=== PATIENT | male | born 1960 | race Hispanic/Latino ===

== ENCOUNTER 2016-12-20 17:06 | Emergency (ER) | payer OTHER ==
[2016-12-20 17:06] VITALS: BMI 22.6
[2016-12-20 17:22] VITALS: BP 134/74; PULSE 92; RESP 16; TEMP 98; O2SAT 94
--- NOTE | 2016-12-20 17:36 | ED PDOC ---
HPI: CCC, URI, Sore Throat Time Seen by Provider: 12/20/16 17:26 Chief Complaint (Nursing): Cough, Cold, Congestion Chief Complaint (Provider): Cough History Per: Patient History/Exam Limitations: no limitations Onset/Duration Of Symptoms: Hrs Current Symptoms Are (Timing): Still Present Location Of Pain: None Associated Symptoms: Cough. denies: Fever Severity: Mild Additional Complaint(s): Patient is a 56 year old male, well known to the ED, presents to the ED complaining of cough since earlier today. Patient requesting nebulizer treatment because of his cough. PMD: none Past Medical History Reviewed: Historical Data, Nursing Documentation, Vital Signs Vital Signs: Last Vital Signs Temp 98.0 F 12/20/16 17:20 Pulse 92 H 12/20/16 17:20 Resp 16 12/20/16 17:20 BP 134/74 12/20/16 17:20 Pulse Ox 94 L 12/20/16 18:09 - Medical History PMH: Asthma, Atrial Fibrillation, COPD, Hepatitis (C), Seizures - Surgical History Surgical History: Appendectomy, Tonsillectomy - Family History Family History: States: Unknown Family Hx - Home Medications Home Medications: Ambulatory Orders Medication Instructions Recorded Albuterol HFA [Ventolin HFA 90 2 puff IH [id number] PRN #60 puff 12/01/16 mcg/actuation (8 g)] - Allergies Allergies/Adverse Reactions: Allergies Allergy/AdvReac Type Severity Reaction Status Date / Time No Known Allergies Allergy Verified 12/20/16 17:20 Review of Systems ROS Statement: Except As Marked, All Systems Reviewed And Found Negative Cardiovascular: Negative for: Chest Pain Respiratory: Positive for: Cough Physical Exam - Reviewed Nursing Documentation Reviewed: Yes Vital Signs Reviewed: Yes - Physical Exam Appears: Positive for: Well, Non-toxic, No Acute Distress Head Exam: Positive for: ATRAUMATIC, NORMAL INSPECTION, NORMOCEPHALIC Skin: Positive for: Normal Color, Warm, DRY Eye Exam: Positive for: Normal appearance, EOMI Neck: Positive for: Normal, Painless ROM Cardiovascular/Chest: Positive for: Regular Rate, Rhythm. Negative for: Gallop , Murmur Respiratory: Positive for: Normal Breath Sounds. Negative for: Accessory Muscle Use, Rhonchi, Respiratory Distress Extremity: Positive for: Normal ROM Neurologic/Psych: Positive for: Alert, Oriented - ECG O2 Sat by Pulse Oximetry: 94 (RA) Pulse Ox Interpretation: Normal Medical Decision Making Medical Decision Making: Time: 17:30 Impression: 56 y/o male with cough Plan: Scribe Attestation: Documented by Ruth Chamberlain acting as a scribe for ANAY Sanchez. Provider Attestation: All medical record entries made by the Scribe were at my direction and personally dictated by me. I have reviewed the chart and agree that the record accurately reflects my personal performance of the history, physical exam, medical decision making, and the department course for this patient. I have also personally directed, reviewed, and agree with the discharge instructions and disposition.
== END 2016-12-20 20:22 | disposition home or self-care (01) ==
LOC: H.ER 17:06
DX: J44.9 Chronic obstructive pulmonary disease, unspecified (principal)

== ENCOUNTER 2016-12-27 22:02 | Observation (INO) | payer OTHER ==
[2016-12-27 22:02] VITALS: BMI 22.6
--- NOTE | 2016-12-27 22:51 | ED PDOC ---
HPI: Psych/Substance Abuse Time Seen by Provider: 12/27/16 22:23 Chief Complaint (Nursing): Alcohol Ingestion Chief Complaint (Provider): alcohol ED Caveat: Intoxicated History Per: Patient History/Exam Limitations: no limitations Additional Complaint(s): 56yo M in ED for eval of intoxication. seen routinely in ED for similar complaints denies any other medical complaints at this time. Past Medical History Reviewed: Historical Data, Nursing Documentation, Vital Signs - Medical History PMH: Asthma, Atrial Fibrillation, COPD, Hepatitis (C), Seizures - Surgical History Surgical History: Appendectomy, Tonsillectomy - Family History Family History: States: No Known Family Hx - Home Medications Home Medications: Ambulatory Orders Medication Instructions Recorded No Known Home Med 12/25/16 - Allergies Allergies/Adverse Reactions: Allergies Allergy/AdvReac Type Severity Reaction Status Date / Time No Known Allergies Allergy Verified 12/26/16 22:21 Review of Systems ROS Statement: Except As Marked, All Systems Reviewed And Found Negative Respiratory: Negative for: Cough Physical Exam - Reviewed Nursing Documentation Reviewed: Yes Vital Signs Reviewed: Yes - Physical Exam Appears: Positive for: Non-toxic Head Exam: Positive for: ATRAUMATIC, NORMAL INSPECTION, NORMOCEPHALIC Skin: Positive for: Normal Color, Warm, DRY Cardiovascular/Chest: Positive for: Regular Rate, Rhythm Respiratory: Positive for: CNT, Normal Breath Sounds Neurologic/Psych: Positive for: Alert, Oriented Medical Decision Making Medical Decision Making: pt with BS <100. given food. pt asleep in ED will be placed in observation. pt is intoxicated-slurred speech and gait. ED OBSERVATION Date of observation admission: 12/27/16 Time of observation admission: 22:55 - Observation admission statement Patient is being placed in observation because:: intoxication - Goals of Observation Goals of observation are:: sobriety clinical Disposition - Clinical Impression Clinical Impression: Alcohol abuse - Patient ED Disposition Is Patient to be Admitted: Transfer of Care - Disposition Disposition Time: 00:00 Condition: STABLE Patient Signed Over To: Jorgito Cheema
--- NOTE | 2016-12-28 05:17 | ED PDOC ---
Medical Decision Making Medical Decision Making: pt ambulatory steady gait. no signs of withdrawl. Disposition - Clinical Impression Clinical Impression: Alcohol abuse - POA Present On Arrival: None - Disposition Disposition: Routine/Home Disposition Time: 05:17 Condition: STABLE
== END 2016-12-28 06:01 | disposition home or self-care (01) ==
LOC: H.ER 22:02 → H.EROBSV 22:56
PROVIDERS: ADMIT Emergency Medicine; ATTEND Emergency Medicine
DX: F10.10 Alcohol abuse, uncomplicated (principal); J45.909 Unspecified asthma, uncomplicated

== ENCOUNTER 2016-12-31 02:46 | Emergency (ER) | payer OTHER ==
[2016-12-31 02:48] VITALS: BMI 22.6
[2016-12-31 02:58] VITALS: RESP 16
--- NOTE | 2016-12-31 03:33 | ED PDOC ---
HPI: Psych/Substance Abuse Time Seen by Provider: 12/31/16 03:04 Chief Complaint (Nursing): Alcohol Ingestion Chief Complaint (Provider): ETOH History Per: Patient, EMS Additional History Per: Patient Additional Complaint(s): 56 y/o male brought in by EMS for alcohol intoxication. Patient discharged a few hours ago after signing up for medication refill. Patient states he needs a place to sleep. Denies acute medical or psychiatric complaints. Past Medical History Reviewed: Historical Data, Nursing Documentation, Vital Signs Vital Signs: Last Vital Signs Temp 97.5 F L 12/31/16 02:56 Pulse 82 12/31/16 02:56 Resp 16 12/31/16 02:56 BP Pulse Ox 100 12/31/16 02:56 - Medical History PMH: Asthma, Atrial Fibrillation, COPD, Hepatitis (C), Seizures - Surgical History Surgical History: Appendectomy, Tonsillectomy - Family History Family History: States: Unknown Family Hx - Home Medications Home Medications: Ambulatory Orders Medication Instructions Recorded Albuterol HFA [Ventolin HFA 90 1 puff IH Q4 PRN #1 inh 12/31/16 mcg/actuation (8 g)] - Allergies Allergies/Adverse Reactions: Allergies Allergy/AdvReac Type Severity Reaction Status Date / Time No Known Allergies Allergy Verified 12/31/16 00:07 Review of Systems ROS Statement: Except As Marked, All Systems Reviewed And Found Negative Physical Exam - Reviewed Nursing Documentation Reviewed: Yes Vital Signs Reviewed: Yes - Physical Exam Appears: Positive for: Well, Non-toxic, No Acute Distress Head Exam: Positive for: ATRAUMATIC, NORMAL INSPECTION, NORMOCEPHALIC Skin: Positive for: Normal Color Eye Exam: Positive for: Normal appearance Cardiovascular/Chest: Positive for: Regular Rate, Rhythm Respiratory: Positive for: Normal Breath Sounds Extremity: Positive for: Normal ROM Neurologic/Psych: Positive for: Alert, Oriented - ECG O2 Sat by Pulse Oximetry: 100 Disposition - Clinical Impression Clinical Impression: Alcohol abuse - Patient ED Disposition Is Patient to be Admitted: No Counseled Patient/Family Regarding: Diagnosis, Need For Followup - Disposition Disposition: Routine/Home Disposition Time: 05:25 Condition: STABLE Instructions: Abuse of Alcohol (ED)
[2016-12-31 05:28] VITALS: BP 142/85; PULSE 88; TEMP 98.6; O2SAT 99
== END 2016-12-31 05:30 | disposition home or self-care (01) ==
LOC: H.ER 02:46
DX: F10.10 Alcohol abuse, uncomplicated (principal); J44.9 Chronic obstructive pulmonary disease, unspecified

== ENCOUNTER 2017-01-24 18:09 | Observation (INO) | payer OTHER ==
[2017-01-24 18:09] VITALS: BMI 22.6
[2017-01-24] MEDS ORDERED: Albuterol-Ipratrop 3 mg / 0.5 (3 ml) UD INH STA (18:22)
[2017-01-24] MEDS ORDERED: Albuterol-Ipratrop 3 mg / 0.5 (3 ml) UD ONE (18:32)
--- NOTE | 2017-01-24 18:53 | ED PDOC ---
HPI: SOB/CHF/COPD Time Seen by Provider: 01/24/17 18:18 Chief Complaint (Nursing): Shortness Of Breath Chief Complaint (Provider): Asthma, cough History Per: Patient History/Exam Limitations: no limitations Onset/Duration Of Symptoms: Days Current Symptoms Are (Timing): Still Present Initiating Event: Out Of Medications Context: Pt states he does not fill his Rx for albuterol Current Respiratory Medications: Albuterol Associated Symptoms: denies: Fever, Chills, Sweating, Chest Pain, Bloody Cough, Productive Cough, Heart Racing, Dizziness, Anxiety, Tingling In Hands Or Face, Musle Spasms In Hands Or Feet Past Medical History Reviewed: Historical Data, Nursing Documentation, Vital Signs Vital Signs: Last Vital Signs Temp 98.1 F 01/24/17 18:29 Pulse 72 01/24/17 18:29 Resp 18 01/24/17 18:30 BP 118/85 01/24/17 18:29 Pulse Ox 96 01/24/17 19:21 - Medical History PMH: Asthma, Atrial Fibrillation, COPD, Hepatitis (C), Seizures - Surgical History Surgical History: Appendectomy, Tonsillectomy - Family History Family History: States: Unknown Family Hx - Social History Current smoker - smoking cessation education provided: No Alcohol: None Drugs: Denies - Home Medications Home Medications: Ambulatory Orders Medication Instructions Recorded Albuterol HFA [Ventolin HFA 90 1 puff IH Q4 PRN #1 inh 12/31/16 mcg/actuation (8 g)] - Allergies Allergies/Adverse Reactions: Allergies Allergy/AdvReac Type Severity Reaction Status Date / Time No Known Allergies Allergy Verified 01/24/17 18:14 Review of Systems ROS Statement: Except As Marked, All Systems Reviewed And Found Negative Respiratory: Positive for: Cough, Wheezing Physical Exam - Reviewed Nursing Documentation Reviewed: Yes Vital Signs Reviewed: Yes - Physical Exam Appears: Positive for: Well, Non-toxic, No Acute Distress Head Exam: Positive for: ATRAUMATIC, NORMAL INSPECTION, NORMOCEPHALIC Skin: Positive for: Normal Color, Warm, DRY Eye Exam: Positive for: Normal appearance ENT: Positive for: Normal ENT Inspection Neck: Positive for: Normal, Painless ROM Cardiovascular/Chest: Positive for: Regular Rate, Rhythm Respiratory: Positive for: Normal Breath Sounds. Negative for: Accessory Muscle Use Gastrointestinal/Abdominal: Positive for: Normal Exam, Bowel Sounds, Soft Back: Positive for: Normal Inspection Extremity: Positive for: Normal ROM Neurologic/Psych: Positive for: Alert, Oriented - ECG O2 Sat by Pulse Oximetry: 96 Pulse Ox Interpretation: Normal Medical Decision Making Medical Decision Makin - Pt requesting food. Abnormal CXR - CT chest ordered. Endorsed at [address] chest. Disposition - Clinical Impression Clinical Impression: Cough - Patient ED Disposition Is Patient to be Admitted: Transfer of Care - Disposition Disposition: Transfer of Care Disposition Time: 19:25 Condition: GOOD
--- NOTE | 2017-01-24 20:53 | CT ---
EXAM: CT Chest Without Intravenous Contrast CLINICAL HISTORY: 57 years old, male; Signs and symptoms; Cough and other: Abnormal cxr; Symptoms not specified; Additional info: Cough, abnormal cxr TECHNIQUE: Axial computed tomography images of the chest without intravenous contrast. This CT exam was performed using one or more of the following dose reduction techniques: automated exposure control, adjustment of the mA and/or kV according to patient size, and/or use of iterative reconstruction technique. Coronal and sagittal reformatted images were created and reviewed. EXAM DATE/TIME: 01/24/2017 7:24 PM COMPARISON: CR - CHEST PORTABLE 01/13/2017 1:22:51 AM FINDINGS: Artifacts: Motion artifact degrades image quality. Lungs and pleural spaces: Trachea and main bronchi are patent. There is minimal scarring at the lung apices. There are blebs at the lung apices. There is airspace disease greatest in right lower lobe. There is minimal airspace disease at the left base. There is a small right effusion. There is no left effusion. Heart and vasculature: Heart size is at the upper limits of normal. There are coronary artery calcifications. Ascending aorta is mildly dilated, 4.3 cm in diameter. The diameter tapers at the arch.There are vascular calcifications. Mediastinum: There is a hiatal hernia. Esophagus is not optimally evaluated. There are shotty precarinal nodes.Maru are not optimally evaluated without contrast material. Thyroid: Thyroid is not optimally demonstrated. Bones/joints: Bony structures are osteopenic. There are degenerative changes. There is mild compression deformity T4. There multiple healed right rib fractures. Soft tissues: unremarkable Upper abdomen: There is trace ascites in the upper abdomen. Hepatic contours are mildly nodular. Multiple serpiginous structures in the left upper quadrant suggest varices. Other findings: There are no prior studies for comparison. IMPRESSION: Top normal heart size with atherosclerotic disease, ascending aortic aneurysm 4.3 cm in maximal diameter; right lower lobe airspace disease with small right effusion; minimal heterogeneous density left base; possible cirrhosis and varices Additional findings as described above.
--- NOTE | 2017-01-24 23:41 | ED PDOC ---
- Laboratory Results Result Diagrams: 01/25/17 04:52 01/25/17 04:52 - ECG O2 Sat by Pulse Oximetry: 96 - Progress ED Course And Treament: pt signed out to account underwriter pending CT scan of chest. suspected abnormality on xray pt with difficultly breathing given breathing treatments in ED 4:28 PT began vomiting in ED states he has abd pain due to vomiting. will get labs- cbc/cmp/UA and given zofran and librium. Re-evaluation Time: 23:41 Condition: Re-examined (well appearing, sleeping. ) Medical Decision Making Medical Decision Making: abnormal labs: WBC low-however pt with hx of low WBC lowest 2.7- pt denies IV drug use and states he hasn't had sexual relations in "years"-pt offered rapid HIV, but declined. lipase-elevated, however with standing hx of elevated lipase and liver enzymes due to alcohol abuse. pt offered librium-but declined. pt at this time no longer with vomiting or nausea VS stable.Pt improved and advised to f.u outpt. Pt is clincally sober. Ct scan shows: Ascending aorta is mildly dilated, 4.3 cm in diameter pt made aware. Disposition - Clinical Impression Clinical Impression: Cough - POA Present On Arrival: None - Disposition Disposition: Routine/Home Disposition Time: 05:34 Condition: GOOD Progress Note - Review of Symptoms General: No: Chills, Night Sweats, Fatigue, Malaise, Appetite, Other HEENT: No: Head Aches, Visual Changes, Eye Pain, Ear Pain, Dysphasia, Sinus Congestion, Post Nasal Drip, Sore Throat, Other Pulmonary: No: Dyspnea, Cough, Pleuritic Chest Pain, Other Cardiovascular: No: Chest Pain, Palpitations, Orthopnea, Paroxysmal Noc. Dyspnea , Edema, Light Headedness, Other Gastrointestinal: No: Nausea, Vomiting, Abdominal Pain, Diarrhea, Constipation, Melena, Hematochezia, Other Genitourinary: No: Dysuria, Frequency, Incontinence, Hematuria, Retention, Other Musculoskeletal: No: Muscle Pain, Joint Pain, Other ED OBSERVATION Date of observation admission: 01/24/17 Time of observation admission: 23:41 - Observation admission statement Patient is being placed in observation because:: intoxication - Goals of Observation Goals of observation are:: clinical sobriety
[2017-01-25 04:48] VITALS: PULSE 89; RESP 16
[2017-01-25 05:06] LABS: BASO # 0.1 K/uL (0.0-0.2); BASO % 2.1 % (0.0-2.0); EOS # 0.1 K/uL (0.0-0.7); EOS % 1.9 % (0.0-4.0); HEMATOCRIT 37.6 % (35.0-51.0); LYMPH # 0.8 K/uL (1.0-4.3); LYMPH % 25.4 % (20.0-40.0); MEAN CELL VOLUME 104.2 fl (80.0-94.0); MEAN CORPUSCULAR HEMOGLOBIN 35.9 pg (27.0-31.0); MEAN CORPUSCULAR HGB CONC 34.4 g/dL (33.0-37.0); MEAN PLATELET VOLUME 9.4 fl (7.2-11.7); MONO # 0.4 K/uL (0.0-0.8); MONO % 13.3 % (0.0-10.0); NEUT # 1.7 K/uL (1.8-7.0); NEUT % 57.3 % (50.0-75.0); NRBC % 0.3 % (0.0-0.0); RED CELL DISTRIBUTION WIDTH 13.3 % (11.5-14.5)
[2017-01-25 05:11] LABS: ALB/GLOB RATIO 0.8 (1.0-2.1); ALCOHOL SERUM 62 mg/dl (0-10); ALKALINE PHOSPHATASE 147 U/L (38-126); ALT/SGPT 62 U/L (21-72); AST/SGOT 105 U/L (17-59); BILIRUBIN,TOTAL 0.8 mg/dl (0.2-1.3); BLOOD UREA NITROGEN 14 mg/dl (9-20); CALCIUM 8.2 mg/dL (8.4-10.2); CARBON DIOXIDE 25 mmol/L (22-30); CHLORIDE 105 mmol/L (98-107); GFR AFRICAN-AMERICAN > 60; GLUCOSE,RANDOM 107 mg/dL (75-110); LIPASE 301 U/L (23-300); POTASSIUM 3.7 MMOL/L (3.6-5.0); SODIUM 141 mmol/l (132-148); TOTAL PROTEIN 7.7 G/DL (6.3-8.2)
[2017-01-25 06:55] VITALS: BP 132/82; TEMP 98; O2SAT 95
--- NOTE | 2017-01-25 10:44 | RAD ---
HISTORY: cough COMPARISON: Chest x-ray performed 01/13/17, CT chest without contrast performed 01/24/17 TECHNIQUE: Chest PA and lateral FINDINGS: LUNGS: Right basilar atelectasis or infiltrate. Mild left basilar atelectasis. Tiny right pleural effusion. No definite pneumothorax. Please note that chest x-ray has limited sensitivity for the detection of pulmonary masses. CARDIOVASCULAR: Prominent mediastinum compatible with aneurysmal dilatation described on CT of the chest performed the same day. OSSEOUS STRUCTURES: Chronic appearing right rib fracture deformities. VISUALIZED UPPER ABDOMEN: Unremarkable. OTHER FINDINGS: None. IMPRESSION: Right basilar atelectasis or infiltrate. Mild left basilar atelectasis. Tiny right pleural effusion. Prominent mediastinum compatible with aneurysmal dilatation described on CT of the chest performed the same day.
== END 2017-01-25 06:20 | disposition home or self-care (01) ==
LOC: H.ER 18:09 → H.EROBSV 23:42
PROVIDERS: ADMIT Emergency Medicine; ATTEND Emergency Medicine
DX: R05 Cough (principal); J44.9 Chronic obstructive pulmonary disease, unspecified; J45.909 Unspecified asthma, uncomplicated; D72.819 Decreased white blood cell count, unspecified; I48.91 Unspecified atrial fibrillation; Z86.19 Personal history of other infectious and parasitic diseases

== ENCOUNTER 2017-01-27 01:22 | Emergency (ER) | payer OTHER ==
[2017-01-27 01:23] VITALS: BMI 22.6
[2017-01-27 01:40] VITALS: BP 114/65; PULSE 78; RESP 16; TEMP 98.1
--- NOTE | 2017-01-27 01:57 | ED PDOC ---
HPI: General Adult Time Seen by Provider: 01/27/17 01:26 Chief Complaint (Nursing): Shortness Of Breath Chief Complaint (Provider): alcohol intoxication History Per: Patient History/Exam Limitations: no limitations Onset/Duration Of Symptoms: Mins Have you had recent travel within the past 21 days to any of the following countries: [place], [place], [place] or [place]?: No Current Symptoms Are (Timing): Still Present Additional Complaint(s): 57yo male well known to ED and provider for multiple previous visits presents to the ED for evaluation of alcohol intoxication. Patient denies any medical complaints. Past Medical History Reviewed: Historical Data, Nursing Documentation, Vital Signs Vital Signs: Last Vital Signs Temp 98.1 F 01/27/17 01:39 Pulse 78 01/27/17 01:39 Resp 16 01/27/17 02:06 BP 114/65 01/27/17 01:39 Pulse Ox 96 01/27/17 05:26 - Medical History PMH: Asthma, Atrial Fibrillation, COPD, Hepatitis (C), Seizures - Surgical History Surgical History: Appendectomy, Tonsillectomy - Family History Family History: States: Unknown Family Hx - Social History Current smoker - smoking cessation education provided: No Alcohol: > 2 Drinks/Day Drugs: Denies - Home Medications Home Medications: Ambulatory Orders Medication Instructions Recorded Albuterol HFA [Ventolin HFA 90 1 puff IH Q4 PRN #1 inh 12/31/16 mcg/actuation (8 g)] - Allergies Allergies/Adverse Reactions: Allergies Allergy/AdvReac Type Severity Reaction Status Date / Time No Known Allergies Allergy Verified 01/24/17 18:14 Review of Systems ROS Statement: Except As Marked, All Systems Reviewed And Found Negative Physical Exam - Reviewed Nursing Documentation Reviewed: Yes Vital Signs Reviewed: Yes - Physical Exam Appears: Positive for: Well, No Acute Distress Head Exam: Positive for: ATRAUMATIC, NORMAL INSPECTION, NORMOCEPHALIC Skin: Positive for: Normal Color, Warm, Dry Eye Exam: Positive for: Normal appearance ENT: Positive for: Normal ENT Inspection Neck: Positive for: Normal, Painless ROM, Supple Cardiovascular/Chest: Positive for: Regular Rate, Rhythm. Negative for: Tachycardia Respiratory: Positive for: Normal Breath Sounds. Negative for: Respiratory Distress Gastrointestinal/Abdominal: Positive for: Normal Exam, Soft. Negative for: Tenderness Back: Positive for: Normal Inspection Extremity: Positive for: Normal ROM. Negative for: Deformity, Swelling Neurologic/Psych: Positive for: Alert, Oriented - ECG O2 Sat by Pulse Oximetry: 96 Pulse Ox Interpretation: Normal (RA) Medical Decision Making Medical Decision Makin: Impression: 57yo male brought for evaluation of alcohol intoxication Plan: Observe pending clinical sobriety. 0530: Patient clinically sober and stable for d/c. Scribe Attestation: Documented by Jaycee Michael acting as a scribe for Renaldo Gates MD. Provider Scribe Attestation: All medical record entries made by the Scribe were at my direction and personally dictated by me. I have reviewed the chart and agree that the record accurately reflects my personal performance of the history, physical exam, medical decision making, and the department course for this patient. I have also personally directed, reviewed, and agree with the discharge instructions and disposition. Disposition - Clinical Impression Clinical Impression: Alcoholism /alcohol abuse - Patient ED Disposition Is Patient to be Admitted: No - Disposition Disposition: Routine/Home Disposition Time: 05:30 Condition: STABLE
[2017-01-27 05:06] VITALS: O2SAT 96
== END 2017-01-27 07:01 | disposition home or self-care (01) ==
LOC: H.ER 01:22
DX: F10.20 Alcohol dependence, uncomplicated (principal); B19.20 Unspecified viral hepatitis C without hepatic coma; I48.91 Unspecified atrial fibrillation; J44.9 Chronic obstructive pulmonary disease, unspecified; J45.909 Unspecified asthma, uncomplicated

== ENCOUNTER 2017-01-27 23:10 | Observation (INO) | payer OTHER ==
[2017-01-27 23:10] VITALS: BMI 22.6
[2017-01-27 23:14] VITALS: O2SAT 96
--- NOTE | 2017-01-28 00:10 | ED PDOC ---
HPI: Psych/Substance Abuse Time Seen by Provider: 01/27/17 23:34 Chief Complaint (Nursing): Alcohol Ingestion History Per: EMS Additional Complaint(s): Pt. brought in by EMS for apparent ETOH intoxication. Pt. admits to drinking "3 pints of vodka" today. Offers no complaints at this time. Past Medical History Reviewed: Historical Data, Nursing Documentation, Vital Signs Vital Signs: Last Vital Signs Temp 97 F L 01/27/17 23:11 Pulse 105 H 01/27/17 23:11 Resp 18 01/27/17 23:11 BP 123/76 01/27/17 23:11 Pulse Ox 96 01/27/17 23:11 - Medical History PMH: Asthma, Atrial Fibrillation, COPD, Hepatitis (C), Seizures - Surgical History Surgical History: Appendectomy, Tonsillectomy - Family History Family History: States: No Known Family Hx - Home Medications Home Medications: Ambulatory Orders Medication Instructions Recorded Albuterol HFA [Ventolin HFA 90 1 puff IH Q4 PRN #1 inh 12/31/16 mcg/actuation (8 g)] - Allergies Allergies/Adverse Reactions: Allergies Allergy/AdvReac Type Severity Reaction Status Date / Time No Known Allergies Allergy Verified 01/24/17 18:14 Review of Systems Review Of Systems: ROS cannot be obtained secondary to pt's inabilty to answer questions. Physical Exam - Reviewed Nursing Documentation Reviewed: Yes Vital Signs Reviewed: Yes - Physical Exam Appears: Positive for: Well, Non-toxic, No Acute Distress Head Exam: Positive for: ATRAUMATIC, NORMAL INSPECTION, NORMOCEPHALIC Skin: Positive for: Normal Color, Warm. Negative for: Rash Eye Exam: Positive for: EOMI, Normal appearance, PERRL ENT: Positive for: Normal ENT Inspection Neck: Positive for: Normal, Painless ROM Cardiovascular/Chest: Positive for: Regular Rate, Rhythm. Negative for: Tachycardia Respiratory: Positive for: CNT, Normal Breath Sounds Gastrointestinal/Abdominal: Positive for: Normal Exam, Soft. Negative for: Tenderness Back: Positive for: Normal Inspection Extremity: Positive for: Normal ROM Neurologic/Psych: Positive for: Alert, Oriented - ECG O2 Sat by Pulse Oximetry: 96 ED OBSERVATION Date of observation admission: 01/28/17 Time of observation admission: 00:09 - Observation admission statement Patient is being placed in observation because:: ETOH - Progress Note Progress Note: 01/28/17 00:10 Repeat HR: 82 Disposition - Clinical Impression Clinical Impression: Alcohol abuse - Patient ED Disposition Is Patient to be Admitted: Transfer of Care (Signed out to Juan Carlos SALDANA pending sobriety) - Disposition Disposition Time: 00:10 Condition: STABLE
--- NOTE | 2017-01-28 06:15 | ED PDOC ---
- ECG O2 Sat by Pulse Oximetry: 96 - Progress ED Course And Treament: Case endorsed to feature writer from Ector SALDANA pending clinical sobriety 2:00 Patient sleeping; no distress 4:00 Patient awake, alert, oriented x 3; ambulating stead gait. Stable for discharge Disposition - Clinical Impression Clinical Impression: Alcohol abuse - POA Present On Arrival: None - Disposition Disposition: Routine/Home Disposition Time: 04:00 Condition: STABLE
[2017-01-28 06:57] VITALS: BP 121/74; PULSE 78; RESP 17; TEMP 97.9
== END 2017-01-28 04:00 | disposition home or self-care (01) ==
LOC: H.ER 23:10 → H.EROBSV 01-28
PROVIDERS: ADMIT Emergency Medicine; ATTEND Emergency Medicine
DX: F10.10 Alcohol abuse, uncomplicated (principal); J45.909 Unspecified asthma, uncomplicated; J44.9 Chronic obstructive pulmonary disease, unspecified; G40.909 Epilepsy, unspecified, not intractable, without status epilepticus; I48.2 Chronic atrial fibrillation; K75.9 Inflammatory liver disease, unspecified

== ENCOUNTER 2017-01-29 22:03 | Emergency (ER) | payer OTHER ==
[2017-01-29 22:03] VITALS: BMI 22.6
[2017-01-29 22:13] VITALS: RESP 16; TEMP 97.7
[2017-01-29] MEDS ORDERED: Albuterol-Ipratrop 3 mg / 0.5 (3 ml) UD INH STA (22:18)
--- NOTE | 2017-01-30 03:36 | ED PDOC ---
HPI: General Adult Time Seen by Provider: 01/29/17 22:17 Chief Complaint (Nursing): Respiratory Distress Chief Complaint (Provider): ETOH - Asthma History Per: Patient History/Exam Limitations: no limitations Onset/Duration Of Symptoms: Days Have you had recent travel within the past 21 days to any of the following countries: [place], [place], [place] or [place]?: No Additional Complaint(s): Pt states he needs a treatment and to sleep. Denies chest pain or SOB. Past Medical History Reviewed: Historical Data, Nursing Documentation, Vital Signs Vital Signs: Last Vital Signs Temp 97.7 F 01/29/17 22:09 Pulse 91 H 01/29/17 22:09 Resp 16 01/29/17 22:19 BP 127/70 01/29/17 22:09 Pulse Ox 98 01/29/17 22:09 - Medical History PMH: Asthma, Atrial Fibrillation, COPD, Hepatitis (C), Seizures - Surgical History Surgical History: Appendectomy, Tonsillectomy - Family History Family History: States: No Known Family Hx - Living Arrangements Living Arrangements: With Family - Social History Current smoker - smoking cessation education provided: No - Home Medications Home Medications: Ambulatory Orders Medication Instructions Recorded Albuterol HFA [Ventolin HFA 90 1 puff IH Q4 PRN #1 inh 12/31/16 mcg/actuation (8 g)] - Allergies Allergies/Adverse Reactions: Allergies Allergy/AdvReac Type Severity Reaction Status Date / Time No Known Allergies Allergy Verified 01/24/17 18:14 Review of Systems ROS Statement: Except As Marked, All Systems Reviewed And Found Negative Respiratory: Positive for: Wheezing Physical Exam - Reviewed Nursing Documentation Reviewed: Yes Vital Signs Reviewed: Yes - Physical Exam Appears: Positive for: Well, Non-toxic, No Acute Distress Head Exam: Positive for: ATRAUMATIC, NORMAL INSPECTION, NORMOCEPHALIC Skin: Positive for: Normal Color, Warm, DRY Eye Exam: Positive for: Normal appearance ENT: Positive for: Normal ENT Inspection Neck: Positive for: Normal, Painless ROM Cardiovascular/Chest: Positive for: Regular Rate, Rhythm Respiratory: Positive for: Normal Breath Sounds. Negative for: Accessory Muscle Use Back: Positive for: Normal Inspection Extremity: Positive for: Normal ROM Neurologic/Psych: Positive for: Alert, Oriented - ECG O2 Sat by Pulse Oximetry: 98 Pulse Ox Interpretation: Normal Medical Decision Making Medical Decision Making: Lanceb given - No wheezing on re-evaluation. Pt reports feeling better. Disposition - Clinical Impression Clinical Impression: Asthma, Homeless single person - Patient ED Disposition Is Patient to be Admitted: No Counseled Patient/Family Regarding: Diagnosis, Need For Followup - Disposition Referrals: [facility] [Outside] Disposition: Routine/Home Disposition Time: 03:36 Condition: STABLE Instructions: Asthma (ED)
[2017-01-30 05:29] VITALS: BP 125/80; PULSE 75; O2SAT 95
== END 2017-01-30 05:47 | disposition home or self-care (01) ==
LOC: H.ER 22:03
DX: J44.9 Chronic obstructive pulmonary disease, unspecified (principal); J45.909 Unspecified asthma, uncomplicated; Z59.0 Homelessness

== ENCOUNTER 2017-01-30 21:56 | Emergency (ER) | payer OTHER ==
[2017-01-30 21:56] VITALS: BMI 22.6
[2017-01-30 22:02] VITALS: BP 114/76; PULSE 78; RESP 18; TEMP 97.1; O2SAT 99
--- NOTE | 2017-01-30 22:08 | ED PDOC ---
HPI: Psych/Substance Abuse Time Seen by Provider: 01/30/17 22:03 Chief Complaint (Nursing): Alcohol Ingestion Chief Complaint (Provider): Alcohol intoxication History Per: Patient Additional Complaint(s): Patient [place] the park. No distress or complaints. Pt asking for bowl of ceral upon arrival. Well known to ED staff and procedure writer. Presents daily for the same Past Medical History Reviewed: Nursing Documentation, Vital Signs Vital Signs: Last Vital Signs Temp 97.1 F L 01/30/17 21:59 Pulse 78 01/30/17 21:59 Resp 18 01/30/17 21:59 BP 114/76 01/30/17 21:59 Pulse Ox 99 01/30/17 21:59 - Medical History PMH: Asthma, Atrial Fibrillation, COPD, Hepatitis (C), Seizures - Surgical History Surgical History: Appendectomy, Tonsillectomy - Family History Family History: States: No Known Family Hx - Living Arrangements Living Arrangements: Other - Social History Alcohol: > 2 Drinks/Day - Home Medications Home Medications: Ambulatory Orders Medication Instructions Recorded Albuterol HFA [Ventolin HFA 90 1 puff IH Q4 PRN #1 inh 12/31/16 mcg/actuation (8 g)] - Allergies Allergies/Adverse Reactions: Allergies Allergy/AdvReac Type Severity Reaction Status Date / Time No Known Allergies Allergy Verified 01/24/17 18:14 Review of Systems ROS Statement: Except As Marked, All Systems Reviewed And Found Negative Physical Exam - Reviewed Nursing Documentation Reviewed: Yes Vital Signs Reviewed: Yes - Physical Exam Appears: Positive for: Well, Non-toxic, No Acute Distress Head Exam: Positive for: ATRAUMATIC, NORMAL INSPECTION, NORMOCEPHALIC Skin: Positive for: Normal Color, Warm, DRY Eye Exam: Positive for: EOMI, Normal appearance, PERRL ENT: Positive for: Normal ENT Inspection Neck: Positive for: Normal, Painless ROM Cardiovascular/Chest: Positive for: Regular Rate, Rhythm Respiratory: Positive for: CNT, Normal Breath Sounds Gastrointestinal/Abdominal: Positive for: Normal Exam, Bowel Sounds, Soft Back: Positive for: Normal Inspection Extremity: Positive for: Normal ROM Neurologic/Psych: Positive for: Alert, Oriented - ECG O2 Sat by Pulse Oximetry: 99 Medical Decision Making Medical Decision Making: No medical intervention needed at this time Disposition - Clinical Impression Clinical Impression: Alcohol dependence - Patient ED Disposition Is Patient to be Admitted: No - Disposition Disposition: Routine/Home Disposition Time: 22:08 Condition: STABLE - POA Present On Arrival: None
== END 2017-01-30 23:57 | disposition home or self-care (01) ==
LOC: H.ER 21:56
DX: F10.20 Alcohol dependence, uncomplicated (principal); I48.91 Unspecified atrial fibrillation; J44.9 Chronic obstructive pulmonary disease, unspecified; J45.909 Unspecified asthma, uncomplicated

== ENCOUNTER 2017-02-05 03:24 | Emergency (ER) | payer OTHER ==
[2017-02-05 03:24] VITALS: BMI 21.2
[2017-02-05 05:11] VITALS: PULSE 81
[2017-02-05 05:16] VITALS: BP 131/85; RESP 17; TEMP 98.2; O2SAT 97
--- NOTE | 2017-02-05 06:42 | ED PDOC ---
HPI: Psych/Substance Abuse Time Seen by Provider: 02/05/17 03:33 Chief Complaint (Nursing): Chest Pain Chief Complaint (Provider): Chest Pain History Per: Patient History/Exam Limitations: no limitations Onset/Duration Of Symptoms: Days (x4days) Current Symptoms Are (Timing): Still Present Additional History Per: Patient Additional Complaint(s): Jorge L Huitron is a 57 year old male with a past medial history of COPD, atrial fibrillation, asthma, heatitis, and seizures and a surgical history of an appendectomy and tonsilectomy who presents to the ED for intoxication. Pt is well known to provider for multiple visits for same in past. Past Medical History Reviewed: Historical Data, Nursing Documentation, Vital Signs Vital Signs: Last Vital Signs Temp 98.2 F 02/05/17 04:46 Pulse 81 02/05/17 04:46 Resp 17 02/05/17 04:46 BP 131/85 02/05/17 04:46 Pulse Ox 97 02/05/17 04:46 - Medical History PMH: Asthma, Atrial Fibrillation, COPD, Hepatitis (C), Seizures - Surgical History Surgical History: Appendectomy, Tonsillectomy - Family History Family History: States: Unknown Family Hx - Home Medications Home Medications: Ambulatory Orders Medication Instructions Recorded Albuterol HFA [Ventolin HFA 90 1 puff IH Q4 PRN #1 inh 12/31/16 mcg/actuation (8 g)] - Allergies Allergies/Adverse Reactions: Allergies Allergy/AdvReac Type Severity Reaction Status Date / Time No Known Allergies Allergy Verified 02/05/17 03:43 Review of Systems ROS Statement: Except As Marked, All Systems Reviewed And Found Negative Respiratory: Positive for: Shortness of Breath Genitourinary Male: Positive for: Other (Dysfunctional Uterine Bleeding) Physical Exam - Reviewed Nursing Documentation Reviewed: Yes Vital Signs Reviewed: Yes - Physical Exam Appears: Positive for: Well, Non-toxic, No Acute Distress Head Exam: Positive for: ATRAUMATIC, NORMAL INSPECTION, NORMOCEPHALIC Skin: Positive for: Normal Color, Warm, Dry Eye Exam: Positive for: Normal appearance, EOMI, PERRL ENT: Positive for: Normal ENT Inspection Neck: Positive for: Normal, Supple Cardiovascular/Chest: Positive for: Regular Rate, Rhythm, Chest Non Tender. Negative for: Murmur, Tachycardia Respiratory: Positive for: Normal Breath Sounds. Negative for: Wheezing, Respiratory Distress Gastrointestinal/Abdominal: Positive for: Normal Exam, Soft. Negative for: Tenderness Back: Positive for: Normal Inspection Rectal: Positive for: Deferred Extremity: Positive for: Normal ROM Lymphatic: Positive for: Deferred Neurologic/Psych: Positive for: Alert, Oriented - ECG O2 Sat by Pulse Oximetry: 97 (RA) Pulse Ox Interpretation: Normal Medical Decision Making Medical Decision Makin: Initial Impression: 57 year old intoxicated male with known alcoholism At 6AM pt is stable for dc home Dx Alcoholism Scribe~Attestation: Documented by Chuy Alvarez acting as a~scribe~for Renaldo Gates MD. ~ Provider~Scribe~Attestation: All medical record entries made by the~Scribe~were at my direction and personally dictated by me. I have reviewed the chart and agree that the record accurately reflects my personal performance of the history, physical exam, medical decision making, and the department course for this patient. I have also personally directed, reviewed, and agree with the discharge instructions and disposition. Disposition - Clinical Impression Clinical Impression: Alcoholism /alcohol abuse - Patient ED Disposition Is Patient to be Admitted: No - Disposition Disposition: Routine/Home Disposition Time: 06:00 Condition: GOOD
--- NOTE | 2017-02-05 22:41 | CARD ---
APPROVED REPORT EKG Measurement Heart [id number] <Conclusion> Normal sinus rhythm Possible Left atrial enlargement Borderline ECG
== END 2017-02-05 06:40 | disposition home or self-care (01) ==
LOC: H.ER 03:24
DX: F10.10 Alcohol abuse, uncomplicated (principal); R07.89 Other chest pain; I48.91 Unspecified atrial fibrillation; J44.9 Chronic obstructive pulmonary disease, unspecified; J45.909 Unspecified asthma, uncomplicated

== ENCOUNTER 2017-02-06 02:49 | Emergency (ER) | payer OTHER ==
[2017-02-06 02:50] VITALS: BMI 21.2
[2017-02-06 02:55] VITALS: RESP 18
--- NOTE | 2017-02-06 03:15 | ED PDOC ---
HPI: Psych/Substance Abuse Time Seen by Provider: 02/06/17 03:15 Chief Complaint (Nursing): Alcohol Ingestion Chief Complaint (Provider): etoh History Per: Patient Additional Complaint(s): Patient is intoxicated and is requesting place to sleep. He is well known to ED for frequent visits. Patient offers no acute complaints. Past Medical History Reviewed: Historical Data, Nursing Documentation, Vital Signs Vital Signs: Last Vital Signs Temp 7.9 F L 02/06/17 02:53 Pulse 76 02/06/17 02:53 Resp 18 02/06/17 02:53 BP 109/59 L 02/06/17 02:53 Pulse Ox 96 02/06/17 02:53 - Medical History PMH: Asthma, Atrial Fibrillation, COPD, Hepatitis (C), Seizures - Surgical History Surgical History: Appendectomy, Tonsillectomy - Family History Family History: States: Unknown Family Hx - Home Medications Home Medications: Ambulatory Orders Medication Instructions Recorded Albuterol HFA [Ventolin HFA 90 1 puff IH Q4 PRN #1 inh 12/31/16 mcg/actuation (8 g)] - Allergies Allergies/Adverse Reactions: Allergies Allergy/AdvReac Type Severity Reaction Status Date / Time No Known Allergies Allergy Verified 02/05/17 03:43 Review of Systems ROS Statement: Except As Marked, All Systems Reviewed And Found Negative Psych: Positive for: Other (etoh) Physical Exam - Reviewed Nursing Documentation Reviewed: Yes Vital Signs Reviewed: Yes - Physical Exam Appears: Positive for: Well, Non-toxic, No Acute Distress Cardiovascular/Chest: Positive for: Regular Rate, Rhythm Respiratory: Positive for: Normal Breath Sounds Neurologic/Psych: Positive for: Alert, Other (intoxicated, answers questions appropriately) - ECG O2 Sat by Pulse Oximetry: 96 Pulse Ox Interpretation: Normal Medical Decision Making Medical Decision Makin57 year old intoxicated male. Patient was observed for 3.5 hours in ED. His condition remained stable through his stay 6:00 am - patient is awake, alert, with steady gait using walking which he uses at baseline. He is stable for discharge. Disposition - Clinical Impression Clinical Impression: Alcohol abuse - Patient ED Disposition Is Patient to be Admitted: No - Disposition Referrals: [facility] [Outside] Disposition: Routine/Home Disposition Time: 06:00 Condition: FAIR Instructions: Abuse of Alcohol (ED)
[2017-02-06 05:53] VITALS: BP 110/79; PULSE 77; TEMP 98.1; O2SAT 95
== END 2017-02-06 05:52 | disposition home or self-care (01) ==
LOC: H.ER 02:49
DX: F10.10 Alcohol abuse, uncomplicated (principal); I48.91 Unspecified atrial fibrillation; J44.9 Chronic obstructive pulmonary disease, unspecified; J45.909 Unspecified asthma, uncomplicated

== ENCOUNTER 2017-02-07 03:10 | Emergency (ER) | payer OTHER ==
[2017-02-07 03:10] VITALS: BMI 21.2
[2017-02-07 03:52] VITALS: BP 146/67; PULSE 92; RESP 18; TEMP 97.6; O2SAT 95
--- NOTE | 2017-02-07 04:01 | ED PDOC ---
HPI: Psych/Substance Abuse Time Seen by Provider: 02/07/17 03:58 Chief Complaint (Nursing): Alcohol Ingestion Chief Complaint (Provider): etoh History Per: Patient Additional Complaint(s): Patient arrives to ED intoxicated via ambulance. He offers no acute complaints. Patient is well known to ED for frequent visits. Past Medical History Reviewed: Historical Data, Nursing Documentation, Vital Signs Vital Signs: Last Vital Signs Temp 97.6 F 02/07/17 03:50 Pulse 92 H 02/07/17 03:50 Resp 18 02/07/17 03:50 BP 146/67 02/07/17 03:50 Pulse Ox 95 02/07/17 03:50 - Medical History PMH: Asthma, Atrial Fibrillation, COPD, Hepatitis (C), Seizures - Surgical History Surgical History: Appendectomy, Tonsillectomy - Family History Family History: States: No Known Family Hx - Living Arrangements Living Arrangements: Other (non domiciled) - Social History Alcohol: > 2 Drinks/Day - Home Medications Home Medications: Ambulatory Orders Medication Instructions Recorded Albuterol HFA [Ventolin HFA 90 1 puff IH Q4 PRN #1 inh 12/31/16 mcg/actuation (8 g)] - Allergies Allergies/Adverse Reactions: Allergies Allergy/AdvReac Type Severity Reaction Status Date / Time No Known Allergies Allergy Verified 02/07/17 03:27 Review of Systems ROS Statement: Except As Marked, All Systems Reviewed And Found Negative Psych: Positive for: Other (etoh) Physical Exam - Reviewed Nursing Documentation Reviewed: Yes Vital Signs Reviewed: Yes - Physical Exam Appears: Positive for: Well, Non-toxic, No Acute Distress Skin: Negative for: Rash Eye Exam: Positive for: Normal appearance Cardiovascular/Chest: Positive for: Regular Rate, Rhythm Respiratory: Positive for: Normal Breath Sounds Neurologic/Psych: Positive for: Alert, Oriented - ECG O2 Sat by Pulse Oximetry: 95 Pulse Ox Interpretation: Normal Medical Decision Making Medical Decision Makin57 year old intoxicated male Body lice noted, patient was placed in decon shower and given change of clothing. 6 am: patient is awake, alert, steady gait, stable for discharge. Disposition - Clinical Impression Clinical Impression: Alcohol abuse, Infestation (skin) - Patient ED Disposition Is Patient to be Admitted: No - Disposition Referrals: [facility] [Outside] Disposition: Routine/Home Disposition Time: 06:00 Condition: FAIR Instructions: Abuse of Alcohol (ED)
== END 2017-02-07 06:16 | disposition home or self-care (01) ==
LOC: H.ER 03:10
DX: F10.10 Alcohol abuse, uncomplicated (principal); B85.2 Pediculosis, unspecified; I48.91 Unspecified atrial fibrillation; J44.9 Chronic obstructive pulmonary disease, unspecified; J45.909 Unspecified asthma, uncomplicated

== ENCOUNTER 2017-02-07 21:25 | Observation (INO) | payer OTHER ==
[2017-02-07 21:25] VITALS: BMI 21.2
[2017-02-07 21:29] VITALS: BP 112/73; PULSE 88; RESP 18; TEMP 97; O2SAT 97
--- NOTE | 2017-02-07 21:35 | ED PDOC ---
HPI: Psych/Substance Abuse Time Seen by Provider: 02/07/17 21:26 Chief Complaint (Nursing): Alcohol Ingestion History Per: Patient, EMS History/Exam Limitations: intoxication Additional Complaint(s): As per EMS pt. was found sitting on bench and was unable to walk on his own. Pt. admits to drinking alcohol. Offers no complaints but is requesting cereal. Past Medical History Reviewed: Historical Data, Nursing Documentation, Vital Signs Vital Signs: Last Vital Signs Temp 97 F L 02/07/17 21:27 Pulse 88 02/07/17 21:27 Resp 18 02/07/17 21:27 BP 112/73 02/07/17 21:27 Pulse Ox 97 02/07/17 21:27 - Medical History PMH: Asthma, Atrial Fibrillation, COPD, Hepatitis (C), Seizures - Surgical History Surgical History: Appendectomy, Tonsillectomy - Family History Family History: States: No Known Family Hx - Home Medications Home Medications: Ambulatory Orders Medication Instructions Recorded Albuterol HFA [Ventolin HFA 90 1 puff IH Q4 PRN #1 inh 12/31/16 mcg/actuation (8 g)] - Allergies Allergies/Adverse Reactions: Allergies Allergy/AdvReac Type Severity Reaction Status Date / Time No Known Allergies Allergy Verified 02/07/17 03:27 Review of Systems Review Of Systems: ROS cannot be obtained secondary to pt's inabilty to answer questions. - ECG O2 Sat by Pulse Oximetry: 97 ED OBSERVATION Date of observation admission: 02/07/17 Time of observation admission: 21:35 - Observation admission statement Patient is being placed in observation because:: ETOH - Progress Note Progress Note: 02/07/17 23:59 Sleeping comfortably and in no distress. Disposition - Clinical Impression Clinical Impression: Alcohol abuse with uncomplicated intoxication - Patient ED Disposition Is Patient to be Admitted: Transfer of Care (Signed out to Deni SALDANA pending sobriety.) - Disposition Disposition Time: 00:00 Condition: STABLE
--- NOTE | 2017-02-08 03:08 | ED PDOC ---
- ECG O2 Sat by Pulse Oximetry: 97 Medical Decision Making Medical Decision Making: pt signed out to me pending sobriety. pt ambulatory steady gait. no signs of withdrawl. urinated in corner of exam room. will d/c home. Disposition - Clinical Impression Clinical Impression: Alcohol abuse with uncomplicated intoxication - POA Present On Arrival: None - Disposition Disposition: Routine/Home Disposition Time: 03:08 Condition: STABLE
== END 2017-02-08 03:00 | disposition home or self-care (01) ==
LOC: H.ER 21:25 → H.EROBSV 21:34
PROVIDERS: ADMIT Emergency Medicine; ATTEND Emergency Medicine
DX: F10.120 Alcohol abuse with intoxication, uncomplicated (principal); I48.91 Unspecified atrial fibrillation; J44.9 Chronic obstructive pulmonary disease, unspecified

== ENCOUNTER 2017-02-18 18:02 | Emergency (ER) | payer MEDICAID, OTHER ==
[2017-02-18 18:40] VITALS: BMI 21.1
[2017-02-18 18:43] VITALS: BP 117/73; PULSE 95; RESP 16; TEMP 98; O2SAT 98
--- NOTE | 2017-02-18 22:25 | ED PDOC ---
HPI: General Adult Time Seen by Provider: 02/18/17 18:39 Chief Complaint (Provider): Sleeping a lot, needs a bed History Per: Patient History/Exam Limitations: no limitations Onset/Duration Of Symptoms: Days Have you had recent travel within the past 21 days to any of the following countries: [place], [place], [place] or [place]?: No Current Symptoms Are (Timing): Still Present Past Medical History Reviewed: Historical Data, Nursing Documentation, Vital Signs Vital Signs: Last Vital Signs Temp 98.0 F 02/18/17 18:41 Pulse 95 H 02/18/17 18:41 Resp 16 02/18/17 18:41 BP 117/73 02/18/17 18:41 Pulse Ox 98 02/18/17 18:41 - Medical History PMH: Asthma, Atrial Fibrillation, COPD, Hepatitis (C), Seizures - Surgical History Surgical History: Appendectomy, Tonsillectomy - Family History Family History: States: No Known Family Hx - Living Arrangements Living Arrangements: Other - Social History Current smoker - smoking cessation education provided: No Alcohol: None Drugs: Denies - Home Medications Home Medications: Ambulatory Orders Medication Instructions Recorded Albuterol HFA [Ventolin HFA 90 1 puff IH Q4 PRN #1 inh 12/31/16 mcg/actuation (8 g)] - Allergies Allergies/Adverse Reactions: Allergies Allergy/AdvReac Type Severity Reaction Status Date / Time No Known Allergies Allergy Verified 02/18/17 18:40 Review of Systems ROS Statement: Except As Marked, All Systems Reviewed And Found Negative Constitutional: Positive for: Other Physical Exam - Reviewed Nursing Documentation Reviewed: Yes Vital Signs Reviewed: Yes - Physical Exam Appears: Positive for: Well, Non-toxic, No Acute Distress Head Exam: Positive for: ATRAUMATIC, NORMAL INSPECTION, NORMOCEPHALIC Skin: Positive for: Normal Color, Warm, DRY Eye Exam: Positive for: Normal appearance ENT: Positive for: Normal ENT Inspection Neck: Positive for: Normal, Painless ROM Cardiovascular/Chest: Positive for: Regular Rate, Rhythm Respiratory: Positive for: CNT, Normal Breath Sounds Gastrointestinal/Abdominal: Positive for: Normal Exam, Bowel Sounds, Soft Back: Positive for: Normal Inspection Extremity: Positive for: Normal ROM Neurologic/Psych: Positive for: Alert, Oriented - ECG O2 Sat by Pulse Oximetry: 98 Disposition - Clinical Impression Clinical Impression: Homelessness - Disposition Referrals: [facility] [Outside] Disposition: Routine/Home Disposition Time: 18:59 Condition: STABLE
== END 2017-02-18 19:24 | disposition home or self-care (01) ==
LOC: H.ER 18:02
DX: Z59.0 Homelessness (principal); I48.91 Unspecified atrial fibrillation; J44.9 Chronic obstructive pulmonary disease, unspecified; J45.909 Unspecified asthma, uncomplicated

== ENCOUNTER 2017-02-21 13:37 | Emergency (ER) | payer OTHER ==
[2017-02-21 13:37] VITALS: BMI 21.1
[2017-02-21 13:53] VITALS: BP 98/62; PULSE 77; RESP 16; TEMP 98.2; O2SAT 96
--- NOTE | 2017-02-21 14:51 | ED PDOC ---
HPI: Psych/Substance Abuse Time Seen by Provider: 02/21/17 13:48 Chief Complaint (Nursing): Alcohol Ingestion Chief Complaint (Provider): Alcohol Ingestion History Per: Patient History/Exam Limitations: no limitations Onset/Duration Of Symptoms: Hrs Current Symptoms Are (Timing): Still Present Additional Complaint(s): 57 y/o male presents to the emergency department after ingestion of alcohol prior to arrival. Reports he is tired and wants to sleep. Patient is well known to the provider for previous ETOH visits in the past. Denies any medical complaints. Past Medical History Reviewed: Historical Data, Nursing Documentation, Vital Signs Vital Signs: Last Vital Signs Temp 98.2 F 02/21/17 13:52 Pulse 77 02/21/17 13:52 Resp 16 02/21/17 13:52 BP 98/62 L 02/21/17 13:52 Pulse Ox 96 02/21/17 13:52 - Medical History PMH: Asthma, Atrial Fibrillation, COPD, Hepatitis (C), Seizures - Surgical History Surgical History: Appendectomy, Tonsillectomy - Family History Family History: States: Unknown Family Hx - Social History Alcohol: > 2 Drinks/Day - Home Medications Home Medications: Ambulatory Orders Medication Instructions Recorded Albuterol HFA [Ventolin HFA 90 1 puff IH Q4 PRN #1 inh 12/31/16 mcg/actuation (8 g)] - Allergies Allergies/Adverse Reactions: Allergies Allergy/AdvReac Type Severity Reaction Status Date / Time No Known Allergies Allergy Verified 02/21/17 13:39 Review of Systems ROS Statement: Except As Marked, All Systems Reviewed And Found Negative Physical Exam - Reviewed Nursing Documentation Reviewed: Yes Vital Signs Reviewed: Yes - Physical Exam Appears: Positive for: Non-toxic, No Acute Distress Head Exam: Positive for: ATRAUMATIC, NORMAL INSPECTION, NORMOCEPHALIC Skin: Positive for: Normal Color, Warm, Dry Neck: Positive for: Normal, Supple Cardiovascular/Chest: Positive for: Regular Rate, Rhythm. Negative for: Murmur Respiratory: Positive for: Normal Breath Sounds. Negative for: Accessory Muscle Use, Respiratory Distress Extremity: Positive for: Normal ROM. Negative for: Pedal Edema Neurologic/Psych: Positive for: Alert, Oriented - ECG O2 Sat by Pulse Oximetry: 96 (RA) Pulse Ox Interpretation: Normal Medical Decision Making Medical Decision Making: Time: 13:48 Initial Impression: Alcohol Ingestion Initial Plan: --Patient is sleeping comfortably. --Pending clinical sobriety. Pt up and out of bed with baseline gait using walking. Scribe Attestation: Documented by Geovanna Chun, acting as a scribe for Dalia Agee PA-C. Provider Scribe Attestation: All medical record entries made by the Scribe were at my direction and personally dictated by me. I have reviewed the chart and agree that the record accurately reflects my personal performance of the history, physical exam, medical decision making, and the department course for this patient. I have also personally directed, reviewed, and agree with the discharge instructions and disposition. Disposition - Clinical Impression Clinical Impression: Alcohol abuse - Patient ED Disposition Is Patient to be Admitted: No Counseled Patient/Family Regarding: Diagnosis, Need For Followup - Disposition Disposition: Routine/Home Disposition Time: 17:30 Condition: GOOD Instructions: Alcohol Intoxication (ED)
== END 2017-02-21 19:11 | disposition home or self-care (01) ==
LOC: H.ER 13:37
DX: F10.129 Alcohol abuse with intoxication, unspecified (principal)

== ENCOUNTER 2017-02-22 18:02 | Emergency (ER) | payer OTHER ==
[2017-02-22 18:02] VITALS: BMI 21.1
[2017-02-22 18:06] VITALS: BP 115/70; PULSE 71; RESP 18; TEMP 97.7; O2SAT 100
--- NOTE | 2017-02-22 22:09 | ED PDOC ---
HPI: Psych/Substance Abuse Time Seen by Provider: 02/22/17 18:11 Chief Complaint (Nursing): Alcohol Ingestion Chief Complaint (Provider): Alcohol abuse History Per: Patient History/Exam Limitations: no limitations Onset/Duration Of Symptoms: Hrs Current Symptoms Are (Timing): Still Present Modifying Factor(s): Alcohol Involuntary Hold By: None Additional Complaint(s): Pt cooperative. Reports to drinking today. Past Medical History Reviewed: Historical Data, Nursing Documentation, Vital Signs Vital Signs: Last Vital Signs Temp 97.7 F 02/22/17 18:05 Pulse 71 02/22/17 18:05 Resp 18 02/22/17 18:05 BP 115/70 02/22/17 18:05 Pulse Ox 100 02/22/17 18:05 - Medical History PMH: Asthma, Atrial Fibrillation, COPD, Hepatitis (C), Seizures - Surgical History Surgical History: Appendectomy, Tonsillectomy - Family History Family History: States: No Known Family Hx - Living Arrangements Living Arrangements: With Family - Social History Current smoker - smoking cessation education provided: No Alcohol: > 2 Drinks/Day Drugs: Denies - Home Medications Home Medications: Ambulatory Orders Medication Instructions Recorded Albuterol HFA [Ventolin HFA 90 1 puff IH Q4 PRN #1 inh 12/31/16 mcg/actuation (8 g)] - Allergies Allergies/Adverse Reactions: Allergies Allergy/AdvReac Type Severity Reaction Status Date / Time No Known Allergies Allergy Verified 02/22/17 00:46 Review of Systems ROS Statement: Except As Marked, All Systems Reviewed And Found Negative Neurological: Negative for: Weakness Psych: Negative for: Suicidal ideation Physical Exam - Reviewed Nursing Documentation Reviewed: Yes Vital Signs Reviewed: Yes - Physical Exam Appears: Positive for: Well, Non-toxic, No Acute Distress Head Exam: Positive for: ATRAUMATIC, NORMAL INSPECTION, NORMOCEPHALIC Skin: Positive for: Normal Color, Warm, DRY Eye Exam: Positive for: Normal appearance, EOMI, PERRL ENT: Positive for: Normal ENT Inspection Neck: Positive for: Normal, Painless ROM Cardiovascular/Chest: Positive for: Regular Rate, Rhythm Respiratory: Positive for: CNT, Normal Breath Sounds Back: Positive for: Normal Inspection Extremity: Positive for: Normal ROM Neurologic/Psych: Positive for: Alert, Oriented - ECG O2 Sat by Pulse Oximetry: 100 Disposition - Clinical Impression Clinical Impression: Alcohol abuse - Patient ED Disposition Is Patient to be Admitted: No Counseled Patient/Family Regarding: Diagnosis, Need For Followup, Rx Given - Disposition Referrals: [facility] [Outside] Disposition: Routine/Home Disposition Time: 22:09 Condition: GOOD Instructions: Abuse of Alcohol (ED)
== END 2017-02-23 06:00 | disposition home or self-care (01) ==
LOC: H.ER 18:02
DX: F10.10 Alcohol abuse, uncomplicated (principal); I48.91 Unspecified atrial fibrillation; J44.9 Chronic obstructive pulmonary disease, unspecified; J45.909 Unspecified asthma, uncomplicated

== ENCOUNTER 2017-06-20 16:32 | Emergency (ER) | payer OTHER ==
[2017-06-20 16:32] VITALS: BMI 20.5
[2017-06-20 16:35] VITALS: TEMP 98.2
[2017-06-20] MEDS ORDERED: Sodium Chloride 0.9% 1,000 ML IV STA ×2 (16:44→16:45)
[2017-06-20 17:07] LABS: BASO # 0.1 K/uL (0.0-0.2); BASO % 2.9 % (0.0-2.0); EOS # 0.1 K/uL (0.0-0.7); EOS % 1.3 % (0.0-4.0); HEMATOCRIT 39.4 % (35.0-51.0); LYMPH # 1.4 K/uL (1.0-4.3); LYMPH % 28.4 % (20.0-40.0); MEAN CELL VOLUME 105.4 fl (80.0-94.0); MEAN CORPUSCULAR HEMOGLOBIN 35.3 pg (27.0-31.0); MEAN CORPUSCULAR HGB CONC 33.5 g/dL (33.0-37.0); MEAN PLATELET VOLUME 8.9 fl (7.2-11.7); MONO # 0.6 K/uL (0.0-0.8); MONO % 10.8 % (0.0-10.0); NEUT # 2.9 K/uL (1.8-7.0); NEUT % 56.6 % (50.0-75.0); RED CELL DISTRIBUTION WIDTH 12.8 % (11.5-14.5); WHITE BLOOD COUNT 5.1 K/uL (4.8-10.8)
[2017-06-20 17:09] LABS: ABG ALLEN TEST YES; ARTERIAL BLOOD GAS HCO3 28.3 mmol/L (21-28); ARTERIAL BLOOD GAS PH 7.44 (7.35-7.45); ARTERIAL BLOOD GAS PO2 68 mm/Hg (80-100)
[2017-06-20 17:18] LABS: ALB/GLOB RATIO 0.9 (1.0-2.1); ALCOHOL SERUM 282 mg/dl (0-10); ALKALINE PHOSPHATASE 70 U/L (38-126); ALT/SGPT 54 U/L (21-72); AST/SGOT 87 U/L (17-59); BILIRUBIN,TOTAL 1.2 mg/dl (0.2-1.3); BLOOD UREA NITROGEN 11 mg/dl (9-20); CALCIUM 8.2 mg/dL (8.4-10.2); CARBON DIOXIDE 25 mmol/L (22-30); CHLORIDE 101 mmol/L (98-107); GFR AFRICAN-AMERICAN > 60; GLUCOSE,RANDOM 116 mg/dL (75-110); POTASSIUM 3.4 MMOL/L (3.6-5.0); SODIUM 144 mmol/l (132-148); TOTAL PROTEIN 7.6 G/DL (6.3-8.2)
--- NOTE | 2017-06-20 17:44 | ED PDOC ---
HPI: SOB/CHF/COPD Time Seen by Provider: 06/20/17 16:38 Chief Complaint (Nursing): Shortness Of Breath Chief Complaint (Provider): SOB History Per: Patient History/Exam Limitations: no limitations Associated Symptoms: Productive Cough. denies: Fever, Chills, Sweating, Chest Pain, Bloody Cough, Heart Racing, Leg/Calf Pain, Ankle/Leg Swelling, Dizziness, Light-headedness, Anxiety, Tingling In Hands Or Face, Musle Spasms In Hands Or Feet Additional Complaint(s): 57yo M in ED for eval of SOB picked up by EMS -c/o cough with green sputum x 3days no fever hchills body aches. admits to smoking and etoh abuse. no dizziness vision changes Chest pain, Past Medical History Reviewed: Historical Data, Nursing Documentation, Vital Signs Vital Signs: Last Vital Signs Temp 98.2 F 06/20/17 16:32 Pulse 78 06/21/17 06:15 Resp 16 06/21/17 06:15 BP 100/64 06/20/17 18:37 Pulse Ox 97 06/21/17 06:15 - Medical History PMH: Asthma, Atrial Fibrillation, COPD, Hepatitis (C), Seizures Denies: Chronic Kidney Disease - Surgical History Surgical History: Appendectomy, Tonsillectomy - Family History Family History: States: Unknown Family Hx - Home Medications Home Medications: Ambulatory Orders Medication Instructions Recorded Azithromycin [Zithromax] 250 mg PO DAILY #6 tab 06/05/17 Albuterol HFA [Ventolin HFA 90 1 - 2 puff IH Q6 PRN #1 inhaler 06/10/17 mcg/actuation (8 g)] Azithromycin [Zithromax] 500 mg PO DAILY #6 tab 06/21/17 - Allergies Allergies/Adverse Reactions: Allergies Allergy/AdvReac Type Severity Reaction Status Date / Time No Known Allergies Allergy Verified 06/22/17 11:39 Curb-65 Severity Score - CURB-65 Severity Score Confusion: No Bun >19mg/dl (>7mmol/L): No Respiratory Rate greater than/equal to 30: No Systolic BP <90 or Diastolic BP less than/equal 60mmHg: Yes Curb-65 Score: 1 Percentage 30-day mortality: 2.7% Wells Criteria for PE - Wells Criteria for Pulmonary Embolism Clinical Signs and Symptoms of DVT: No P.E is #1 Diagnosis, or Equally Likely: No Heart Rate >100: No Immobilization at least 3 days;Surgery previous 4 weeks: No Previous, objectively diagnosed PE or DVT: No Hemoptysis: No Malignancy w/treatment within 6 months, or palliative: No Total Score: 0 Review of Systems ROS Statement: Except As Marked, All Systems Reviewed And Found Negative Cardiovascular: Negative for: Chest Pain, Palpitations, Orthopnea Respiratory: Positive for: Cough, Shortness of Breath, Sputum. Negative for: Hemoptysis Gastrointestinal: Negative for: Nausea, Vomiting, Abdominal Pain Physical Exam - Reviewed Nursing Documentation Reviewed: Yes Vital Signs Reviewed: Yes - Physical Exam Appears: Positive for: Non-toxic, No Acute Distress. Negative for: Uncomfortable, In Acute Distress Skin: Positive for: Normal Color, Warm, DRY ENT: Positive for: Normal ENT Inspection Neck: Positive for: Normal, Painless ROM Cardiovascular/Chest: Positive for: Regular Rate, Rhythm Respiratory: Positive for: CNT, Normal Breath Sounds Gastrointestinal/Abdominal: Positive for: Normal Exam, Bowel Sounds, Soft. Negative for: Tenderness Back: Positive for: Normal Inspection Extremity: Positive for: Normal ROM Neurologic/Psych: Positive for: Alert, Oriented - Laboratory Results Result Diagrams: 06/20/17 17:00 06/20/17 17:00 - ECG ECG: Positive for: Interpreted By Me, Viewed By Me (MD dana) ECG Rhythm: Positive for: Normal QRS, Normal ST Segment, Sinus Rhythm O2 Sat by Pulse Oximetry: 98 - Radiology X-Ray: Interpreted by Me, Read By Radiologist X-Ray Interpretation: No Acute Disease - Progress ED Course And Treament: Pt hypotensive in ED with Low Sat% and normotensive without labored breathing and speaking in full complete sentences without effort and without abd. retractions or pulling with breathing/tripoding. MD Dana made area of BP. Orders Category Date Time Status ABG Shock Panel [ARTERIAL BLOOD GAS SHOCK PANEL] Stat BG 06/20/17 17:01 Completed ELECTROCARDIOGRAM Stat Cardiology 06/20/17 16:46 Ordered ALCOHOL SERUM Stat Chem 06/20/17 17:00 Completed B-TYPE NATRIURETIC PEPTIDE Stat Chem 06/20/17 17:00 Completed COMP METABOLIC PANEL Stat Chem 06/20/17 17:00 Completed TROPONIN I Stat Chem 06/20/17 17:00 Completed EKG-ED [EDNURTX] STAT ED Care 06/20/17 16:47 Active CHEST PORTABLE [RAD] Stat Exams 06/20/17 17:09 Taken CBC (WITH DIFFERENTIAL) Stat ABIGAIL 06/20/17 17:00 Completed D DIMER [COAG] Stat ABIGAIL 06/20/17 17:40 Uncollected Sodium Chloride 0.9% 1,000 ml Med 06/20/17 16:45 Active IV 1,000 mls/hr BLOOD CULTURE Stat Micro 06/20/17 17:00 Received Wash And Greaser ONCE NURSING 06/20/17 16:48 Active O2 via NASAL CANNULA CONT Resp 06/20/17 16:44 Active INFLUENZA A B Stat Serology 06/20/17 17:00 Completed Vital Signs - 24 hr 06/20/17 06/20/17 06/20/17 16:32 16:48 17:05 Temperature 98.2 F Pulse Rate 83 86 Respiratory 20 21 21 Rate Blood Pressure 80/55 L 98/48 L O2 Sat by Pulse 94 L 94 L 94 L Oximetry 06/20/17 06/20/17 17:22 17:47 Temperature Pulse Rate 82 Respiratory 20 Rate Blood Pressure 100/63 O2 Sat by Pulse 98 98 Oximetry 06/20/17 06/20/17 06/20/17 17:01 17:00 17:00 WBC RBC Hgb Hct MCV MCH MCHC RDW Plt Count MPV Neut % (Auto) Lymph % (Auto) [place] % (Auto) Eos % (Auto) Baso % (Auto) Neut # Lymph # [place] # Eos # Baso # pCO2 43 pO2 68 L HCO3 28.3 H ABG pH 7.44 ABG Total CO2 30.5 H ABG O2 Saturation 97.2 ABG Base Excess 4.4 H [place] Test Yes ABG Potassium 3.1 L A-a O2 Difference 28.0 Glucose 116 H Lactate 1.8 FiO2 21.0 Sodium 139.0 144 Potassium 3.4 L Chloride 102.0 101 Carbon Dioxide 25 Anion Gap 21 H BUN 11 Creatinine 0.6 L Est GFR ( Amer) > 60 Est GFR (Non-Af Amer) > 60 Random Glucose 116 H Calcium 8.2 L Total Bilirubin 1.2 AST 87 H ALT 54 Alkaline Phosphatase 70 Troponin I < 0.0120 NT-Pro-B Natriuret Pep 169 Total Protein 7.6 Albumin 3.6 Globulin 4.1 H Albumin/Globulin Ratio 0.9 L Arterial Blood Potassium 3.1 L Alcohol, Quantitative 282 H Influenza Typ A,B (EIA) Negative for flu a/b 06/20/17 17:00 WBC 5.1 RBC 3.74 L Hgb 13.2 Hct 39.4 MCV 105.4 H D MCH 35.3 H MCHC 33.5 RDW 12.8 Plt Count 81 L MPV 8.9 Neut % (Auto) 56.6 Lymph % (Auto) 28.4 [place] % (Auto) 10.8 H Eos % (Auto) 1.3 Baso % (Auto) 2.9 H Neut # 2.9 Lymph # 1.4 [place] # 0.6 Eos # 0.1 Baso # 0.1 pCO2 pO2 HCO3 ABG pH ABG Total CO2 ABG O2 Saturation ABG Base Excess [place] Test ABG Potassium A-a O2 Difference Glucose Lactate FiO2 Sodium Potassium Chloride Carbon Dioxide Anion Gap BUN Creatinine Est GFR ( Amer) Est GFR (Non-Af Amer) Random Glucose Calcium Total Bilirubin AST ALT Alkaline Phosphatase Troponin I NT-Pro-B Natriuret Pep Total Protein Albumin Globulin Albumin/Globulin Ratio Arterial Blood Potassium Alcohol, Quantitative Influenza Typ A,B (EIA) Re-evaluation Time: 17:50 Condition: Improved (BP has improved while in ED) Medical Decision Making Medical Decision Making: VS improved in ED stable for d.c with f.u to clinic and Albuterol pump Disposition - Clinical Impression Clinical Impression: Alcohol use, Pneumonia - Patient ED Disposition Is Patient to be Admitted: No - Disposition Disposition: Routine/Home Disposition Time: 13:58 Condition: STABLE Prescriptions: Azithromycin [Zithromax] 500 mg PO DAILY #6 tab Instructions: Bacterial Pneumonia (ED) Forms: [employer] (Frisian)
--- NOTE | 2017-06-20 17:47 | RAD ---
HISTORY: ciough COMPARISON: No prior. FINDINGS: LUNGS: No new focal infiltrate is noted. There is chronic eventration of the right hemidiaphragm and mild interstitial changes. PLEURA: No significant pleural effusion identified, no pneumothorax apparent. CARDIOVASCULAR: Unchanged OSSEOUS STRUCTURES: Chronic right rib fractures are once again identified. VISUALIZED UPPER ABDOMEN: Normal. OTHER FINDINGS: None. IMPRESSION: No new infiltrate or CHF.
[2017-06-20 18:38] VITALS: BP 100/64
[2017-06-20] MEDS ORDERED: Iodixanol 320 MG/ML 100 ML BOTTLE IV ONE (19:32)
[2017-06-20] MEDS ORDERED: Sodium Chloride 0.9% 50 ML IV ONE (19:32)
--- NOTE | 2017-06-20 21:11 | CT ---
EXAM: CT Angiography Chest With Intravenous Contrast CLINICAL HISTORY: 57 years old, male; Signs and symptoms; Shortness of breath; Patient HX: SOB. HX coughing; Additional info: Low 02, elevated d-dimer TECHNIQUE: Axial computed tomographic angiography images of the chest with intravenous contrast using pulmonary embolism protocol. All CT scans at this facility use one or more dose reduction techniques, viz.: automated exposure control; ma/kV adjustment per patient size (including targeted exams where dose is matched to indication; i.e. head); or iterative reconstruction technique. MIP reconstructed images were created and reviewed. Coronal and sagittal reformatted images were created and reviewed. CONTRAST: 98 mL of VISIPAQUE administered intravenously. COMPARISON: CT - CHEST W/O CONTRAST 01/24/2017 8:04:05 PM FINDINGS: Limitations: Motion artifact - mild. Pulmonary arteries: No definite pulmonary embolism. Aorta: Ectasia of ascending thoracic aorta, up to 4.2 cm in diameter. Minimal atherosclerotic disease. Lungs: Mild to moderate peripheral consolidation posterior RIGHT lower lobe with associated volume loss. Minimal peripheral consolidation posterior LEFT lower lobe with associated volume loss. Minimal bullous changes within lung apices. Pleural space: No significant effusion. No pneumothorax. Heart: No cardiomegaly. No significant pericardial effusion. Bones/joints: Few healed rib fractures. No dislocation. Soft tissues: Unremarkable. Lymph nodes: No pathologically enlarged lymph nodes. Liver: Fatty infiltration. Lobulated contour. Intraperitoneal space: Small free fluid within abdomen. Upper abdomen: Several varices within upper abdomen. IMPRESSION: 1. No definite CT evidence of pulmonary embolism. 2. Bibasilar atelectasis +/- pneumonia, RIGHT greater than LEFT. 3. Cirrhosis with portal hypertension. 4. Incidental/non-acute findings are described above.
[2017-06-20] MEDS ORDERED: Azithromycin 500 MG in Sodium Chloride 0.9% 250 ML IVPB STA (21:26)
[2017-06-20] MEDS ORDERED: Potassium Chloride 20 mEq ER Tab PO ONE ×2 (21:26→22:27)
[2017-06-20] MEDS ORDERED: Azithromycin 500 MG IV IVPB ONE ×2 (22:27→22:32)
[2017-06-21] MEDS ORDERED: cefTRIAXone (Rocephin) 1 gm Inj ONE (03:56)
[2017-06-21 06:48] VITALS: PULSE 78; RESP 16
--- NOTE | 2017-06-22 09:43 | CARD ---
APPROVED REPORT EKG Measurement Heart [id number] [place] [id number] [id number] <Conclusion> Normal sinus rhythm Normal ECG
[2017-06-24 13:57] VITALS: O2SAT 98
== END 2017-06-21 06:48 | disposition home or self-care (01) ==
LOC: H.ER 16:32
DX: J10.1 Influenza due to other identified influenza virus with other respiratory manifestations (principal)
CPT/HCPCS: 36600; 71010; 71275; 80053; 80320; 82803; 82948; 83880; 84484; 85025; 85378; 87040; 87804; 93005; 96374; 96375; 99285; J0456; J0696; J2405; J7040; J7050; Q9967

== ENCOUNTER 2017-06-27 20:18 | Emergency (ER) | payer OTHER ==
[2017-06-27 20:18] VITALS: BMI 22.6
[2017-06-27 20:22] VITALS: PULSE 78; O2SAT 94
[2017-06-27] MEDS ORDERED: Albuterol-Ipratrop 3 mg / 0.5 (3 ml) UD INH STA (20:25)
--- NOTE | 2017-06-27 20:25 | ED PDOC ---
HPI: General Adult Time Seen by Provider: 06/27/17 20:23 Chief Complaint (Nursing): Cough, Cold, Congestion Chief Complaint (Provider): cough, etoh History Per: Patient Additional Complaint(s): Patient is well known to ED for frequent visits and presents this evening acutely intoxicated stating he is wheezing and needs a "breathing treatment." Patient states last week he was diagnosed with pneumonia and was given rx zithromax that he never filled. He denies any fever or chills, denies chest pain. Past Medical History Reviewed: Historical Data, Nursing Documentation, Vital Signs Vital Signs: Last Vital Signs Temp 98.1 F 06/27/17 20:19 Pulse 78 06/27/17 20:19 Resp 18 06/27/17 20:19 BP 127/81 06/27/17 20:19 Pulse Ox 94 L 06/27/17 20:33 - Medical History PMH: Asthma, Atrial Fibrillation, COPD, Hepatitis (C), Seizures - Surgical History Surgical History: Appendectomy, Tonsillectomy - Family History Family History: States: No Known Family Hx - Living Arrangements Living Arrangements: Other (non-domiciled) - Social History Current smoker - smoking cessation education provided: Yes Alcohol: > 2 Drinks/Day Drugs: Denies - Home Medications Home Medications: Ambulatory Orders Medication Instructions Recorded Azithromycin [Zithromax] 250 mg PO DAILY #6 tab 06/05/17 Albuterol HFA [Ventolin HFA 90 1 - 2 puff IH Q6 PRN #1 inhaler 06/10/17 mcg/actuation (8 g)] Azithromycin [Zithromax] 500 mg PO DAILY #6 tab 06/21/17 Azithromycin [Zithromax] 250 mg PO DAILY #4 tab 06/27/17 - Allergies Allergies/Adverse Reactions: Allergies Allergy/AdvReac Type Severity Reaction Status Date / Time No Known Allergies Allergy Verified 06/22/17 11:39 Review of Systems ROS Statement: Except As Marked, All Systems Reviewed And Found Negative Constitutional: Negative for: Fever, Chills, Weakness Cardiovascular: Negative for: Chest Pain Respiratory: Positive for: Cough, Wheezing Gastrointestinal: Negative for: Nausea, Vomiting Neurological: Negative for: Headache, Dizziness Psych: Positive for: Other (etoh) Physical Exam - Reviewed Nursing Documentation Reviewed: Yes Vital Signs Reviewed: Yes - Physical Exam Appears: Positive for: Well, Non-toxic, No Acute Distress Head Exam: Positive for: ATRAUMATIC, NORMAL INSPECTION Skin: Negative for: Rash Eye Exam: Positive for: Normal appearance Cardiovascular/Chest: Positive for: Regular Rate, Rhythm Respiratory: Positive for: Wheezing (bilateral inspiratory and expiratory wheezing). Negative for: Accessory Muscle Use Neurologic/Psych: Positive for: Alert, Other (intoxicated, answers some questions appropriately) - ECG O2 Sat by Pulse Oximetry: 94 Pulse Ox Interpretation: Normal - Other Rad CXR X-Ray: Interpreted by Me, Viewed By Me X-Ray Interpretation: no infiltrate, no interval change Nebulizer Treatments/Peak Flow - Duonebs Number of Bronchodilator Doses given?: 1 (duoneb) - Pre/Post Peak Flow Pre Treatment Peak Flow: 350 Post treatment Peak Flow: 350 - Steroid Treatment Steroid: Not Clinically Indicated - Clinical Response Clinical Response: Improved Comment: Patient reports improvement to wheezing s/p treatment Medical Decision Making Medical Decision Makin57 year old intoxicated male with cough and wheezing Plan: CXR Duoneb x 1 Glucose POC Fingerstick: 83 Disposition - Clinical Impression Clinical Impression: Alcohol abuse, URI, acute - Patient ED Disposition Is Patient to be Admitted: Transfer of Care - Disposition Disposition: Transfer of Care Disposition Time: 23:55 Condition: FAIR Prescriptions: Azithromycin [Zithromax] 250 mg PO DAILY #4 tab Instructions: Upper Respiratory Infection (ED), Abuse of Alcohol (ED) Forms: [employer] (Lithuanian) Patient Signed Over To: Gladis Patrick Handoff Comments: Signed out to ANAY Patrick pending sobriety and final dispo
--- NOTE | 2017-06-28 03:20 | ED PDOC ---
- ECG O2 Sat by Pulse Oximetry: 94 Medical Decision Making Medical Decision Making: Case endorsed to sports writer from SHANA Kovacs at midnight pending diagnostic review and re-eval HPI: General Adult Time Seen by Provider: 06/27/17 20:23 Chief Complaint (Nursing): Cough, Cold, Congestion Chief Complaint (Provider): cough, etoh History Per: Patient Additional Complaint(s): Patient is well known to ED for frequent visits and presents this evening acutely intoxicated stating he is wheezing and needs a "breathing treatment." Patient states last week he was diagnosed with pneumonia and was given rx zithromax that he never filled. He denies any fever or chills, denies chest pain. Pt asleep throughout ED stay. Stable for discharge in am Disposition - Clinical Impression Clinical Impression: Alcohol abuse, URI, acute - POA Present On Arrival: None - Disposition Disposition: Routine/Home Disposition Time: 05:20 Condition: FAIR Prescriptions: Azithromycin [Zithromax] 250 mg PO DAILY #4 tab Instructions: Upper Respiratory Infection (ED), Abuse of Alcohol (ED) Forms: [employer] (Czech)
[2017-06-28 06:23] VITALS: BP 124/74; RESP 16; TEMP 97.4
--- NOTE | 2017-06-28 08:40 | RAD ---
HISTORY: cough COMPARISON: Chest radiograph 06/20/2017. FINDINGS: LUNGS: No active pulmonary disease. PLEURA: No significant pleural effusion identified, no pneumothorax apparent. CARDIOVASCULAR: Normal. OSSEOUS STRUCTURES: Old healed right rib fractures are again identified at the mid right chest laterally. VISUALIZED UPPER ABDOMEN: Normal. OTHER FINDINGS: None. IMPRESSION: No interval acute cardiopulmonary disease appreciated.
== END 2017-06-28 06:05 | disposition home or self-care (01) ==
LOC: H.ER 20:18
DX: F10.10 Alcohol abuse, uncomplicated (principal); J06.9 Acute upper respiratory infection, unspecified

== ENCOUNTER 2017-07-04 01:09 | Emergency (ER) | payer OTHER ==
[2017-07-04 01:10] VITALS: BMI 22.6
[2017-07-04 01:31] VITALS: BP 136/89; PULSE 79; RESP 16; TEMP 98; O2SAT 98
--- NOTE | 2017-07-04 01:31 | ED PDOC ---
HPI: Psych/Substance Abuse Time Seen by Provider: 07/04/17 01:28 Chief Complaint (Nursing): Alcohol Ingestion Chief Complaint (Provider): etoh History Per: Patient, EMS Additional Complaint(s): Patient arrives via ambulance acutely intoxicated. He is well known to ED for frequent visits related to alcohol abuse. Upon arrival patient offers no acute complaints. Past Medical History Reviewed: Historical Data, Nursing Documentation, Vital Signs - Medical History PMH: Asthma, Atrial Fibrillation, COPD, Hepatitis (C), Seizures - Surgical History Surgical History: Appendectomy, Tonsillectomy - Family History Family History: States: No Known Family Hx - Living Arrangements Living Arrangements: Other (non-domiciled) - Social History Alcohol: > 2 Drinks/Day - Home Medications Home Medications: Ambulatory Orders Medication Instructions Recorded Azithromycin [Zithromax] 250 mg PO DAILY #6 tab 06/05/17 Albuterol HFA [Ventolin HFA 90 1 - 2 puff IH Q6 PRN #1 inhaler 06/10/17 mcg/actuation (8 g)] Azithromycin [Zithromax] 500 mg PO DAILY #6 tab 06/21/17 Azithromycin [Zithromax] 250 mg PO DAILY #4 tab 06/27/17 - Allergies Allergies/Adverse Reactions: Allergies Allergy/AdvReac Type Severity Reaction Status Date / Time No Known Allergies Allergy Verified 06/22/17 11:39 Review of Systems ROS Statement: Except As Marked, All Systems Reviewed And Found Negative Psych: Positive for: Other (etoh) Physical Exam - Reviewed Nursing Documentation Reviewed: Yes Vital Signs Reviewed: Yes - Physical Exam Appears: Positive for: Well, Non-toxic, No Acute Distress Skin: Negative for: Rash Eye Exam: Positive for: Normal appearance Cardiovascular/Chest: Positive for: Regular Rate, Rhythm Respiratory: Positive for: Normal Breath Sounds Neurologic/Psych: Positive for: Alert, Other (intoxicated, answers some questions appropriately) - ECG Pulse Ox Interpretation: Normal Medical Decision Making Medical Decision Makin57 year old male with history of alcohol abuse Plan: Ally - Tamara Observe in ED Patient was observed in ED for several hours. His condition has remained stable throughout his stay. 6:00 am: patient is awake, alert, has steady gait. He is stable for discharge. Disposition - Clinical Impression Clinical Impression: Alcohol abuse, Alcohol intoxication - Patient ED Disposition Is Patient to be Admitted: No Counseled Patient/Family Regarding: Need For Followup - Disposition Referrals: [facility] [Outside] Disposition: Routine/Home Disposition Time: 06:00 Condition: STABLE Instructions: Alcohol Intoxication (ED), Abuse of Alcohol (ED), Alcohol Dependence (ED) Forms: [employer] (Italian)
== END 2017-07-04 05:59 | disposition home or self-care (01) ==
LOC: H.ER 01:09
DX: F10.129 Alcohol abuse with intoxication, unspecified (principal); I48.91 Unspecified atrial fibrillation; J44.9 Chronic obstructive pulmonary disease, unspecified

== ENCOUNTER 2017-07-05 21:28 | Emergency (ER) | payer OTHER ==
[2017-07-05 21:28] VITALS: BMI 22.6
--- NOTE | 2017-07-05 22:54 | ED PDOC ---
HPI: General Adult Time Seen by Provider: 07/05/17 22:00 Chief Complaint (Nursing): Alcohol Ingestion Chief Complaint (Provider): EtOH ingestion History Per: Patient History/Exam Limitations: no limitations Onset/Duration Of Symptoms: Days Have you had recent travel within the past 21 days to any of the following countries: [place], [place], [place] or [place]?: No Current Symptoms Are (Timing): Still Present Additional History Per: Patient Additional Complaint(s): Patient arrives via ambulance acutely intoxicated. He is well known to ED for frequent visits related to alcohol abuse. Upon arrival patient offers no acute complaints. Patient is requesting a place to stay as it is cold outside. Past Medical History Reviewed: Historical Data, Nursing Documentation, Vital Signs Vital Signs: Last Vital Signs Temp 97.9 F 07/06/17 05:40 Pulse 85 07/06/17 05:40 Resp 16 07/06/17 05:40 BP 135/80 07/06/17 05:40 Pulse Ox 98 07/06/17 06:44 - Medical History PMH: Asthma, Atrial Fibrillation, COPD, Hepatitis (C), Seizures - Surgical History Surgical History: Appendectomy, Tonsillectomy - Family History Family History: States: No Known Family Hx - Home Medications Home Medications: Ambulatory Orders Medication Instructions Recorded Azithromycin [Zithromax] 250 mg PO DAILY #6 tab 06/05/17 Albuterol HFA [Ventolin HFA 90 1 - 2 puff IH Q6 PRN #1 inhaler 06/10/17 mcg/actuation (8 g)] Azithromycin [Zithromax] 500 mg PO DAILY #6 tab 06/21/17 Azithromycin [Zithromax] 250 mg PO DAILY #4 tab 06/27/17 - Allergies Allergies/Adverse Reactions: Allergies Allergy/AdvReac Type Severity Reaction Status Date / Time No Known Allergies Allergy Verified 07/06/17 09:51 Review of Systems ROS Statement: Except As Marked, All Systems Reviewed And Found Negative Constitutional: Negative for: Fever Cardiovascular: Negative for: Chest Pain Respiratory: Negative for: Shortness of Breath Physical Exam - Reviewed Nursing Documentation Reviewed: Yes Vital Signs Reviewed: Yes - Physical Exam Appears: Positive for: No Acute Distress Neck: Positive for: Supple Cardiovascular/Chest: Positive for: Regular Rate, Rhythm Respiratory: Positive for: Normal Breath Sounds. Negative for: Respiratory Distress - ECG O2 Sat by Pulse Oximetry: 98 (RA) Pulse Ox Interpretation: Normal Medical Decision Making Medical Decision Making: Time: 2209 Impression: EtOH Abuse Plan: -- Re-evaluation pending sobriety Scribe Attestation: Documented by Dana Victor acting as a scribe for Marcia Sands MD. Provider Attestation: All medical record entries made by the Scribe were at my direction and personally dictated by me. I have reviewed the chart and agree that the record accurately reflects my personal performance of the history, physical exam, medical decision making, and the department course for this patient. I have also personally directed, reviewed, and agree with the discharge instructions and disposition. Disposition - Clinical Impression Clinical Impression: Alcohol abuse - Patient ED Disposition Is Patient to be Admitted: Transfer of Care - Disposition Disposition: Transfer of Care Disposition Time: 22:50 Condition: STABLE Instructions: Abuse of Alcohol (ED) Forms: [employer] (Turkmen) Patient Signed Over To: Renaldo Gates Handoff Comments: pending CT
--- NOTE | 2017-07-06 00:09 | ED PDOC ---
- ECG O2 Sat by Pulse Oximetry: 98 (RA) Pulse Ox Interpretation: Normal Medical Decision Making Medical Decision Making: Time: 00:00 --Patient is signed out by Dr. Marcia Sands MD to me pending clinical sobriety. Time: 00:48 CT HEAD W/O CONTRAST FINDINGS: Brain: No acute intracranial hemorrhage. Trace periventricular white matter disease is detected. No edema. Ventricles: No significant ventriculomegaly. Bones: No acute displaced fracture. Sinuses: Unremarkable as visualized. No acute sinusitis. Mastoid air cells: Unremarkable as visualized. No mastoid effusion. IMPRESSION: No acute intracranial hemorrhage, or suspicious mass effect. Scribe Attestation: Documented by Denny Park, acting as a scribe for Renaldo Gates MD Provider Scribe Attestation: All medical record entries made by the Scribe were at my direction and personally dictated by me. I have reviewed the chart and agree that the record accurately reflects my personal performance of the history, physical exam, medical decision making, and the department course for this patient. I have also personally directed, reviewed, and agree with the discharge instructions and disposition. Disposition Counseled Patient/Family Regarding: Studies Performed, Diagnosis - Clinical Impression Clinical Impression: Alcohol abuse - POA Present On Arrival: None - Disposition Disposition: Routine/Home Disposition Time: 02:00 Condition: STABLE Instructions: Abuse of Alcohol (ED) Forms: [employer] (Ecuadorean)
--- NOTE | 2017-07-06 00:48 | CT ---
EXAM: CT Head Without Intravenous Contrast CLINICAL HISTORY: 57 years old, male; Injury or trauma; Fall; Initial encounter; Concussion / head injury TECHNIQUE: Axial computed tomography images of the head/brain without intravenous contrast. All CT scans at this facility use one or more dose reduction techniques, viz.: automated exposure control; ma/kV adjustment per patient size (including targeted exams where dose is matched to indication; i.e. head); or iterative reconstruction technique. Coronal and sagittal reformatted images were created and reviewed. COMPARISON: CT - HEAD W/O CONTRAST 09/16/2015 10:02:30 PM FINDINGS: Brain: No acute intracranial hemorrhage. Trace periventricular white matter disease is detected. No edema. Ventricles: No significant ventriculomegaly. Bones: No acute displaced fracture. Sinuses: Unremarkable as visualized. No acute sinusitis. Mastoid air cells: Unremarkable as visualized. No mastoid effusion. IMPRESSION: No acute intracranial hemorrhage, or suspicious mass effect.
[2017-07-06 05:40] VITALS: BP 135/80; PULSE 85; RESP 16; TEMP 97.9
[2017-07-06 06:44] VITALS: O2SAT 98
== END 2017-07-06 05:50 | disposition home or self-care (01) ==
LOC: H.ER 21:28
DX: F10.10 Alcohol abuse, uncomplicated (principal); S09.90XA Unspecified injury of head, initial encounter; W19.XXXA Unspecified fall, initial encounter; Y92.89 Other specified places as the place of occurrence of the external cause; I48.91 Unspecified atrial fibrillation; J44.9 Chronic obstructive pulmonary disease, unspecified

== ENCOUNTER 2017-07-06 09:40 | Emergency (ER) | payer OTHER ==
[2017-07-06 09:40] VITALS: BMI 22.6
[2017-07-06 09:47] VITALS: BP 106/78; PULSE 66; RESP 20; TEMP 98.1; O2SAT 95
--- NOTE | 2017-07-06 13:50 | ED PDOC ---
HPI: Psych/Substance Abuse Time Seen by Provider: 07/06/17 10:03 Chief Complaint (Nursing): Alcohol Ingestion History Per: Patient Additional Complaint(s): Pt. brought in by EMS for public intoxication. Pt. admits to drinking alcohol. Pt. requesting a bagel as he is hungry. Pt. is also requesting for a bed to sleep for the day. Offers no complaints at this time. Past Medical History Reviewed: Historical Data, Nursing Documentation, Vital Signs Vital Signs: Last Vital Signs Temp 98.1 F 07/06/17 09:45 Pulse 66 07/06/17 09:45 Resp 20 07/06/17 09:45 BP 106/78 07/06/17 09:45 Pulse Ox 95 07/06/17 09:45 - Medical History PMH: Asthma, Atrial Fibrillation, COPD, Hepatitis (C), Seizures - Surgical History Surgical History: Appendectomy, Tonsillectomy - Family History Family History: States: No Known Family Hx - Home Medications Home Medications: Ambulatory Orders Medication Instructions Recorded Azithromycin [Zithromax] 250 mg PO DAILY #6 tab 06/05/17 Albuterol HFA [Ventolin HFA 90 1 - 2 puff IH Q6 PRN #1 inhaler 06/10/17 mcg/actuation (8 g)] Azithromycin [Zithromax] 500 mg PO DAILY #6 tab 06/21/17 Azithromycin [Zithromax] 250 mg PO DAILY #4 tab 06/27/17 - Allergies Allergies/Adverse Reactions: Allergies Allergy/AdvReac Type Severity Reaction Status Date / Time No Known Allergies Allergy Verified 07/06/17 09:51 Review of Systems ROS Statement: Except As Marked, All Systems Reviewed And Found Negative Physical Exam - Reviewed Nursing Documentation Reviewed: Yes Vital Signs Reviewed: Yes - Physical Exam Appears: Positive for: Well, Non-toxic, No Acute Distress Head Exam: Positive for: ATRAUMATIC, NORMAL INSPECTION, NORMOCEPHALIC Skin: Positive for: Normal Color, Warm. Negative for: Rash Eye Exam: Positive for: EOMI, Normal appearance, PERRL ENT: Positive for: Normal ENT Inspection Neck: Positive for: Normal, Painless ROM Cardiovascular/Chest: Positive for: Regular Rate, Rhythm Respiratory: Positive for: CNT, Normal Breath Sounds Gastrointestinal/Abdominal: Positive for: Normal Exam, Bowel Sounds, Soft. Negative for: Tenderness Back: Positive for: Normal Inspection Extremity: Positive for: Normal ROM Neurologic/Psych: Positive for: Alert, Oriented, Gait (steady with walker). Negative for: Aphasia, Facial Droop - ECG O2 Sat by Pulse Oximetry: 95 Disposition - Clinical Impression Clinical Impression: Alcohol intoxication in active alcoholic - Patient ED Disposition Is Patient to be Admitted: No - Disposition Disposition: Routine/Home Disposition Time: 13:00 Condition: IMPROVED Instructions: Alcohol Intoxication (ED) Forms: [facility] (Anguillan) Print Language: CYMRO
== END 2017-07-06 13:30 | disposition home or self-care (01) ==
LOC: H.ER 09:40
DX: F10.129 Alcohol abuse with intoxication, unspecified (principal); I48.91 Unspecified atrial fibrillation; J44.9 Chronic obstructive pulmonary disease, unspecified

== ENCOUNTER 2017-07-06 22:37 | Emergency (ER) | payer OTHER ==
[2017-07-06 22:37] VITALS: BMI 22.6
[2017-07-06 22:42] VITALS: TEMP 98.1
[2017-07-06] MEDS ORDERED: Albuterol-Ipratrop 3 mg / 0.5 (3 ml) UD INH STA (22:47)
--- NOTE | 2017-07-06 22:48 | ED PDOC ---
HPI: General Adult Time Seen by Provider: 07/06/17 22:44 Chief Complaint (Nursing): Cough, Cold, Congestion Chief Complaint (Provider): cough History Per: Patient Additional Complaint(s): 57-year-old male presents to emergency department with cough and congestion. Patient is well-known to the ED and has history of alcohol abuse. He admits to drinking earlier today. Patient is requesting a breathing treatment. Past Medical History Reviewed: Historical Data, Nursing Documentation, Vital Signs Vital Signs: Last Vital Signs Temp 98.1 F 07/06/17 22:39 Pulse 78 07/06/17 22:39 Resp 18 07/06/17 22:39 BP Pulse Ox 96 07/06/17 23:54 - Medical History PMH: Asthma, Atrial Fibrillation, COPD, Hepatitis (C), Seizures - Surgical History Surgical History: Appendectomy, Tonsillectomy - Family History Family History: States: No Known Family Hx - Living Arrangements Living Arrangements: Other (non-domiciled) - Home Medications Home Medications: Ambulatory Orders Medication Instructions Recorded Azithromycin [Zithromax] 250 mg PO DAILY #6 tab 06/05/17 Albuterol HFA [Ventolin HFA 90 1 - 2 puff IH Q6 PRN #1 inhaler 06/10/17 mcg/actuation (8 g)] Azithromycin [Zithromax] 500 mg PO DAILY #6 tab 06/21/17 Azithromycin [Zithromax] 250 mg PO DAILY #4 tab 06/27/17 - Allergies Allergies/Adverse Reactions: Allergies Allergy/AdvReac Type Severity Reaction Status Date / Time No Known Allergies Allergy Verified 07/06/17 09:51 Review of Systems ROS Statement: Except As Marked, All Systems Reviewed And Found Negative Constitutional: Negative for: Fever Respiratory: Positive for: Cough Psych: Positive for: Other (etoh) Physical Exam - Reviewed Nursing Documentation Reviewed: Yes Vital Signs Reviewed: Yes - Physical Exam Appears: Positive for: Well, Non-toxic, No Acute Distress Skin: Negative for: Rash Eye Exam: Positive for: Normal appearance Cardiovascular/Chest: Positive for: Regular Rate, Rhythm Respiratory: Positive for: Rhonchi, Wheezing. Negative for: Respiratory Distress Neurologic/Psych: Positive for: Alert, Other (intoxicated, answers some questions appropriately) - ECG O2 Sat by Pulse Oximetry: 96 Pulse Ox Interpretation: Normal Medical Decision Making Medical Decision Makin57 year old intoxicated male with cough Plan: Duoneb x 1 CXR Finger stick Disposition - Clinical Impression Clinical Impression: Alcohol abuse, Cough - Patient ED Disposition Is Patient to be Admitted: Transfer of Care - Disposition Disposition: Transfer of Care Disposition Time: 23:54 Condition: STABLE Instructions: Alcohol Intoxication (ED), Abuse of Alcohol (ED), Alcohol Dependence (ED) Forms: [employer] (Hebrew) Patient Signed Over To: Faye Rangel Handoff Comments: Signed out pending CXR and final dispo
[2017-07-06] MEDS ORDERED: Albuterol-Ipratrop 3 mg / 0.5 (3 ml) UD ONE (23:21)
[2017-07-06] MEDS ORDERED: levoFLOXacin 500 MG TAB PO STA (23:54)
--- NOTE | 2017-07-07 01:37 | ED PDOC ---
- ECG O2 Sat by Pulse Oximetry: 96 Pulse Ox Interpretation: Normal - Radiology X-Ray: Viewed By Me X-Ray Interpretation: No Acute Disease - Progress ED Course And Treament: Case endorsed to check writer from Bethanie SALDANA pending xray Rx levaquin provided. Advised follow up PMD 2-3 days. Return to ED for worsening/concerning symptoms. Disposition - Clinical Impression Clinical Impression: Alcohol abuse, Cough - POA Present On Arrival: None - Disposition Disposition: Routine/Home Disposition Time: 02:00 Condition: STABLE Prescriptions: Levofloxacin [Levaquin] 500 mg PO DAILY #6 tablet Instructions: Acute Bronchitis (ED), Alcohol Intoxication (ED), Abuse of Alcohol (ED), Alcohol Dependence (ED)
[2017-07-07 04:36] VITALS: BP 116/74; PULSE 76; RESP 16
[2017-07-07 05:21] VITALS: O2SAT 96
--- NOTE | 2017-07-07 10:35 | RAD ---
HISTORY: Cough COMPARISON: 06/27/2017. FINDINGS: LUNGS: The lungs are clear. No focal consolidation. PLEURA: No significant pleural effusion identified, no pneumothorax apparent. CARDIOVASCULAR: Normal. OSSEOUS STRUCTURES: There are old fracture deformities in the right lower posterior ribs. VISUALIZED UPPER ABDOMEN: Normal. OTHER FINDINGS: There is chronic elevation of the right hamate IMPRESSION: No active pulmonary disease.
== END 2017-07-07 04:42 | disposition home or self-care (01) ==
LOC: H.ER 22:37
DX: F10.10 Alcohol abuse, uncomplicated (principal); J44.9 Chronic obstructive pulmonary disease, unspecified

== ENCOUNTER 2017-07-07 23:19 | Emergency (ER) | payer OTHER ==
[2017-07-07 23:19] VITALS: BMI 22.6
[2017-07-07 23:25] VITALS: BP 119/75; PULSE 66; RESP 16; TEMP 98; O2SAT 100
--- NOTE | 2017-07-08 01:10 | ED PDOC ---
HPI: Psych/Substance Abuse Time Seen by Provider: 07/07/17 23:29 Chief Complaint (Nursing): Alcohol Ingestion Chief Complaint (Provider): etoh History Per: Patient, EMS Additional History Per: Patient, EMS Additional Complaint(s): 57 y/o male brought in by EMS for acute alcohol intoxication. Patient requesting bed to sleep in. Denies acute medical or psychiatric complaints. Past Medical History Reviewed: Historical Data, Nursing Documentation, Vital Signs Vital Signs: Last Vital Signs Temp 98.0 F 07/07/17 23:20 Pulse 66 07/07/17 23:20 Resp 16 07/07/17 23:20 BP 119/75 07/07/17 23:20 Pulse Ox 100 07/07/17 23:20 - Medical History PMH: Asthma, Atrial Fibrillation, COPD, Hepatitis (C), Seizures - Surgical History Surgical History: Appendectomy, Tonsillectomy - Family History Family History: States: No Known Family Hx - Home Medications Home Medications: Ambulatory Orders Medication Instructions Recorded Azithromycin [Zithromax] 250 mg PO DAILY #6 tab 06/05/17 Albuterol HFA [Ventolin HFA 90 1 - 2 puff IH Q6 PRN #1 inhaler 06/10/17 mcg/actuation (8 g)] Azithromycin [Zithromax] 500 mg PO DAILY #6 tab 06/21/17 Azithromycin [Zithromax] 250 mg PO DAILY #4 tab 06/27/17 Levofloxacin [Levaquin] 500 mg PO DAILY #6 tablet 07/07/17 - Allergies Allergies/Adverse Reactions: Allergies Allergy/AdvReac Type Severity Reaction Status Date / Time No Known Allergies Allergy Verified 07/07/17 23:20 Review of Systems ROS Statement: Except As Marked, All Systems Reviewed And Found Negative Physical Exam - Reviewed Nursing Documentation Reviewed: Yes Vital Signs Reviewed: Yes - Physical Exam Appears: Positive for: Well, Non-toxic, No Acute Distress Head Exam: Positive for: ATRAUMATIC, NORMAL INSPECTION, NORMOCEPHALIC Skin: Positive for: Normal Color Eye Exam: Positive for: Normal appearance ENT: Positive for: Normal ENT Inspection Cardiovascular/Chest: Positive for: Regular Rate, Rhythm Respiratory: Positive for: Normal Breath Sounds Gastrointestinal/Abdominal: Positive for: Normal Exam Back: Positive for: Normal Inspection Extremity: Positive for: Normal ROM Neurologic/Psych: Positive for: Alert, Oriented - ECG O2 Sat by Pulse Oximetry: 100 - Progress ED Course And Treament: accucheck Patient observed in ED for several hours. His condition remained tone throughout his stay. 6:00 am: patient is awake and alert, steady gait with walker, stable for discharge. Disposition - Clinical Impression Clinical Impression: Alcohol abuse - Disposition Disposition: Routine/Home Disposition Time: 06:00 Condition: STABLE Instructions: Abuse of Alcohol (ED)
== END 2017-07-08 06:36 | disposition home or self-care (01) ==
LOC: H.ER 23:19
DX: F10.129 Alcohol abuse with intoxication, unspecified (principal)

== ENCOUNTER 2017-07-08 22:48 | Emergency (ER) | payer OTHER ==
[2017-07-08 22:48] VITALS: BMI 22.6
[2017-07-08 23:01] VITALS: BP 156/73; PULSE 71; RESP 16; TEMP 97; O2SAT 99
--- NOTE | 2017-07-08 23:15 | ED PDOC ---
HPI: Psych/Substance Abuse Time Seen by Provider: 07/08/17 23:03 Chief Complaint (Nursing): Alcohol Ingestion Chief Complaint (Provider): etoh History Per: Patient, EMS History/Exam Limitations: no limitations Additional History Per: Patient, EMS Additional Complaint(s): 57 y/o male brought in by EMS for acute alcohol intoxication. Patient admits to drinking tonight; denies acute medical or psychiatric complaints. Past Medical History Reviewed: Historical Data, Nursing Documentation, Vital Signs Vital Signs: Last Vital Signs Temp 97.0 F L 07/08/17 22:53 Pulse 71 07/08/17 22:53 Resp 16 07/08/17 22:53 BP 156/73 H 07/08/17 22:53 Pulse Ox 99 07/08/17 22:53 - Medical History PMH: Asthma, Atrial Fibrillation, COPD, Hepatitis (C), Seizures - Surgical History Surgical History: Appendectomy, Tonsillectomy - Home Medications Home Medications: Ambulatory Orders Medication Instructions Recorded Azithromycin [Zithromax] 250 mg PO DAILY #6 tab 06/05/17 Albuterol HFA [Ventolin HFA 90 1 - 2 puff IH Q6 PRN #1 inhaler 06/10/17 mcg/actuation (8 g)] Azithromycin [Zithromax] 500 mg PO DAILY #6 tab 06/21/17 Azithromycin [Zithromax] 250 mg PO DAILY #4 tab 06/27/17 Levofloxacin [Levaquin] 500 mg PO DAILY #6 tablet 07/07/17 - Allergies Allergies/Adverse Reactions: Allergies Allergy/AdvReac Type Severity Reaction Status Date / Time No Known Allergies Allergy Verified 07/07/17 23:20 Review of Systems ROS Statement: Except As Marked, All Systems Reviewed And Found Negative Physical Exam - Reviewed Nursing Documentation Reviewed: Yes Vital Signs Reviewed: Yes - Physical Exam Appears: Positive for: Well, Non-toxic, No Acute Distress Head Exam: Positive for: ATRAUMATIC, NORMAL INSPECTION, NORMOCEPHALIC Skin: Positive for: Normal Color Eye Exam: Positive for: Normal appearance ENT: Positive for: Normal ENT Inspection Cardiovascular/Chest: Positive for: Regular Rate, Rhythm Respiratory: Positive for: Normal Breath Sounds Gastrointestinal/Abdominal: Positive for: Normal Exam Extremity: Positive for: Normal ROM Neurologic/Psych: Positive for: Alert, Oriented - ECG O2 Sat by Pulse Oximetry: 99 - Progress ED Course And Treament: accucheck Patient observed in ED for several hours. His condition remained tone throughout his stay. 6:00 am: patient is awake and alert, steady gait with walker, stable for discharge. Disposition - Clinical Impression Clinical Impression: Alcohol abuse - Disposition Disposition: Routine/Home Disposition Time: 06:00 Condition: STABLE Instructions: Abuse of Alcohol (ED)
== END 2017-07-09 06:00 | disposition home or self-care (01) ==
LOC: H.ER 22:48
DX: F10.10 Alcohol abuse, uncomplicated (principal)

== ENCOUNTER 2017-07-11 04:16 | Emergency (ER) | payer OTHER ==
[2017-07-11 04:17] VITALS: BMI 22.6
[2017-07-11 04:43] VITALS: BP 121/80; PULSE 76; RESP 18; TEMP 97.7; O2SAT 98
--- NOTE | 2017-07-11 05:34 | ED PDOC ---
HPI: General Adult Time Seen by Provider: 07/11/17 04:42 Chief Complaint (Nursing): Cough, Cold, Congestion Chief Complaint (Provider): Cough History Per: Patient History/Exam Limitations: no limitations Onset/Duration Of Symptoms: Persistent Additional History Per: Patient Additional Complaint(s): 57-year-old male presents to emergency department with cough and congestion. Patient is well-known to the ED and has history of alcohol abuse. He admits to drinking earlier today. Patient is requesting a breathing treatment. Past Medical History Reviewed: Historical Data, Nursing Documentation, Vital Signs Vital Signs: Last Vital Signs Temp 97.7 F 07/11/17 04:41 Pulse 76 07/11/17 04:41 Resp 18 07/11/17 04:41 BP 121/80 07/11/17 04:41 Pulse Ox 98 07/12/17 01:12 - Medical History PMH: Asthma, Atrial Fibrillation, COPD, Hepatitis (C), Seizures - Surgical History Surgical History: Appendectomy, Tonsillectomy - Family History Family History: States: Unknown Family Hx - Home Medications Home Medications: Ambulatory Orders Medication Instructions Recorded Azithromycin [Zithromax] 250 mg PO DAILY #6 tab 06/05/17 Albuterol HFA [Ventolin HFA 90 1 - 2 puff IH Q6 PRN #1 inhaler 06/10/17 mcg/actuation (8 g)] Azithromycin [Zithromax] 500 mg PO DAILY #6 tab 06/21/17 Azithromycin [Zithromax] 250 mg PO DAILY #4 tab 06/27/17 Levofloxacin [Levaquin] 500 mg PO DAILY #6 tablet 07/07/17 - Allergies Allergies/Adverse Reactions: Allergies Allergy/AdvReac Type Severity Reaction Status Date / Time No Known Allergies Allergy Verified 07/11/17 04:41 Review of Systems Cardiovascular: Negative for: Chest Pain Respiratory: Positive for: Cough. Negative for: Shortness of Breath Physical Exam - Reviewed Nursing Documentation Reviewed: Yes Vital Signs Reviewed: Yes - Physical Exam Cardiovascular/Chest: Positive for: Regular Rate, Rhythm Respiratory: Positive for: Normal Breath Sounds. Negative for: Respiratory Distress - ECG O2 Sat by Pulse Oximetry: 98 (RA) Pulse Ox Interpretation: Normal Medical Decision Making Medical Decision Making: Time: 0450 Impression: Cough, congestion Plan: -- Nebulizer treatment Reassess 600 will sign out to day team, dr. oakes. Scribe Attestation: Documented by Dana Victor acting as a scribe for Jefe Hogan MD. Provider Attestation: All medical record entries made by the Scribe were at my direction and personally dictated by me. I have reviewed the chart and agree that the record accurately reflects my personal performance of the history, physical exam, medical decision making, and the department course for this patient. I have also personally directed, reviewed, and agree with the discharge instructions and disposition. Disposition - Clinical Impression Clinical Impression: Alcohol abuse - Patient ED Disposition Is Patient to be Admitted: Transfer of Care - Disposition Disposition Time: 07:00 Condition: STABLE Instructions: Alcohol Intoxication (ED), Abuse of Alcohol (ED), Alcohol Dependence (ED) Forms: [employer] (South Korean)
[2017-07-11] MEDS ORDERED: Albuterol-Ipratrop 3 mg / 0.5 (3 ml) UD ONE (07:11)
== END 2017-07-11 08:55 | disposition home or self-care (01) ==
LOC: H.ER 04:16
DX: F10.10 Alcohol abuse, uncomplicated (principal); I48.91 Unspecified atrial fibrillation; J44.9 Chronic obstructive pulmonary disease, unspecified

== ENCOUNTER 2017-07-11 19:41 | Emergency (ER) | payer OTHER ==
[2017-07-11 19:41] VITALS: BMI 22.6
[2017-07-11 19:50] VITALS: BP 101/66; PULSE 79; RESP 16; TEMP 97.9; O2SAT 96
[2017-07-11] MEDS ORDERED: Albuterol-Ipratrop 3 mg / 0.5 (3 ml) UD INH STA (19:51)
--- NOTE | 2017-07-11 20:59 | ED PDOC ---
HPI: General Adult Time Seen by Provider: 07/11/17 19:51 Chief Complaint (Nursing): Alcohol Ingestion Chief Complaint (Provider): "wants nebulizer treatment" History Per: Patient History/Exam Limitations: no limitations Have you had recent travel within the past 21 days to any of the following countries: [place], [place], [place] or [place]?: No Additional Complaint(s): Jorge L Huitron, a 57 year old male, is brought into the ED by EMS for alcohol intoxication. The patient states that it's "asthma season" and that he would like treatment. Past Medical History Reviewed: Historical Data, Nursing Documentation, Vital Signs Vital Signs: Last Vital Signs Temp 97.9 F 07/11/17 19:42 Pulse 79 07/11/17 19:42 Resp 16 07/11/17 19:42 BP 101/66 07/11/17 19:42 Pulse Ox 96 07/11/17 21:03 - Medical History PMH: Asthma, Atrial Fibrillation, COPD, Hepatitis (C), Seizures - Surgical History Surgical History: Appendectomy, Tonsillectomy - Family History Family History: States: Unknown Family Hx - Social History Alcohol: < 2 Drinks/Day Drugs: Denies - Home Medications Home Medications: Ambulatory Orders Medication Instructions Recorded Azithromycin [Zithromax] 250 mg PO DAILY #6 tab 06/05/17 Albuterol HFA [Ventolin HFA 90 1 - 2 puff IH Q6 PRN #1 inhaler 06/10/17 mcg/actuation (8 g)] Azithromycin [Zithromax] 500 mg PO DAILY #6 tab 06/21/17 Azithromycin [Zithromax] 250 mg PO DAILY #4 tab 06/27/17 Levofloxacin [Levaquin] 500 mg PO DAILY #6 tablet 07/07/17 - Allergies Allergies/Adverse Reactions: Allergies Allergy/AdvReac Type Severity Reaction Status Date / Time No Known Allergies Allergy Verified 07/11/17 04:41 Review of Systems ROS Statement: Except As Marked, All Systems Reviewed And Found Negative Respiratory: Positive for: Other (difficulty breathing) Psych: Positive for: Other (alcohol intoxication) Physical Exam - Reviewed Nursing Documentation Reviewed: Yes Vital Signs Reviewed: Yes - Physical Exam Appears: Positive for: Non-toxic, No Acute Distress Head Exam: Positive for: ATRAUMATIC, NORMAL INSPECTION, NORMOCEPHALIC Skin: Positive for: Normal Color, Warm, Dry, Rash Eye Exam: Positive for: Normal appearance, EOMI, PERRL. Negative for: Nystagmus ENT: Positive for: Normal ENT Inspection. Negative for: Nasal Congestion, Tonsillar Exudate, Tonsillar Swelling Neck: Positive for: Normal, Painless ROM, Supple Cardiovascular/Chest: Positive for: Regular Rate, Rhythm, Chest Non Tender. Negative for: Tachycardia Respiratory: Positive for: Normal Breath Sounds. Negative for: Wheezing, Respiratory Distress Gastrointestinal/Abdominal: Positive for: Normal Exam, Bowel Sounds, Soft. Negative for: Tenderness, Mass, Guarding, Rebound Back: Positive for: Normal Inspection. Negative for: L CVA Tenderness, R CVA Tenderness Extremity: Positive for: Normal ROM. Negative for: Calf Tenderness, Deformity, Swelling Lymphatic: Positive for: Normal Exam Neurologic/Psych: Positive for: Alert, Oriented, Gait - ECG O2 Sat by Pulse Oximetry: 96 Medical Decision Making Medical Decision Makin Initial Impression 57 y/o male presenting with alcohol intoxication and difficulty breathing Initial Plan: * Albuterol 3ml INH * Accucheck * Nebulizer treatment * Peak carlos pre/post * Reevaluation Scribe Attestation Documented by Adilene Lemus acting as a scribe for Dalia Agee PA-C. Scribe Attestation All medical record entries made by the Scribe were at my direction and personally dictated by me. I have reviewed the chart and agree that the record accurately reflects my personal performance of the history, physical exam, medical decision making, and the department course for this patient. I have also personally directed, reviewed, and agree with the discharge instructions and disposition. Disposition - Clinical Impression Clinical Impression: Alcohol abuse, Asthma - Patient ED Disposition Is Patient to be Admitted: Transfer of Care - Disposition Disposition: Transfer of Care Disposition Time: 00:12 Condition: GOOD Forms: [facility] (Palestinian)
--- NOTE | 2017-07-12 00:47 | ED PDOC ---
- ECG O2 Sat by Pulse Oximetry: 96 Medical Decision Making Medical Decision Making: Case endorsed to chart writer from SHANA Agee at midnight pending clinical sobriety Pt asleep in ED overnight, NAD. Pt ambulated around ED to say HI to staff ~ 0200 Stable for discharge in am Disposition - Clinical Impression Clinical Impression: Alcohol abuse, Asthma - POA Present On Arrival: None - Disposition Disposition: Routine/Home Disposition Time: 06:00 Condition: GOOD Instructions: Alcohol Intoxication (ED) Forms: [employer] (Czech)
== END 2017-07-12 06:59 | disposition home or self-care (01) ==
LOC: H.ER 19:41
DX: F10.129 Alcohol abuse with intoxication, unspecified (principal); J45.909 Unspecified asthma, uncomplicated

== ENCOUNTER 2017-07-13 19:15 | Emergency (ER) | payer OTHER ==
[2017-07-13 19:15] VITALS: BMI 22.6
[2017-07-13 19:26] VITALS: TEMP 97.8; O2SAT 99
--- NOTE | 2017-07-13 19:50 | ED PDOC ---
HPI: Psych/Substance Abuse Time Seen by Provider: 07/13/17 19:26 Chief Complaint (Nursing): Alcohol Ingestion Chief Complaint (Provider): Alcohol Ingestion ED Caveat: Intoxicated History Per: EMS History/Exam Limitations: intoxication Onset/Duration Of Symptoms: Mins (prior to arrival) Current Symptoms Are (Timing): Still Present Additional Complaint(s): Jorge L Huitron, well-known to ED, is a 57 year old male who presents to the emergency department via EMS for alcohol intoxication prior to arrival. Unable to obtain further medical complaints due to current state of intoxication. PMD: none provided Past Medical History Reviewed: Historical Data, Nursing Documentation, Vital Signs Vital Signs: Last Vital Signs Temp 97.8 F 07/13/17 19:24 Pulse 78 07/13/17 19:24 Resp 18 07/13/17 19:24 BP 138/78 07/13/17 19:24 Pulse Ox 99 07/13/17 19:24 - Medical History PMH: Asthma, Atrial Fibrillation, COPD, Hepatitis (C), Seizures - Surgical History Surgical History: Appendectomy, Tonsillectomy - Family History Family History: States: Unknown Family Hx - Social History Current smoker - smoking cessation education provided: Yes Alcohol: > 2 Drinks/Day - Home Medications Home Medications: Ambulatory Orders Medication Instructions Recorded Azithromycin [Zithromax] 250 mg PO DAILY #6 tab 06/05/17 Albuterol HFA [Ventolin HFA 90 1 - 2 puff IH Q6 PRN #1 inhaler 06/10/17 mcg/actuation (8 g)] Azithromycin [Zithromax] 500 mg PO DAILY #6 tab 06/21/17 Azithromycin [Zithromax] 250 mg PO DAILY #4 tab 06/27/17 Levofloxacin [Levaquin] 500 mg PO DAILY #6 tablet 07/07/17 - Allergies Allergies/Adverse Reactions: Allergies Allergy/AdvReac Type Severity Reaction Status Date / Time No Known Allergies Allergy Verified 07/11/17 04:41 Review of Systems Review Of Systems: ROS cannot be obtained secondary to pt's inabilty to answer questions. (intoxication) Physical Exam - Reviewed Nursing Documentation Reviewed: Yes Vital Signs Reviewed: Yes - Physical Exam Appears: Positive for: Well, Non-toxic, No Acute Distress Head Exam: Positive for: ATRAUMATIC, NORMAL INSPECTION, NORMOCEPHALIC Skin: Positive for: Normal Color Eye Exam: Positive for: Normal appearance ENT: Positive for: Normal ENT Inspection Neck: Positive for: Normal, Painless ROM, Supple. Negative for: Decreased ROM Cardiovascular/Chest: Positive for: Regular Rate, Rhythm, Chest Non Tender Respiratory: Positive for: Normal Breath Sounds, Accessory Muscle Use. Negative for: Decreased Breath Sounds, Respiratory Distress Gastrointestinal/Abdominal: Positive for: Normal Exam, Bowel Sounds, Soft. Negative for: Tenderness Extremity: Positive for: Normal ROM. Negative for: Tenderness, Pedal Edema, Deformity Neurologic/Psych: Positive for: Alert, Mood/Affect (intoxicated) - ECG O2 Sat by Pulse Oximetry: 99 (RA) Pulse Ox Interpretation: Normal Medical Decision Making Medical Decision Making: Initial Impression: ETOH intoxication Initial Plan: * Accucheck * At 23:00 pt is AAO x3 and has fluent speech; patient at baseline for discharge home Dx Alcoholism Stable Scribe Attestation: Documented by Brittaney Molina, acting as a scribe for Renaldo Gates MD. Provider Scribe Attestation: All medical record entries made by the Scribe were at my direction and personally dictated by me. I have reviewed the chart and agree that the record accurately reflects my personal performance of the history, physical exam, medical decision making, and the department course for this patient. I have also personally directed, reviewed, and agree with the discharge instructions and disposition. Disposition - Clinical Impression Clinical Impression: Alcohol use - Patient ED Disposition Is Patient to be Admitted: No - Disposition Disposition: Routine/Home Disposition Time: 22:00 Condition: STABLE Forms: [employer] (Tristanian)
[2017-07-14 05:49] VITALS: BP 129/81; PULSE 74; RESP 17
== END 2017-07-14 05:53 | disposition home or self-care (01) ==
LOC: H.ER 19:15
DX: F10.229 Alcohol dependence with intoxication, unspecified (principal); F17.200 Nicotine dependence, unspecified, uncomplicated; I48.91 Unspecified atrial fibrillation; J44.9 Chronic obstructive pulmonary disease, unspecified

== ENCOUNTER 2017-07-14 22:06 | Emergency (ER) | payer OTHER ==
[2017-07-14 22:06] VITALS: BMI 22.6
[2017-07-14 22:09] VITALS: BP 122/85; PULSE 70; RESP 14; TEMP 98; O2SAT 94
--- NOTE | 2017-07-14 23:45 | ED PDOC ---
HPI: Psych/Substance Abuse Time Seen by Provider: 07/14/17 22:17 Chief Complaint (Nursing): Alcohol Ingestion Chief Complaint (Provider): etoh History Per: EMS Additional History Per: Patient, EMS Additional Complaint(s): 57 y/o male brought in by EMS for suspected alcohol intoxication. Patient found sleeping on ground. Patient admits to drinking, states he tripped earlier tonight and hit his head. Denies vomiting, neck/back pain, numbness/ weakness extremities. Past Medical History Reviewed: Historical Data, Nursing Documentation, Vital Signs Vital Signs: Last Vital Signs Temp 98.0 F 07/14/17 22:07 Pulse 70 07/14/17 22:07 Resp 14 07/14/17 22:07 BP 122/85 07/14/17 22:07 Pulse Ox 94 L 07/14/17 22:07 - Medical History PMH: Asthma, Atrial Fibrillation, COPD, Hepatitis (C), Seizures - Surgical History Surgical History: Appendectomy, Tonsillectomy - Family History Family History: States: Unknown Family Hx - Home Medications Home Medications: Ambulatory Orders Medication Instructions Recorded Azithromycin [Zithromax] 250 mg PO DAILY #6 tab 06/05/17 Albuterol HFA [Ventolin HFA 90 1 - 2 puff IH Q6 PRN #1 inhaler 06/10/17 mcg/actuation (8 g)] Azithromycin [Zithromax] 500 mg PO DAILY #6 tab 06/21/17 Azithromycin [Zithromax] 250 mg PO DAILY #4 tab 06/27/17 Levofloxacin [Levaquin] 500 mg PO DAILY #6 tablet 07/07/17 - Allergies Allergies/Adverse Reactions: Allergies Allergy/AdvReac Type Severity Reaction Status Date / Time No Known Allergies Allergy Verified 07/14/17 22:07 Review of Systems ROS Statement: Except As Marked, All Systems Reviewed And Found Negative Neurological: Positive for: Headache Physical Exam - Reviewed Nursing Documentation Reviewed: Yes Vital Signs Reviewed: Yes - Physical Exam Appears: Positive for: Well, Non-toxic, No Acute Distress Head Exam: Positive for: ATRAUMATIC, NORMAL INSPECTION, NORMOCEPHALIC Skin: Positive for: Normal Color Eye Exam: Positive for: Normal appearance, EOMI, PERRL ENT: Positive for: Normal ENT Inspection Cardiovascular/Chest: Positive for: Regular Rate, Rhythm Respiratory: Positive for: Normal Breath Sounds Back: Positive for: Normal Inspection Extremity: Positive for: Normal ROM Neurologic/Psych: Positive for: Alert, Oriented - ECG O2 Sat by Pulse Oximetry: 94 - Progress ED Course And Treament: accucheck, CT head EXAM: CT Head Without Intravenous Contrast CLINICAL HISTORY: 57 years old, male; Injury or trauma; Fall; Additional info: Head injury, ETOH TECHNIQUE: Axial computed tomography images of the head/brain without intravenous contrast. All CT scans at this facility use one or more dose reduction techniques, viz.: automated exposure control; ma/kV adjustment per patient size (including targeted exams where dose is matched to indication; i.e. head); or iterative reconstruction technique. Coronal and sagittal reformatted images were created and reviewed. COMPARISON: CT - HEAD W/O CONTRAST 2017-07-06 00:24 FINDINGS: Brain: Moderate atrophy. No intracranial hemorrhage. No mass. No edema. Ventricles: No hydrocephalus. Bones/joints: No acute fracture. Chronic deformity RIGHT zygomatic arch, nasal bones. Soft tissues: Unremarkable. Sinuses: No acute sinusitis. Mastoid air cells: Partial opacification of RIGHT mastoid, stable. Orbits: Unremarkable as visualized. IMPRESSION: 1. No intracranial hemorrhage. 2. Incidental/non-acute findings are described above. Disposition - Clinical Impression Clinical Impression: Alcohol abuse - Disposition Instructions: Abuse of Alcohol (ED) Forms: [employer] (Fijian)
--- NOTE | 2017-07-15 00:30 | CT ---
EXAM: CT Head Without Intravenous Contrast CLINICAL HISTORY: 57 years old, male; Injury or trauma; Fall; Additional info: Head injury, ETOH TECHNIQUE: Axial computed tomography images of the head/brain without intravenous contrast. All CT scans at this facility use one or more dose reduction techniques, viz.: automated exposure control; ma/kV adjustment per patient size (including targeted exams where dose is matched to indication; i.e. head); or iterative reconstruction technique. Coronal and sagittal reformatted images were created and reviewed. COMPARISON: CT - HEAD W/O CONTRAST 2017-07-06 00:24 FINDINGS: Brain: Moderate atrophy. No intracranial hemorrhage. No mass. No edema. Ventricles: No hydrocephalus. Bones/joints: No acute fracture. Chronic deformity RIGHT zygomatic arch, nasal bones. Soft tissues: Unremarkable. Sinuses: No acute sinusitis. Mastoid air cells: Partial opacification of RIGHT mastoid, stable. Orbits: Unremarkable as visualized. IMPRESSION: 1. No intracranial hemorrhage. 2. Incidental/non-acute findings are described above.
== END 2017-07-15 05:53 | disposition home or self-care (01) ==
LOC: H.ER 22:06
DX: F10.129 Alcohol abuse with intoxication, unspecified (principal); S09.90XA Unspecified injury of head, initial encounter; W19.XXXA Unspecified fall, initial encounter; Y92.89 Other specified places as the place of occurrence of the external cause

== ENCOUNTER 2017-07-15 18:14 | Emergency (ER) | payer OTHER ==
[2017-07-15 18:15] VITALS: BMI 22.6
--- NOTE | 2017-07-15 18:31 | ED PDOC ---
HPI: Psych/Substance Abuse Time Seen by Provider: 07/15/17 18:20 Chief Complaint (Nursing): Alcohol Ingestion Chief Complaint (Provider): Alcohol ingestion History Per: Patient History/Exam Limitations: no limitations Additional Complaint(s): Patient is a 57 y/o male with a past medical history of asthma brought to the emergency department by EMS for alcohol intoxication. Patient admits to drinking and also notes head trauma and shortness of breath. Denies head pain or any other complaints. Of note, patient also admits to smoking today. PCP: none provided. Past Medical History Reviewed: Historical Data, Nursing Documentation, Vital Signs Vital Signs: Last Vital Signs Temp 97 F L 07/15/17 18:18 Pulse 106 H 07/15/17 18:18 Resp 20 07/15/17 18:18 BP 126/82 07/15/17 18:18 Pulse Ox 97 07/15/17 18:18 - Medical History PMH: Asthma, Atrial Fibrillation, COPD, Hepatitis (C), Seizures - Surgical History Surgical History: Appendectomy, Tonsillectomy - Family History Family History: States: Unknown Family Hx - Home Medications Home Medications: Ambulatory Orders Medication Instructions Recorded Azithromycin [Zithromax] 250 mg PO DAILY #6 tab 06/05/17 Albuterol HFA [Ventolin HFA 90 1 - 2 puff IH Q6 PRN #1 inhaler 06/10/17 mcg/actuation (8 g)] Azithromycin [Zithromax] 500 mg PO DAILY #6 tab 06/21/17 Azithromycin [Zithromax] 250 mg PO DAILY #4 tab 06/27/17 Levofloxacin [Levaquin] 500 mg PO DAILY #6 tablet 07/07/17 - Allergies Allergies/Adverse Reactions: Allergies Allergy/AdvReac Type Severity Reaction Status Date / Time No Known Allergies Allergy Verified 07/14/17 22:07 Review of Systems ROS Statement: Except As Marked, All Systems Reviewed And Found Negative Respiratory: Positive for: Shortness of Breath Musculoskeletal: Negative for: Other (head pain) Physical Exam - Reviewed Nursing Documentation Reviewed: Yes Vital Signs Reviewed: Yes - Physical Exam Appears: Positive for: Well, Non-toxic, No Acute Distress Head Exam: Positive for: NORMAL INSPECTION, NORMOCEPHALIC Skin: Positive for: Normal Color, Warm, Dry Eye Exam: Positive for: Normal appearance Cardiovascular/Chest: Positive for: Regular Rate, Rhythm Respiratory: Positive for: Normal Breath Sounds. Negative for: Accessory Muscle Use, Respiratory Distress Extremity: Positive for: Normal ROM Neurologic/Psych: Positive for: Alert, Oriented (x3) - ECG O2 Sat by Pulse Oximetry: 97 (RA) Pulse Ox Interpretation: Normal - Progress ED Course And Treament: Patient had head CT earlier today 07/15/2017 no acute injury States he had a head injury yesterday night none today. Medical Decision Making Medical Decision Making: Time: 18:27 Initial impression: Alcohol intoxication. Head injury. Initial plan: OBSERVE UNTIL CLINICAL SOBRIETY On initial evaluation, patient requested to have corn flakes. Patient will be placed under observation until clinically sober. ~ Scribe Attestation: Documented by Katja Jimenez, acting as a scribe for ANAY Bernstein. Provider Scribe Attestation: All medical record entries made by the Scribe were at my direction and personally dictated by me. I have reviewed the chart and agree that the record accurately reflects my personal performance of the history, physical exam, medical decision making, and the department course for this patient. I have also personally directed, reviewed, and agree with the discharge instructions and disposition. Disposition - Clinical Impression Clinical Impression: Alcohol abuse - Disposition Disposition: Routine/Home Disposition Time: 23:54 Condition: STABLE Instructions: Alcohol Intoxication (DC) Forms: [employer] (Thai)
[2017-07-16 05:47] VITALS: BP 120/78; PULSE 72; RESP 18; TEMP 98.9; O2SAT 99
== END 2017-07-16 05:47 | disposition home or self-care (01) ==
LOC: H.ER 18:14
DX: F10.129 Alcohol abuse with intoxication, unspecified (principal); S09.90XA Unspecified injury of head, initial encounter; W19.XXXA Unspecified fall, initial encounter; I48.91 Unspecified atrial fibrillation; J44.9 Chronic obstructive pulmonary disease, unspecified

== ENCOUNTER 2017-07-19 21:52 | Emergency (ER) | payer OTHER ==
[2017-07-19 21:52] VITALS: BMI 22.6
[2017-07-19 22:09] VITALS: TEMP 97.8; O2SAT 96
--- NOTE | 2017-07-20 00:13 | ED PDOC ---
HPI: Psych/Substance Abuse Time Seen by Provider: 07/19/17 22:00 Chief Complaint (Nursing): Alcohol Ingestion Chief Complaint (Provider): Alcohol Ingestion ED Caveat: Intoxicated History Per: Patient History/Exam Limitations: no limitations Suicide/Self Injury Attempted (Context): None Modifying Factor(s): Alcohol Additional Complaint(s): 57 year old male presents to ED due to alcohol intoxication and is well known to the provider and ED. Patient notes a past medical history of COPD and AFIB. Requests a bed for the night. PCP: None Past Medical History Reviewed: Historical Data, Nursing Documentation, Vital Signs Vital Signs: Last Vital Signs Temp 97.8 F 07/19/17 22:06 Pulse 101 H 07/19/17 22:06 Resp 16 07/19/17 22:06 BP 146/62 07/19/17 22:06 Pulse Ox 96 07/19/17 22:06 - Medical History PMH: Asthma, Atrial Fibrillation, COPD, Hepatitis (C), Seizures - Surgical History Surgical History: Appendectomy, Tonsillectomy - Family History Family History: States: Unknown Family Hx - Living Arrangements Living Arrangements: Other (Nondomiciled) - Social History Current smoker - smoking cessation education provided: Yes Alcohol: > 2 Drinks/Day - Home Medications Home Medications: Ambulatory Orders Medication Instructions Recorded Azithromycin [Zithromax] 250 mg PO DAILY #6 tab 06/05/17 Albuterol HFA [Ventolin HFA 90 1 - 2 puff IH Q6 PRN #1 inhaler 06/10/17 mcg/actuation (8 g)] Azithromycin [Zithromax] 500 mg PO DAILY #6 tab 06/21/17 Azithromycin [Zithromax] 250 mg PO DAILY #4 tab 06/27/17 Levofloxacin [Levaquin] 500 mg PO DAILY #6 tablet 07/07/17 - Allergies Allergies/Adverse Reactions: Allergies Allergy/AdvReac Type Severity Reaction Status Date / Time No Known Allergies Allergy Verified 07/19/17 22:06 Review of Systems Review Of Systems: ROS cannot be obtained secondary to pt's inabilty to answer questions. (Patient is intoxicated) Physical Exam - Reviewed Nursing Documentation Reviewed: Yes Vital Signs Reviewed: Yes - Physical Exam Appears: Positive for: Non-toxic, No Acute Distress Head Exam: Positive for: ATRAUMATIC, NORMOCEPHALIC Skin: Positive for: Normal Color, Warm, Dry Eye Exam: Positive for: Normal appearance Neck: Positive for: Normal Cardiovascular/Chest: Positive for: Regular Rate, Rhythm, Tachycardia Respiratory: Positive for: Normal Breath Sounds. Negative for: Respiratory Distress Gastrointestinal/Abdominal: Positive for: Normal Exam Extremity: Positive for: Normal ROM. Negative for: Deformity Neurologic/Psych: Positive for: Alert. Negative for: Motor/Sensory Deficits - ECG O2 Sat by Pulse Oximetry: 96 (RA) Pulse Ox Interpretation: Normal Medical Decision Making Medical Decision Makin Initial impression: alcohol intoxication 0550 Patient is awake, alert, and oriented x3. Patient walks with a steady gait and is stable for discharge. Dx: alcohol intoxication Scribe Attestation: Documented by Kenia Ozuna acting as a scribe for Marcia Sands MD. Scribe Attestation: All medical record entries made by the Scribe were at my direction and personally dictated by me. I have reviewed the chart and agree that the record accurately reflects my personal performance of the history, physical exam, medical decision making, and the department course for this patient. I have also personally directed, reviewed, and agree with the discharge instructions and disposition. Disposition - Clinical Impression Clinical Impression: Alcohol abuse, Alcohol intoxication - Patient ED Disposition Is Patient to be Admitted: No Counseled Patient/Family Regarding: Studies Performed, Diagnosis, Need For Followup - Disposition Disposition: Routine/Home Disposition Time: 04:20 Condition: IMPROVED Additional Instructions: follow up with your primary doctor in 1-2 days return to the ED with any worsening or concerning symptoms Instructions: Alcohol Intoxication (ED) Forms: [employer] (Telugu)
[2017-07-20 06:17] VITALS: BP 138/74; PULSE 76; RESP 18
== END 2017-07-20 06:30 | disposition home or self-care (01) ==
LOC: H.ER 21:52
DX: F10.129 Alcohol abuse with intoxication, unspecified (principal); I48.91 Unspecified atrial fibrillation; J44.9 Chronic obstructive pulmonary disease, unspecified

== ENCOUNTER 2017-07-25 21:17 | Emergency (ER) | payer OTHER ==
[2017-07-25 21:17] VITALS: BMI 22.6
[2017-07-25 21:26] VITALS: BP 119/89; PULSE 94; RESP 18; TEMP 98.6; O2SAT 99
--- NOTE | 2017-07-25 21:42 | ED PDOC ---
HPI: General Adult Time Seen by Provider: 07/25/17 21:39 Chief Complaint (Nursing): Cough, Cold, Congestion Chief Complaint (Provider): congestion, asthma History Per: Patient Additional Complaint(s): 57-year-old male presents to emergency department intoxicated requesting breathing treatment for asthma. Patient is well known to emergency department for frequent visits. Past Medical History Reviewed: Historical Data, Nursing Documentation, Vital Signs Vital Signs: Last Vital Signs Temp 98.6 F 07/25/17 21:20 Pulse 94 H 07/25/17 21:20 Resp 18 07/25/17 21:20 BP 119/89 07/25/17 21:20 Pulse Ox 99 07/25/17 21:57 - Medical History PMH: Asthma, Atrial Fibrillation, COPD, Hepatitis (C), Seizures - Surgical History Surgical History: Appendectomy, Tonsillectomy - Family History Family History: States: No Known Family Hx - Living Arrangements Living Arrangements: Other (undomiciled) - Home Medications Home Medications: Ambulatory Orders Medication Instructions Recorded Azithromycin [Zithromax] 250 mg PO DAILY #6 tab 06/05/17 Albuterol HFA [Ventolin HFA 90 1 - 2 puff IH Q6 PRN #1 inhaler 06/10/17 mcg/actuation (8 g)] Azithromycin [Zithromax] 500 mg PO DAILY #6 tab 06/21/17 Azithromycin [Zithromax] 250 mg PO DAILY #4 tab 06/27/17 Levofloxacin [Levaquin] 500 mg PO DAILY #6 tablet 07/07/17 - Allergies Allergies/Adverse Reactions: Allergies Allergy/AdvReac Type Severity Reaction Status Date / Time No Known Allergies Allergy Verified 07/24/17 17:23 Review of Systems ROS Statement: Except As Marked, All Systems Reviewed And Found Negative Respiratory: Positive for: Wheezing Psych: Positive for: Other (etoh) Physical Exam - Reviewed Nursing Documentation Reviewed: Yes Vital Signs Reviewed: Yes - Physical Exam Appears: Positive for: Well, Non-toxic, No Acute Distress Skin: Negative for: Rash Eye Exam: Positive for: Normal appearance Cardiovascular/Chest: Positive for: Regular Rate, Rhythm Respiratory: Positive for: Wheezing. Negative for: Respiratory Distress Neurologic/Psych: Positive for: Alert, Oriented - ECG O2 Sat by Pulse Oximetry: 99 Pulse Ox Interpretation: Normal Medical Decision Making Medical Decision Makin57 year old intoxicated male with asthma Plan: Duoneb x 1 Fingerstick Fingerstick: 97 Patient feels better after duoneb treatment. Disposition - Clinical Impression Clinical Impression: Alcohol abuse, Asthma - Patient ED Disposition Is Patient to be Admitted: No - Disposition Referrals: [facility] [Outside] Disposition: Routine/Home Disposition Time: 06:00 Condition: STABLE Instructions: Alcohol Intoxication (ED), Abuse of Alcohol (ED), Asthma (ED) Forms: [employer] (Telugu)
[2017-07-25] MEDS ORDERED: Albuterol-Ipratrop 3 mg / 0.5 (3 ml) UD INH STA (21:47)
== END 2017-07-26 06:00 | disposition home or self-care (01) ==
LOC: H.ER 21:17
DX: F10.10 Alcohol abuse, uncomplicated (principal); J44.9 Chronic obstructive pulmonary disease, unspecified; I48.91 Unspecified atrial fibrillation

== ENCOUNTER 2017-07-29 06:54 | Emergency (ER) | payer OTHER ==
[2017-07-29 06:54] VITALS: BMI 22.6
[2017-07-29 07:14] VITALS: BP 102/71
[2017-07-29] MEDS ORDERED: Albuterol-Ipratrop 3 mg / 0.5 (3 ml) UD IH STA (07:18)
--- NOTE | 2017-07-29 07:20 | ED PDOC ---
HPI: CCC, URI, Sore Throat Time Seen by Provider: 07/29/17 07:15 Chief Complaint (Nursing): Cough, Cold, Congestion History Per: Patient (Cough and congestion x 2 days. Denies fever or SOB) Onset/Duration Of Symptoms: Days (2) Associated Symptoms: Cough. denies: Fever, Sore Throat, Sputum Severity: Mild Pain Scale Rating Of: 0 Past Medical History Vital Signs: Last Vital Signs Temp 97 F L 07/29/17 07:11 Pulse 118 H 07/29/17 07:11 Resp 22 07/29/17 07:11 BP 102/71 07/29/17 07:11 Pulse Ox 95 07/29/17 07:20 - Medical History PMH: Asthma, Atrial Fibrillation, COPD, Hepatitis (C), Seizures - Surgical History Surgical History: Appendectomy, Tonsillectomy - Family History Family History: States: Unknown Family Hx - Home Medications Home Medications: Ambulatory Orders Medication Instructions Recorded Azithromycin [Zithromax] 250 mg PO DAILY #6 tab 06/05/17 Albuterol HFA [Ventolin HFA 90 1 - 2 puff IH Q6 PRN #1 inhaler 06/10/17 mcg/actuation (8 g)] Azithromycin [Zithromax] 500 mg PO DAILY #6 tab 06/21/17 Azithromycin [Zithromax] 250 mg PO DAILY #4 tab 06/27/17 Levofloxacin [Levaquin] 500 mg PO DAILY #6 tablet 07/07/17 - Allergies Allergies/Adverse Reactions: Allergies Allergy/AdvReac Type Severity Reaction Status Date / Time No Known Allergies Allergy Verified 07/29/17 07:10 Review of Systems Constitutional: Negative for: Fever Cardiovascular: Negative for: Chest Pain Respiratory: Positive for: Cough. Negative for: Shortness of Breath Gastrointestinal: Negative for: Vomiting Physical Exam - Physical Exam Appears: Positive for: Non-toxic, No Acute Distress Skin: Positive for: Normal Color Cardiovascular/Chest: Positive for: Regular Rate, Rhythm Respiratory: Positive for: Rhonchi. Negative for: Wheezing, Respiratory Distress Neurologic/Psych: Positive for: Alert, Oriented. Negative for: Motor/Sensory Deficits - ECG O2 Sat by Pulse Oximetry: 95 Disposition - Clinical Impression Clinical Impression: Chronic cough - Patient ED Disposition Is Patient to be Admitted: No Counseled Patient/Family Regarding: Diagnosis, Need For Followup - Disposition Referrals: [facility] [Outside] Disposition: Routine/Home Disposition Time: 08:06 Condition: FAIR Instructions: Chronic Cough (ED) Forms: [employer] (Yoruba)
[2017-07-29] MEDS ORDERED: Albuterol-Ipratrop 3 mg / 0.5 (3 ml) UD ONE (07:51)
[2017-07-29 08:11] VITALS: PULSE 91; RESP 20; TEMP 97.4; O2SAT 96
== END 2017-07-29 08:20 | disposition home or self-care (01) ==
LOC: H.ER 06:54
DX: R05 Cough (principal); I48.91 Unspecified atrial fibrillation; J44.9 Chronic obstructive pulmonary disease, unspecified

== ENCOUNTER 2017-07-30 06:33 | Emergency (ER) | payer OTHER ==
[2017-07-30 06:33] VITALS: BMI 22.6
[2017-07-30] MEDS ORDERED: Albuterol-Ipratrop 3 mg / 0.5 (3 ml) UD INH STA (07:20)
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
[2017-07-30 11:08] VITALS: BP 110/57; PULSE 100; RESP 18; TEMP 98.1; O2SAT 96
== END 2017-07-30 12:30 | disposition home or self-care (01) ==
LOC: H.ER 06:33
DX: R07.81 Pleurodynia (principal); I48.91 Unspecified atrial fibrillation; J44.9 Chronic obstructive pulmonary disease, unspecified; R56.9 Unspecified convulsions

== ENCOUNTER 2017-07-31 00:59 | Emergency (ER) | payer OTHER ==
[2017-07-31 00:59] VITALS: BMI 22.6
[2017-07-31 02:17] VITALS: BP 132/73; PULSE 90; RESP 16; TEMP 98; O2SAT 95
[2017-07-31] MEDS ORDERED: Albuterol-Ipratrop 3 mg / 0.5 (3 ml) UD INH STA (02:18)
--- NOTE | 2017-07-31 02:43 | ED PDOC ---
HPI: General Adult Time Seen by Provider: 07/31/17 02:18 Chief Complaint (Nursing): Cough, Cold, Congestion Chief Complaint (Provider): Cough, Cold, Congestion History Per: Patient Current Symptoms Are (Timing): Still Present Additional Complaint(s): 57 y/o male with past history of alcoholism presents to the ED complaining of cold and cough. Patient states "I feel cold." He is an alcoholic and is well known by EMS and hospital because of his multiple visits and bed seeking behavior. He was discharged about three hours ago for alcohol intoxication and he returned to the ED with complain of cough and cold asking for a bed to sleep. Denies any further medical complaints. Past Medical History Reviewed: Historical Data, Nursing Documentation, Vital Signs Vital Signs: Last Vital Signs Temp 98.0 F 07/31/17 02:14 Pulse 90 07/31/17 02:14 Resp 16 07/31/17 02:14 BP 132/73 07/31/17 02:14 Pulse Ox 95 07/31/17 02:45 - Medical History PMH: Asthma, Atrial Fibrillation, COPD, Hepatitis (C), Seizures - Surgical History Surgical History: Appendectomy, Tonsillectomy - Family History Family History: States: Unknown Family Hx - Social History Current smoker - smoking cessation education provided: Yes Alcohol: < 2 Drinks/Day Drugs: Denies - Home Medications Home Medications: Ambulatory Orders Medication Instructions Recorded Azithromycin [Zithromax] 250 mg PO DAILY #6 tab 06/05/17 Albuterol HFA [Ventolin HFA 90 1 - 2 puff IH Q6 PRN #1 inhaler 06/10/17 mcg/actuation (8 g)] Azithromycin [Zithromax] 500 mg PO DAILY #6 tab 06/21/17 Azithromycin [Zithromax] 250 mg PO DAILY #4 tab 06/27/17 Levofloxacin [Levaquin] 500 mg PO DAILY #6 tablet 07/07/17 - Allergies Allergies/Adverse Reactions: Allergies Allergy/AdvReac Type Severity Reaction Status Date / Time No Known Allergies Allergy Verified 07/31/17 02:09 Review of Systems ROS Statement: Except As Marked, All Systems Reviewed And Found Negative (As per HPI, otherwise negative) Respiratory: Positive for: Cough Physical Exam - Reviewed Nursing Documentation Reviewed: Yes Vital Signs Reviewed: Yes - Physical Exam Appears: Positive for: Well, Non-toxic, No Acute Distress Head Exam: Positive for: ATRAUMATIC, NORMAL INSPECTION, NORMOCEPHALIC Skin: Positive for: Normal Color, Warm, Dry Cardiovascular/Chest: Positive for: Regular Rate, Rhythm. Negative for: Murmur Respiratory: Positive for: Normal Breath Sounds. Negative for: Accessory Muscle Use, Respiratory Distress Neurologic/Psych: Positive for: Alert, Oriented (x3) - ECG O2 Sat by Pulse Oximetry: 95 (RA) Pulse Ox Interpretation: Normal Medical Decision Making Medical Decision Making: Time: 02:18 Initial Impression: 57 y/o male with history of alcoholism Plan: --Albuterol 3ml INH --Peak floe pre/post Tx --Reevaluation Scribe Attestation: Documented by Tomás Ram acting as a scribe for Renaldo Gates MD. Scribe Attestation: All medical record entries made by the Scribe were at my direction and personally dictated by me. I have reviewed the chart and agree that the record accurately reflects my personal performance of the history, physical exam, medical decision making, and the department course for this patient. I have also personally directed, reviewed, and agree with the discharge instructions and disposition. Disposition - Clinical Impression Clinical Impression: Cough, Malingering - Patient ED Disposition Is Patient to be Admitted: No - Disposition Disposition: Routine/Home Disposition Time: 07:00 Condition: STABLE Instructions: Acute Cough (ED) Forms: [employer] (Tanzanian)
== END 2017-07-31 06:40 | disposition home or self-care (01) ==
LOC: H.ER 00:59
DX: R05 Cough (principal); F10.229 Alcohol dependence with intoxication, unspecified; F17.200 Nicotine dependence, unspecified, uncomplicated; I48.91 Unspecified atrial fibrillation; J44.9 Chronic obstructive pulmonary disease, unspecified

== ENCOUNTER 2017-08-01 13:17 | Emergency (ER) | payer OTHER ==
[2017-08-01 13:17] VITALS: BMI 22.6
[2017-08-01 13:30] VITALS: BP 118/78; PULSE 90; RESP 18; TEMP 97.8; O2SAT 96
--- NOTE | 2017-08-01 14:58 | ED PDOC ---
HPI: Psych/Substance Abuse Time Seen by Provider: 08/01/17 13:45 Chief Complaint (Nursing): Cough, Cold, Congestion Chief Complaint (Provider): Cough, Cold, Congestion Current Symptoms Are (Timing): Still Present Additional Complaint(s): 57 y/o male presents to the ED complaining of cold, cough and nasal congestion. Patient has been to the ED multiple times and is known for his bed seeking behavior. Past Medical History Vital Signs: Last Vital Signs Temp 97.8 F 08/01/17 13:28 Pulse 90 08/01/17 13:28 Resp 18 08/01/17 13:28 BP 118/78 08/01/17 13:28 Pulse Ox 96 08/01/17 13:28 - Medical History PMH: Asthma, Atrial Fibrillation, COPD, Hepatitis (C), Seizures - Surgical History Surgical History: Appendectomy, Tonsillectomy - Family History Family History: States: Unknown Family Hx - Social History Current smoker - smoking cessation education provided: Yes (Heavy smoker> 10cigarettes daily) Alcohol: > 2 Drinks/Day (2-3 pints of vodka daily) Drugs: Denies - Home Medications Home Medications: Ambulatory Orders Medication Instructions Recorded Azithromycin [Zithromax] 250 mg PO DAILY #6 tab 06/05/17 Albuterol HFA [Ventolin HFA 90 1 - 2 puff IH Q6 PRN #1 inhaler 06/10/17 mcg/actuation (8 g)] Azithromycin [Zithromax] 500 mg PO DAILY #6 tab 06/21/17 Azithromycin [Zithromax] 250 mg PO DAILY #4 tab 06/27/17 Levofloxacin [Levaquin] 500 mg PO DAILY #6 tablet 07/07/17 - Allergies Allergies/Adverse Reactions: Allergies Allergy/AdvReac Type Severity Reaction Status Date / Time No Known Allergies Allergy Verified 07/31/17 02:09 Review of Systems ROS Statement: Except As Marked, All Systems Reviewed And Found Negative (As per HPI, otherwise negative) ENT: Positive for: Nose Congestion Respiratory: Positive for: Cough (Cold and cough) Physical Exam - Reviewed Nursing Documentation Reviewed: Yes Vital Signs Reviewed: Yes - Physical Exam Appears: Positive for: Well, Non-toxic, No Acute Distress Head Exam: Positive for: ATRAUMATIC, NORMAL INSPECTION, NORMOCEPHALIC Skin: Positive for: Normal Color, Warm, Dry Respiratory: Negative for: Accessory Muscle Use, Respiratory Distress Neurologic/Psych: Positive for: Alert, Oriented (x3) - ECG O2 Sat by Pulse Oximetry: 96 (RA) Pulse Ox Interpretation: Normal Medical Decision Making Medical Decision Making: Time: 13:45 Initial Plan: Scribe Attestation: Documented by Tomás Ram, acting as a scribe for Valeri Epstein PA-C Provider Scribe Attestation: All medical record entries made by the Scribe were at my direction and personally dictated by me. I have reviewed the chart and agree that the record accurately reflects my personal performance of the history, physical exam, medical decision making, and the department course for this patient. I have also personally directed, reviewed, and agree with the discharge instructions and disposition. Disposition - Clinical Impression Clinical Impression: Alcohol abuse - Patient ED Disposition Is Patient to be Admitted: No - Disposition Disposition: Routine/Home Disposition Time: 19:42 Condition: STABLE Instructions: Alcohol Intoxication (ED), Abuse of Alcohol (ED), Alcohol Dependence (ED) Forms: [employer] (St Helenian)
== END 2017-08-01 20:18 | disposition home or self-care (01) ==
LOC: H.ER 13:17
DX: F10.10 Alcohol abuse, uncomplicated (principal); I48.91 Unspecified atrial fibrillation; J44.9 Chronic obstructive pulmonary disease, unspecified

== ENCOUNTER 2017-08-01 23:59 | Emergency (ER) | payer OTHER ==
[2017-08-01 23:59] VITALS: BMI 22.6
[2017-08-02 00:04] VITALS: BP 119/78; PULSE 80; RESP 18; TEMP 97.8; O2SAT 100
--- NOTE | 2017-08-02 00:27 | ED PDOC ---
HPI: Psych/Substance Abuse Time Seen by Provider: 08/02/17 00:02 Chief Complaint (Nursing): Cough, Cold, Congestion Chief Complaint (Provider): ETOH History Per: Patient Additional Complaint(s): Patient found sitting on stoop. Patient complaining of dry cough. 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 Past Medical History Reviewed: Historical Data, Nursing Documentation, Vital Signs Vital Signs: Last Vital Signs Temp 97.8 F 08/02/17 00:01 Pulse 80 08/02/17 00:01 Resp 18 08/02/17 00:01 BP 119/78 08/02/17 00:01 Pulse Ox 100 08/02/17 00:01 - Medical History PMH: Asthma, Atrial Fibrillation, COPD, Hepatitis (C), Seizures - Surgical History Surgical History: Appendectomy, Tonsillectomy - Family History Family History: States: Unknown Family Hx - Living Arrangements Living Arrangements: Other - Social History Current smoker - smoking cessation education provided: No Alcohol: > 2 Drinks/Day - Home Medications Home Medications: Ambulatory Orders Medication Instructions Recorded Azithromycin [Zithromax] 250 mg PO DAILY #6 tab 06/05/17 Albuterol HFA [Ventolin HFA 90 1 - 2 puff IH Q6 PRN #1 inhaler 06/10/17 mcg/actuation (8 g)] Azithromycin [Zithromax] 500 mg PO DAILY #6 tab 06/21/17 Azithromycin [Zithromax] 250 mg PO DAILY #4 tab 06/27/17 Levofloxacin [Levaquin] 500 mg PO DAILY #6 tablet 07/07/17 - Allergies Allergies/Adverse Reactions: Allergies Allergy/AdvReac Type Severity Reaction Status Date / Time No Known Allergies Allergy Verified 07/31/17 02:09 Review of Systems ROS Statement: Except As Marked, All Systems Reviewed And Found Negative Physical Exam - Reviewed Nursing Documentation Reviewed: Yes Vital Signs Reviewed: Yes - Physical Exam Appears: Positive for: Well, Non-toxic, No Acute Distress Head Exam: Positive for: ATRAUMATIC, NORMAL INSPECTION, NORMOCEPHALIC Skin: Positive for: Normal Color, Warm, DRY Eye Exam: Positive for: EOMI, Normal appearance, PERRL ENT: Positive for: Normal ENT Inspection Neck: Positive for: Normal, Painless ROM Cardiovascular/Chest: Positive for: Regular Rate, Rhythm Respiratory: Positive for: CNT, Normal Breath Sounds Gastrointestinal/Abdominal: Positive for: Normal Exam, Bowel Sounds, Soft Back: Positive for: Normal Inspection Extremity: Positive for: Normal ROM Neurologic/Psych: Positive for: Alert, Oriented - ECG O2 Sat by Pulse Oximetry: 100 Disposition - Clinical Impression Clinical Impression: Alcohol abuse - Patient ED Disposition Is Patient to be Admitted: No - Disposition Disposition: Routine/Home Disposition Time: 04:51 Condition: STABLE Instructions: Alcohol Intoxication (GEN) Forms: [employer] (Kinyarwanda)
== END 2017-08-02 05:28 | disposition home or self-care (01) ==
LOC: H.ER 23:59
DX: F10.10 Alcohol abuse, uncomplicated (principal); I48.91 Unspecified atrial fibrillation; J44.9 Chronic obstructive pulmonary disease, unspecified

== ENCOUNTER 2017-08-02 18:49 | Emergency (ER) | payer OTHER ==
[2017-08-02 18:50] VITALS: BMI 22.6
[2017-08-02 18:55] VITALS: BP 122/79; PULSE 84; RESP 20; TEMP 98.4; O2SAT 97
[2017-08-02] MEDS ORDERED: Albuterol 0.083% Inhal Sol (2.5 mg/3 mL) UD INH STA (19:16)
--- NOTE | 2017-08-02 19:21 | ED PDOC ---
HPI: General Adult Time Seen by Provider: 08/02/17 18:58 Chief Complaint (Nursing): Cough, Cold, Congestion History Per: Patient Additional Complaint(s): Pt. c/o cough and requesting albuterol neb treatment. Denies chest pain, palpitations, fever. Past Medical History Reviewed: Historical Data, Nursing Documentation, Vital Signs Vital Signs: Last Vital Signs Temp 98.4 F 08/02/17 18:52 Pulse 84 08/02/17 18:52 Resp 20 08/02/17 18:52 BP 122/79 08/02/17 18:52 Pulse Ox 97 08/02/17 19:23 - Medical History PMH: Asthma, Atrial Fibrillation, COPD, Hepatitis (C), Seizures - Surgical History Surgical History: Appendectomy, Tonsillectomy - Family History Family History: States: No Known Family Hx - Home Medications Home Medications: Ambulatory Orders Medication Instructions Recorded Azithromycin [Zithromax] 250 mg PO DAILY #6 tab 06/05/17 Albuterol HFA [Ventolin HFA 90 1 - 2 puff IH Q6 PRN #1 inhaler 06/10/17 mcg/actuation (8 g)] Azithromycin [Zithromax] 500 mg PO DAILY #6 tab 06/21/17 Azithromycin [Zithromax] 250 mg PO DAILY #4 tab 06/27/17 Levofloxacin [Levaquin] 500 mg PO DAILY #6 tablet 07/07/17 - Allergies Allergies/Adverse Reactions: Allergies Allergy/AdvReac Type Severity Reaction Status Date / Time No Known Allergies Allergy Verified 07/31/17 02:09 Review of Systems ROS Statement: Except As Marked, All Systems Reviewed And Found Negative Respiratory: Positive for: Cough, Wheezing Physical Exam - Physical Exam Appears: Positive for: Well, Non-toxic, No Acute Distress Skin: Positive for: Normal Color, Warm. Negative for: Rash Eye Exam: Positive for: Normal appearance Cardiovascular/Chest: Positive for: Regular Rate, Rhythm Respiratory: Positive for: Wheezing (minimal b/l). Negative for: Accessory Muscle Use, Crackles, Rales, Rhonchi, Respiratory Distress Extremity: Positive for: Normal ROM Neurologic/Psych: Positive for: Alert, Oriented, Gait (steady, unassisted). Negative for: Aphasia, Facial Droop - ECG O2 Sat by Pulse Oximetry: 97 - Progress ED Course And Treament: Albuterol neb x 1 ordered. Disposition - Clinical Impression Clinical Impression: Bronchospasm - Patient ED Disposition Is Patient to be Admitted: No - Disposition Disposition: Routine/Home Disposition Time: 20:14 Condition: STABLE Instructions: Asthma (ED) Forms: [employer] (Spanish)
[2017-08-02] MEDS ORDERED: Albuterol 0.083% Inhal Sol (2.5 mg/3 mL) UD ONE (19:27)
== END 2017-08-03 01:04 | disposition home or self-care (01) ==
LOC: H.ER 18:49
DX: J98.01 Acute bronchospasm (principal); I48.91 Unspecified atrial fibrillation; J44.9 Chronic obstructive pulmonary disease, unspecified; B19.20 Unspecified viral hepatitis C without hepatic coma

== ENCOUNTER 2017-08-03 21:23 | Emergency (ER) | payer OTHER ==
[2017-08-03 21:23] VITALS: BMI 22.6
[2017-08-03 21:31] VITALS: BP 125/90; PULSE 82; RESP 16; TEMP 97.1; O2SAT 100
--- NOTE | 2017-08-04 00:01 | ED PDOC ---
HPI: Psych/Substance Abuse Time Seen by Provider: 08/03/17 21:44 Chief Complaint (Nursing): Alcohol Ingestion Chief Complaint (Provider): Alcohol Intoxication ED Caveat: Intoxicated History Per: Patient, EMS History/Exam Limitations: intoxication Onset/Duration Of Symptoms: Hrs Current Symptoms Are (Timing): Still Present Additional Complaint(s): Patient is a 57 y/o male brought to the ED by EMS for alcohol intoxication. Patient is well known to this provider and ED staff. He denies any further complaints. Past Medical History Reviewed: Historical Data, Nursing Documentation, Vital Signs Vital Signs: Last Vital Signs Temp 97.1 F L 08/03/17 21:28 Pulse 82 08/03/17 21:28 Resp 16 08/03/17 21:28 BP 125/90 08/03/17 21:28 Pulse Ox 100 08/03/17 21:28 - Medical History PMH: Asthma, Atrial Fibrillation, COPD, Hepatitis (C), Seizures - Surgical History Surgical History: Appendectomy, Tonsillectomy - Family History Family History: States: No Known Family Hx - Social History Current smoker - smoking cessation education provided: Yes Alcohol: > 2 Drinks/Day - Home Medications Home Medications: Ambulatory Orders Medication Instructions Recorded Azithromycin [Zithromax] 250 mg PO DAILY #6 tab 06/05/17 Albuterol HFA [Ventolin HFA 90 1 - 2 puff IH Q6 PRN #1 inhaler 06/10/17 mcg/actuation (8 g)] Azithromycin [Zithromax] 500 mg PO DAILY #6 tab 06/21/17 Azithromycin [Zithromax] 250 mg PO DAILY #4 tab 06/27/17 Levofloxacin [Levaquin] 500 mg PO DAILY #6 tablet 07/07/17 - Allergies Allergies/Adverse Reactions: Allergies Allergy/AdvReac Type Severity Reaction Status Date / Time No Known Allergies Allergy Verified 08/03/17 21:28 Review of Systems ROS Statement: Except As Marked, All Systems Reviewed And Found Negative Physical Exam - Reviewed Nursing Documentation Reviewed: Yes Vital Signs Reviewed: Yes - Physical Exam Appears: Positive for: No Acute Distress Head Exam: Positive for: ATRAUMATIC, NORMOCEPHALIC Skin: Positive for: Normal Color, Warm, Dry Eye Exam: Positive for: Normal appearance, EOMI, PERRL Neck: Positive for: Normal, Painless ROM, Supple Cardiovascular/Chest: Positive for: Regular Rate, Rhythm. Negative for: Murmur Respiratory: Positive for: Normal Breath Sounds. Negative for: Respiratory Distress Gastrointestinal/Abdominal: Positive for: Normal Exam, Soft. Negative for: Tenderness Back: Positive for: Normal Inspection. Negative for: L CVA Tenderness, R CVA Tenderness, Vertebral Tenderness Extremity: Positive for: Normal ROM. Negative for: Pedal Edema, Deformity Neurologic/Psych: Positive for: Alert, Oriented (x3), Other (slurred speech) - ECG O2 Sat by Pulse Oximetry: 100 (RA) Pulse Ox Interpretation: Normal Medical Decision Making Medical Decision Makin:44 Initial Impression: 57 y/o male with public intoxication At 5AM pt is AAO x3 and has steady gait and fluent speech Patient is stable for discharge home Dx Alcoholism Stable Scribe Attestation: Documented by Aimee Tidwell, acting as a scribe for Renaldo Gates MD Provider Scribe Attestation: All medical record entries made by the Scribe were at my direction and personally dictated by me. I have reviewed the chart and agree that the record accurately reflects my personal performance of the history, physical exam, medical decision making, and the department course for this patient. I have also personally directed, reviewed, and agree with the discharge instructions and disposition. Disposition - Clinical Impression Clinical Impression: Alcoholism /alcohol abuse - Disposition Disposition: Routine/Home Disposition Time: 05:00 Condition: STABLE Instructions: Alcohol Use Disorder (ED) Forms: [employer] (Portuguese)
== END 2017-08-04 06:03 | disposition home or self-care (01) ==
LOC: H.ER 21:23
DX: F10.229 Alcohol dependence with intoxication, unspecified (principal); F17.200 Nicotine dependence, unspecified, uncomplicated; I48.91 Unspecified atrial fibrillation; J44.9 Chronic obstructive pulmonary disease, unspecified

== ENCOUNTER 2017-08-05 20:51 | Emergency (ER) | payer OTHER ==
[2017-08-05 20:51] VITALS: BMI 22.6
[2017-08-05 20:53] VITALS: BP 124/80; PULSE 70; RESP 16; TEMP 97.9; O2SAT 99
--- NOTE | 2017-08-05 21:57 | ED PDOC ---
HPI: Psych/Substance Abuse Time Seen by Provider: 08/05/17 20:57 Chief Complaint (Nursing): Alcohol Ingestion History Per: Patient, EMS Additional Complaint(s): As per EMS pt. found outside intoxicated. Pt. admits to drinking alcohol. Offers no complaints. Pt. well known to ED. Past Medical History Reviewed: Historical Data, Nursing Documentation, Vital Signs Vital Signs: Last Vital Signs Temp 97.9 F 08/05/17 20:53 Pulse 70 08/05/17 20:53 Resp 16 08/05/17 20:53 BP 124/80 08/05/17 20:53 Pulse Ox 99 08/05/17 20:53 - Medical History PMH: Asthma, Atrial Fibrillation, COPD, Hepatitis (C), Seizures - Surgical History Surgical History: Appendectomy, Tonsillectomy - Family History Family History: States: No Known Family Hx - Home Medications Home Medications: Ambulatory Orders Medication Instructions Recorded Azithromycin [Zithromax] 250 mg PO DAILY #6 tab 06/05/17 Albuterol HFA [Ventolin HFA 90 1 - 2 puff IH Q6 PRN #1 inhaler 06/10/17 mcg/actuation (8 g)] Azithromycin [Zithromax] 500 mg PO DAILY #6 tab 06/21/17 Azithromycin [Zithromax] 250 mg PO DAILY #4 tab 06/27/17 Levofloxacin [Levaquin] 500 mg PO DAILY #6 tablet 07/07/17 - Allergies Allergies/Adverse Reactions: Allergies Allergy/AdvReac Type Severity Reaction Status Date / Time No Known Allergies Allergy Verified 08/03/17 21:28 Review of Systems Review Of Systems: ROS cannot be obtained secondary to pt's inabilty to answer questions. Physical Exam - Reviewed Nursing Documentation Reviewed: Yes Vital Signs Reviewed: Yes - Physical Exam Appears: Positive for: Well, Non-toxic, No Acute Distress Head Exam: Positive for: ATRAUMATIC, NORMAL INSPECTION, NORMOCEPHALIC Skin: Positive for: Normal Color, Warm. Negative for: Rash Eye Exam: Positive for: EOMI, Normal appearance, PERRL ENT: Positive for: Normal ENT Inspection Neck: Positive for: Normal, Painless ROM Cardiovascular/Chest: Positive for: Regular Rate, Rhythm Respiratory: Positive for: CNT, Normal Breath Sounds Gastrointestinal/Abdominal: Positive for: Normal Exam, Bowel Sounds, Soft Back: Positive for: Normal Inspection Extremity: Positive for: Normal ROM Neurologic/Psych: Positive for: Alert, Oriented, Other (slurred speech; AOB). Negative for: Aphasia, Facial Droop - ECG O2 Sat by Pulse Oximetry: 99 - Progress ED Course And Treament: 2210 FSBS: 94 Pt. requesting cereal 0005 Sleeping comfortably. No distress. 0222 No distress. Easily arousable. 0415 Still sleeping comfortably. 0525 Gait steady. Clinically sober. Disposition - Clinical Impression Clinical Impression: Alcohol intoxication - Patient ED Disposition Is Patient to be Admitted: No - Disposition Disposition: Routine/Home Disposition Time: 05:26 Condition: IMPROVED Forms: [employer] (Romanian)
== END 2017-08-06 06:22 | disposition home or self-care (01) ==
LOC: H.ER 20:51
DX: F10.129 Alcohol abuse with intoxication, unspecified (principal); I48.91 Unspecified atrial fibrillation; J44.9 Chronic obstructive pulmonary disease, unspecified

== ENCOUNTER 2017-08-07 03:32 | Emergency (ER) | payer OTHER ==
[2017-08-07 03:32] VITALS: BMI 22.6
[2017-08-07 03:49] VITALS: BP 126/89; RESP 20; TEMP 96.9; O2SAT 97
--- NOTE | 2017-08-07 04:44 | ED PDOC ---
HPI: General Adult Time Seen by Provider: 08/07/17 03:40 Chief Complaint (Nursing): Cough, Cold, Congestion History Per: Patient Additional Complaint(s): Pt. c/o cough and is requesting an albuterol treatment. Pt. is well known to ED. Denies chest pain, palpitations, SOB, wheezing, chest tightness, hemoptysis , fever. Past Medical History Reviewed: Historical Data, Nursing Documentation, Vital Signs Vital Signs: Last Vital Signs Temp 96.9 F L 08/07/17 03:40 Pulse 103 H 08/07/17 04:46 Resp 20 08/07/17 03:40 BP 126/89 08/07/17 03:40 Pulse Ox 97 08/07/17 04:46 - Medical History PMH: Asthma, Atrial Fibrillation, COPD, Hepatitis (C), Seizures - Surgical History Surgical History: Appendectomy, Tonsillectomy - Family History Family History: States: Unknown Family Hx - Home Medications Home Medications: Ambulatory Orders Medication Instructions Recorded Azithromycin [Zithromax] 250 mg PO DAILY #6 tab 06/05/17 Albuterol HFA [Ventolin HFA 90 1 - 2 puff IH Q6 PRN #1 inhaler 06/10/17 mcg/actuation (8 g)] Azithromycin [Zithromax] 500 mg PO DAILY #6 tab 06/21/17 Azithromycin [Zithromax] 250 mg PO DAILY #4 tab 06/27/17 Levofloxacin [Levaquin] 500 mg PO DAILY #6 tablet 07/07/17 - Allergies Allergies/Adverse Reactions: Allergies Allergy/AdvReac Type Severity Reaction Status Date / Time No Known Allergies Allergy Verified 08/07/17 03:35 Review of Systems ROS Statement: Except As Marked, All Systems Reviewed And Found Negative Respiratory: Positive for: Cough Physical Exam - Reviewed Nursing Documentation Reviewed: Yes Vital Signs Reviewed: Yes - Physical Exam Appears: Positive for: Well, Non-toxic, No Acute Distress Head Exam: Positive for: ATRAUMATIC, NORMAL INSPECTION, NORMOCEPHALIC Skin: Positive for: Normal Color, Warm. Negative for: Rash Eye Exam: Positive for: EOMI, Normal appearance, PERRL ENT: Positive for: Normal ENT Inspection Neck: Positive for: Normal, Painless ROM Cardiovascular/Chest: Positive for: Tachycardia. Negative for: Edema, Gallop, Murmur, Irregularly Irregular Respiratory: Positive for: Normal Breath Sounds. Negative for: Accessory Muscle Use, Crackles, Rales, Rhonchi, Wheezing, Respiratory Distress Gastrointestinal/Abdominal: Positive for: Normal Exam, Bowel Sounds, Soft. Negative for: Tenderness Back: Positive for: Normal Inspection Extremity: Positive for: Normal ROM Neurologic/Psych: Positive for: Alert, Oriented, Gait (steady, unassisted). Negative for: Aphasia, Facial Droop - ECG ECG: Positive for: Interpreted By Me ECG Rhythm: Positive for: Junctional Rhythm. Negative for: ST/T Changes Rate: 103 O2 Sat by Pulse Oximetry: 97 - Progress ED Course And Treament: Cardizem 60mg PO ordered. Disposition - Clinical Impression Clinical Impression: Cough - Patient ED Disposition Is Patient to be Admitted: No - Disposition Disposition: Routine/Home Disposition Time: 06:08 Condition: STABLE Forms: [facility] (Djiboutian)
[2017-08-07 04:46] VITALS: PULSE 103
--- NOTE | 2017-08-09 12:39 | CARD ---
APPROVED REPORT EKG Measurement Heart [id number] <Conclusion> Sinus Tachycardia
== END 2017-08-07 06:59 | disposition home or self-care (01) ==
LOC: H.ER 03:32
DX: J44.9 Chronic obstructive pulmonary disease, unspecified (principal); I48.91 Unspecified atrial fibrillation

== ENCOUNTER 2017-08-07 20:13 | Emergency (ER) | payer OTHER ==
[2017-08-07 20:13] VITALS: BMI 22.6
[2017-08-07] MEDS ORDERED: Albuterol-Ipratrop 3 mg / 0.5 (3 ml) UD INH STA (20:43)
--- NOTE | 2017-08-07 23:17 | ED PDOC ---
HPI: General Adult Time Seen by Provider: 08/07/17 20:36 Chief Complaint (Nursing): Medical Clearance Chief Complaint (Provider): "I need a treatment for my asthma" History Per: Patient History/Exam Limitations: no limitations Onset/Duration Of Symptoms: Days Have you had recent travel within the past 21 days to any of the following countries: [place], [place], [place] or [place]?: No Current Symptoms Are (Timing): Still Present Additional Complaint(s): Pt states he is wheezing and needs a treatment. Past Medical History Reviewed: Historical Data, Nursing Documentation, Vital Signs Vital Signs: Last Vital Signs Temp 97.3 F L 08/07/17 20:34 Pulse 78 08/07/17 20:34 Resp 18 08/07/17 20:34 BP 127/66 08/07/17 20:34 Pulse Ox 95 08/07/17 20:34 - Medical History PMH: Asthma, Atrial Fibrillation, COPD, Hepatitis (C), Seizures - Surgical History Surgical History: Appendectomy, Tonsillectomy - Family History Family History: States: Unknown Family Hx - Living Arrangements Living Arrangements: With Family - Social History Current smoker - smoking cessation education provided: Yes Alcohol: > 2 Drinks/Day Drugs: Denies - Home Medications Home Medications: Ambulatory Orders Medication Instructions Recorded Azithromycin [Zithromax] 250 mg PO DAILY #6 tab 06/05/17 Albuterol HFA [Ventolin HFA 90 1 - 2 puff IH Q6 PRN #1 inhaler 06/10/17 mcg/actuation (8 g)] Azithromycin [Zithromax] 500 mg PO DAILY #6 tab 06/21/17 Azithromycin [Zithromax] 250 mg PO DAILY #4 tab 06/27/17 Levofloxacin [Levaquin] 500 mg PO DAILY #6 tablet 07/07/17 - Allergies Allergies/Adverse Reactions: Allergies Allergy/AdvReac Type Severity Reaction Status Date / Time No Known Allergies Allergy Verified 08/07/17 03:35 Review of Systems ROS Statement: Except As Marked, All Systems Reviewed And Found Negative Constitutional: Negative for: Fever, Chills Respiratory: Positive for: Wheezing Gastrointestinal: Negative for: Nausea, Vomiting, Abdominal Pain Physical Exam - Reviewed Nursing Documentation Reviewed: Yes Vital Signs Reviewed: Yes - Physical Exam Appears: Positive for: Well, Non-toxic, No Acute Distress Head Exam: Positive for: ATRAUMATIC, NORMAL INSPECTION, NORMOCEPHALIC Skin: Positive for: Normal Color, Warm, DRY Eye Exam: Positive for: Normal appearance ENT: Positive for: Normal ENT Inspection Neck: Positive for: Normal, Painless ROM Cardiovascular/Chest: Positive for: Regular Rate, Rhythm Respiratory: Positive for: Wheezing (Diffuse ). Negative for: Accessory Muscle Use Gastrointestinal/Abdominal: Positive for: Normal Exam, Bowel Sounds, Soft Back: Positive for: Normal Inspection Extremity: Positive for: Normal ROM Neurologic/Psych: Positive for: Alert, Oriented - ECG O2 Sat by Pulse Oximetry: 95 Medical Decision Making Medical Decision Making: No wheezing on re-evaluation. Treatment postponed because patient refused to used nebulizer prior to eating. Disposition - Clinical Impression Clinical Impression: Asthma attack - Patient ED Disposition Is Patient to be Admitted: No Counseled Patient/Family Regarding: Diagnosis, Need For Followup - Disposition Disposition: Routine/Home Disposition Time: 23:18 Condition: GOOD Instructions: Asthma (ED)
[2017-08-08 05:56] VITALS: BP 122/78; PULSE 86; RESP 16; TEMP 98.6; O2SAT 98
== END 2017-08-08 04:30 | disposition home or self-care (01) ==
LOC: H.ER 20:13
DX: J44.9 Chronic obstructive pulmonary disease, unspecified (principal); I48.91 Unspecified atrial fibrillation; F17.200 Nicotine dependence, unspecified, uncomplicated; F10.129 Alcohol abuse with intoxication, unspecified

== ENCOUNTER 2017-08-08 09:09 | Emergency (ER) | payer OTHER ==
[2017-08-08 09:09] VITALS: BMI 22.6
[2017-08-08 09:41] VITALS: RESP 18; TEMP 98; O2SAT 97
[2017-08-08] MEDS ORDERED: Albuterol-Ipratrop 3 mg / 0.5 (3 ml) UD INH STA (10:23)
[2017-08-08] MEDS ORDERED: Albuterol-Ipratrop 3 mg / 0.5 (3 ml) UD ONE (10:28)
--- NOTE | 2017-08-08 10:32 | ED PDOC ---
HPI: SOB/CHF/COPD Time Seen by Provider: 08/08/17 10:20 Chief Complaint (Nursing): Shortness Of Breath Chief Complaint (Provider): asthma History Per: Patient Additional Complaint(s): 57 year old male with history of etoh abuse and asthma presents to ED requesting breathing treatment. Patient is wheezing but he denies chest pain. Past Medical History Reviewed: Historical Data, Nursing Documentation, Vital Signs Vital Signs: Last Vital Signs Temp 98 F 08/08/17 09:38 Pulse 68 08/08/17 09:38 Resp 18 08/08/17 09:38 BP 106/64 08/08/17 09:38 Pulse Ox 97 08/08/17 10:33 - Medical History PMH: Asthma, Atrial Fibrillation, COPD, Hepatitis (C), Seizures - Surgical History Surgical History: Appendectomy, Tonsillectomy - Family History Family History: States: No Known Family Hx - Living Arrangements Living Arrangements: Other (non-domiciled) - Social History Alcohol: > 2 Drinks/Day - Home Medications Home Medications: Ambulatory Orders Medication Instructions Recorded Albuterol HFA [Ventolin HFA 90 1 - 2 puff IH Q6 PRN #1 inhaler 06/10/17 mcg/actuation (8 g)] - Allergies Allergies/Adverse Reactions: Allergies Allergy/AdvReac Type Severity Reaction Status Date / Time No Known Allergies Allergy Verified 08/08/17 09:37 Review of Systems ROS Statement: Except As Marked, All Systems Reviewed And Found Negative Constitutional: Negative for: Fever Cardiovascular: Negative for: Chest Pain Respiratory: Positive for: Shortness of Breath, Wheezing Physical Exam - Reviewed Nursing Documentation Reviewed: Yes Vital Signs Reviewed: Yes - Physical Exam Appears: Positive for: Well, Non-toxic, No Acute Distress Skin: Negative for: Rash Eye Exam: Positive for: Normal appearance Cardiovascular/Chest: Positive for: Regular Rate, Rhythm Respiratory: Positive for: Wheezing. Negative for: Respiratory Distress Neurologic/Psych: Positive for: Alert, Oriented - ECG O2 Sat by Pulse Oximetry: 97 Pulse Ox Interpretation: Normal Medical Decision Making Medical Decision Makin57 year old male with asthma Plan: Fingerstick Duoneb x 1 Patient feels better after duoneb. 12:20 pm: patient is awake, alert, has steady gait with walker, stable for discharge. Disposition - Clinical Impression Clinical Impression: Asthma, Alcohol abuse - Patient ED Disposition Is Patient to be Admitted: No Counseled Patient/Family Regarding: Diagnosis, Need For Followup - Disposition Referrals: [facility] [Outside] Disposition: Routine/Home Disposition Time: 12:17 Condition: STABLE Instructions: Asthma (ED), Abuse of Alcohol (ED) Forms: [employer] (Kinyarwanda)
[2017-08-08] MEDS ORDERED: Albuterol HFA 90 mcg/actuation (8 g) INH STA (12:16)
[2017-08-08 12:56] VITALS: BP 130/78; PULSE 89
== END 2017-08-08 14:08 | disposition home or self-care (01) ==
LOC: H.ER 09:09
DX: J45.909 Unspecified asthma, uncomplicated (principal); F17.210 Nicotine dependence, cigarettes, uncomplicated; F10.10 Alcohol abuse, uncomplicated; Y90.9 Presence of alcohol in blood, level not specified

== ENCOUNTER 2017-08-08 19:56 | Emergency (ER) | payer OTHER ==
[2017-08-08 19:57] VITALS: BMI 22.6
[2017-08-08 20:09] VITALS: BP 100/69; PULSE 70; RESP 18; TEMP 98; O2SAT 97
--- NOTE | 2017-08-08 21:18 | ED PDOC ---
HPI: Psych/Substance Abuse Time Seen by Provider: 08/08/17 20:12 Chief Complaint (Nursing): Cough, Cold, Congestion Chief Complaint (Provider): alcohol abuse, asks for food History Per: EMS Onset/Duration Of Symptoms: Mins (prior to arrival) Current Symptoms Are (Timing): Still Present Additional Complaint(s): Jorge L Huitron is a 57 year old male, well-known to emergency department, presents today for an evaluation of alcohol abuse and hunger prior to arrival via EMS. Patient was recently discharged earlier today at 1200. Pt screaming on arrival to v him a urinal or he will urinate on the floor. PMD: none provided Past Medical History Reviewed: Nursing Documentation, Vital Signs Vital Signs: Last Vital Signs Temp 98.0 F 08/08/17 20:05 Pulse 70 08/08/17 20:05 Resp 18 08/08/17 20:05 BP 100/69 08/08/17 20:05 Pulse Ox 97 08/08/17 20:05 - Medical History PMH: Asthma, Atrial Fibrillation, COPD, Hepatitis (C), Seizures - Surgical History Surgical History: Appendectomy, Tonsillectomy - Family History Family History: States: Unknown Family Hx - Social History Current smoker - smoking cessation education provided: Yes Alcohol: > 2 Drinks/Day Drugs: Denies - Home Medications Home Medications: Ambulatory Orders Medication Instructions Recorded Albuterol HFA [Ventolin HFA 90 1 - 2 puff IH Q6 PRN #1 inhaler 06/10/17 mcg/actuation (8 g)] - Allergies Allergies/Adverse Reactions: Allergies Allergy/AdvReac Type Severity Reaction Status Date / Time No Known Allergies Allergy Verified 08/08/17 20:04 Review of Systems Review Of Systems: ROS cannot be obtained secondary to pt's inabilty to answer questions. (intoxication) Constitutional: Positive for: Other (Hunger). Negative for: Fever, Chills Physical Exam - Reviewed Nursing Documentation Reviewed: Yes Vital Signs Reviewed: Yes - Physical Exam Appears: Positive for: Well, Non-toxic, No Acute Distress Head Exam: Positive for: ATRAUMATIC, NORMAL INSPECTION, NORMOCEPHALIC Skin: Positive for: Normal Color Eye Exam: Positive for: Normal appearance ENT: Positive for: Normal ENT Inspection Cardiovascular/Chest: Positive for: Regular Rate, Rhythm Respiratory: Positive for: Normal Breath Sounds Neurologic/Psych: Positive for: Alert (x3) - ECG O2 Sat by Pulse Oximetry: 97 (RA) Pulse Ox Interpretation: Normal Medical Decision Making Medical Decision Making: Initial Impression: ETOH intoxication Scribe Attestation: Documented by Brittaney Molina, acting as a scribe for Dalia Agee PA-C. Provider Scribe Attestation: All medical record entries made by the Scribe were at my direction and personally dictated by me. I have reviewed the chart and agree that the record accurately reflects my personal performance of the history, physical exam, medical decision making, and the department course for this patient. I have also personally directed, reviewed, and agree with the discharge instructions and disposition. Disposition - Clinical Impression Clinical Impression: Alcohol abuse - Patient ED Disposition Is Patient to be Admitted: No - Disposition Disposition: Routine/Home Disposition Time: 23:31 Condition: GOOD Instructions: Abuse of Alcohol (ED) Forms: [employer] (Saudi Arabian)
== END 2017-08-08 23:54 | disposition home or self-care (01) ==
LOC: H.ER 19:56
DX: F10.10 Alcohol abuse, uncomplicated (principal); Y90.9 Presence of alcohol in blood, level not specified

== ENCOUNTER 2017-08-10 17:08 | Emergency (ER) | payer MEDICAID, OTHER ==
[2017-08-10 17:08] VITALS: BMI 22.6
[2017-08-10 17:21] VITALS: BP 136/84; PULSE 80; TEMP 97.6; O2SAT 99
[2017-08-10] MEDS ORDERED: Albuterol-Ipratrop 3 mg / 0.5 (3 ml) UD INH STA (18:48)
--- NOTE | 2017-08-10 18:54 | ED PDOC ---
HPI: Asthma Time Seen by Provider: 08/10/17 18:35 Chief Complaint (Nursing): Shortness Of Breath Chief Complaint (Provider): shortness of breath History/Exam Limitations: no limitations Onset/Duration Of Symptoms: Days (1), Persistent Current Symptoms Are (Timing): Still Present Associated Symptoms: Dyspnea, Cough. denies: Fever, Chest Pain Additional Complaint(s): Known well to ER for homelessness, alcohol abuse, and asthma, pt c/o asthma attack that persists despite inhaler (Ventolin). Pt admits he smokes heavily and that he was also drinking alcohol today. He requests a sandwich and lights to be turned off in his room - Asthma History Date Of Last ED Visit: 08/08/17 Rescue Medications: Short-acting Agonists Past Medical History Reviewed: Historical Data, Nursing Documentation, Vital Signs Vital Signs: Last Vital Signs Temp 97.6 F 08/10/17 17:18 Pulse 80 08/10/17 17:18 Resp 18 08/10/17 17:18 BP 136/84 08/10/17 17:18 Pulse Ox 99 08/10/17 17:18 - Medical History PMH: Asthma, Atrial Fibrillation, COPD, Hepatitis (C), Seizures - Surgical History Surgical History: Appendectomy, Tonsillectomy - Family History Family History: States: Unknown Family Hx - Social History Current smoker - smoking cessation education provided: Yes Alcohol: > 2 Drinks/Day - Home Medications Home Medications: Ambulatory Orders Medication Instructions Recorded Albuterol HFA [Ventolin HFA 90 1 - 2 puff IH Q6 PRN #1 inhaler 06/10/17 mcg/actuation (8 g)] Albuterol HFA [Ventolin HFA 90 2 puff IH Q4H #1 puff 08/12/17 mcg/actuation (8 g)] - Allergies Allergies/Adverse Reactions: Allergies Allergy/AdvReac Type Severity Reaction Status Date / Time No Known Allergies Allergy Verified 08/12/17 07:52 Review of Systems ROS Statement: Except As Marked, All Systems Reviewed And Found Negative (and as per HPI) Constitutional: Negative for: Fever Cardiovascular: Positive for: Light Headedness. Negative for: Chest Pain Respiratory: Positive for: Cough, Shortness of Breath, Wheezing Physical Exam - Reviewed Nursing Documentation Reviewed: Yes Vital Signs Reviewed: Yes - Physical Exam Appears: Positive for: No Acute Distress (sleeping on stretcher on my arrival to room) Head Exam: Positive for: ATRAUMATIC, NORMOCEPHALIC Skin: Positive for: Warm, Dry Eye Exam: Positive for: EOMI, PERRL Neck: Positive for: Painless ROM, Supple Cardiovascular/Chest: Positive for: Regular Rate, Rhythm. Negative for: Murmur Respiratory: Positive for: Rhonchi. Negative for: Decreased Breath Sounds, Rales, Wheezing, Respiratory Distress Gastrointestinal/Abdominal: Positive for: Soft. Negative for: Tenderness Back: Negative for: Decreased ROM Extremity: Positive for: Normal ROM. Negative for: Deformity Lymphatic: Negative for: Adenopathy Neurologic/Psych: Positive for: Alert, Gait (steady with walker). Negative for : Motor/Sensory Deficits - ECG O2 Sat by Pulse Oximetry: 99 Disposition - Clinical Impression Clinical Impression: Alcohol abuse, Asthma - Disposition Disposition: Routine/Home Disposition Time: 21:00 Condition: IMPROVED Instructions: Asthma (ED), Alcohol Intoxication (ED) Forms: [facility] (Indonesian)
[2017-08-10 20:18] VITALS: RESP 16
== END 2017-08-10 20:20 | disposition home or self-care (01) ==
LOC: H.ER 17:08
DX: J45.909 Unspecified asthma, uncomplicated (principal); F10.10 Alcohol abuse, uncomplicated; I48.91 Unspecified atrial fibrillation; J44.9 Chronic obstructive pulmonary disease, unspecified; F17.200 Nicotine dependence, unspecified, uncomplicated

== ENCOUNTER 2017-08-11 18:51 | Emergency (ER) | payer OTHER ==
[2017-08-11 18:52] VITALS: BMI 22.6
[2017-08-11 18:57] VITALS: BP 114/74; PULSE 88; RESP 18; TEMP 98; O2SAT 96
--- NOTE | 2017-08-11 19:08 | ED PDOC ---
HPI: Psych/Substance Abuse Time Seen by Provider: 08/11/17 18:54 Chief Complaint (Nursing): Alcohol Ingestion Chief Complaint (Provider): ETOH History Per: Patient, EMS Additional Complaint(s): Pt brought in by [facility] for ETOH intoxication and shortness of breath, pt is asleep during triage but easily arousable, denies chest pain. Past Medical History Reviewed: Nursing Documentation, Vital Signs Vital Signs: Last Vital Signs Temp 98 F 08/11/17 18:55 Pulse 88 08/11/17 18:55 Resp 18 08/11/17 18:55 BP 114/74 08/11/17 18:55 Pulse Ox 96 08/11/17 18:55 - Medical History PMH: Asthma, Atrial Fibrillation, COPD, Hepatitis (C), Seizures - Surgical History Surgical History: Appendectomy, Tonsillectomy - Family History Family History: States: Unknown Family Hx - Living Arrangements Living Arrangements: Other - Social History Alcohol: > 2 Drinks/Day - Home Medications Home Medications: Ambulatory Orders Medication Instructions Recorded Albuterol HFA [Ventolin HFA 90 1 - 2 puff IH Q6 PRN #1 inhaler 06/10/17 mcg/actuation (8 g)] - Allergies Allergies/Adverse Reactions: Allergies Allergy/AdvReac Type Severity Reaction Status Date / Time No Known Allergies Allergy Verified 08/11/17 18:54 Review of Systems ROS Statement: Except As Marked, All Systems Reviewed And Found Negative Physical Exam - Reviewed Nursing Documentation Reviewed: Yes Vital Signs Reviewed: Yes - Physical Exam Appears: Positive for: Well, Non-toxic, No Acute Distress Head Exam: Positive for: ATRAUMATIC, NORMAL INSPECTION, NORMOCEPHALIC Skin: Positive for: Normal Color, Warm, DRY Eye Exam: Positive for: EOMI, Normal appearance, PERRL ENT: Positive for: Normal ENT Inspection Neck: Positive for: Normal, Painless ROM Cardiovascular/Chest: Positive for: Regular Rate, Rhythm Respiratory: Positive for: CNT, Normal Breath Sounds Gastrointestinal/Abdominal: Positive for: Normal Exam, Bowel Sounds, Soft Back: Positive for: Normal Inspection Extremity: Positive for: Normal ROM Neurologic/Psych: Positive for: Alert, Oriented - ECG O2 Sat by Pulse Oximetry: 96 Disposition - Clinical Impression Clinical Impression: Alcohol abuse - Patient ED Disposition Is Patient to be Admitted: No - Disposition Disposition: Routine/Home Disposition Time: 23:34 Condition: STABLE Instructions: Abuse of Alcohol (ED) Forms: [facility] (Icelandic) - POA Present On Arrival: None
[2017-08-11] MEDS ORDERED: Albuterol-Ipratrop 3 mg / 0.5 (3 ml) UD INH STA (23:37)
[2017-08-11] MEDS ORDERED: Albuterol-Ipratrop 3 mg / 0.5 (3 ml) UD ONE (23:39)
== END 2017-08-11 23:39 | disposition home or self-care (01) ==
LOC: H.ER 18:51
DX: F10.129 Alcohol abuse with intoxication, unspecified (principal); J44.9 Chronic obstructive pulmonary disease, unspecified; I48.91 Unspecified atrial fibrillation

== ENCOUNTER 2017-08-12 07:40 | Emergency (ER) | payer OTHER ==
[2017-08-12 07:41] VITALS: BMI 22.6
[2017-08-12 07:44] VITALS: BP 134/89; PULSE 74; TEMP 96
[2017-08-12 07:56] VITALS: RESP 22
[2017-08-12 07:58] VITALS: O2SAT 97
[2017-08-12] MEDS ORDERED: Albuterol-Ipratrop 3 mg / 0.5 (3 ml) UD IH STA (08:08)
--- NOTE | 2017-08-12 08:15 | ED PDOC ---
HPI: SOB/CHF/COPD Time Seen by Provider: 08/12/17 08:08 Chief Complaint (Nursing): Shortness Of Breath History Per: Patient Onset/Duration Of Symptoms: Days (2) Current Symptoms Are (Timing): Still Present Exacerbating Factor(s): Coughing Current Respiratory Medications: See Home Med List Severity: Mild Associated Symptoms: denies: Fever, Chest Pain, Bloody Cough, Productive Cough Additional Complaint(s): SOB and wheezing x 2 days. Chronic no nproductive coiugh. No fever. Noncompliant with Rx Past Medical History Vital Signs: Last Vital Signs Temp 96 F L 08/12/17 07:44 Pulse 74 08/12/17 07:44 Resp 22 08/12/17 07:56 BP 134/89 08/12/17 07:44 Pulse Ox 97 08/12/17 08:15 - Medical History PMH: Asthma, Atrial Fibrillation, COPD, Hepatitis (C), Seizures - Surgical History Surgical History: Appendectomy, Tonsillectomy - Family History Family History: States: Unknown Family Hx - Home Medications Home Medications: Ambulatory Orders Medication Instructions Recorded Albuterol HFA [Ventolin HFA 90 1 - 2 puff IH Q6 PRN #1 inhaler 06/10/17 mcg/actuation (8 g)] Albuterol HFA [Ventolin HFA 90 2 puff IH Q4H #1 puff 08/12/17 mcg/actuation (8 g)] - Allergies Allergies/Adverse Reactions: Allergies Allergy/AdvReac Type Severity Reaction Status Date / Time No Known Allergies Allergy Verified 08/12/17 07:52 Review of Systems Constitutional: Negative for: Fever Cardiovascular: Negative for: Chest Pain Respiratory: Positive for: Cough, Shortness of Breath, Wheezing Physical Exam - Physical Exam Appears: Positive for: Non-toxic, No Acute Distress Cardiovascular/Chest: Positive for: Regular Rate, Rhythm Respiratory: Positive for: Rhonchi, Wheezing. Negative for: Respiratory Distress - ECG O2 Sat by Pulse Oximetry: 97 - Progress Re-evaluation Time: 08:45 Condition: Improved Disposition - Clinical Impression Clinical Impression: Chronic cough, COPD (chronic obstructive pulmonary disease) - Patient ED Disposition Is Patient to be Admitted: No - Disposition [facility]errals[facility] [[facility]] Disposition: Routine/Home Disposition Time: 08:45 Condition: FAIR Prescriptions: Albuterol HFA [Ventolin HFA 90 mcg/actuation (8 g)] 2 puff IH Q4H #1 puff Instructions: COPD (Chronic Obstructive Pulmonary Disease) (ED) Forms: [employer] (French)
== END 2017-08-12 09:25 | disposition home or self-care (01) ==
LOC: H.ER 07:40
DX: J44.9 Chronic obstructive pulmonary disease, unspecified (principal); I48.91 Unspecified atrial fibrillation

== ENCOUNTER 2017-08-12 20:52 | Emergency (ER) | payer OTHER ==
[2017-08-12 20:52] VITALS: BMI 22.6
--- NOTE | 2017-08-12 22:54 | ED PDOC ---
HPI: SOB/CHF/COPD Time Seen by Provider: 08/12/17 21:21 Chief Complaint (Nursing): Shortness Of Breath Chief Complaint (Provider): Shortness of breath History Per: Patient History/Exam Limitations: no limitations Additional Complaint(s): Patient is a 57 y/o male with a history of asthma and alcohol abuse presenting to the emergency department for shortness of breath. Patient is noted to be well -known to the ED for multiple visits related to alcoholism and bed seeking behavior. Denies fever or other complaints. PCP: none provided. Past Medical History Reviewed: Historical Data, Nursing Documentation, Vital Signs Vital Signs: Last Vital Signs Temp 98.7 F 08/12/17 21:14 Pulse 85 08/12/17 21:14 Resp 16 08/12/17 21:14 BP 110/69 08/12/17 21:14 Pulse Ox 98 08/12/17 22:56 - Medical History PMH: Asthma, Atrial Fibrillation, COPD, Hepatitis (C), Seizures - Surgical History Surgical History: Appendectomy, Tonsillectomy - Family History Family History: States: Unknown Family Hx - Home Medications Home Medications: Ambulatory Orders Medication Instructions Recorded Albuterol HFA [Ventolin HFA 90 1 - 2 puff IH Q6 PRN #1 inhaler 06/10/17 mcg/actuation (8 g)] Albuterol HFA [Ventolin HFA 90 2 puff IH Q4H #1 puff 08/12/17 mcg/actuation (8 g)] - Allergies Allergies/Adverse Reactions: Allergies Allergy/AdvReac Type Severity Reaction Status Date / Time No Known Allergies Allergy Verified 08/12/17 07:52 Review of Systems ROS Statement: Except As Marked, All Systems Reviewed And Found Negative Constitutional: Negative for: Fever Respiratory: Positive for: Shortness of Breath Physical Exam - Reviewed Nursing Documentation Reviewed: Yes Vital Signs Reviewed: Yes - Physical Exam Appears: Positive for: No Acute Distress Head Exam: Positive for: ATRAUMATIC, NORMAL INSPECTION, NORMOCEPHALIC Skin: Positive for: Normal Color, Warm, Dry Eye Exam: Positive for: Normal appearance Neck: Positive for: Normal Cardiovascular/Chest: Positive for: Regular Rate, Rhythm. Negative for: Murmur Gastrointestinal/Abdominal: Positive for: Normal Exam Extremity: Positive for: Normal ROM Neurologic/Psych: Positive for: Alert, Oriented (x3) - ECG O2 Sat by Pulse Oximetry: 98 (RA) Pulse Ox Interpretation: Normal Medical Decision Making Medical Decision Makin:50 Initial impression: Alcoholism, Bed, Seeking behavior Patient is stable for discharge Scribe Attestation: Documented by Katja Jimenez, acting as a scribe for Renaldo Gates MD. Provider Scribe Attestation: All medical record entries made by the Scribe were at my direction and personally dictated by me. I have reviewed the chart and agree that the record accurately reflects my personal performance of the history, physical exam, medical decision making, and the department course for this patient. I have also personally directed, reviewed, and agree with the discharge instructions and disposition. Disposition - Clinical Impression Clinical Impression: Alcohol abuse - Patient ED Disposition Is Patient to be Admitted: No - Disposition Disposition: Routine/Home Disposition Time: 23:30 Condition: STABLE Instructions: Abuse of Alcohol (ED) Forms: [email or web address] (Syriac)
[2017-08-13 05:45] VITALS: RESP 20
[2017-08-13 05:46] VITALS: BP 115/71; PULSE 81; TEMP 97.8; O2SAT 97
== END 2017-08-13 05:46 | disposition home or self-care (01) ==
LOC: H.ER 20:52
DX: F10.20 Alcohol dependence, uncomplicated (principal); J44.9 Chronic obstructive pulmonary disease, unspecified; I48.91 Unspecified atrial fibrillation

== ENCOUNTER 2017-08-13 20:50 | Emergency (ER) | payer OTHER ==
[2017-08-13 20:51] VITALS: BMI 22.6
[2017-08-13 20:57] VITALS: BP 127/89; PULSE 114; TEMP 97.2; O2SAT 97
--- NOTE | 2017-08-13 21:15 | ED PDOC ---
HPI: SOB/CHF/COPD Time Seen by Provider: 08/13/17 21:07 Chief Complaint (Nursing): Shortness Of Breath Chief Complaint (Provider): SOB History Per: Patient Additional Complaint(s): Known well to ER for homelessness, alcohol abuse, and asthma, pt c/o asthma attack that persists despite inhaler (Ventolin). Pt admits he smokes heavily and that he was also drinking alcohol today. He requests a sandwich and lights to be turned off in his room Past Medical History Reviewed: Nursing Documentation, Vital Signs Vital Signs: Last Vital Signs Temp 97.2 F L 08/13/17 20:53 Pulse 114 H 08/13/17 20:53 Resp 18 08/13/17 21:16 BP 127/89 08/13/17 20:53 Pulse Ox 97 08/13/17 21:15 - Medical History PMH: Asthma, Atrial Fibrillation, COPD, Hepatitis (C), Seizures - Surgical History Surgical History: Appendectomy, Tonsillectomy - Family History Family History: States: Unknown Family Hx - Living Arrangements Living Arrangements: With Family - Social History Current smoker - smoking cessation education provided: Yes Alcohol: > 2 Drinks/Day Drugs: Denies - Home Medications Home Medications: Ambulatory Orders Medication Instructions Recorded Albuterol HFA [Ventolin HFA 90 1 - 2 puff IH Q6 PRN #1 inhaler 06/10/17 mcg/actuation (8 g)] Albuterol HFA [Ventolin HFA 90 2 puff IH Q4H #1 puff 08/12/17 mcg/actuation (8 g)] - Allergies Allergies/Adverse Reactions: Allergies Allergy/AdvReac Type Severity Reaction Status Date / Time No Known Allergies Allergy Verified 08/12/17 07:52 Review of Systems ROS Statement: Except As Marked, All Systems Reviewed And Found Negative Physical Exam - Reviewed Nursing Documentation Reviewed: Yes Vital Signs Reviewed: Yes - Physical Exam Appears: Positive for: Well, Non-toxic, No Acute Distress Head Exam: Positive for: ATRAUMATIC, NORMAL INSPECTION, NORMOCEPHALIC Skin: Positive for: Normal Color, Warm, DRY Eye Exam: Positive for: EOMI, Normal appearance, PERRL ENT: Positive for: Normal ENT Inspection Neck: Positive for: Normal, Painless ROM Cardiovascular/Chest: Positive for: Regular Rate, Rhythm Respiratory: Positive for: CNT, Normal Breath Sounds Gastrointestinal/Abdominal: Positive for: Normal Exam, Bowel Sounds, Soft Back: Positive for: Normal Inspection Extremity: Positive for: Normal ROM Neurologic/Psych: Positive for: Alert, Oriented - ECG O2 Sat by Pulse Oximetry: 97 Medical Decision Making Medical Decision Making: Pt ambulating to restroom, urinating with door open upon senior underwriter's arrival to ED room. Pt laughing and asking for corn flakes Disposition - Clinical Impression Clinical Impression: Alcohol abuse - Disposition Disposition: Routine/Home Disposition Time: 23:30 Condition: STABLE Instructions: Alcohol Intoxication (ED), Abuse of Alcohol (ED), Alcohol Dependence (ED) Forms: [facility] (Armenian)
[2017-08-13 21:16] VITALS: RESP 18
--- NOTE | 2017-08-14 12:45 | CARD ---
APPROVED REPORT EKG Measurement Heart [id number] <Conclusion> Accelerated Junctional rhythm Left axis deviation Abnormal ECG
== END 2017-08-14 00:05 | disposition home or self-care (01) ==
LOC: H.ER 20:50
DX: F10.129 Alcohol abuse with intoxication, unspecified (principal); I48.91 Unspecified atrial fibrillation; J44.9 Chronic obstructive pulmonary disease, unspecified; Z59.0 Homelessness

== ENCOUNTER 2017-08-14 20:06 | Emergency (ER) | payer OTHER ==
[2017-08-14 20:07] VITALS: BMI 22.6
[2017-08-14] MEDS ORDERED: Albuterol-Ipratrop 3 mg / 0.5 (3 ml) UD INH STA (20:16)
--- NOTE | 2017-08-14 20:41 | ED PDOC ---
HPI: SOB/CHF/COPD Time Seen by Provider: 08/14/17 20:16 Chief Complaint (Nursing): Shortness Of Breath Chief Complaint (Provider): Shortness of breath History Per: Patient History/Exam Limitations: no limitations Onset/Duration Of Symptoms: Hrs Additional Complaint(s): Jorge L Huitron, a 57 year old male, presents to the ED complaining of shortness of breath. Upon arrival to the ED patient is not noted to be short of breath. Patient is very well known to the ED and provider. Past Medical History Reviewed: Historical Data, Nursing Documentation, Vital Signs Vital Signs: Last Vital Signs Temp 97.6 F 08/14/17 20:22 Pulse 78 08/14/17 20:22 Resp 20 08/14/17 21:00 BP 161/66 H 08/14/17 20:22 Pulse Ox 96 08/14/17 20:43 - Medical History PMH: Asthma, Atrial Fibrillation, COPD, Hepatitis (C), Seizures - Surgical History Surgical History: Appendectomy, Tonsillectomy - Family History Family History: States: Unknown Family Hx - Home Medications Home Medications: Ambulatory Orders Medication Instructions Recorded Albuterol HFA [Ventolin HFA 90 1 - 2 puff IH Q6 PRN #1 inhaler 06/10/17 mcg/actuation (8 g)] Albuterol HFA [Ventolin HFA 90 2 puff IH Q4H #1 puff 08/12/17 mcg/actuation (8 g)] - Allergies Allergies/Adverse Reactions: Allergies Allergy/AdvReac Type Severity Reaction Status Date / Time No Known Allergies Allergy Verified 08/12/17 07:52 Review of Systems ROS Statement: Except As Marked, All Systems Reviewed And Found Negative Respiratory: Positive for: Shortness of Breath Physical Exam - Reviewed Nursing Documentation Reviewed: Yes Vital Signs Reviewed: Yes - Physical Exam Appears: Positive for: Non-toxic, No Acute Distress Head Exam: Positive for: ATRAUMATIC, NORMAL INSPECTION, NORMOCEPHALIC Skin: Positive for: Normal Color, Warm, Dry. Negative for: Rash Eye Exam: Positive for: Normal appearance, EOMI, PERRL. Negative for: Nystagmus ENT: Positive for: Normal ENT Inspection. Negative for: Nasal Congestion, Tonsillar Exudate Neck: Positive for: Normal, Painless ROM, Supple Cardiovascular/Chest: Positive for: Regular Rate, Rhythm, Chest Non Tender. Negative for: Tachycardia Respiratory: Positive for: Normal Breath Sounds. Negative for: Rales, Rhonchi, Wheezing, Respiratory Distress Gastrointestinal/Abdominal: Positive for: Normal Exam, Bowel Sounds, Soft. Negative for: Tenderness, Mass, Guarding, Rebound Back: Positive for: Normal Inspection. Negative for: L CVA Tenderness, R CVA Tenderness Extremity: Positive for: Normal ROM, Tenderness. Negative for: Pedal Edema, Deformity, Swelling Lymphatic: Positive for: Normal Exam. Negative for: Adenopathy Neurologic/Psych: Positive for: Alert, Oriented, Gait. Negative for: Motor/ Sensory Deficits - ECG O2 Sat by Pulse Oximetry: 96 (RA) Pulse Ox Interpretation: Normal Medical Decision Making Medical Decision Makin Initial Impression 57 y/o male presenting with shortness of breath Initial Plan: * Peak Flow pre/post * Albuterol 3mL INH * Reevaluation Scribe Attestation Documented by Adilene Lemus acting as a scribe for Renaldo Gates MD. Provider Attestation: All medical record entries made by the Scribe were at my direction and personally dictated by me. I have reviewed the chart and agree that the record accurately reflects my personal performance of the history, physical exam, medical decision making, and the department course for this patient. I have also personally directed, reviewed, and agree with the discharge instructions and disposition. Disposition - Clinical Impression Clinical Impression: Malingering, Alcoholism - Patient ED Disposition Is Patient to be Admitted: No - Disposition Disposition: Routine/Home Disposition Time: 22:00 Condition: STABLE Forms: [facility] (Spanish)
[2017-08-14] MEDS ORDERED: Albuterol-Ipratrop 3 mg / 0.5 (3 ml) UD ONE (20:58)
[2017-08-15 06:56] VITALS: BP 138/76; PULSE 82; RESP 16; TEMP 97.8; O2SAT 97
== END 2017-08-15 06:57 | disposition home or self-care (01) ==
LOC: H.ER 20:06
DX: J44.9 Chronic obstructive pulmonary disease, unspecified (principal); F10.20 Alcohol dependence, uncomplicated; I48.91 Unspecified atrial fibrillation; Z76.5 Malingerer [conscious simulation]

== ENCOUNTER 2017-08-15 20:28 | Emergency (ER) | payer OTHER ==
[2017-08-15 20:33] VITALS: O2SAT 97
[2017-08-15 20:34] VITALS: BMI 22.7
[2017-08-15] MEDS ORDERED: Albuterol-Ipratrop 3 mg / 0.5 (3 ml) UD INH STA ×3 (21:00→21:44)
--- NOTE | 2017-08-15 21:09 | ED PDOC ---
HPI: General Adult Time Seen by Provider: 08/15/17 21:02 Chief Complaint (Nursing): Cough, Cold, Congestion Chief Complaint (Provider): Cough, Cold, Congestion History Per: Patient, EMS Onset/Duration Of Symptoms: Other (x today) Current Symptoms Are (Timing): Still Present Additional Complaint(s): Jorge L is a 57 year old male Homeless h/o asthma and alcohol abuse was brought to the Emergency Department by EMS. Patient was found intoxicated today.Patient admits to drinking. Complaining of coughing and congestion for 1 week. Denies fever or chills. PMD: No Provider Past Medical History Reviewed: Historical Data, Nursing Documentation, Vital Signs Vital Signs: Last Vital Signs Temp 98.2 F 08/16/17 01:05 Pulse 82 08/16/17 01:05 Resp 18 08/16/17 01:05 BP 115/71 08/16/17 01:05 Pulse Ox 97 08/16/17 05:04 - Medical History PMH: Asthma, Atrial Fibrillation, COPD, Hepatitis (C), Seizures - Surgical History Surgical History: Appendectomy, Tonsillectomy - Family History Family History: States: Unknown Family Hx - Home Medications Home Medications: Ambulatory Orders Medication Instructions Recorded Albuterol HFA [Ventolin HFA 90 1 - 2 puff IH Q6 PRN #1 inhaler 06/10/17 mcg/actuation (8 g)] Albuterol HFA [Ventolin HFA 90 2 puff IH Q4H #1 puff 08/12/17 mcg/actuation (8 g)] Albuterol HFA [Ventolin HFA 90 2 puff IH [id number] PRN #1 inhaler 08/15/17 mcg/actuation (8 g)] Azithromycin [Zithromax Tri-Vidal] 500 mg PO DAILY #2 tablet 08/15/17 Prednisone [Deltasone] 3 tab PO DAILY #12 tablet 08/15/17 - Allergies Allergies/Adverse Reactions: Allergies Allergy/AdvReac Type Severity Reaction Status Date / Time No Known Allergies Allergy Verified 08/15/17 20:40 Review of Systems ROS Statement: Except As Marked, All Systems Reviewed And Found Negative Constitutional: Negative for: Fever, Chills ENT: Positive for: Nose Congestion Respiratory: Positive for: Cough Physical Exam - Reviewed Nursing Documentation Reviewed: Yes Vital Signs Reviewed: Yes - Physical Exam Head Exam: Positive for: ATRAUMATIC, NORMAL INSPECTION, NORMOCEPHALIC Eye Exam: Positive for: Normal appearance Respiratory: Positive for: Wheezing (mild), Other (Congestive coughing) Neurologic/Psych: Positive for: Alert, Oriented (x 3), Gait (Unsteady) - ECG O2 Sat by Pulse Oximetry: 97 (RA) Pulse Ox Interpretation: Normal - Progress ED Course And Treament: duoneb x 3 prednisone 60mg x 1 dose Patient notes persistent congestion. Initially refusing xry. Upon re-examination at 11:10pm, agreeable to cxr cxr: no obvious infiltrate Will treat for bronchitis pseudoephedrine 60mg x 1 dose zithromax 500 mg x 1 dose Medical Decision Making Medical Decision Making: Time: 21:01 Plan: - Chest X-Ray - Duoneb 3 ml UD - Prednisone Tab 60 mg PO STAT - Nebulizer Treatment - Peak Flow Pre/Post Tx Scribe Attestation: Documented by Clarence Mccoy, acting as a scribe for Carlos Ram PA-C Provider Scribe Attestation: All medical record entries made by the Scribe were at my direction and personally dictated by me. I have reviewed the chart and agree that the record accurately reflects my personal performance of the history, physical exam, medical decision making, and the department course for this patient. I have also personally directed, reviewed, and agree with the discharge instructions and disposition. Disposition - Clinical Impression Clinical Impression: Bronchitis - Patient ED Disposition Is Patient to be Admitted: No - Disposition Referrals: [facility] [Outside] Disposition: Routine/Home Disposition Time: 23:39 Condition: FAIR Prescriptions: Albuterol HFA [Ventolin HFA 90 mcg/actuation (8 g)] 2 puff IH [id number] PRN #1 inhaler PRN Reason: Shortness Of Breath Azithromycin [Zithromax Tri-Vidal] 500 mg PO DAILY #2 tablet Prednisone [Deltasone] 3 tab PO DAILY #12 tablet Instructions: Acute Bronchitis (ED) Forms: [employer] (Slovak)
--- NOTE | 2017-08-16 00:37 | ED PDOC ---
HPI: CCC, URI, Sore Throat Time Seen by Provider: 08/15/17 21:02 Chief Complaint (Nursing): Cough, Cold, Congestion Chief Complaint (Provider): URI History Per: Patient Additional Complaint(s): Case endorsed to blog writer from SHANA Ram at midnight pending clinical sobriety ED review: duoneb x 3 prednisone 60mg x 1 dose Patient notes persistent congestion. Initially refusing xry. Upon re-examination at 11:10pm, agreeable to cxr cxr: no obvious infiltrate Will treat for bronchitis pseudoephedrine 60mg x 1 dose zithromax 500 mg x 1 dose Past Medical History Vital Signs: Last Vital Signs Temp 98.0 F 08/15/17 20:32 Pulse 90 08/15/17 20:32 Resp 20 08/15/17 20:32 BP 110/68 08/15/17 20:32 Pulse Ox 97 08/15/17 23:48 - Medical History PMH: Asthma, Atrial Fibrillation, COPD, Hepatitis (C), Seizures - Surgical History Surgical History: Appendectomy, Tonsillectomy - Family History Family History: States: Unknown Family Hx - Home Medications Home Medications: Ambulatory Orders Medication Instructions Recorded Albuterol HFA [Ventolin HFA 90 1 - 2 puff IH Q6 PRN #1 inhaler 06/10/17 mcg/actuation (8 g)] Albuterol HFA [Ventolin HFA 90 2 puff IH Q4H #1 puff 08/12/17 mcg/actuation (8 g)] Albuterol HFA [Ventolin HFA 90 2 puff IH [id number] PRN #1 inhaler 08/15/17 mcg/actuation (8 g)] Azithromycin [Zithromax Tri-Vidal] 500 mg PO DAILY #2 tablet 08/15/17 Prednisone [Deltasone] 3 tab PO DAILY #12 tablet 08/15/17 - Allergies Allergies/Adverse Reactions: Allergies Allergy/AdvReac Type Severity Reaction Status Date / Time No Known Allergies Allergy Verified 08/15/17 20:40 - ECG O2 Sat by Pulse Oximetry: 97 (RA) Disposition - Clinical Impression Clinical Impression: Bronchitis - Disposition Referrals: [facility] [Outside] Disposition: Routine/Home Disposition Time: 23:39 Condition: FAIR Prescriptions: Albuterol HFA [Ventolin HFA 90 mcg/actuation (8 g)] 2 puff IH [id number] PRN #1 inhaler PRN Reason: Shortness Of Breath Azithromycin [Zithromax Tri-Vidal] 500 mg PO DAILY #2 tablet Prednisone [Deltasone] 3 tab PO DAILY #12 tablet Instructions: Acute Bronchitis (ED) Forms: [employer] [facility] (Georgian)
[2017-08-16 01:05] VITALS: BP 115/71; PULSE 82; RESP 18; TEMP 98.2
--- NOTE | 2017-08-16 05:04 | ED PDOC ---
- ECG O2 Sat by Pulse Oximetry: 97 Medical Decision Making Medical Decision Making: Case endorsed to pattern chart writer from SHANA Ram at midnight pending clinical sobriety ED review: duoneb x 3 prednisone 60mg x 1 dose Patient notes persistent congestion. Initially refusing xry. Upon re-examination at 11:10pm, agreeable to cxr cxr: no obvious infiltrate Will treat for bronchitis pseudoephedrine 60mg x 1 dose zithromax 500 mg x 1 dose Disposition - Clinical Impression Clinical Impression: Bronchitis - POA Present On Arrival: None - Disposition Referrals: [facility] [Outside] Disposition: Routine/Home Disposition Time: 05:04 Condition: FAIR Prescriptions: Albuterol HFA [Ventolin HFA 90 mcg/actuation (8 g)] 2 puff IH [id number] PRN #1 inhaler PRN Reason: Shortness Of Breath Azithromycin [Zithromax Tri-Vidal] 500 mg PO DAILY #2 tablet Prednisone [Deltasone] 3 tab PO DAILY #12 tablet Instructions: Acute Bronchitis (ED) Forms: [employer] (Moldovan)
--- NOTE | 2017-08-16 10:31 | RAD ---
PROCEDURE: CHEST RADIOGRAPH, 1 VIEW HISTORY: COUGHING COMPARISON: 07/30/2017 FINDINGS: LUNGS: Clear. PLEURA: Elevated right hemidiaphragm. Possible subpulmonic pleural effusion. No left pleural effusion. No pneumothorax. CARDIOVASCULAR: Normal. OSSEOUS STRUCTURES: Minimally displaced fractures of the right 6th, 7th and 9th ribs, possibly subacute. VISUALIZED UPPER ABDOMEN: Normal. OTHER FINDINGS: None. IMPRESSION: Possible right subpulmonic pleural effusion. Followup advised. Fracture right 6th, 7th and 9th ribs as previously demonstrated on 07/30/2017.
== END 2017-08-16 06:20 | disposition home or self-care (01) ==
LOC: H.ER 20:28
DX: J44.9 Chronic obstructive pulmonary disease, unspecified (principal); I48.91 Unspecified atrial fibrillation; Z59.0 Homelessness; J40 Bronchitis, not specified as acute or chronic

== ENCOUNTER 2017-08-17 00:22 | Emergency (ER) | payer OTHER ==
[2017-08-17 00:22] VITALS: BMI 22.7
[2017-08-17 00:33] VITALS: TEMP 97
[2017-08-17] MEDS ORDERED: Albuterol-Ipratrop 3 mg / 0.5 (3 ml) UD INH STA ×2 (00:36)
--- NOTE | 2017-08-17 00:55 | ED PDOC ---
HPI: SOB/CHF/COPD Time Seen by Provider: 08/17/17 00:27 Chief Complaint (Nursing): Shortness Of Breath Chief Complaint (Provider): Shortness of breath and wheezing History Per: Patient History/Exam Limitations: no limitations Onset/Duration Of Symptoms: Hrs (prior to arrival ) Current Symptoms Are (Timing): Still Present Additional Complaint(s): Jorge L Huitron is a 57 year old male, well known to the ER, with a past medical history of asthma presenting to the ED for an evaluation of shortness of breath and wheezing. The patient reports the asthma is triggered by the weather change. The patient is currently homeless and has no pump. He admits to alcohol use tonight. PMD: None Provided Past Medical History Reviewed: Historical Data, Nursing Documentation, Vital Signs Vital Signs: Last Vital Signs Temp 97 F L 08/17/17 00:30 Pulse 92 H 08/17/17 06:19 Resp 20 08/17/17 05:55 BP 133/79 08/17/17 05:55 Pulse Ox 94 L 08/17/17 05:55 - Medical History PMH: Asthma, Atrial Fibrillation, COPD, Hepatitis (C), Seizures - Surgical History Surgical History: Appendectomy, Tonsillectomy - Family History Family History: States: Unknown Family Hx - Social History Alcohol: > 2 Drinks/Day - Home Medications Home Medications: Ambulatory Orders Medication Instructions Recorded Albuterol HFA [Ventolin HFA 90 1 - 2 puff IH Q6 PRN #1 inhaler 06/10/17 mcg/actuation (8 g)] Albuterol HFA [Ventolin HFA 90 2 puff IH Q4H #1 puff 08/12/17 mcg/actuation (8 g)] Albuterol HFA [Ventolin HFA 90 2 puff IH [id number] PRN #1 inhaler 08/15/17 mcg/actuation (8 g)] Azithromycin [Zithromax Tri-Vidal] 500 mg PO DAILY #2 tablet 08/15/17 Prednisone [Deltasone] 3 tab PO DAILY #12 tablet 08/15/17 predniSONE [predniSONE Tab] 60 mg PO DAILY #9 tab 08/17/17 - Allergies Allergies/Adverse Reactions: Allergies Allergy/AdvReac Type Severity Reaction Status Date / Time No Known Allergies Allergy Verified 08/17/17 00:30 Review of Systems ROS Statement: Except As Marked, All Systems Reviewed And Found Negative Respiratory: Positive for: Shortness of Breath, Wheezing Physical Exam - Reviewed Nursing Documentation Reviewed: Yes Vital Signs Reviewed: Yes - Physical Exam Appears: Positive for: Non-toxic, No Acute Distress (appears comfortable ) Head Exam: Positive for: ATRAUMATIC, NORMOCEPHALIC Skin: Positive for: Normal Color, Warm, Dry Eye Exam: Positive for: Normal appearance, EOMI ENT: Positive for: Normal ENT Inspection Neck: Positive for: Normal, Painless ROM Cardiovascular/Chest: Positive for: Regular Rate, Rhythm, Chest Non Tender Respiratory: Positive for: Wheezing (mild wheezing bilaterally ). Negative for : Respiratory Distress Gastrointestinal/Abdominal: Positive for: Normal Exam, Soft. Negative for: Tenderness Back: Positive for: Normal Inspection Extremity: Positive for: Normal ROM. Negative for: Deformity Neurologic/Psych: Positive for: Alert, Oriented (x3). Negative for: Motor/ Sensory Deficits - ECG O2 Sat by Pulse Oximetry: 98 (RA) Pulse Ox Interpretation: Normal Medical Decision Making Medical Decision Making: Time: 00:27 Impression: Asthma Exacerbation Plan: * Duoneb 3 mg/0.5 mg (3 ml) UD 3 ml INH * PredniSONE Tab 60 mg PO * Peak Flow pre/post Tx * Reevaluation 0700 Vitals improved. Breathing improved. Stable for discharge. Scribe Attestation: Documented by Deanna Lee, acting as a scribe for Jefe Hogan MD. Provider Scribe Attestation: All medical record entries made by the Scribe were at my direction and personally dictated by me. I have reviewed the chart and agree that the record accurately reflects my personal performance of the history, physical exam, medical decision making, and the department course for this patient. I have also personally directed, reviewed, and agree with the discharge instructions and disposition. Disposition - Clinical Impression Clinical Impression: COPD (chronic obstructive pulmonary disease) - Disposition Referrals: [facility] [Outside] Disposition: Routine/Home Disposition Time: 07:00 Condition: STABLE Prescriptions: predniSONE [predniSONE Tab] 60 mg PO DAILY #9 tab Instructions: COPD (Chronic Obstructive Pulmonary Disease) (ED) Forms: [employer] (Uzbek)
[2017-08-17] MEDS ORDERED: Albuterol-Ipratrop 3 mg / 0.5 (3 ml) UD ONE (01:35)
[2017-08-17 05:56] VITALS: BP 133/79; RESP 20
[2017-08-17 06:19] VITALS: PULSE 92
--- NOTE | 2017-08-17 12:04 | CARD ---
APPROVED REPORT EKG Measurement Heart [id number] [id number] <Conclusion> Sinus tachycardia with premature ventricular complexes or fusion complexes Nonspecific ST and T wave abnormality Abnormal ECG
[2017-08-17 19:37] VITALS: O2SAT 98
== END 2017-08-17 06:45 | disposition home or self-care (01) ==
LOC: H.ER 00:22
DX: J44.9 Chronic obstructive pulmonary disease, unspecified (principal); I48.91 Unspecified atrial fibrillation; I49.3 Ventricular premature depolarization; J45.901 Unspecified asthma with (acute) exacerbation; Z59.0 Homelessness

== ENCOUNTER 2017-08-19 02:14 | Emergency (ER) | payer OTHER ==
[2017-08-19 02:14] VITALS: BMI 22.7
--- NOTE | 2017-08-19 02:59 | ED PDOC ---
HPI: CCC, URI, Sore Throat Time Seen by Provider: 08/19/17 02:17 Chief Complaint (Nursing): Cough, Cold, Congestion Chief Complaint (Provider): Cough History Per: Patient History/Exam Limitations: no limitations Onset/Duration Of Symptoms: Days (x1) Current Symptoms Are (Timing): Still Present Additional Complaint(s): Jorge L Huitron is a 57 y/o male who presents to the ED complaining of a cough x1 day. PMD: [facility] Provider Past Medical History Reviewed: Historical Data, Nursing Documentation, Vital Signs Vital Signs: Last Vital Signs Temp 98.1 F 08/19/17 06:09 Pulse 77 08/19/17 06:09 Resp 17 08/19/17 06:09 BP 123/74 08/19/17 06:09 Pulse Ox 98 08/19/17 06:09 - Medical History PMH: Asthma, Atrial Fibrillation, COPD, Hepatitis (C), Seizures - Surgical History Surgical History: Appendectomy, Tonsillectomy - Family History Family History: States: Unknown Family Hx - Social History Current smoker - smoking cessation education provided: No Alcohol: None Drugs: Denies - Home Medications Home Medications: Ambulatory Orders Medication Instructions Recorded Albuterol HFA [Ventolin HFA 90 1 - 2 puff IH Q6 PRN #1 inhaler 06/10/17 mcg/actuation (8 g)] Albuterol HFA [Ventolin HFA 90 2 puff IH Q4H #1 puff 08/12/17 mcg/actuation (8 g)] Albuterol HFA [Ventolin HFA 90 2 puff IH [id number] PRN #1 inhaler 08/15/17 mcg/actuation (8 g)] Azithromycin [Zithromax Tri-Vidal] 500 mg PO DAILY #2 tablet 08/15/17 Prednisone [Deltasone] 3 tab PO DAILY #12 tablet 08/15/17 predniSONE [predniSONE Tab] 60 mg PO DAILY #9 tab 08/17/17 - Allergies Allergies/Adverse Reactions: Allergies Allergy/AdvReac Type Severity Reaction Status Date / Time No Known Allergies Allergy Verified 08/17/17 00:30 Review of Systems ROS Statement: Except As Marked, All Systems Reviewed And Found Negative Respiratory: Positive for: Cough Physical Exam - Reviewed Nursing Documentation Reviewed: Yes Vital Signs Reviewed: Yes - Physical Exam Appears: Positive for: Well, Non-toxic, No Acute Distress Head Exam: Positive for: ATRAUMATIC, NORMAL INSPECTION, NORMOCEPHALIC Skin: Positive for: Normal Color, Warm, Dry Eye Exam: Positive for: EOMI, Normal appearance, PERRL Neck: Positive for: Normal, Painless ROM, Supple Cardiovascular/Chest: Positive for: Regular Rate, Rhythm. Negative for: Murmur Respiratory: Positive for: Normal Breath Sounds. Negative for: Respiratory Distress Gastrointestinal/Abdominal: Positive for: Normal Exam, Bowel Sounds, Soft. Negative for: Tenderness Back: Positive for: Normal Inspection. Negative for: L CVA Tenderness, R CVA Tenderness, Vertebral Tenderness Extremity: Positive for: Normal ROM. Negative for: Pedal Edema, Deformity Neurologic/Psych: Positive for: Alert, Oriented. Negative for: Motor/Sensory Deficits - ECG O2 Sat by Pulse Oximetry: 97 (RA) Pulse Ox Interpretation: Normal Medical Decision Making Medical Decision Making: Time: 02:17 Initial Impression: 57 y/o male with cough Plan: --Reevaluation Scribe Attestation: Documented by Krish Sumner acting as a scribe for Renaldo Gates MD. Scribe Attestation: All medical record entries made by the Scribe were at my direction and personally dictated by me. I have reviewed the chart and agree that the record accurately reflects my personal performance of the history, physical exam, medical decision making, and the department course for this patient. I have also personally directed, reviewed, and agree with the discharge instructions and disposition. Disposition - Clinical Impression Clinical Impression: Malingering - Disposition Disposition: Routine/Home Disposition Time: 07:00 Condition: STABLE Forms: [employer] (Finnish)
[2017-08-19 06:11] VITALS: BP 123/74; PULSE 77; RESP 17; TEMP 98.1
[2017-08-20 04:12] VITALS: O2SAT 97
== END 2017-08-19 06:05 | disposition home or self-care (01) ==
LOC: H.ER 02:14
DX: Z76.5 Malingerer [conscious simulation] (principal); I48.91 Unspecified atrial fibrillation; J44.9 Chronic obstructive pulmonary disease, unspecified

== ENCOUNTER 2017-08-19 20:46 | Emergency (ER) | payer OTHER ==
[2017-08-19 20:46] VITALS: BMI 22.7
[2017-08-19 21:00] VITALS: RESP 18
[2017-08-19 21:01] VITALS: TEMP 97.5
--- NOTE | 2017-08-19 22:39 | ED PDOC ---
HPI: General Adult Time Seen by Provider: 08/19/17 20:56 Chief Complaint (Nursing): Shortness Of Breath Chief Complaint (Provider): medical History Per: Patient History/Exam Limitations: no limitations Additional Complaint(s): 57yo M routinely seen in ER with hx of Afib and COPD for intoxication and difficulty breathing. pt bought to ED via EMS placed on nasal canala. pt offers no medical complaints. Past Medical History Reviewed: Historical Data, Nursing Documentation, Vital Signs Vital Signs: Last Vital Signs Temp 97.5 F L 08/19/17 21:00 Pulse 65 08/19/17 21:00 Resp 18 08/19/17 21:00 BP 113/65 08/19/17 21:00 Pulse Ox 95 08/19/17 22:40 - Medical History PMH: Asthma, Atrial Fibrillation, COPD, Hepatitis (C), Seizures - Surgical History Surgical History: Appendectomy, Tonsillectomy - Family History Family History: States: Unknown Family Hx - Home Medications Home Medications: Ambulatory Orders Medication Instructions Recorded Albuterol HFA [Ventolin HFA 90 1 - 2 puff IH Q6 PRN #1 inhaler 06/10/17 mcg/actuation (8 g)] Albuterol HFA [Ventolin HFA 90 2 puff IH Q4H #1 puff 08/12/17 mcg/actuation (8 g)] Albuterol HFA [Ventolin HFA 90 2 puff IH [id number] PRN #1 inhaler 08/15/17 mcg/actuation (8 g)] Azithromycin [Zithromax Tri-Vidal] 500 mg PO DAILY #2 tablet 08/15/17 Prednisone [Deltasone] 3 tab PO DAILY #12 tablet 08/15/17 predniSONE [predniSONE Tab] 60 mg PO DAILY #9 tab 08/17/17 - Allergies Allergies/Adverse Reactions: Allergies Allergy/AdvReac Type Severity Reaction Status Date / Time No Known Allergies Allergy Verified 08/17/17 00:30 Review of Systems ROS Statement: Except As Marked, All Systems Reviewed And Found Negative Constitutional: Negative for: Fever Physical Exam - Reviewed Nursing Documentation Reviewed: Yes Vital Signs Reviewed: Yes - Physical Exam Appears: Positive for: Well, Non-toxic, No Acute Distress Skin: Positive for: Normal Color, Warm, DRY Eye Exam: Positive for: EOMI, Normal appearance, PERRL Cardiovascular/Chest: Positive for: Regular Rate, Rhythm Respiratory: Positive for: CNT, Normal Breath Sounds Extremity: Positive for: Normal ROM Neurologic/Psych: Positive for: Alert, Oriented - ECG O2 Sat by Pulse Oximetry: 95 Medical Decision Making Medical Decision Making: pt placed on nasal canula. clinically sober and stable for d.c Disposition - Clinical Impression Clinical Impression: Alcohol abuse - Patient ED Disposition Is Patient to be Admitted: No Counseled Patient/Family Regarding: Need For Followup - Disposition Disposition: Routine/Home Disposition Time: 05:12 Condition: STABLE Instructions: Alcohol Intoxication (ED), Abuse of Alcohol (ED), Alcohol Dependence (ED)
[2017-08-20 05:54] VITALS: BP 121/74; PULSE 71; O2SAT 96
== END 2017-08-20 05:55 | disposition home or self-care (01) ==
LOC: H.ER 20:46
DX: F10.10 Alcohol abuse, uncomplicated (principal); J44.9 Chronic obstructive pulmonary disease, unspecified; I48.91 Unspecified atrial fibrillation

== ENCOUNTER 2017-08-20 16:30 | Emergency (ER) | payer MEDICAID, OTHER ==
[2017-08-20 16:30] VITALS: BMI 22.7
[2017-08-20 16:44] VITALS: BP 137/88; PULSE 72; RESP 18; TEMP 97.8; O2SAT 100
--- NOTE | 2017-08-20 17:38 | ED PDOC ---
HPI: General Adult Time Seen by Provider: 08/20/17 16:48 Chief Complaint (Nursing): Lower Extremity Problem/Injury Chief Complaint (Provider): Generalized weakness History Per: Patient History/Exam Limitations: no limitations Onset/Duration Of Symptoms: Days (x1) Recently: Seen In ED Additional Complaint(s): Jorge L Huitron is a 57 year old male, with a past medical history of COPD and asthma , who was brought to the emergency department by EMS. Patient is well known in the ED with multiple visits. Upon arrival patient is demanding Raisin Bran cereal. He denies any fever, chills, nausea, vomit or other medical complaints. PMD: None provided. Past Medical History Vital Signs: Last Vital Signs Temp 97.8 F 08/20/17 16:42 Pulse 72 08/20/17 16:42 Resp 18 08/20/17 16:42 BP 137/88 08/20/17 16:42 Pulse Ox 100 08/20/17 17:40 - Medical History PMH: Asthma, Atrial Fibrillation, COPD, Hepatitis (C), Seizures - Surgical History Surgical History: Appendectomy, Tonsillectomy - Family History Family History: States: Unknown Family Hx - Home Medications Home Medications: Ambulatory Orders Medication Instructions Recorded Albuterol HFA [Ventolin HFA 90 1 - 2 puff IH Q6 PRN #1 inhaler 06/10/17 mcg/actuation (8 g)] Albuterol HFA [Ventolin HFA 90 2 puff IH Q4H #1 puff 08/12/17 mcg/actuation (8 g)] Albuterol HFA [Ventolin HFA 90 2 puff IH [id number] PRN #1 inhaler 08/15/17 mcg/actuation (8 g)] Azithromycin [Zithromax Tri-Vidal] 500 mg PO DAILY #2 tablet 08/15/17 Prednisone [Deltasone] 3 tab PO DAILY #12 tablet 08/15/17 predniSONE [predniSONE Tab] 60 mg PO DAILY #9 tab 08/17/17 - Allergies Allergies/Adverse Reactions: Allergies Allergy/AdvReac Type Severity Reaction Status Date / Time No Known Allergies Allergy Verified 08/17/17 00:30 Review of Systems ROS Statement: Except As Marked, All Systems Reviewed And Found Negative Constitutional: Negative for: Fever, Chills Gastrointestinal: Negative for: Nausea, Vomiting Physical Exam - Reviewed Nursing Documentation Reviewed: Yes Vital Signs Reviewed: Yes - Physical Exam Appears: Positive for: Well, Non-toxic, No Acute Distress Head Exam: Positive for: ATRAUMATIC, NORMAL INSPECTION, NORMOCEPHALIC Skin: Positive for: Normal Color, Warm, DRY Eye Exam: Positive for: Normal appearance, EOMI, PERRL Neck: Positive for: Normal, Painless ROM, Supple Respiratory: Negative for: Respiratory Distress Extremity: Positive for: Normal ROM Neurologic/Psych: Positive for: Alert, Oriented - ECG O2 Sat by Pulse Oximetry: 100 (RA) Pulse Ox Interpretation: Normal Medical Decision Making Medical Decision Making: Initial Plan: ~ Scribe Attestation: Documented by Josemanuel Yuen, acting as a scribe for Dalia Agee PA-C. Provider Scribe Attestation: All medical record entries made by the Scribe were at my direction and personally dictated by me. I have reviewed the chart and agree that the record accurately reflects my personal performance of the history, physical exam, medical decision making, and the department course for this patient. I have also personally directed, reviewed, and agree with the discharge instructions and disposition. Disposition - Clinical Impression Clinical Impression: Homeless - Patient ED Disposition Is Patient to be Admitted: No Counseled Patient/Family Regarding: Diagnosis, Need For Followup - Disposition Disposition: Routine/Home Disposition Time: 23:58 Condition: STABLE Forms: [employer] (South African)
== END 2017-08-21 00:28 | disposition home or self-care (01) ==
LOC: H.ER 16:30
DX: M62.81 Muscle weakness (generalized) (principal); I48.91 Unspecified atrial fibrillation; J44.9 Chronic obstructive pulmonary disease, unspecified; Z59.0 Homelessness; F10.129 Alcohol abuse with intoxication, unspecified

== ENCOUNTER 2017-08-21 20:38 | Emergency (ER) | payer MEDICAID, OTHER ==
[2017-08-21 20:38] VITALS: BMI 22.7
[2017-08-21 20:49] VITALS: BP 103/56; PULSE 68; RESP 18; TEMP 97.7; O2SAT 96
--- NOTE | 2017-08-21 21:01 | ED PDOC ---
HPI: Psych/Substance Abuse Time Seen by Provider: 08/21/17 20:45 Chief Complaint (Nursing): Alcohol Ingestion Chief Complaint (Provider): Alcohol Intoxication ED Caveat: Intoxicated History Per: Patient, EMS History/Exam Limitations: intoxication Onset/Duration Of Symptoms: Hrs Current Symptoms Are (Timing): Still Present Modifying Factor(s): Alcohol Additional Complaint(s): Patient is a 57 y/o male who was brought to the ED by EMS after being found outside of a [facility]. Patient was presumed to be intoxicated, as he was unable to stand on his own. Patient is well known to this ED for alcohol intoxication. history and exam are limited due to patient's intoxicated state. Past Medical History Vital Signs: Last Vital Signs Temp 97.7 F 08/21/17 20:45 Pulse 68 08/21/17 20:45 Resp 18 08/21/17 20:45 BP 103/56 L 08/21/17 20:45 Pulse Ox 96 08/21/17 20:45 - Medical History PMH: Asthma, Atrial Fibrillation, COPD, Hepatitis (C), Seizures - Surgical History Surgical History: Appendectomy, Tonsillectomy - Family History Family History: States: Unknown Family Hx - Social History Alcohol: Occasional - Home Medications Home Medications: Ambulatory Orders Medication Instructions Recorded Albuterol HFA [Ventolin HFA 90 1 - 2 puff IH Q6 PRN #1 inhaler 06/10/17 mcg/actuation (8 g)] Albuterol HFA [Ventolin HFA 90 2 puff IH Q4H #1 puff 08/12/17 mcg/actuation (8 g)] Albuterol HFA [Ventolin HFA 90 2 puff IH [id number] PRN #1 inhaler 08/15/17 mcg/actuation (8 g)] Azithromycin [Zithromax Tri-Vidal] 500 mg PO DAILY #2 tablet 08/15/17 Prednisone [Deltasone] 3 tab PO DAILY #12 tablet 08/15/17 predniSONE [predniSONE Tab] 60 mg PO DAILY #9 tab 08/17/17 - Allergies Allergies/Adverse Reactions: Allergies Allergy/AdvReac Type Severity Reaction Status Date / Time No Known Allergies Allergy Verified 08/17/17 00:30 Review of Systems Review Of Systems: ROS cannot be obtained secondary to pt's inabilty to answer questions. (limited due to patient's intoxicated state) Physical Exam - Reviewed Nursing Documentation Reviewed: Yes Vital Signs Reviewed: Yes - Physical Exam Appears: Positive for: No Acute Distress Head Exam: Positive for: ATRAUMATIC, NORMOCEPHALIC Skin: Positive for: Normal Color, Warm, Dry Eye Exam: Positive for: Normal appearance Neck: Positive for: Normal Cardiovascular/Chest: Positive for: Regular Rate, Rhythm. Negative for: Murmur Respiratory: Positive for: Normal Breath Sounds. Negative for: Respiratory Distress Neurologic/Psych: Positive for: Other (Alcohol on breath, slurred speech) - ECG O2 Sat by Pulse Oximetry: 96 (RA) Pulse Ox Interpretation: Normal Medical Decision Making Medical Decision Making: Time: 20:58 Initial Plan: --Alcohol Serum --Finger Stick: [id number] ETOH [id number] Sleeping comfortably. No distress. Easily arousable. Scribe Attestation: Documented by Aimee Tidwell, acting as a scribe for Connor Barney PA-C Provider Scribe Attestation: All medical record entries made by the Scribe were at my direction and personally dictated by me. I have reviewed the chart and agree that the record accurately reflects my personal performance of the history, physical exam, medical decision making, and the department course for this patient. I have also personally directed, reviewed, and agree with the discharge instructions and disposition. Disposition - Clinical Impression Clinical Impression: Alcohol intoxication in active alcoholic - Patient ED Disposition Is Patient to be Admitted: Transfer of Care (Signed out to Yo SALDANA pending sobriety.) - Disposition Disposition Time: 00:00 Condition: STABLE Forms: [employer] (Brazilian)
--- NOTE | 2017-08-22 05:44 | ED PDOC ---
- ECG O2 Sat by Pulse Oximetry: 96 (RA) - Progress ED Course And Treament: NOTED PROGRESSIVELY MORE SOBER IN ED. Disposition - Clinical Impression Clinical Impression: Alcohol intoxication in active alcoholic - POA Present On Arrival: None - Disposition Disposition: Routine/Home Disposition Time: 05:44 Condition: STABLE Forms: [facility] (Puerto Rican)
== END 2017-08-22 06:55 | disposition home or self-care (01) ==
LOC: H.ER 20:38
DX: F10.129 Alcohol abuse with intoxication, unspecified (principal); I48.91 Unspecified atrial fibrillation; J44.9 Chronic obstructive pulmonary disease, unspecified
CPT/HCPCS: 82948; 99283; G0480

== ENCOUNTER 2017-08-22 19:57 | Emergency (ER) | payer MEDICAID, OTHER ==
[2017-08-22 19:57] VITALS: BMI 22.7
[2017-08-22 20:45] VITALS: BP 133/78; PULSE 80; RESP 18; TEMP 98.5; O2SAT 96
--- NOTE | 2017-08-22 21:42 | ED PDOC ---
HPI: Psych/Substance Abuse Time Seen by Provider: 08/22/17 20:48 Chief Complaint (Nursing): Alcohol Ingestion Chief Complaint (Provider): Alcohol Ingestion ED Caveat: Intoxicated History Per: Patient History/Exam Limitations: intoxication Onset/Duration Of Symptoms: Mins (prior to arrival) Current Symptoms Are (Timing): Still Present Additional Complaint(s): 57 year old male, well-known to emergency department, who presents to the emergency department for an intoxication evaluation after admitting to ingesting large amounts of alcohol prior to arrival. History is limited due to current state of intoxication. Patient is requesting food upon arrival but denied further medical complaints. PMD: none provided Past Medical History Reviewed: Historical Data, Nursing Documentation, Vital Signs Vital Signs: Last Vital Signs Temp 98.5 F 08/22/17 20:42 Pulse 80 08/22/17 20:42 Resp 18 08/22/17 20:42 BP 133/78 08/22/17 20:42 Pulse Ox 96 08/22/17 20:42 - Medical History PMH: Asthma, Atrial Fibrillation, COPD, Hepatitis (C), Seizures - Surgical History Surgical History: Appendectomy, Tonsillectomy - Family History Family History: States: Unknown Family Hx - Social History Alcohol: > 2 Drinks/Day - Home Medications Home Medications: Ambulatory Orders Medication Instructions Recorded Albuterol HFA [Ventolin HFA 90 1 - 2 puff IH Q6 PRN #1 inhaler 06/10/17 mcg/actuation (8 g)] Albuterol HFA [Ventolin HFA 90 2 puff IH Q4H #1 puff 08/12/17 mcg/actuation (8 g)] Albuterol HFA [Ventolin HFA 90 2 puff IH [id number] PRN #1 inhaler 08/15/17 mcg/actuation (8 g)] Azithromycin [Zithromax Tri-Vidal] 500 mg PO DAILY #2 tablet 08/15/17 Prednisone [Deltasone] 3 tab PO DAILY #12 tablet 08/15/17 predniSONE [predniSONE Tab] 60 mg PO DAILY #9 tab 08/17/17 - Allergies Allergies/Adverse Reactions: Allergies Allergy/AdvReac Type Severity Reaction Status Date / Time No Known Allergies Allergy Verified 08/22/17 20:41 Review of Systems Review Of Systems: ROS cannot be obtained secondary to pt's inabilty to answer questions. (intoxication) Physical Exam - Reviewed Nursing Documentation Reviewed: Yes Vital Signs Reviewed: Yes - Physical Exam Appears: Positive for: Well, Non-toxic, No Acute Distress Head Exam: Positive for: ATRAUMATIC, NORMAL INSPECTION, NORMOCEPHALIC Neck: Positive for: Normal, Painless ROM Cardiovascular/Chest: Positive for: Regular Rate, Rhythm, Chest Non Tender Respiratory: Positive for: Normal Breath Sounds. Negative for: Decreased Breath Sounds, Respiratory Distress Extremity: Positive for: Normal ROM. Negative for: Tenderness, Pedal Edema, Deformity Neurologic/Psych: Positive for: Alert, Mood/Affect (intoxicated), Gait (unsteady ) - ECG O2 Sat by Pulse Oximetry: 96 (RA) Pulse Ox Interpretation: Normal Medical Decision Making Medical Decision Making: Initial Impression: ETOH intoxication Initial Plan: * Pending clinical sobriety Scribe Attestation: Documented by Brittaney Molina, acting as a scribe for Connor Barney PA-C. Provider Scribe Attestation: All medical record entries made by the Scribe were at my direction and personally dictated by me. I have reviewed the chart and agree that the record accurately reflects my personal performance of the history, physical exam, medical decision making, and the department course for this patient. I have also personally directed, reviewed, and agree with the discharge instructions and disposition. Disposition - Clinical Impression Clinical Impression: Alcohol abuse - Patient ED Disposition Is Patient to be Admitted: Transfer of Care (Signed out to Yo SALDANA pending sobriety) - Disposition Disposition Time: 00:07 Condition: STABLE Instructions: Alcohol Intoxication (ED), Abuse of Alcohol (ED), Alcohol Dependence (ED) Forms: [employer] (Montserratian)
--- NOTE | 2017-08-23 05:00 | ED PDOC ---
- ECG O2 Sat by Pulse Oximetry: 96 (RA) - Progress ED Course And Treament: PATIENT NOTED PROGRESSIVELY MORE SOBER IN ED. Disposition - Clinical Impression Clinical Impression: Alcohol abuse - POA Present On Arrival: None - Disposition Disposition: Routine/Home Disposition Time: 06:00 Condition: STABLE Instructions: Alcohol Intoxication (ED), Abuse of Alcohol (ED), Alcohol Dependence (ED) Forms: [employer] (South Korean)
== END 2017-08-23 06:03 | disposition home or self-care (01) ==
LOC: H.ER 19:57
DX: F10.129 Alcohol abuse with intoxication, unspecified (principal); I48.91 Unspecified atrial fibrillation; J44.9 Chronic obstructive pulmonary disease, unspecified

== ENCOUNTER 2017-08-24 17:08 | Emergency (ER) | payer MEDICAID ==
[2017-08-24 17:08] VITALS: BMI 22.7
[2017-08-24 17:16] VITALS: PULSE 83; TEMP 98; O2SAT 99
--- NOTE | 2017-08-24 17:57 | ED PDOC ---
HPI: SOB/CHF/COPD Time Seen by Provider: 08/24/17 17:41 Chief Complaint (Nursing): Shortness Of Breath Chief Complaint (Provider): Cough History Per: Patient History/Exam Limitations: no limitations Onset/Duration Of Symptoms: Days (today) Additional Complaint(s): Cough, congestion, feels wheezes. Wants a breathing tx. Is homeless. No chest pain, weakness, headaches, drugs today. Etoh daily. No leg pain. Past Medical History Reviewed: Nursing Documentation, Vital Signs Vital Signs: Last Vital Signs Temp 98.0 F 08/24/17 17:10 Pulse 83 08/24/17 17:10 Resp 18 08/24/17 18:05 BP Pulse Ox 99 08/24/17 18:15 - Medical History PMH: Asthma, Atrial Fibrillation, COPD, Hepatitis (C) - Surgical History Surgical History: Appendectomy, Tonsillectomy - Family History Family History: States: Unknown Family Hx - Social History Current smoker - smoking cessation education provided: No Alcohol: > 2 Drinks/Day Drugs: Denies - Home Medications Home Medications: Ambulatory Orders Medication Instructions Recorded Albuterol HFA [Ventolin HFA 90 1 - 2 puff IH Q6 PRN #1 inhaler 06/10/17 mcg/actuation (8 g)] Albuterol HFA [Ventolin HFA 90 2 puff IH Q4H #1 puff 08/12/17 mcg/actuation (8 g)] Albuterol HFA [Ventolin HFA 90 2 puff IH [id number] PRN #1 inhaler 08/15/17 mcg/actuation (8 g)] Azithromycin [Zithromax Tri-Vidal] 500 mg PO DAILY #2 tablet 08/15/17 Prednisone [Deltasone] 3 tab PO DAILY #12 tablet 08/15/17 predniSONE [predniSONE Tab] 60 mg PO DAILY #9 tab 08/17/17 Albuterol Sulfate [Proair Hfa] 0.09 mg IH Q6H PRN #2 inh 08/24/17 predniSONE [predniSONE Tab] 20 mg PO BID 5 Days tab 08/24/17 - Allergies Allergies/Adverse Reactions: Allergies Allergy/AdvReac Type Severity Reaction Status Date / Time No Known Allergies Allergy Verified 08/22/17 20:41 Review of Systems ROS Statement: Except As Marked, All Systems Reviewed And Found Negative ENT: Positive for: Nose Discharge, Nose Congestion Respiratory: Positive for: Cough, Shortness of Breath, Wheezing Physical Exam - Reviewed Nursing Documentation Reviewed: Yes Vital Signs Reviewed: Yes - Physical Exam Appears: Positive for: Non-toxic, No Acute Distress Head Exam: Positive for: ATRAUMATIC, NORMAL INSPECTION, NORMOCEPHALIC Skin: Positive for: Normal Color, Warm, DRY Eye Exam: Positive for: EOMI, Normal appearance, PERRL ENT: Positive for: Nasal Congestion. Negative for: Pharyngeal Erythema, Tonsillar Exudate Neck: Positive for: Normal, Painless ROM, Supple Cardiovascular/Chest: Positive for: Regular Rate, Rhythm. Negative for: Edema Respiratory: Positive for: Wheezing (mild b/l mild on end expiration.). Negative for: Decreased Breath Sounds, Accessory Muscle Use Gastrointestinal/Abdominal: Positive for: Normal Exam, Bowel Sounds, Soft. Negative for: Tenderness Back: Positive for: Normal Inspection. Negative for: L CVA Tenderness, R CVA Tenderness Extremity: Positive for: Normal ROM. Negative for: Tenderness, Pedal Edema Neurologic/Psych: Positive for: Alert, Oriented - ECG ECG: Positive for: Interpreted By Me, Viewed By Me ECG Rhythm: Positive for: Normal QRS, Normal ST Segment, Sinus Rhythm O2 Sat by Pulse Oximetry: 99 Pulse Ox Interpretation: Normal - Progress ED Course And Treament: 1836: Stable. AAOx3. Pain free. Breathing improved. Here multiple times for similar and other complaints. Is homeless. Fu with clinic. Disposition - Clinical Impression Clinical Impression: Asthma - Patient ED Disposition Is Patient to be Admitted: No Counseled Patient/Family Regarding: Diagnosis, Need For Followup, Rx Given - Disposition Referrals: [facility] [Outside] - 08/25/17 Disposition: Routine/Home Disposition Time: 18:38 Condition: STABLE Additional Instructions: Return if not better in 3 days. Prescriptions: Albuterol Sulfate [Proair Hfa] 0.09 mg IH Q6H PRN #2 inh PRN Reason: Wheezing predniSONE [predniSONE Tab] 20 mg PO BID 5 Days tab Instructions: Asthma (ED)
[2017-08-24] MEDS ORDERED: Albuterol-Ipratrop 3 mg / 0.5 (3 ml) UD INH STA (18:09)
[2017-08-24] MEDS ORDERED: Albuterol-Ipratrop 3 mg / 0.5 (3 ml) UD IH STA (18:09)
[2017-08-24 18:10] VITALS: RESP 18
[2017-08-24] MEDS ORDERED: Albuterol-Ipratrop 3 mg / 0.5 (3 ml) UD ONE (18:21)
--- NOTE | 2017-08-25 12:37 | CARD ---
APPROVED REPORT EKG Measurement Heart [id number] <Conclusion> Normal sinus rhythm Normal ECG
== END 2017-08-24 19:40 | disposition home or self-care (01) ==
LOC: H.ER 17:08
DX: J45.909 Unspecified asthma, uncomplicated (principal); Z59.0 Homelessness; I48.91 Unspecified atrial fibrillation; J44.9 Chronic obstructive pulmonary disease, unspecified

== ENCOUNTER 2017-08-25 06:21 | Emergency (ER) | payer MEDICAID ==
[2017-08-25 06:21] VITALS: BMI 22.7
[2017-08-25 06:38] VITALS: BP 118/64; PULSE 87; RESP 18; TEMP 97.4; O2SAT 99
--- NOTE | 2017-08-25 08:20 | ED PDOC ---
HPI: General Adult Time Seen by Provider: 08/25/17 07:16 Chief Complaint (Nursing): Cough, Cold, Congestion Chief Complaint (Provider): Cough History Per: Patient History/Exam Limitations: no limitations Onset/Duration Of Symptoms: Days (x1) Severity: None Pain Scale Rating Of: 0 Recently: Seen In ED Additional Complaint(s): Jorge L Huitron is a 57 year old male, with a past medical history of COPD and asthma , who presents to the emergency department complaining of cough onset for 1 day. Patient is well known in the ED for multiple visits. Alcohol odor noted on patient. Upon arrival he denies any nausea, vomit, diarrhea, fever, SOB or other medical complaints. PMD: None provided. Past Medical History Reviewed: Historical Data, Nursing Documentation, Vital Signs Vital Signs: Last Vital Signs Temp 97.4 F L 08/25/17 06:35 Pulse 87 08/25/17 06:35 Resp 18 08/25/17 06:35 BP 118/64 08/25/17 06:35 Pulse Ox 99 08/25/17 08:23 - Medical History PMH: Asthma, Atrial Fibrillation, COPD, Hepatitis (C), Seizures - Surgical History Surgical History: Appendectomy, Tonsillectomy - Family History Family History: States: Unknown Family Hx - Social History Current smoker - smoking cessation education provided: Yes (Heavy smoker >10 cigarettes daily) Alcohol: > 2 Drinks/Day Drugs: Denies - Home Medications Home Medications: Ambulatory Orders Medication Instructions Recorded Albuterol HFA [Ventolin HFA 90 1 - 2 puff IH Q6 PRN #1 inhaler 06/10/17 mcg/actuation (8 g)] Albuterol HFA [Ventolin HFA 90 2 puff IH Q4H #1 puff 08/12/17 mcg/actuation (8 g)] Albuterol HFA [Ventolin HFA 90 2 puff IH [id number] PRN #1 inhaler 08/15/17 mcg/actuation (8 g)] Azithromycin [Zithromax Tri-Vidal] 500 mg PO DAILY #2 tablet 08/15/17 Prednisone [Deltasone] 3 tab PO DAILY #12 tablet 08/15/17 predniSONE [predniSONE Tab] 60 mg PO DAILY #9 tab 08/17/17 Albuterol Sulfate [Proair Hfa] 0.09 mg IH Q6H PRN #2 inh 08/24/17 predniSONE [predniSONE Tab] 20 mg PO BID 5 Days tab 08/24/17 - Allergies Allergies/Adverse Reactions: Allergies Allergy/AdvReac Type Severity Reaction Status Date / Time No Known Allergies Allergy Verified 08/25/17 06:35 Review of Systems ROS Statement: Except As Marked, All Systems Reviewed And Found Negative Constitutional: Negative for: Fever Respiratory: Positive for: Cough. Negative for: Shortness of Breath Gastrointestinal: Negative for: Nausea, Vomiting, Diarrhea Physical Exam - Reviewed Nursing Documentation Reviewed: Yes Vital Signs Reviewed: Yes - Physical Exam Appears: Positive for: Well, Non-toxic, No Acute Distress Head Exam: Positive for: ATRAUMATIC, NORMAL INSPECTION, NORMOCEPHALIC Skin: Positive for: Normal Color, Warm, Dry Eye Exam: Positive for: EOMI, Normal appearance, PERRL ENT: Positive for: Other (alcohol on breath) Neck: Positive for: Normal, Painless ROM, Supple Cardiovascular/Chest: Positive for: Regular Rate, Rhythm. Negative for: Murmur Respiratory: Positive for: Normal Breath Sounds. Negative for: Respiratory Distress Extremity: Positive for: Normal ROM. Negative for: Pedal Edema, Deformity, Swelling Neurologic/Psych: Positive for: Alert, Oriented - ECG O2 Sat by Pulse Oximetry: 99 (RA) Pulse Ox Interpretation: Normal Medical Decision Making Medical Decision Making: Initial impression: cough Initial Plan: Scribe Attestation: Documented by Josemanuel Yuen, acting as a scribe for Noemi Jackson MD Provider Scribe Attestation: All medical record entries made by the Scribe were at my direction and personally dictated by me. I have reviewed the chart and agree that the record accurately reflects my personal performance of the history, physical exam, medical decision making, and the department course for this patient. I have also personally directed, reviewed, and agree with the discharge instructions and disposition. 10.45 patient has been without distress or complaints in the hours that he has been in the ER. Disposition - Clinical Impression Clinical Impression: Alcohol abuse - Patient ED Disposition Is Patient to be Admitted: No Doctor Will See Patient In The: Office Counseled Patient/Family Regarding: Diagnosis, Need For Followup - Disposition Referrals: [facility] [Outside] Disposition: Routine/Home Disposition Time: 11:01 Condition: STABLE Instructions: Alcohol Intoxication (ED), Abuse of Alcohol (ED), Alcohol Dependence (ED) Forms: [facility] (Tristanian) - POA Present On Arrival: None
[2017-08-25] MEDS ORDERED: Albuterol-Ipratrop 3 mg / 0.5 (3 ml) UD ONE (18:31)
== END 2017-08-25 11:05 | disposition home or self-care (01) ==
LOC: H.ER 06:21
DX: J44.9 Chronic obstructive pulmonary disease, unspecified (principal); F10.10 Alcohol abuse, uncomplicated; F17.210 Nicotine dependence, cigarettes, uncomplicated; I48.91 Unspecified atrial fibrillation

== ENCOUNTER 2017-08-25 17:27 | Emergency (ER) | payer MEDICAID ==
[2017-08-25 17:27] VITALS: BMI 22.7
[2017-08-25 17:33] VITALS: BP 100/66; PULSE 69; RESP 20; TEMP 97.7; O2SAT 99
--- NOTE | 2017-08-25 17:56 | ED PDOC ---
HPI: General Adult Time Seen by Provider: 08/25/17 17:35 Chief Complaint (Nursing): Cough, Cold, Congestion Chief Complaint (Provider): cough History Per: Patient Additional Complaint(s): BIBA for etoh and chronic cough. Patient is seen daily in ED. He denies any acute change from baseline. Past Medical History Reviewed: Historical Data Vital Signs: Last Vital Signs Temp 97.7 F 08/25/17 17:32 Pulse 69 08/25/17 17:32 Resp 20 08/25/17 17:32 BP 100/66 08/25/17 17:32 Pulse Ox 99 08/25/17 21:22 - Medical History PMH: Asthma, Atrial Fibrillation, COPD, Hepatitis (C), Seizures - Surgical History Surgical History: Appendectomy, Tonsillectomy - Family History Family History: States: No Known Family Hx - Living Arrangements Living Arrangements: Other (non-domiciled) - Social History Alcohol: > 2 Drinks/Day - Home Medications Home Medications: Ambulatory Orders Medication Instructions Recorded Albuterol HFA [Ventolin HFA 90 1 - 2 puff IH Q6 PRN #1 inhaler 06/10/17 mcg/actuation (8 g)] Albuterol HFA [Ventolin HFA 90 2 puff IH Q4H #1 puff 08/12/17 mcg/actuation (8 g)] Albuterol HFA [Ventolin HFA 90 2 puff IH [id number] PRN #1 inhaler 08/15/17 mcg/actuation (8 g)] Azithromycin [Zithromax Tri-Vidal] 500 mg PO DAILY #2 tablet 08/15/17 Prednisone [Deltasone] 3 tab PO DAILY #12 tablet 08/15/17 predniSONE [predniSONE Tab] 60 mg PO DAILY #9 tab 08/17/17 Albuterol Sulfate [Proair Hfa] 0.09 mg IH Q6H PRN #2 inh 08/24/17 predniSONE [predniSONE Tab] 20 mg PO BID 5 Days tab 08/24/17 - Allergies Allergies/Adverse Reactions: Allergies Allergy/AdvReac Type Severity Reaction Status Date / Time No Known Allergies Allergy Verified 08/25/17 06:35 Review of Systems ROS Statement: Except As Marked, All Systems Reviewed And Found Negative Respiratory: Positive for: Cough, Wheezing Psych: Positive for: Other (etoh) Physical Exam - Reviewed Nursing Documentation Reviewed: Yes Vital Signs Reviewed: Yes - Physical Exam Appears: Positive for: Well, Non-toxic, No Acute Distress Skin: Negative for: Rash Eye Exam: Positive for: Normal appearance Cardiovascular/Chest: Positive for: Regular Rate, Rhythm Respiratory: Positive for: Wheezing. Negative for: Respiratory Distress Extremity: Positive for: Normal ROM Neurologic/Psych: Positive for: Alert, Oriented - ECG O2 Sat by Pulse Oximetry: 99 Pulse Ox Interpretation: Normal Medical Decision Making Medical Decision Makin57 year old male with etoh abuse and asthma Plan: BAL Glucose POC Duoneb x 1 BAL: 376 Glucose POC: 106 Disposition - Clinical Impression Clinical Impression: Alcohol abuse, Asthma - Patient ED Disposition Is Patient to be Admitted: Transfer of Care - Disposition Disposition: Transfer of Care Disposition Time: 20:16 Condition: FAIR Instructions: Alcohol Intoxication (ED), Abuse of Alcohol (ED), Alcohol Dependence (ED) Forms: [employer] (Portuguese) Patient Signed Over To: Dalia Agee Handoff Comments: pending sobriety and final disposition
[2017-08-25] MEDS ORDERED: Albuterol-Ipratrop 3 mg / 0.5 (3 ml) UD INH STA (17:57)
--- NOTE | 2017-08-25 21:22 | ED PDOC ---
- ECG O2 Sat by Pulse Oximetry: 99 Medical Decision Making Medical Decision Making: Pt endorsed at 1999 pending sobriety. 2119 - Pt up and out of bed. Pt with clear speech and walking steady with walker. Disposition - Clinical Impression Clinical Impression: Alcohol abuse, Asthma - POA Present On Arrival: None - Disposition Disposition: Routine/Home Disposition Time: 21:22 Condition: GOOD Instructions: Alcohol Intoxication (ED), Abuse of Alcohol (ED), Alcohol Dependence (ED) Forms: [employer] (Nepali)
== END 2017-08-25 21:20 | disposition home or self-care (01) ==
LOC: H.ER 17:27
DX: J45.909 Unspecified asthma, uncomplicated (principal); F10.10 Alcohol abuse, uncomplicated; I48.91 Unspecified atrial fibrillation; Y90.8 Blood alcohol level of 240 mg/100 ml or more; J44.9 Chronic obstructive pulmonary disease, unspecified; B18.2 Chronic viral hepatitis C

== ENCOUNTER 2017-08-26 03:13 | Emergency (ER) | payer MEDICAID ==
[2017-08-26 03:13] VITALS: BMI 22.7
[2017-08-26 03:23] VITALS: BP 136/86; PULSE 86; RESP 18; TEMP 99; O2SAT 97
--- NOTE | 2017-08-26 05:14 | ED PDOC ---
HPI: Psych/Substance Abuse Time Seen by Provider: 08/26/17 03:22 Chief Complaint (Nursing): Alcohol Ingestion Chief Complaint (Provider): Alcohol abuse - Denies complaint History Per: Patient History/Exam Limitations: no limitations Onset/Duration Of Symptoms: Hrs Current Symptoms Are (Timing): Still Present Additional Complaint(s): Pt discharge from ER a few hours ago. Past Medical History Reviewed: Historical Data, Nursing Documentation, Vital Signs Vital Signs: Last Vital Signs Temp 99 F 08/26/17 03:21 Pulse 86 08/26/17 03:21 Resp 18 08/26/17 03:21 BP 136/86 08/26/17 03:21 Pulse Ox 97 08/26/17 03:21 - Medical History PMH: Asthma, Atrial Fibrillation, COPD, Hepatitis (C), Seizures - Surgical History Surgical History: Appendectomy, Tonsillectomy - Family History Family History: States: Unknown Family Hx - Living Arrangements Living Arrangements: With Family - Social History Current smoker - smoking cessation education provided: No Alcohol: > 2 Drinks/Day - Home Medications Home Medications: Ambulatory Orders Medication Instructions Recorded Albuterol HFA [Ventolin HFA 90 1 - 2 puff IH Q6 PRN #1 inhaler 06/10/17 mcg/actuation (8 g)] Albuterol HFA [Ventolin HFA 90 2 puff IH Q4H #1 puff 08/12/17 mcg/actuation (8 g)] Albuterol HFA [Ventolin HFA 90 2 puff IH [id number] PRN #1 inhaler 08/15/17 mcg/actuation (8 g)] Azithromycin [Zithromax Tri-Vidal] 500 mg PO DAILY #2 tablet 08/15/17 Prednisone [Deltasone] 3 tab PO DAILY #12 tablet 08/15/17 predniSONE [predniSONE Tab] 60 mg PO DAILY #9 tab 08/17/17 Albuterol Sulfate [Proair Hfa] 0.09 mg IH Q6H PRN #2 inh 08/24/17 predniSONE [predniSONE Tab] 20 mg PO BID 5 Days tab 08/24/17 - Allergies Allergies/Adverse Reactions: Allergies Allergy/AdvReac Type Severity Reaction Status Date / Time No Known Allergies Allergy Verified 08/25/17 06:35 Review of Systems ROS Statement: Except As Marked, All Systems Reviewed And Found Negative Constitutional: Negative for: Fever, Chills Skin: Negative for: Rash Neurological: Positive for: Other Physical Exam - Reviewed Nursing Documentation Reviewed: Yes Vital Signs Reviewed: Yes - Physical Exam Appears: Positive for: Well, Non-toxic, No Acute Distress Head Exam: Positive for: ATRAUMATIC, NORMAL INSPECTION, NORMOCEPHALIC Skin: Positive for: Normal Color, Warm, DRY Eye Exam: Positive for: Normal appearance ENT: Positive for: Normal ENT Inspection Neck: Positive for: Normal, Painless ROM Cardiovascular/Chest: Positive for: Regular Rate, Rhythm Respiratory: Positive for: CNT, Normal Breath Sounds Back: Positive for: Normal Inspection Extremity: Positive for: Normal ROM Neurologic/Psych: Positive for: Alert, Oriented. Negative for: Gait (Unsteady) - ECG O2 Sat by Pulse Oximetry: 97 Pulse Ox Interpretation: Normal Disposition - Clinical Impression Clinical Impression: Alcohol abuse - Patient ED Disposition Is Patient to be Admitted: No - Disposition Disposition: Routine/Home Disposition Time: 06:00 Condition: GOOD Instructions: Alcohol Intoxication (ED), Abuse of Alcohol (ED), Alcohol Dependence (ED)
== END 2017-08-26 06:48 | disposition home or self-care (01) ==
LOC: H.ER 03:13
DX: F10.10 Alcohol abuse, uncomplicated (principal); I48.91 Unspecified atrial fibrillation; J44.9 Chronic obstructive pulmonary disease, unspecified

== ENCOUNTER 2017-08-26 11:51 | Emergency (ER) | payer MEDICAID ==
[2017-08-26 11:56] VITALS: BMI 22.0
[2017-08-26 11:57] VITALS: PULSE 85; RESP 18; TEMP 97.5; O2SAT 95
[2017-08-26] MEDS ORDERED: Albuterol HFA 90 mcg/actuation (8 g) INH STA (12:11)
[2017-08-26] MEDS ORDERED: Albuterol-Ipratrop 3 mg / 0.5 (3 ml) UD INH STA (12:11)
--- NOTE | 2017-08-26 12:11 | ED PDOC ---
HPI: SOB/CHF/COPD Time Seen by Provider: 08/26/17 12:10 Chief Complaint (Nursing): Respiratory Distress Chief Complaint (Provider): asthma History Per: Patient, EMS Additional Complaint(s): Patient has chronic cough and history of etoh abuse. He was seen in ED 3 times yesterday and again today for cough and asthma exacerbation. Patient drinks etoh daily and admits to being non-compliant with asthma meds. Past Medical History Reviewed: Historical Data, Nursing Documentation, Vital Signs Vital Signs: Last Vital Signs Temp 97.5 F L 08/26/17 11:56 Pulse 85 08/26/17 11:56 Resp 18 08/26/17 12:11 BP Pulse Ox 95 08/26/17 17:12 - Medical History PMH: Asthma, Atrial Fibrillation, COPD, Hepatitis (C), Seizures - Surgical History Surgical History: Appendectomy, Tonsillectomy - Family History Family History: States: No Known Family Hx - Living Arrangements Living Arrangements: Other (non-domiciled) - Social History Alcohol: > 2 Drinks/Day - Home Medications Home Medications: Ambulatory Orders Medication Instructions Recorded Albuterol HFA [Ventolin HFA 90 1 - 2 puff IH Q6 PRN #1 inhaler 06/10/17 mcg/actuation (8 g)] Albuterol HFA [Ventolin HFA 90 2 puff IH Q4H #1 puff 08/12/17 mcg/actuation (8 g)] Albuterol HFA [Ventolin HFA 90 2 puff IH [id number] PRN #1 inhaler 08/15/17 mcg/actuation (8 g)] Azithromycin [Zithromax Tri-Vidal] 500 mg PO DAILY #2 tablet 08/15/17 Prednisone [Deltasone] 3 tab PO DAILY #12 tablet 08/15/17 predniSONE [predniSONE Tab] 60 mg PO DAILY #9 tab 08/17/17 Albuterol Sulfate [Proair Hfa] 0.09 mg IH Q6H PRN #2 inh 08/24/17 predniSONE [predniSONE Tab] 20 mg PO BID 5 Days tab 08/24/17 - Allergies Allergies/Adverse Reactions: Allergies Allergy/AdvReac Type Severity Reaction Status Date / Time No Known Allergies Allergy Verified 08/25/17 06:35 Wells Criteria for PE - Wells Criteria for Pulmonary Embolism Clinical Signs and Symptoms of DVT: No P.E is #1 Diagnosis, or Equally Likely: No Heart Rate >100: No Immobilization at least 3 days;Surgery previous 4 weeks: No Previous, objectively diagnosed PE or DVT: No Hemoptysis: No Malignancy w/treatment within 6 months, or palliative: No Total Score: 0 Review of Systems ROS Statement: Except As Marked, All Systems Reviewed And Found Negative Respiratory: Positive for: Cough Psych: Positive for: Other (etoh) Physical Exam - Reviewed Nursing Documentation Reviewed: Yes Vital Signs Reviewed: Yes - Physical Exam Skin: Positive for: Normal Color. Negative for: Rash Eye Exam: Positive for: Normal appearance Cardiovascular/Chest: Positive for: Regular Rate, Rhythm Respiratory: Positive for: Wheezing. Negative for: Respiratory Distress Neurologic/Psych: Positive for: Alert, Oriented - ECG O2 Sat by Pulse Oximetry: 95 Pulse Ox Interpretation: Normal Medical Decision Making Medical Decision Makin57 year old male with cough and etoh abuse Plan: BAL Glucose POC Duoneb x 1 BAL: 440 Glucose POC: 102 Patient was observed in the emergency department for several hours. His condition remained stable throughout his stay. 10:30 PM, patient is awake, alert, has steady gait with walker which he uses at baseline. Patient is stable for discharge. Disposition - Clinical Impression Clinical Impression: Alcohol abuse, Asthma - Patient ED Disposition Is Patient to be Admitted: No - Disposition Referrals: [facility] [Outside] Disposition: Routine/Home Disposition Time: 22:18 Condition: STABLE Instructions: Alcohol Intoxication (ED), Abuse of Alcohol (ED), Alcohol Dependence (ED) Forms: [employer] (Syriac)
== END 2017-08-26 22:56 | disposition home or self-care (01) ==
LOC: H.ER 11:51
DX: J45.901 Unspecified asthma with (acute) exacerbation (principal); J44.9 Chronic obstructive pulmonary disease, unspecified; I48.91 Unspecified atrial fibrillation; F10.10 Alcohol abuse, uncomplicated; Y90.8 Blood alcohol level of 240 mg/100 ml or more

== ENCOUNTER 2017-08-27 00:50 | Emergency (ER) | payer MEDICAID ==
[2017-08-27 01:05] VITALS: BMI 21.2
[2017-08-27] MEDS ORDERED: Albuterol-Ipratrop 3 mg / 0.5 (3 ml) UD INH STA (01:06)
[2017-08-27 01:09] VITALS: BP 128/76; PULSE 97; RESP 18; TEMP 97.8; O2SAT 97
[2017-08-27] MEDS ORDERED: Albuterol-Ipratrop 3 mg / 0.5 (3 ml) UD ONE (02:38)
--- NOTE | 2017-08-27 04:51 | ED PDOC ---
HPI: SOB/CHF/COPD Time Seen by Provider: 08/27/17 01:03 Chief Complaint (Nursing): Shortness Of Breath Chief Complaint (Provider): Asthma - Would like a treament History Per: Patient History/Exam Limitations: no limitations Onset/Duration Of Symptoms: Mins Initiating Event: Out Of Medications Past Medical History Reviewed: Historical Data, Nursing Documentation, Vital Signs Vital Signs: Last Vital Signs Temp 97.8 F 08/27/17 01:06 Pulse 97 H 08/27/17 01:06 Resp 18 08/27/17 01:06 BP 128/76 08/27/17 01:06 Pulse Ox 97 08/27/17 01:06 - Medical History PMH: Asthma, Atrial Fibrillation, COPD, Hepatitis (C), Seizures - Surgical History Surgical History: Appendectomy, Tonsillectomy - Family History Family History: States: Unknown Family Hx - Home Medications Home Medications: Ambulatory Orders Medication Instructions Recorded Albuterol HFA [Ventolin HFA 90 1 - 2 puff IH Q6 PRN #1 inhaler 06/10/17 mcg/actuation (8 g)] Albuterol HFA [Ventolin HFA 90 2 puff IH Q4H #1 puff 08/12/17 mcg/actuation (8 g)] Albuterol HFA [Ventolin HFA 90 2 puff IH [id number] PRN #1 inhaler 08/15/17 mcg/actuation (8 g)] Azithromycin [Zithromax Tri-Vidal] 500 mg PO DAILY #2 tablet 08/15/17 Prednisone [Deltasone] 3 tab PO DAILY #12 tablet 08/15/17 predniSONE [predniSONE Tab] 60 mg PO DAILY #9 tab 08/17/17 Albuterol Sulfate [Proair Hfa] 0.09 mg IH Q6H PRN #2 inh 08/24/17 predniSONE [predniSONE Tab] 20 mg PO BID 5 Days tab 08/24/17 - Allergies Allergies/Adverse Reactions: Allergies Allergy/AdvReac Type Severity Reaction Status Date / Time No Known Allergies Allergy Verified 08/27/17 01:05 Review of Systems ROS Statement: Except As Marked, All Systems Reviewed And Found Negative Constitutional: Negative for: Fever, Chills Respiratory: Positive for: Wheezing Physical Exam - Reviewed Nursing Documentation Reviewed: Yes Vital Signs Reviewed: Yes - Physical Exam Appears: Positive for: Well, Non-toxic, No Acute Distress Head Exam: Positive for: ATRAUMATIC, NORMAL INSPECTION, NORMOCEPHALIC Skin: Positive for: Normal Color, Warm, DRY Eye Exam: Positive for: Normal appearance ENT: Positive for: Normal ENT Inspection Neck: Positive for: Normal, Painless ROM Cardiovascular/Chest: Positive for: Regular Rate, Rhythm Respiratory: Positive for: Wheezing. Negative for: Accessory Muscle Use, Respiratory Distress Gastrointestinal/Abdominal: Positive for: Normal Exam, Bowel Sounds, Soft Back: Positive for: Normal Inspection Extremity: Positive for: Normal ROM Neurologic/Psych: Positive for: Alert, Oriented - ECG O2 Sat by Pulse Oximetry: 97 Disposition - Clinical Impression Clinical Impression: Asthma - Patient ED Disposition Is Patient to be Admitted: No - Disposition Disposition: Routine/Home Disposition Time: 04:52 Condition: GOOD
== END 2017-08-27 06:25 | disposition home or self-care (01) ==
LOC: H.ER 00:50
DX: J45.901 Unspecified asthma with (acute) exacerbation (principal); I48.91 Unspecified atrial fibrillation; J44.9 Chronic obstructive pulmonary disease, unspecified

== ENCOUNTER 2017-08-27 11:55 | Emergency (ER) | payer MEDICAID ==
[2017-08-27 11:55] VITALS: BMI 21.2
[2017-08-27 12:10] VITALS: TEMP 98.1; O2SAT 96
[2017-08-27] MEDS ORDERED: Albuterol-Ipratrop 3 mg / 0.5 (3 ml) UD INH STA (12:22)
[2017-08-27] MEDS ORDERED: Albuterol-Ipratrop 3 mg / 0.5 (3 ml) UD ONE ×2 (12:30→23:15)
--- NOTE | 2017-08-27 12:33 | ED PDOC ---
HPI: SOB/CHF/COPD Time Seen by Provider: 08/27/17 12:21 Chief Complaint (Nursing): Shortness Of Breath Chief Complaint (Provider): SOB, etoh History Per: Patient Additional Complaint(s): Patient is well known to ED for daily visits. He drinks etoh daily and states he needs breathing treatment for his asthma. Patient was just discharged from ED several hours ago and was seen 3 times in the past 24 hrs. Past Medical History Reviewed: Historical Data, Nursing Documentation, Vital Signs Vital Signs: Last Vital Signs Temp 98.1 F 08/27/17 12:07 Pulse 79 08/27/17 12:07 Resp 22 08/27/17 12:24 BP 123/72 08/27/17 12:07 Pulse Ox 96 08/27/17 18:26 - Medical History PMH: Asthma, Atrial Fibrillation, COPD, Hepatitis (C), Seizures - Surgical History Surgical History: Appendectomy, Tonsillectomy - Family History Family History: States: No Known Family Hx - Living Arrangements Living Arrangements: Other (non-domiciled) - Social History Alcohol: > 2 Drinks/Day - Home Medications Home Medications: Ambulatory Orders Medication Instructions Recorded Albuterol HFA [Ventolin HFA 90 1 - 2 puff IH Q6 PRN #1 inhaler 06/10/17 mcg/actuation (8 g)] Albuterol HFA [Ventolin HFA 90 2 puff IH Q4H #1 puff 08/12/17 mcg/actuation (8 g)] Albuterol HFA [Ventolin HFA 90 2 puff IH [id number] PRN #1 inhaler 08/15/17 mcg/actuation (8 g)] Azithromycin [Zithromax Tri-Vidal] 500 mg PO DAILY #2 tablet 08/15/17 Prednisone [Deltasone] 3 tab PO DAILY #12 tablet 08/15/17 predniSONE [predniSONE Tab] 60 mg PO DAILY #9 tab 08/17/17 Albuterol Sulfate [Proair Hfa] 0.09 mg IH Q6H PRN #2 inh 08/24/17 predniSONE [predniSONE Tab] 20 mg PO BID 5 Days tab 08/24/17 - Allergies Allergies/Adverse Reactions: Allergies Allergy/AdvReac Type Severity Reaction Status Date / Time No Known Allergies Allergy Verified 08/27/17 12:06 Review of Systems ROS Statement: Except As Marked, All Systems Reviewed And Found Negative Respiratory: Positive for: Shortness of Breath Psych: Positive for: Other (etoh) Physical Exam - Reviewed Nursing Documentation Reviewed: Yes Vital Signs Reviewed: Yes - Physical Exam Appears: Positive for: Well, Non-toxic, No Acute Distress Skin: Negative for: Rash Eye Exam: Positive for: Normal appearance Respiratory: Positive for: Wheezing. Negative for: Respiratory Distress Neurologic/Psych: Positive for: Alert, Oriented - ECG Interpretation Of ECG: NSR 77 bpm, no acute finding, reviewed by PA and ED attending O2 Sat by Pulse Oximetry: 96 Pulse Ox Interpretation: Normal Medical Decision Making Medical Decision Makin57 year old male with etoh abuse and asthma Plan: EKG Duoneb x 1 BAL Glucose POC BAL: 323 Glucose POC: 106 Patient was observed in the emergency department for several hours. His condition has remained stable throughout his stay. 6:30 PM - patient is awake and alert with steady gait with his waker which he uses at baseline, stable for discharge. Disposition - Clinical Impression Clinical Impression: Alcohol abuse, Asthma - Patient ED Disposition Is Patient to be Admitted: No Counseled Patient/Family Regarding: Need For Followup - Disposition Referrals: [facility] [Outside] Disposition: Routine/Home Disposition Time: 18:25 Condition: STABLE Instructions: Alcohol Intoxication (ED), Abuse of Alcohol (ED), Alcohol Dependence (ED) Forms: [employer] ([employer] [place])
[2017-08-27 18:39] VITALS: BP 119/69; PULSE 77; RESP 18
--- NOTE | 2017-08-28 09:21 | CARD ---
APPROVED REPORT EKG Measurement Heart [id number] <Conclusion> Atrial flutter with variable AV block with premature ventricular or aberrantly conducted complexes Nonspecific ST abnormality Abnormal QRS-T angle, consider primary T wave abnormality Abnormal ECG excessive motion artefact to read correctly-recommend repeat
== END 2017-08-27 18:41 | disposition home or self-care (01) ==
LOC: H.ER 11:55
DX: J44.9 Chronic obstructive pulmonary disease, unspecified (principal); F10.10 Alcohol abuse, uncomplicated; I48.91 Unspecified atrial fibrillation; I48.92 Unspecified atrial flutter; Y90.8 Blood alcohol level of 240 mg/100 ml or more

== ENCOUNTER 2017-08-27 22:48 | Emergency (ER) | payer MEDICAID ==
[2017-08-27 22:48] VITALS: BMI 21.2
[2017-08-27 22:52] VITALS: RESP 18
[2017-08-27] MEDS ORDERED: Albuterol-Ipratrop 3 mg / 0.5 (3 ml) UD INH STA (23:05)
--- NOTE | 2017-08-28 05:11 | ED PDOC ---
HPI: SOB/CHF/COPD Time Seen by Provider: 08/27/17 22:57 Chief Complaint (Nursing): Shortness Of Breath Chief Complaint (Provider): ETOH, needs a treatment History Per: Patient History/Exam Limitations: no limitations Current Symptoms Are (Timing): Still Present Additional Complaint(s): 57 yo male well known to the ER presents after drinking alcohol stating he needs a treatment ofr his asthma. Pt denies chest pain. Past Medical History Reviewed: Historical Data, Nursing Documentation, Vital Signs Vital Signs: Last Vital Signs Temp 98.2 F 08/27/17 22:49 Pulse 75 08/27/17 22:49 Resp 18 08/27/17 23:11 BP 136/73 08/27/17 22:49 Pulse Ox 99 08/27/17 22:49 - Medical History PMH: Asthma, Atrial Fibrillation, COPD, Hepatitis (C), Seizures - Surgical History Surgical History: Appendectomy, Tonsillectomy - Family History Family History: States: No Known Family Hx - Living Arrangements Living Arrangements: With Family - Social History Current smoker - smoking cessation education provided: No - Home Medications Home Medications: Ambulatory Orders Medication Instructions Recorded Albuterol HFA [Ventolin HFA 90 1 - 2 puff IH Q6 PRN #1 inhaler 06/10/17 mcg/actuation (8 g)] Albuterol HFA [Ventolin HFA 90 2 puff IH Q4H #1 puff 08/12/17 mcg/actuation (8 g)] Albuterol HFA [Ventolin HFA 90 2 puff IH [id number] PRN #1 inhaler 08/15/17 mcg/actuation (8 g)] Azithromycin [Zithromax Tri-Vidal] 500 mg PO DAILY #2 tablet 08/15/17 Prednisone [Deltasone] 3 tab PO DAILY #12 tablet 08/15/17 predniSONE [predniSONE Tab] 60 mg PO DAILY #9 tab 08/17/17 Albuterol Sulfate [Proair Hfa] 0.09 mg IH Q6H PRN #2 inh 08/24/17 predniSONE [predniSONE Tab] 20 mg PO BID 5 Days tab 08/24/17 - Allergies Allergies/Adverse Reactions: Allergies Allergy/AdvReac Type Severity Reaction Status Date / Time No Known Allergies Allergy Verified 08/27/17 22:49 Review of Systems ROS Statement: Except As Marked, All Systems Reviewed And Found Negative Constitutional: Negative for: Fever, Chills Respiratory: Positive for: Shortness of Breath. Negative for: Cough Physical Exam - Reviewed Nursing Documentation Reviewed: Yes Vital Signs Reviewed: Yes - Physical Exam Appears: Positive for: Well, Non-toxic, No Acute Distress Head Exam: Positive for: ATRAUMATIC, NORMAL INSPECTION, NORMOCEPHALIC Skin: Positive for: Normal Color, Warm, DRY Eye Exam: Positive for: Normal appearance ENT: Positive for: Normal ENT Inspection Neck: Positive for: Normal, Painless ROM Cardiovascular/Chest: Positive for: Regular Rate, Rhythm Respiratory: Positive for: Wheezing. Negative for: Normal Breath Sounds Back: Positive for: Normal Inspection Extremity: Positive for: Normal ROM Neurologic/Psych: Positive for: Alert, Oriented - ECG O2 Sat by Pulse Oximetry: 99 Medical Decision Making Medical Decision Making: No wheezing on re-evaluation. Disposition - Clinical Impression Clinical Impression: Alcohol abuse, Homeless single person, Asthma - Patient ED Disposition Is Patient to be Admitted: No - Disposition Disposition: Routine/Home Disposition Time: 05:13 Condition: STABLE Instructions: Abuse of Alcohol (ED)
[2017-08-28 05:56] VITALS: BP 135/82; PULSE 87; TEMP 98; O2SAT 96
== END 2017-08-28 06:00 | disposition home or self-care (01) ==
LOC: H.ER 22:48
DX: J45.909 Unspecified asthma, uncomplicated (principal); F10.10 Alcohol abuse, uncomplicated; I48.91 Unspecified atrial fibrillation; J44.9 Chronic obstructive pulmonary disease, unspecified; Z59.0 Homelessness

== ENCOUNTER 2017-08-28 19:14 | Emergency (ER) | payer MEDICAID ==
[2017-08-28 19:15] VITALS: BMI 21.2
[2017-08-28 19:21] VITALS: BP 130/80; PULSE 82; RESP 20; O2SAT 97
[2017-08-28 19:22] VITALS: TEMP 97.6
--- NOTE | 2017-08-28 19:39 | ED PDOC ---
HPI: Psych/Substance Abuse Time Seen by Provider: 08/28/17 19:32 Chief Complaint (Nursing): Cough, Cold, Congestion Chief Complaint (Provider): Possible Intoxication History Per: Patient History/Exam Limitations: intoxication Current Symptoms Are (Timing): Still Present Suicide/Self Injury Attempted (Context): None Modifying Factor(s): Alcohol Additional Complaint(s): Jorge L Huitron, a 57 year old male, is brought into the ED by EMS for possible alcohol intoxication. Patient currently offers no complaints but is requestion food. Patient is well known to the ED and provider. Past Medical History Reviewed: Historical Data, Nursing Documentation, Vital Signs Vital Signs: Last Vital Signs Temp 97.6 F 08/28/17 19:17 Pulse 82 08/28/17 19:17 Resp 20 08/28/17 19:17 BP 130/80 08/28/17 19:17 Pulse Ox 97 08/28/17 19:17 - Medical History PMH: Asthma, Atrial Fibrillation, COPD, Hepatitis (C), Seizures - Surgical History Surgical History: Appendectomy, Tonsillectomy - Family History Family History: States: No Known Family Hx - Living Arrangements Living Arrangements: Other - Social History Current smoker - smoking cessation education provided: Yes (Heavy Smoker > 10 Cigarettes Daily) Alcohol: > 2 Drinks/Day (2-3 pints of vodka daily) - Home Medications Home Medications: Ambulatory Orders Medication Instructions Recorded Albuterol HFA [Ventolin HFA 90 1 - 2 puff IH Q6 PRN #1 inhaler 06/10/17 mcg/actuation (8 g)] Albuterol HFA [Ventolin HFA 90 2 puff IH Q4H #1 puff 08/12/17 mcg/actuation (8 g)] Albuterol HFA [Ventolin HFA 90 2 puff IH [id number] PRN #1 inhaler 08/15/17 mcg/actuation (8 g)] Azithromycin [Zithromax Tri-Vidal] 500 mg PO DAILY #2 tablet 08/15/17 Prednisone [Deltasone] 3 tab PO DAILY #12 tablet 08/15/17 predniSONE [predniSONE Tab] 60 mg PO DAILY #9 tab 08/17/17 Albuterol Sulfate [Proair Hfa] 0.09 mg IH Q6H PRN #2 inh 08/24/17 predniSONE [predniSONE Tab] 20 mg PO BID 5 Days tab 08/24/17 - Allergies Allergies/Adverse Reactions: Allergies Allergy/AdvReac Type Severity Reaction Status Date / Time No Known Allergies Allergy Verified 08/27/17 22:49 Review of Systems Review Of Systems: ROS cannot be obtained secondary to pt's inabilty to answer questions. (limited due to patients intoxicated state) Physical Exam - Reviewed Nursing Documentation Reviewed: Yes Vital Signs Reviewed: Yes - Physical Exam Appears: Positive for: Non-toxic, No Acute Distress Head Exam: Positive for: ATRAUMATIC, NORMAL INSPECTION, NORMOCEPHALIC Skin: Positive for: Normal Color, Warm, Dry. Negative for: Rash Eye Exam: Positive for: Normal appearance, EOMI, PERRL ENT: Negative for: Normal ENT Inspection (slurred speech; alcohol on breath), Nasal Congestion, Tonsillar Exudate, Tonsillar Swelling Neck: Positive for: Normal, Painless ROM, Supple Cardiovascular/Chest: Positive for: Regular Rate, Rhythm, Chest Non Tender. Negative for: Tachycardia Respiratory: Positive for: Normal Breath Sounds. Negative for: Rales, Rhonchi, Wheezing, Respiratory Distress Gastrointestinal/Abdominal: Positive for: Normal Exam, Bowel Sounds, Soft. Negative for: Tenderness Back: Positive for: Normal Inspection. Negative for: L CVA Tenderness, R CVA Tenderness Extremity: Positive for: Normal ROM. Negative for: Tenderness, Deformity, Swelling Lymphatic: Positive for: Normal Exam. Negative for: Adenopathy Neurologic/Psych: Positive for: Alert, Oriented, Gait (steady with walker). Negative for: Motor/Sensory Deficits - ECG O2 Sat by Pulse Oximetry: 97 (RA) Pulse Ox Interpretation: Normal Medical Decision Making Medical Decision Makin Initial Impression 57 y/o male presenting with possible alcohol intoxication Initial Plan: * Reevaluation Scribe Attestation Documented by Adilene Lemus acting as a scribe for Connor Barney PA-C. MD Scribe Attestation All medical record entries made by the Scribe were at my direction and personally dictated by me. I have reviewed the chart and agree that the record accurately reflects my personal performance of the history, physical exam, medical decision making, and the department course for this patient. I have also personally directed, reviewed, and agree with the discharge instructions and disposition. Disposition - Clinical Impression Clinical Impression: Alcohol abuse with uncomplicated intoxication - Patient ED Disposition Is Patient to be Admitted: No - Disposition Disposition: Routine/Home Disposition Time: 19:35 Condition: STABLE Forms: [facility] (Azeri) - POA Present On Arrival: None
== END 2017-08-28 23:02 | disposition home or self-care (01) ==
LOC: H.ER 19:14
DX: F10.120 Alcohol abuse with intoxication, uncomplicated (principal); F17.210 Nicotine dependence, cigarettes, uncomplicated; I48.91 Unspecified atrial fibrillation; J44.9 Chronic obstructive pulmonary disease, unspecified

== ENCOUNTER 2017-08-29 04:04 | Emergency (ER) | payer MEDICAID ==
[2017-08-29 04:04] VITALS: BMI 21.2
--- NOTE | 2017-08-29 05:48 | ED PDOC ---
HPI: General Adult Chief Complaint (Provider): medical eval History Per: Patient History/Exam Limitations: no limitations <Valeri Epstein - Last Filed: 08/29/17 05:45> <Jefe Hogan - Last Filed: 08/29/17 07:05> Time Seen by Provider: 08/29/17 05:46 Chief Complaint (Nursing): Shortness Of Breath Additional Complaint(s): 57yo M in ED c/o SOB, but pt is speaking in full complete sentences. offers no mother medical complaints. (Valeri Epstein) Past Medical History Reviewed: Historical Data, Nursing Documentation, Vital Signs - Medical History PMH: Asthma, Atrial Fibrillation, COPD, Hepatitis (C), Seizures - Surgical History Surgical History: Appendectomy, Tonsillectomy - Family History Family History: States: No Known Family Hx <Valeri Epstein - Last Filed: 08/29/17 05:45> <Jefe Hogan - Last Filed: 08/29/17 07:05> Vital Signs: Last Vital Signs Temp 97.6 F 08/29/17 06:47 Pulse 88 08/29/17 06:47 Resp 18 08/29/17 06:47 BP 94/47 L 08/29/17 06:47 Pulse Ox 90 L 08/29/17 06:47 - Home Medications Home Medications: Ambulatory Orders Medication Instructions Recorded Albuterol HFA [Ventolin HFA 90 1 - 2 puff IH Q6 PRN #1 inhaler 06/10/17 mcg/actuation (8 g)] Albuterol HFA [Ventolin HFA 90 2 puff IH Q4H #1 puff 08/12/17 mcg/actuation (8 g)] Albuterol HFA [Ventolin HFA 90 2 puff IH [id number] PRN #1 inhaler 08/15/17 mcg/actuation (8 g)] Azithromycin [Zithromax Tri-Vidal] 500 mg PO DAILY #2 tablet 08/15/17 Prednisone [Deltasone] 3 tab PO DAILY #12 tablet 08/15/17 predniSONE [predniSONE Tab] 60 mg PO DAILY #9 tab 08/17/17 Albuterol Sulfate [Proair Hfa] 0.09 mg IH Q6H PRN #2 inh 08/24/17 predniSONE [predniSONE Tab] 20 mg PO BID 5 Days tab 08/24/17 - Allergies Allergies/Adverse Reactions: Allergies Allergy/AdvReac Type Severity Reaction Status Date / Time No Known Allergies Allergy Verified 08/27/17 22:49 Review of Systems ROS Statement: Except As Marked, All Systems Reviewed And Found Negative Gastrointestinal: Negative for: Nausea, Vomiting, Abdominal Pain <Valeri Epstein - Last Filed: 08/29/17 05:45> Physical Exam - Reviewed Nursing Documentation Reviewed: Yes Vital Signs Reviewed: Yes - Physical Exam Appears: Positive for: Well, Non-toxic, No Acute Distress Head Exam: Positive for: ATRAUMATIC, NORMAL INSPECTION, NORMOCEPHALIC Skin: Positive for: Normal Color, Warm, DRY Cardiovascular/Chest: Positive for: Regular Rate, Rhythm Respiratory: Positive for: Wheezing Neurologic/Psych: Positive for: Alert, Oriented <Valeri Epstein - Last Filed: 08/29/17 05:45> <Valeri Epstein - Last Filed: 08/29/17 05:45> <Jefe Hogan - Last Filed: 08/29/17 07:05> - Progress ED Course And Treament: Orders Category Date Time Status Albuterol/Ipratropium [Duoneb 3 mg/0.5 mg (3 ml) UD] Med 08/29/17 05:49 Stat 3 ml INH STAT STA PEAK FLOW PRE/POST TX .PRE/POST TREATMENT Resp 08/29/17 05:49 Ordered (Valeri Epstein) Medical Decision Making <Valeri Epstein - Last Filed: 08/29/17 05:45> <Jefe Hogan - Last Filed: 08/29/17 07:05> Medical Decision Making: Time: 07:00 --Transfer of care note to Dr. Jackson. Patient is medically stable and cleared for discharged. (Jefe Hogan) Disposition <Valeri Epstein - Last Filed: 08/29/17 05:45> - Patient ED Disposition Is Patient to be Admitted: Transfer of Care - Disposition Patient Signed Over To: Noemi Jackson <Jefe Hogan - Last Filed: 08/29/17 07:05> - Clinical Impression Clinical Impression: Asthma - Disposition Referrals: Alcoholics Anonymous [Outside] Condition: STABLE Instructions: Dyspnea (ED) Forms: [facility] (South Sudanese)
[2017-08-29] MEDS ORDERED: Albuterol-Ipratrop 3 mg / 0.5 (3 ml) UD INH STA (05:49)
[2017-08-29 06:50] VITALS: BP 94/47; PULSE 88; RESP 18; TEMP 97.6
[2017-08-29 07:17] VITALS: O2SAT 93
== END 2017-08-29 07:17 | disposition home or self-care (01) ==
LOC: H.ER 04:04
DX: R06.00 Dyspnea, unspecified (principal); I48.91 Unspecified atrial fibrillation; J44.9 Chronic obstructive pulmonary disease, unspecified

== ENCOUNTER 2017-08-29 11:53 | Emergency (ER) | payer MEDICAID ==
[2017-08-29 12:04] VITALS: BMI 21.7
--- NOTE | 2017-08-29 12:06 | CARD ---
APPROVED REPORT EKG Measurement Heart [id number] <Conclusion> Normal sinus rhythm Normal ECG
--- NOTE | 2017-08-29 12:07 | ED PDOC ---
HPI: Psych/Substance Abuse Time Seen by Provider: 08/29/17 12:03 Chief Complaint (Provider): Chest Pain History Per: Patient Additional Complaint(s): Jorge L Huitron, a 57 year old male, is brought into the ED by EMS for possible alcohol intoxication and chest pain. Patient currently offers no complaints but is requesting food. Patient is well known to the ED and provider. Past Medical History Reviewed: Historical Data, Nursing Documentation, Vital Signs - Medical History PMH: Asthma, Atrial Fibrillation, COPD, Hepatitis (C), Seizures - Surgical History Surgical History: Appendectomy, Tonsillectomy - Family History Family History: States: Unknown Family Hx - Living Arrangements Living Arrangements: Other - Social History Alcohol: > 2 Drinks/Day - Home Medications Home Medications: Ambulatory Orders Medication Instructions Recorded Albuterol HFA [Ventolin HFA 90 1 - 2 puff IH Q6 PRN #1 inhaler 06/10/17 mcg/actuation (8 g)] Albuterol HFA [Ventolin HFA 90 2 puff IH Q4H #1 puff 08/12/17 mcg/actuation (8 g)] Albuterol HFA [Ventolin HFA 90 2 puff IH [id number] PRN #1 inhaler 08/15/17 mcg/actuation (8 g)] Azithromycin [Zithromax Tri-Vidal] 500 mg PO DAILY #2 tablet 08/15/17 Prednisone [Deltasone] 3 tab PO DAILY #12 tablet 08/15/17 predniSONE [predniSONE Tab] 60 mg PO DAILY #9 tab 08/17/17 Albuterol Sulfate [Proair Hfa] 0.09 mg IH Q6H PRN #2 inh 08/24/17 predniSONE [predniSONE Tab] 20 mg PO BID 5 Days tab 08/24/17 - Allergies Allergies/Adverse Reactions: Allergies Allergy/AdvReac Type Severity Reaction Status Date / Time No Known Allergies Allergy Verified 08/27/17 22:49 Review of Systems ROS Statement: Except As Marked, All Systems Reviewed And Found Negative Physical Exam - Reviewed Nursing Documentation Reviewed: Yes Vital Signs Reviewed: Yes - Physical Exam Appears: Positive for: Well, Non-toxic, No Acute Distress Head Exam: Positive for: ATRAUMATIC, NORMAL INSPECTION, NORMOCEPHALIC Skin: Positive for: Normal Color, Warm, DRY Eye Exam: Positive for: EOMI, Normal appearance, PERRL ENT: Positive for: Normal ENT Inspection Neck: Positive for: Normal, Painless ROM Cardiovascular/Chest: Positive for: Regular Rate, Rhythm Respiratory: Positive for: CNT, Normal Breath Sounds Gastrointestinal/Abdominal: Positive for: Normal Exam, Bowel Sounds, Soft Back: Positive for: Normal Inspection Extremity: Positive for: Normal ROM Neurologic/Psych: Positive for: Alert, Oriented Medical Decision Making Medical Decision Making: duo neb administered Pt monitored in ED, NAd. stable for discharge on re-eval Disposition - Clinical Impression Clinical Impression: Atypical chest pain, Dyspnea - Disposition Disposition: Routine/Home Disposition Time: 23:23 Condition: STABLE Instructions: Dyspnea (ED) Forms: [facility] (Setswana) - POA Present On Arrival: None
[2017-08-29 19:57] VITALS: BP 116/64; RESP 18; TEMP 98.2; O2SAT 93
[2017-08-29] MEDS ORDERED: Albuterol-Ipratrop 3 mg / 0.5 (3 ml) UD INH STA (20:54)
[2017-08-29] MEDS ORDERED: Albuterol-Ipratrop 3 mg / 0.5 (3 ml) UD ONE (21:58)
[2017-08-29 23:59] VITALS: PULSE 87
[2017-08-30] MEDS ORDERED: Albuterol-Ipratrop 3 mg / 0.5 (3 ml) UD ONE (08:29)
[2017-08-30] MEDS ORDERED: Albuterol 0.083% Inhal Sol (2.5 mg/3 mL) UD ONE (08:33)
== END 2017-08-29 23:50 | disposition home or self-care (01) ==
LOC: H.ER 11:53
DX: J44.9 Chronic obstructive pulmonary disease, unspecified (principal); I48.91 Unspecified atrial fibrillation; F10.129 Alcohol abuse with intoxication, unspecified

== ENCOUNTER 2017-08-30 08:01 | Emergency (ER) | payer MEDICAID ==
[2017-08-30 08:01] VITALS: BMI 21.7
[2017-08-30] MEDS ORDERED: Albuterol-Ipratrop 3 mg / 0.5 (3 ml) UD INH STA (08:19)
--- NOTE | 2017-08-30 08:36 | ED PDOC ---
HPI: SOB/CHF/COPD Time Seen by Provider: 08/30/17 08:13 Chief Complaint (Nursing): Alcohol Ingestion Chief Complaint (Provider): Shortness of breath History Per: Patient History/Exam Limitations: no limitations Onset/Duration Of Symptoms: Days (x1) Initiating Event: Out Of Medications (ventolin not working properly) Recently: Seen In ED Additional Complaint(s): Jorge L Huitron is a 57 year old male, with a past medical history of asthma and COPD , who was brought to the emergency department by EMS for shortness of breath onset for x1 day. Patient is well known in the ED for multiple visits. He states his ventolin pump is not working properly. Patient is able to speak full sentences. He doesn't appear intoxicated. He denies any fever or chills. No further medical complaints. PMD: None provided. Past Medical History Reviewed: Historical Data, Nursing Documentation, Vital Signs Vital Signs: Last Vital Signs Temp Pulse Resp BP 130/70 08/30/17 08:09 Pulse Ox - Medical History PMH: Asthma, Atrial Fibrillation, COPD, Hepatitis (C), Seizures - Surgical History Surgical History: Appendectomy, Tonsillectomy - Family History Family History: States: Unknown Family Hx - Social History Alcohol: > 2 Drinks/Day - Home Medications Home Medications: Ambulatory Orders Medication Instructions Recorded Albuterol HFA [Ventolin HFA 90 1 - 2 puff IH Q6 PRN #1 inhaler 06/10/17 mcg/actuation (8 g)] Albuterol HFA [Ventolin HFA 90 2 puff IH Q4H #1 puff 08/12/17 mcg/actuation (8 g)] Albuterol HFA [Ventolin HFA 90 2 puff IH [id number] PRN #1 inhaler 08/15/17 mcg/actuation (8 g)] Azithromycin [Zithromax Tri-Vidal] 500 mg PO DAILY #2 tablet 08/15/17 Prednisone [Deltasone] 3 tab PO DAILY #12 tablet 08/15/17 predniSONE [predniSONE Tab] 60 mg PO DAILY #9 tab 08/17/17 Albuterol Sulfate [Proair Hfa] 0.09 mg IH Q6H PRN #2 inh 08/24/17 predniSONE [predniSONE Tab] 20 mg PO BID 5 Days tab 08/24/17 - Allergies Allergies/Adverse Reactions: Allergies Allergy/AdvReac Type Severity Reaction Status Date / Time No Known Allergies Allergy Verified 08/30/17 08:08 Review of Systems ROS Statement: Except As Marked, All Systems Reviewed And Found Negative Constitutional: Negative for: Fever, Chills Respiratory: Positive for: Shortness of Breath (able to speak full sentences) Physical Exam - Reviewed Nursing Documentation Reviewed: Yes Vital Signs Reviewed: Yes - Physical Exam Appears: Positive for: Well, Non-toxic, No Acute Distress Head Exam: Positive for: ATRAUMATIC, NORMAL INSPECTION, NORMOCEPHALIC Skin: Positive for: Normal Color, Warm, Dry Eye Exam: Positive for: EOMI, Normal appearance, PERRL Neck: Positive for: Normal, Painless ROM, Supple Cardiovascular/Chest: Positive for: Regular Rate, Rhythm. Negative for: Murmur Respiratory: Positive for: Normal Breath Sounds. Negative for: Respiratory Distress Extremity: Negative for: Deformity, Swelling Neurologic/Psych: Positive for: Alert, Oriented Medical Decision Making Medical Decision Making: Initial Impression: asthma exacerbation Initial Plan: --Alcohol serum --Duoneb 3 ml INH --Peak flow pre/post Tx --reevaluation Scribe Attestation: Documented by Josemanuel Yuen, acting as a scribe for Corine Castillo MD Provider Scribe Attestation: All medical record entries made by the Scribe were at my direction and personally dictated by me. I have reviewed the chart and agree that the record accurately reflects my personal performance of the history, physical exam, medical decision making, and the department course for this patient. I have also personally directed, reviewed, and agree with the discharge instructions and disposition. Disposition - Disposition Condition: FAIR
[2017-08-30 11:46] VITALS: BP 115/78; PULSE 78; RESP 20; TEMP 98; O2SAT 98
== END 2017-08-30 11:47 | disposition home or self-care (01) ==
LOC: H.ER 08:01
DX: J45.901 Unspecified asthma with (acute) exacerbation (principal); I48.91 Unspecified atrial fibrillation; J44.9 Chronic obstructive pulmonary disease, unspecified

== ENCOUNTER 2017-08-30 14:52 | Emergency (ER) | payer MEDICAID ==
[2017-08-30 14:53] VITALS: BMI 21.7
[2017-08-30 15:00] VITALS: TEMP 97; O2SAT 96
[2017-08-30] MEDS ORDERED: Albuterol 0.083% Inhal Sol (2.5 mg/3 mL) UD INH STA ×2 (17:01→22:36)
[2017-08-30] MEDS ORDERED: Albuterol 0.083% Inhal Sol (2.5 mg/3 mL) UD ONE ×2 (17:46→22:49)
--- NOTE | 2017-08-30 18:08 | ED PDOC ---
HPI: Psych/Substance Abuse Time Seen by Provider: 08/30/17 16:14 Chief Complaint (Nursing): Alcohol Ingestion Chief Complaint (Provider): Alcohol Ingestion History Per: Patient History/Exam Limitations: no limitations Onset/Duration Of Symptoms: Mins (prior to arrival) Current Symptoms Are (Timing): Still Present Additional Complaint(s): Jorge L Huitron is a 57 year old male with no significant past medical history who was brought to the ED by EMS due to alcohol intoxication. EMS noted patient has unsteady gait and was found with vodka on his person. Patient denies chest pain or shortness of breath. Patient reports a history of asthma and chronic cough, and is requesting a breathing treatment. PMD: No PMD Past Medical History Reviewed: Historical Data, Nursing Documentation, Vital Signs Vital Signs: Last Vital Signs Temp 97 F L 08/30/17 14:58 Pulse 97 H 08/30/17 14:58 Resp 18 08/30/17 14:58 BP 127/68 08/30/17 14:58 Pulse Ox 96 08/30/17 14:58 - Medical History PMH: Asthma, Atrial Fibrillation, COPD, Hepatitis (C), Seizures - Surgical History Surgical History: Appendectomy, Tonsillectomy - Family History Family History: States: Unknown Family Hx - Social History Alcohol: Other (Yes) - Home Medications Home Medications: Ambulatory Orders Medication Instructions Recorded Albuterol HFA [Ventolin HFA 90 1 - 2 puff IH Q6 PRN #1 inhaler 06/10/17 mcg/actuation (8 g)] Albuterol HFA [Ventolin HFA 90 2 puff IH Q4H #1 puff 08/12/17 mcg/actuation (8 g)] Albuterol HFA [Ventolin HFA 90 2 puff IH [id number] PRN #1 inhaler 08/15/17 mcg/actuation (8 g)] Azithromycin [Zithromax Tri-Vidal] 500 mg PO DAILY #2 tablet 08/15/17 Prednisone [Deltasone] 3 tab PO DAILY #12 tablet 08/15/17 predniSONE [predniSONE Tab] 60 mg PO DAILY #9 tab 08/17/17 Albuterol Sulfate [Proair Hfa] 0.09 mg IH Q6H PRN #2 inh 08/24/17 predniSONE [predniSONE Tab] 20 mg PO BID 5 Days tab 08/24/17 Albuterol Sulfate [Proair Hfa] 2 puff INH Q4H PRN #1 inh 08/30/17 - Allergies Allergies/Adverse Reactions: Allergies Allergy/AdvReac Type Severity Reaction Status Date / Time No Known Allergies Allergy Verified 08/30/17 14:58 Review of Systems ROS Statement: Except As Marked, All Systems Reviewed And Found Negative Cardiovascular: Negative for: Chest Pain Respiratory: Negative for: Shortness of Breath Physical Exam - Reviewed Nursing Documentation Reviewed: Yes Vital Signs Reviewed: Yes - Physical Exam Appears: Positive for: Well, Non-toxic, No Acute Distress Head Exam: Positive for: ATRAUMATIC, NORMAL INSPECTION, NORMOCEPHALIC Skin: Positive for: Normal Color, Warm. Negative for: Rash Eye Exam: Positive for: Normal appearance, EOMI, PERRL Neck: Positive for: Normal, Painless ROM, Supple Cardiovascular/Chest: Positive for: Regular Rate, Rhythm. Negative for: Murmur Respiratory: Positive for: Normal Breath Sounds. Negative for: Respiratory Distress Gastrointestinal/Abdominal: Positive for: Normal Exam, Bowel Sounds, Soft. Negative for: Tenderness Back: Positive for: Normal Inspection. Negative for: L CVA Tenderness, R CVA Tenderness, Vertebral Tenderness Extremity: Positive for: Normal ROM. Negative for: Pedal Edema, Deformity Neurologic/Psych: Positive for: Alert, Mood/Affect (Cooperative) - ECG O2 Sat by Pulse Oximetry: 96 (RA) Pulse Ox Interpretation: Normal Medical Decision Making Medical Decision Making: Time: 17:01 Initial Impression: Alcohol ingestion Plan: --Alcohol serum --Albuterol 2.5 mg INH --Finger stick --Reevaluation Scribe Attestation: Documented by Krish Sumner, acting as a scribe for Kristen Mooney PA-C Provider Scribe Attestation: All medical record entries made by the Scribe were at my direction and personally dictated by me. I have reviewed the chart and agree that the record accurately reflects my personal performance of the history, physical exam, medical decision making, and the department course for this patient. I have also personally directed, reviewed, and agree with the discharge instructions and disposition. Disposition - Clinical Impression Clinical Impression: Alcohol abuse - Disposition Instructions: Alcohol Intoxication (ED), Abuse of Alcohol (ED), Alcohol Dependence (ED) Forms: [employer] (Turkish) Patient Signed Over To: Valeri Epstein Handoff Comments: Patient alcohol level drawn at 1745, noted to be 454.
--- NOTE | 2017-08-31 04:33 | ED PDOC ---
- ECG O2 Sat by Pulse Oximetry: 96 (RA) - Progress ED Course And Treament: pt signed out to entry writer pending sobriety. Medical Decision Making Medical Decision Making: pt is clinically sober for d./c Disposition - Clinical Impression Clinical Impression: Alcohol abuse - POA Present On Arrival: None - Disposition Disposition: Routine/Home Disposition Time: 04:33 Condition: STABLE Instructions: Alcohol Intoxication (ED), Abuse of Alcohol (ED), Alcohol Dependence (ED) Forms: [employer] (Kyrgyz) Progress Note - Review of Symptoms General: No: Chills, Night Sweats, Fatigue, Malaise, Appetite, Other HEENT: No: Head Aches, Visual Changes, Eye Pain, Ear Pain, Dysphasia, Sinus Congestion, Post Nasal Drip, Sore Throat, Other Pulmonary: No: Dyspnea, Cough, Pleuritic Chest Pain, Other Cardiovascular: No: Chest Pain, Palpitations, Orthopnea, Paroxysmal Noc. Dyspnea , Edema, Light Headedness, Other Gastrointestinal: No: Nausea, Vomiting, Abdominal Pain, Diarrhea, Constipation, Melena, Hematochezia, Other Genitourinary: No: Dysuria, Frequency, Incontinence, Hematuria, Retention, Other Musculoskeletal: No: Muscle Pain, Joint Pain, Other Neurological: No: Weakness, Numbness, Incoordination, Change in speech, Confusion, Seizures, Other
[2017-08-31 04:45] VITALS: BP 114/79; PULSE 81; RESP 16
== END 2017-08-31 05:03 | disposition home or self-care (01) ==
LOC: H.ER 14:52
DX: F10.129 Alcohol abuse with intoxication, unspecified (principal); I48.91 Unspecified atrial fibrillation; J44.9 Chronic obstructive pulmonary disease, unspecified

== ENCOUNTER 2017-08-31 14:24 | Emergency (ER) | payer MEDICAID ==
[2017-08-31 14:24] VITALS: BMI 21.7
[2017-08-31 14:27] VITALS: RESP 18
--- NOTE | 2017-08-31 15:34 | ED PDOC ---
HPI: Psych/Substance Abuse Time Seen by Provider: 08/31/17 14:33 Chief Complaint (Nursing): Psychiatric Evaluation Chief Complaint (Provider): etoh History Per: Patient, EMS Additional Complaint(s): BIBA for alcohol intoxication. Patient is seen daily in emergency department and has history of alcohol abuse. Past Medical History Reviewed: Historical Data, Nursing Documentation, Vital Signs Vital Signs: Last Vital Signs Temp 98 F 08/31/17 14:25 Pulse 89 08/31/17 14:25 Resp 18 08/31/17 14:25 BP 137/76 08/31/17 14:25 Pulse Ox 96 08/31/17 14:25 - Medical History PMH: Asthma, Atrial Fibrillation, COPD, Hepatitis (C), Seizures - Surgical History Surgical History: Appendectomy, Tonsillectomy - Family History Family History: States: No Known Family Hx - Living Arrangements Living Arrangements: Other (non-domiciled) - Social History Alcohol: > 2 Drinks/Day - Home Medications Home Medications: Ambulatory Orders Medication Instructions Recorded Albuterol HFA [Ventolin HFA 90 1 - 2 puff IH Q6 PRN #1 inhaler 06/10/17 mcg/actuation (8 g)] Albuterol HFA [Ventolin HFA 90 2 puff IH Q4H #1 puff 08/12/17 mcg/actuation (8 g)] Albuterol HFA [Ventolin HFA 90 2 puff IH [id number] PRN #1 inhaler 08/15/17 mcg/actuation (8 g)] Azithromycin [Zithromax Tri-Vidal] 500 mg PO DAILY #2 tablet 08/15/17 Prednisone [Deltasone] 3 tab PO DAILY #12 tablet 08/15/17 predniSONE [predniSONE Tab] 60 mg PO DAILY #9 tab 08/17/17 Albuterol Sulfate [Proair Hfa] 0.09 mg IH Q6H PRN #2 inh 08/24/17 predniSONE [predniSONE Tab] 20 mg PO BID 5 Days tab 08/24/17 Albuterol Sulfate [Proair Hfa] 2 puff INH Q4H PRN #1 inh 08/30/17 - Allergies Allergies/Adverse Reactions: Allergies Allergy/AdvReac Type Severity Reaction Status Date / Time No Known Allergies Allergy Verified 08/30/17 14:58 Review of Systems ROS Statement: Except As Marked, All Systems Reviewed And Found Negative Psych: Positive for: Other (etoh) Physical Exam - Reviewed Nursing Documentation Reviewed: Yes Vital Signs Reviewed: Yes - Physical Exam Appears: Positive for: Well, Non-toxic, No Acute Distress Skin: Negative for: Rash Eye Exam: Positive for: Normal appearance Respiratory: Negative for: Respiratory Distress Neurologic/Psych: Positive for: Other (Intoxicated, answers some questions appropriately) - ECG O2 Sat by Pulse Oximetry: 96 Pulse Ox Interpretation: Normal Medical Decision Making Medical Decision Makin57 year old male with etoh abuse Glucose POC: 100 Patient was observed for several hours in the emergency department. His condition remained stable throughout his stay. 11:15 PM: Patient is awake, alert, has steady gait with his walker which he uses at baseline. Patient is stable for discharge. Disposition - Clinical Impression Clinical Impression: Alcohol abuse, Asthma - Patient ED Disposition Is Patient to be Admitted: No Counseled Patient/Family Regarding: Diagnosis, Need For Followup - Disposition Referrals: [facility] [Outside] Disposition: Routine/Home Disposition Time: 23:20 Condition: STABLE Instructions: Alcohol Intoxication (ED), Abuse of Alcohol (ED), Alcohol Dependence (ED) Forms: [employer] (Portuguese)
[2017-08-31 23:58] VITALS: BP 118/70; PULSE 78; TEMP 97.8; O2SAT 98
== END 2017-08-31 23:58 | disposition home or self-care (01) ==
LOC: H.ER 14:24
DX: F10.129 Alcohol abuse with intoxication, unspecified (principal); I48.91 Unspecified atrial fibrillation; J44.9 Chronic obstructive pulmonary disease, unspecified

== ENCOUNTER 2017-09-01 18:09 | Emergency (ER) | payer MEDICAID ==
[2017-09-01 18:09] VITALS: BMI 21.7
[2017-09-01 18:13] VITALS: BP 158/81; PULSE 78; TEMP 97.7; O2SAT 97
[2017-09-01] MEDS ORDERED: Albuterol-Ipratrop 3 mg / 0.5 (3 ml) UD INH STA (18:58)
[2017-09-01 19:02] VITALS: RESP 20
--- NOTE | 2017-09-01 20:00 | ED PDOC ---
HPI: SOB/CHF/COPD Time Seen by Provider: 09/01/17 18:45 Chief Complaint (Nursing): Shortness Of Breath Chief Complaint (Provider): Shortness of breath History Per: Patient History/Exam Limitations: no limitations Onset/Duration Of Symptoms: Days (1) Current Symptoms Are (Timing): Still Present Recently: Seen In ED Additional Complaint(s): 57yo male, past medical history of Asthma, Atrial Fibrillation, COPD, Hepatitis (C), Seizures, presents to ED with complaints of shortness of breath for the past day. Patient states he believes his symptom are due to the cold weather, which has triggered his asthma. Patient admits to alcohol use today. Of note, patient is well known to provider and ER for homelessness, alcohol abuse and malingering. No other complaints. PCP: None Past Medical History Reviewed: Historical Data, Nursing Documentation, Vital Signs Vital Signs: Last Vital Signs Temp 97.7 F 09/01/17 18:10 Pulse 78 09/01/17 18:10 Resp 20 09/01/17 18:56 BP 158/81 H 09/01/17 18:10 Pulse Ox 97 09/01/17 21:58 - Medical History PMH: Asthma, Atrial Fibrillation, COPD, Hepatitis (C), Seizures - Surgical History Surgical History: Appendectomy, Tonsillectomy - Family History Family History: States: Unknown Family Hx - Home Medications Home Medications: Ambulatory Orders Medication Instructions Recorded Albuterol HFA [Ventolin HFA 90 1 - 2 puff IH Q6 PRN #1 inhaler 06/10/17 mcg/actuation (8 g)] Albuterol HFA [Ventolin HFA 90 2 puff IH Q4H #1 puff 08/12/17 mcg/actuation (8 g)] Albuterol HFA [Ventolin HFA 90 2 puff IH [id number] PRN #1 inhaler 08/15/17 mcg/actuation (8 g)] Azithromycin [Zithromax Tri-Vidal] 500 mg PO DAILY #2 tablet 08/15/17 Prednisone [Deltasone] 3 tab PO DAILY #12 tablet 08/15/17 predniSONE [predniSONE Tab] 60 mg PO DAILY #9 tab 08/17/17 Albuterol Sulfate [Proair Hfa] 0.09 mg IH Q6H PRN #2 inh 08/24/17 predniSONE [predniSONE Tab] 20 mg PO BID 5 Days tab 08/24/17 Albuterol Sulfate [Proair Hfa] 2 puff INH Q4H PRN #1 inh 08/30/17 - Allergies Allergies/Adverse Reactions: Allergies Allergy/AdvReac Type Severity Reaction Status Date / Time No Known Allergies Allergy Verified 09/01/17 18:10 Review of Systems ROS Statement: Except As Marked, All Systems Reviewed And Found Negative (as per HPI) Respiratory: Positive for: Shortness of Breath Physical Exam - Reviewed Nursing Documentation Reviewed: Yes Vital Signs Reviewed: Yes - Physical Exam Appears: Positive for: Non-toxic, No Acute Distress (unkempt and dissheveled) Head Exam: Positive for: ATRAUMATIC, NORMOCEPHALIC Skin: Positive for: Warm, Dry Respiratory: Positive for: Rhonchi. Negative for: Decreased Breath Sounds, Respiratory Distress Gastrointestinal/Abdominal: Positive for: Soft. Negative for: Tenderness Neurologic/Psych: Positive for: Other (slurred speech, lethargic) - ECG O2 Sat by Pulse Oximetry: 97 Pulse Ox Interpretation: Normal Medical Decision Making Medical Decision Making: Impression: Asthma exacerbation, alcohol intoxication Plan: -- Alcohol serum -- Duoneb 6ml INH Reassess 0:00 Patient signed out to Dr. Hogan pending reevaluation. Scribe Attestation: Documented by Dana Victor and Luz Samuel acting as scribes for Gladis Haywood MD. Provider Attestation: All medical record entries made by the Scribe were at my direction and personally dictated by me. I have reviewed the chart and agree that the record accurately reflects my personal performance of the history, physical exam, medical decision making, and the department course for this patient. I have also personally directed, reviewed, and agree with the discharge instructions and disposition. Disposition - Clinical Impression Clinical Impression: Asthma, Alcohol abuse - Patient ED Disposition Is Patient to be Admitted: Transfer of Care - Disposition Referrals: [facility] [Outside] Disposition: Transfer of Care Disposition Time: 00:00 Condition: FAIR Instructions: Asthma (ED), Alcohol Intoxication (ED), Abuse of Alcohol (ED), Alcohol Dependence (ED) Forms: [employer] (Khmer) Patient Signed Over To: Jefe Hogan
[2017-09-01] MEDS ORDERED: Albuterol-Ipratrop 3 mg / 0.5 (3 ml) UD ONE (21:13)
--- NOTE | 2017-09-02 00:17 | ED PDOC ---
- ECG O2 Sat by Pulse Oximetry: 97 Medical Decision Making Medical Decision Makin:00 Patient signed out to me by Dr. Haywood pending reassessment. 5:53 Patient is feeling better and is stable for discharge home. Scribe Attestation: Documented by Luz Samuel, acting as a scribe for Jefe Hogan MD. Provider Scribe Attestation: All medical record entries made by the Scribe were at my direction and personally dictated by me. I have reviewed the chart and agree that the record accurately reflects my personal performance of the history, physical exam, medical decision making, and the department course for this patient. I have also personally directed, reviewed, and agree with the discharge instructions and disposition. Disposition - Clinical Impression Clinical Impression: Asthma, Alcohol abuse - POA Present On Arrival: None - Disposition Referrals: [facility] [Outside] Disposition: Routine/Home Disposition Time: 05:53 Condition: STABLE Instructions: Asthma (ED), Alcohol Intoxication (ED), Abuse of Alcohol (ED), Alcohol Dependence (ED) Forms: [employer] (Hebrew)
== END 2017-09-02 05:54 | disposition home or self-care (01) ==
LOC: H.ER 18:09
DX: J45.901 Unspecified asthma with (acute) exacerbation (principal); F10.129 Alcohol abuse with intoxication, unspecified; B19.20 Unspecified viral hepatitis C without hepatic coma; I48.91 Unspecified atrial fibrillation; J44.9 Chronic obstructive pulmonary disease, unspecified; R56.9 Unspecified convulsions; Z59.0 Homelessness

== ENCOUNTER 2017-09-02 23:25 | Emergency (ER) | payer MEDICAID ==
[2017-09-02 23:25] VITALS: BMI 21.7
[2017-09-02 23:34] VITALS: BP 138/89; PULSE 79; TEMP 98.9; O2SAT 97
[2017-09-02] MEDS ORDERED: Albuterol-Ipratrop 3 mg / 0.5 (3 ml) UD ONE (23:50)
--- NOTE | 2017-09-03 00:07 | ED PDOC ---
HPI: General Adult Time Seen by Provider: 09/02/17 23:32 Chief Complaint (Nursing): Respiratory Distress History Per: Patient Additional Complaint(s): Pt. presents to ED requesting albuterol treatment. Pt. well known to ED. Also requesting for a bed stay. Past Medical History Reviewed: Historical Data, Nursing Documentation, Vital Signs Vital Signs: Last Vital Signs Temp 98.9 F 09/02/17 23:31 Pulse 79 09/02/17 23:31 Resp 18 09/03/17 00:06 BP 138/89 09/02/17 23:31 Pulse Ox 97 09/03/17 04:15 - Medical History PMH: Asthma, Atrial Fibrillation, COPD, Hepatitis (C), Seizures - Surgical History Surgical History: Appendectomy, Tonsillectomy - Family History Family History: States: No Known Family Hx - Home Medications Home Medications: Ambulatory Orders Medication Instructions Recorded Albuterol HFA [Ventolin HFA 90 1 - 2 puff IH Q6 PRN #1 inhaler 06/10/17 mcg/actuation (8 g)] Albuterol HFA [Ventolin HFA 90 2 puff IH Q4H #1 puff 08/12/17 mcg/actuation (8 g)] Albuterol HFA [Ventolin HFA 90 2 puff IH [id number] PRN #1 inhaler 08/15/17 mcg/actuation (8 g)] Azithromycin [Zithromax Tri-Vidal] 500 mg PO DAILY #2 tablet 08/15/17 Prednisone [Deltasone] 3 tab PO DAILY #12 tablet 08/15/17 predniSONE [predniSONE Tab] 60 mg PO DAILY #9 tab 08/17/17 Albuterol Sulfate [Proair Hfa] 0.09 mg IH Q6H PRN #2 inh 08/24/17 predniSONE [predniSONE Tab] 20 mg PO BID 5 Days tab 08/24/17 Albuterol Sulfate [Proair Hfa] 2 puff INH Q4H PRN #1 inh 08/30/17 - Allergies Allergies/Adverse Reactions: Allergies Allergy/AdvReac Type Severity Reaction Status Date / Time No Known Allergies Allergy Verified 09/01/17 18:10 Review of Systems ROS Statement: Except As Marked, All Systems Reviewed And Found Negative Physical Exam - Reviewed Nursing Documentation Reviewed: Yes Vital Signs Reviewed: Yes - Physical Exam Appears: Positive for: Well, Non-toxic, No Acute Distress Head Exam: Positive for: ATRAUMATIC, NORMAL INSPECTION, NORMOCEPHALIC Skin: Positive for: Normal Color, Warm. Negative for: Rash Eye Exam: Positive for: EOMI, Normal appearance, PERRL ENT: Positive for: Normal ENT Inspection Neck: Positive for: Normal, Painless ROM Cardiovascular/Chest: Positive for: Regular Rate, Rhythm Respiratory: Positive for: CNT, Normal Breath Sounds Gastrointestinal/Abdominal: Positive for: Normal Exam, Soft. Negative for: Tenderness Back: Positive for: Normal Inspection Extremity: Positive for: Normal ROM Neurologic/Psych: Positive for: Alert, Oriented, Gait (steady with walker). Negative for: Aphasia, Facial Droop - ECG O2 Sat by Pulse Oximetry: 97 - Progress ED Course And Treament: DuoNeb x 1 ordered. Disposition - Clinical Impression Clinical Impression: Homeless - Patient ED Disposition Is Patient to be Admitted: No - Disposition Disposition: Routine/Home Disposition Time: 01:30 Condition: STABLE Forms: [employer] (Armenian)
[2017-09-03 00:11] VITALS: RESP 18
[2017-09-03] MEDS ORDERED: Albuterol-Ipratrop 3 mg / 0.5 (3 ml) UD INH STA (00:17)
[2017-09-03] MEDS ORDERED: Albuterol-Ipratrop 3 mg / 0.5 (3 ml) UD ONE ×2 (16:09→16:20)
== END 2017-09-03 06:18 | disposition home or self-care (01) ==
LOC: H.ER 23:25
DX: J44.9 Chronic obstructive pulmonary disease, unspecified (principal); I48.91 Unspecified atrial fibrillation; Z59.0 Homelessness

== ENCOUNTER 2017-09-03 15:26 | Emergency (ER) | payer MEDICAID ==
[2017-09-03 15:26] VITALS: BMI 21.7
[2017-09-03] MEDS ORDERED: methylPREDNISolone 125 MG in Sodium Chloride 0.9% 50 ML IM STA (16:04)
[2017-09-03] MEDS ORDERED: Albuterol-Ipratrop 3 mg / 0.5 (3 ml) UD INH STA ×3 (16:04→16:05)
--- NOTE | 2017-09-03 16:11 | ED PDOC ---
HPI: General Adult Time Seen by Provider: 09/03/17 15:56 Chief Complaint (Nursing): Shortness Of Breath Chief Complaint (Provider): Shortness Of Breath History Per: Patient History/Exam Limitations: no limitations Current Symptoms Are (Timing): Still Present Additional Complaint(s): Jorge L Huitron is a 57 year old male, with a past medical history of chronic obstructive pulmonary disease (COPD) and asthma, who presents to the emergency department complaining of feeling shortness of breath with chest tightness onset for 1 day. Patient is well known in the emergency department for multiple visits. Alcohol odor noted on patient. Upon arrival he denies nausea, vomiting, diarrhea, fever, or chills. Past Medical History Reviewed: Historical Data, Nursing Documentation, Vital Signs Vital Signs: Last Vital Signs Temp 97.1 F L 09/03/17 15:40 Pulse 64 09/03/17 15:40 Resp 16 09/03/17 19:23 BP 123/80 09/03/17 15:40 Pulse Ox 98 09/03/17 17:18 - Medical History PMH: Asthma, Atrial Fibrillation, COPD, Hepatitis (C), Seizures - Surgical History Surgical History: Appendectomy, Tonsillectomy - Family History Family History: States: Unknown Family Hx - Home Medications Home Medications: Ambulatory Orders Medication Instructions Recorded Albuterol HFA [Ventolin HFA 90 1 - 2 puff IH Q6 PRN #1 inhaler 06/10/17 mcg/actuation (8 g)] Albuterol HFA [Ventolin HFA 90 2 puff IH Q4H #1 puff 08/12/17 mcg/actuation (8 g)] Albuterol HFA [Ventolin HFA 90 2 puff IH [id number] PRN #1 inhaler 08/15/17 mcg/actuation (8 g)] Azithromycin [Zithromax Tri-Vidal] 500 mg PO DAILY #2 tablet 08/15/17 Prednisone [Deltasone] 3 tab PO DAILY #12 tablet 08/15/17 predniSONE [predniSONE Tab] 60 mg PO DAILY #9 tab 08/17/17 Albuterol Sulfate [Proair Hfa] 0.09 mg IH Q6H PRN #2 inh 08/24/17 predniSONE [predniSONE Tab] 20 mg PO BID 5 Days tab 08/24/17 Albuterol Sulfate [Proair Hfa] 2 puff INH Q4H PRN #1 inh 08/30/17 - Allergies Allergies/Adverse Reactions: Allergies Allergy/AdvReac Type Severity Reaction Status Date / Time No Known Allergies Allergy Verified 09/01/17 18:10 Review of Systems ROS Statement: Except As Marked, All Systems Reviewed And Found Negative Constitutional: Negative for: Fever, Chills Cardiovascular: Positive for: Other (Chest tightness) Respiratory: Positive for: Shortness of Breath Gastrointestinal: Negative for: Nausea, Vomiting, Diarrhea Physical Exam - Reviewed Nursing Documentation Reviewed: Yes Vital Signs Reviewed: Yes - Physical Exam Appears: Positive for: Non-toxic, No Acute Distress Head Exam: Positive for: ATRAUMATIC, NORMAL INSPECTION, NORMOCEPHALIC Skin: Positive for: Normal Color, Warm, Dry Eye Exam: Positive for: Normal appearance, EOMI ENT: Positive for: Normal ENT Inspection, Other (Alcohol on breath) Neck: Positive for: Normal, Painless ROM, Supple Cardiovascular/Chest: Positive for: Regular Rate, Rhythm. Negative for: Murmur Respiratory: Positive for: Wheezing (bilaterally). Negative for: Normal Breath Sounds, Accessory Muscle Use, Respiratory Distress Gastrointestinal/Abdominal: Positive for: Normal Exam. Negative for: Soft Extremity: Positive for: Normal ROM. Negative for: Pedal Edema Neurologic/Psych: Positive for: Alert, Oriented (x3), Other (Speaking full sentences) - ECG O2 Sat by Pulse Oximetry: 98 (RA) Pulse Ox Interpretation: Normal - Progress Re-evaluation Time: 19:31 Condition: Improved Medical Decision Making Medical Decision Making: Time: 1604 Initial Impression: Shortness of breath Initial Plan: --Duoneb 3 ml INH --Duoneb 3 ml INH --Duoneb 3 ml INH --Methylprednisolone 125 mg IM --Reevaluation Scribe~Attestation: Documented by Geovanna Chun, acting as a scribe for Noemi Jackson MD. Provider Scribe~Attestation: All medical record entries made by the Scribe were at my direction and personally dictated by me. I have reviewed the chart and agree that the record accurately reflects my personal performance of the history, physical exam, medical decision making, and the department course for this patient. I have also personally directed, reviewed, and agree with the discharge instructions and disposition. Disposition - Clinical Impression Clinical Impression: COPD (chronic obstructive pulmonary disease) - Patient ED Disposition Is Patient to be Admitted: No Doctor Will See Patient In The: Office Counseled Patient/Family Regarding: Diagnosis, Need For Followup - Disposition Referrals: [facility] [Outside] Disposition: Routine/Home Disposition Time: 19:32 Condition: IMPROVED Instructions: COPD (Chronic Obstructive Pulmonary Disease) (ED) Forms: [employer] (Setswana) - POA Present On Arrival: None
[2017-09-04 03:10] VITALS: BP 112/71; PULSE 81; RESP 16; TEMP 97.4; O2SAT 95
--- NOTE | 2017-09-04 20:36 | CARD ---
APPROVED REPORT EKG Measurement Heart [id number] <Conclusion> Sinus rhythm with APCs Rightward axis Incomplete right bundle branch block Borderline ECG
== END 2017-09-04 05:14 | disposition home or self-care (01) ==
LOC: H.ER 15:26
DX: J44.9 Chronic obstructive pulmonary disease, unspecified (principal); I48.91 Unspecified atrial fibrillation; I49.1 Atrial premature depolarization
CPT/HCPCS: 93005; 94640; 96372; 99283; J2930

== ENCOUNTER 2017-09-04 12:08 | Emergency (ER) | payer MEDICAID ==
[2017-09-04 12:08] VITALS: BMI 21.7
[2017-09-04 12:35] VITALS: PULSE 89; RESP 20; TEMP 98.9
[2017-09-04 12:37] VITALS: BP 136/78; O2SAT 95
--- NOTE | 2017-09-04 12:51 | ED PDOC ---
HPI: Psych/Substance Abuse Time Seen by Provider: 09/04/17 12:16 Chief Complaint (Nursing): Alcohol Ingestion Chief Complaint (Provider): etoh Additional Complaint(s): 57yo M routinely seen in ED-homeless state he wants something to eat. offeres no medical complaints. Past Medical History Reviewed: Historical Data, Nursing Documentation, Vital Signs Vital Signs: Last Vital Signs Temp 98.9 F 09/04/17 12:28 Pulse 89 09/04/17 12:28 Resp 20 09/04/17 12:28 BP 136/78 09/04/17 12:36 Pulse Ox 95 09/04/17 12:36 - Medical History PMH: Asthma, Atrial Fibrillation, COPD, Hepatitis (C), Seizures - Surgical History Surgical History: Appendectomy, Tonsillectomy - Family History Family History: States: Unknown Family Hx - Home Medications Home Medications: Ambulatory Orders Medication Instructions Recorded Albuterol HFA [Ventolin HFA 90 1 - 2 puff IH Q6 PRN #1 inhaler 06/10/17 mcg/actuation (8 g)] Albuterol HFA [Ventolin HFA 90 2 puff IH Q4H #1 puff 08/12/17 mcg/actuation (8 g)] Albuterol HFA [Ventolin HFA 90 2 puff IH [id number] PRN #1 inhaler 08/15/17 mcg/actuation (8 g)] Azithromycin [Zithromax Tri-Vidal] 500 mg PO DAILY #2 tablet 08/15/17 Prednisone [Deltasone] 3 tab PO DAILY #12 tablet 08/15/17 predniSONE [predniSONE Tab] 60 mg PO DAILY #9 tab 08/17/17 Albuterol Sulfate [Proair Hfa] 0.09 mg IH Q6H PRN #2 inh 08/24/17 predniSONE [predniSONE Tab] 20 mg PO BID 5 Days tab 08/24/17 Albuterol Sulfate [Proair Hfa] 2 puff INH Q4H PRN #1 inh 08/30/17 - Allergies Allergies/Adverse Reactions: Allergies Allergy/AdvReac Type Severity Reaction Status Date / Time No Known Allergies Allergy Verified 09/01/17 18:10 Review of Systems ROS Statement: Except As Marked, All Systems Reviewed And Found Negative Physical Exam - Reviewed Nursing Documentation Reviewed: Yes Vital Signs Reviewed: Yes - Physical Exam Appears: Positive for: Well, Non-toxic, No Acute Distress Skin: Positive for: Normal Color, Warm, DRY Cardiovascular/Chest: Positive for: Regular Rate, Rhythm Respiratory: Positive for: CNT, Normal Breath Sounds Neurologic/Psych: Positive for: Alert, Oriented - ECG O2 Sat by Pulse Oximetry: 95 - Progress ED Course And Treament: pt given food Medical Decision Making Medical Decision Making: stable for d.c Disposition - Clinical Impression Clinical Impression: Alcohol abuse - Patient ED Disposition Is Patient to be Admitted: No Counseled Patient/Family Regarding: Need For Followup - Disposition Disposition: Routine/Home Disposition Time: 18:10 Condition: STABLE Instructions: Alcohol Intoxication (ED), Abuse of Alcohol (ED), Alcohol Dependence (ED) Forms: [employer] (Saudi Arabian)
== END 2017-09-04 15:00 | disposition home or self-care (01) ==
LOC: H.ER 12:08
DX: F10.10 Alcohol abuse, uncomplicated (principal); I48.91 Unspecified atrial fibrillation; J44.9 Chronic obstructive pulmonary disease, unspecified; Z59.0 Homelessness

== ENCOUNTER 2017-09-04 18:43 | Emergency (ER) | payer MEDICAID ==
[2017-09-04 18:45] VITALS: BMI 21.7
[2017-09-04 18:52] VITALS: BP 134/77; PULSE 75; RESP 16; TEMP 97.9; O2SAT 97
--- NOTE | 2017-09-04 22:21 | ED PDOC ---
HPI: Psych/Substance Abuse Time Seen by Provider: 09/04/17 20:51 Chief Complaint (Nursing): Alcohol Ingestion Chief Complaint (Provider): alcohol Additional Complaint(s): 57yo M just discharged from ER today now returned to ER. no medical complaints. Past Medical History Reviewed: Historical Data, Nursing Documentation, Vital Signs Vital Signs: Last Vital Signs Temp 97.9 F 09/04/17 18:51 Pulse 75 09/04/17 18:51 Resp 16 09/04/17 18:51 BP 134/77 09/04/17 18:51 Pulse Ox 97 09/04/17 18:51 - Medical History PMH: Asthma, Atrial Fibrillation, COPD, Hepatitis (C), Seizures - Surgical History Surgical History: Appendectomy, Tonsillectomy - Family History Family History: States: Unknown Family Hx - Home Medications Home Medications: Ambulatory Orders Medication Instructions Recorded RX: Albuterol HFA [Ventolin HFA 90 1 - 2 puff IH Q6 PRN #1 inhaler 06/10/17 mcg/actuation (8 g)] RX: Albuterol HFA [Ventolin HFA 90 2 puff IH Q4H #1 puff 08/12/17 mcg/actuation (8 g)] Azithromycin [Zithromax Tri-Vidal] 500 mg PO DAILY #2 tablet 08/15/17 RX: Albuterol HFA [Ventolin HFA 90 2 puff IH [id number] PRN #1 inhaler 08/15/17 mcg/actuation (8 g)] RX: Prednisone [Deltasone] 3 tab PO DAILY #12 tablet 08/15/17 RX: predniSONE [predniSONE Tab] 60 mg PO DAILY #9 tab 08/17/17 Albuterol Sulfate [Proair Hfa] 0.09 mg IH Q6H PRN #2 inh 08/24/17 RX: predniSONE [predniSONE Tab] 20 mg PO BID 5 Days tab 08/24/17 Albuterol Sulfate [Proair Hfa] 2 puff INH Q4H PRN #1 inh 08/30/17 - Allergies Allergies/Adverse Reactions: Allergies Allergy/AdvReac Type Severity Reaction Status Date / Time No Known Allergies Allergy Verified 09/01/17 18:10 Review of Systems ROS Statement: Except As Marked, All Systems Reviewed And Found Negative Constitutional: Negative for: Fever Physical Exam - Reviewed Nursing Documentation Reviewed: Yes Vital Signs Reviewed: Yes - Physical Exam Appears: Positive for: Well, Non-toxic, No Acute Distress Skin: Positive for: Normal Color, Warm, DRY Eye Exam: Positive for: Normal appearance, EOMI, PERRL Cardiovascular/Chest: Positive for: Regular Rate, Rhythm Neurologic/Psych: Positive for: Alert, Oriented - ECG O2 Sat by Pulse Oximetry: 97 Medical Decision Making Medical Decision Making: pt is sober for d.c Disposition - Clinical Impression Clinical Impression: Alcohol abuse - Patient ED Disposition Is Patient to be Admitted: No - Disposition Disposition: Routine/Home Disposition Time: 23:22 Condition: STABLE Instructions: Alcohol Intoxication (ED), Abuse of Alcohol (ED), Alcohol Dependence (ED) Forms: [employer] (Polish)
--- NOTE | 2017-09-05 17:26 | CARD ---
APPROVED REPORT EKG Measurement Heart [id number] OH [id number] <Conclusion> Sinus rhythm with premature supraventricular complexes Otherwise normal ECG
== END 2017-09-04 23:55 | disposition home or self-care (01) ==
LOC: H.ER 18:43
DX: F10.10 Alcohol abuse, uncomplicated (principal); I48.91 Unspecified atrial fibrillation; I49.1 Atrial premature depolarization; J44.9 Chronic obstructive pulmonary disease, unspecified

== ENCOUNTER 2017-09-05 13:24 | Emergency (ER) | payer MEDICAID ==
[2017-09-05 13:25] VITALS: BMI 21.7
[2017-09-05 13:34] VITALS: BP 138/90; PULSE 71; RESP 19; TEMP 96.8; O2SAT 99
--- NOTE | 2017-09-05 13:42 | ED PDOC ---
HPI: Psych/Substance Abuse Time Seen by Provider: 09/05/17 13:32 Chief Complaint (Nursing): Alcohol Ingestion Chief Complaint (Provider): etoh Additional Complaint(s): 57yo M Past Medical History Vital Signs: Last Vital Signs Temp 96.8 F L 09/05/17 13:32 Pulse 71 09/05/17 13:32 Resp 19 09/05/17 13:32 BP 138/90 09/05/17 13:32 Pulse Ox 99 09/05/17 13:32 - Medical History PMH: Asthma, Atrial Fibrillation, COPD, Hepatitis (C), Seizures - Surgical History Surgical History: Appendectomy, Tonsillectomy - Family History Family History: States: Unknown Family Hx - Home Medications Home Medications: Ambulatory Orders Medication Instructions Recorded Albuterol HFA [Ventolin HFA 90 1 - 2 puff IH Q6 PRN #1 inhaler 06/10/17 mcg/actuation (8 g)] Albuterol HFA [Ventolin HFA 90 2 puff IH Q4H #1 puff 08/12/17 mcg/actuation (8 g)] Albuterol HFA [Ventolin HFA 90 2 puff IH [id number] PRN #1 inhaler 08/15/17 mcg/actuation (8 g)] Azithromycin [Zithromax Tri-Vidal] 500 mg PO DAILY #2 tablet 08/15/17 Prednisone [Deltasone] 3 tab PO DAILY #12 tablet 08/15/17 predniSONE [predniSONE Tab] 60 mg PO DAILY #9 tab 08/17/17 Albuterol Sulfate [Proair Hfa] 0.09 mg IH Q6H PRN #2 inh 08/24/17 predniSONE [predniSONE Tab] 20 mg PO BID 5 Days tab 08/24/17 Albuterol Sulfate [Proair Hfa] 2 puff INH Q4H PRN #1 inh 08/30/17 - Allergies Allergies/Adverse Reactions: Allergies Allergy/AdvReac Type Severity Reaction Status Date / Time No Known Allergies Allergy Verified 09/01/17 18:10 - ECG O2 Sat by Pulse Oximetry: 99 Disposition - Disposition
--- NOTE | 2017-09-05 13:48 | ED PDOC ---
HPI: Psych/Substance Abuse Time Seen by Provider: 09/05/17 13:32 Chief Complaint (Nursing): Alcohol Ingestion Chief Complaint (Provider): Alcohol Ingestion History Per: Patient History/Exam Limitations: no limitations Additional Complaint(s): 57 y/o male presents to the emergency department via ambulance after a bystander witnessed patient fall on the street with head injury prior to arrival. Bystander called police. Patient admits to drinking and fall. Reports pain to the back of the head. Denies neck pain. Of note, patient has a history of chronic alcohol abuse and is homeless. Past Medical History Reviewed: Historical Data, Nursing Documentation, Vital Signs Vital Signs: Last Vital Signs Temp 96.8 F L 09/05/17 13:32 Pulse 71 09/05/17 13:32 Resp 19 09/05/17 13:32 BP 138/90 09/05/17 13:32 Pulse Ox 99 09/05/17 13:32 - Medical History PMH: Asthma, Atrial Fibrillation, COPD, Hepatitis (C), Seizures - Surgical History Surgical History: Appendectomy, Tonsillectomy - Family History Family History: States: Unknown Family Hx - Home Medications Home Medications: Ambulatory Orders Medication Instructions Recorded Albuterol HFA [Ventolin HFA 90 1 - 2 puff IH Q6 PRN #1 inhaler 06/10/17 mcg/actuation (8 g)] Albuterol HFA [Ventolin HFA 90 2 puff IH Q4H #1 puff 08/12/17 mcg/actuation (8 g)] Albuterol HFA [Ventolin HFA 90 2 puff IH [id number] PRN #1 inhaler 08/15/17 mcg/actuation (8 g)] Azithromycin [Zithromax Tri-Vidal] 500 mg PO DAILY #2 tablet 08/15/17 Prednisone [Deltasone] 3 tab PO DAILY #12 tablet 08/15/17 predniSONE [predniSONE Tab] 60 mg PO DAILY #9 tab 08/17/17 Albuterol Sulfate [Proair Hfa] 0.09 mg IH Q6H PRN #2 inh 08/24/17 predniSONE [predniSONE Tab] 20 mg PO BID 5 Days tab 08/24/17 Albuterol Sulfate [Proair Hfa] 2 puff INH Q4H PRN #1 inh 08/30/17 - Allergies Allergies/Adverse Reactions: Allergies Allergy/AdvReac Type Severity Reaction Status Date / Time No Known Allergies Allergy Verified 09/01/17 18:10 Review of Systems ROS Statement: Except As Marked, All Systems Reviewed And Found Negative (As per HPI, otherwise negative) Constitutional: Positive for: Other (Head pain status post head injury) Musculoskeletal: Negative for: Neck Pain Physical Exam - Reviewed Nursing Documentation Reviewed: Yes Vital Signs Reviewed: Yes - Physical Exam Appears: Positive for: Non-toxic, No Acute Distress Head Exam: Positive for: NORMAL INSPECTION (Occipital area with no swelling or hematoma noted. Skin intact. ) Skin: Positive for: Normal Color, Warm, Dry Eye Exam: Positive for: Normal appearance, PERRL Neck: Positive for: Normal, Painless ROM (Negative c-spine tenderness), Supple Cardiovascular/Chest: Positive for: Regular Rate, Rhythm. Negative for: Murmur Respiratory: Positive for: Normal Breath Sounds. Negative for: Respiratory Distress Gastrointestinal/Abdominal: Positive for: Normal Exam, Soft. Negative for: Tenderness Extremity: Positive for: Normal ROM. Negative for: Pedal Edema Neurologic/Psych: Positive for: Alert, Oriented (x3) - ECG O2 Sat by Pulse Oximetry: 99 (RA) Pulse Ox Interpretation: Normal Medical Decision Making Medical Decision Making: Time: 1336 Initial impression: Witnessed fall with head injury status post alcohol intoxication Initial plan: --Head CT --AccuCheck --Reevaluation --Glucose level: 90 Time: 1426 --Head CT FINDINGS: HEMORRHAGE: No intracranial hemorrhage. BRAIN: The jordan-white matter differentiation is well preserved. There is no mass effect or definitive edema pattern appreciate including the cortex. There is limited expansion of the ventriculosulcal and cisternal spaces once again, however, in a pattern most compatible with diffuse cerebral atrophy. No suspicious extra-axial fluid collection is identified in the midline brain anatomy appears grossly nonfocal as imaged. No atrophy or chronic microvascular ischemic changes. VENTRICLES: Unremarkable. No hydrocephalus. CALVARIUM: No destructive bony lesion or displaced fracture identified including through the skullbase. PARANASAL SINUSES: Unremarkable as visualized. No significant inflammatory changes. MASTOID AIR CELLS: Unremarkable as visualized. No inflammatory changes. OTHER FINDINGS: None. IMPRESSION: Limited diffuse cerebral atrophy reiterated. No acute findings as discussed above. Follow-up CT or MRI are available if clinically warranted. 2015: PT is stable for d/c Scribe Attestation: Documented by Geovanna Chun, acting as a scribe for Valeri Epstein PA-C Provider Scribe Attestation: All medical record entries made by the Scribe were at my direction and personally dictated by me. I have reviewed the chart and agree that the record accurately reflects my personal performance of the history, physical exam, medical decision making, and the department course for this patient. I have also personally directed, reviewed, and agree with the discharge instructions and disposition. Disposition - Clinical Impression Clinical Impression: Alcohol abuse - Patient ED Disposition Is Patient to be Admitted: No Counseled Patient/Family Regarding: Studies Performed, Diagnosis, Need For Followup, Rx Given - Disposition Disposition: Routine/Home Disposition Time: 20:18 Condition: STABLE Instructions: Alcohol Intoxication (ED), Abuse of Alcohol (ED), Alcohol Dependence (ED) Forms: [employer] (Frisian)
--- NOTE | 2017-09-05 14:29 | CT ---
PROCEDURE: CT HEAD WITHOUT CONTRAST. HISTORY: head injury with intoxication COMPARISON: Unenhanced head CT 07/17/2017. TECHNIQUE: Axial computed tomography images were obtained through the head/brain without intravenous contrast. Radiation dose: Total exam DLP = 1236.73 mGy-cm. This CT exam was performed using one or more of the following dose reduction techniques: Automated exposure control, adjustment of the mA and/or kV according to patient size, and/or use of iterative reconstruction technique. FINDINGS: HEMORRHAGE: No intracranial hemorrhage. BRAIN: The jordna-white matter differentiation is well preserved. There is no mass effect or definitive edema pattern appreciate including the cortex. There is limited expansion of the ventriculosulcal and cisternal spaces once again, however, in a pattern most compatible with diffuse cerebral atrophy. No suspicious extra-axial fluid collection is identified in the midline brain anatomy appears grossly nonfocal as imaged. No atrophy or chronic microvascular ischemic changes. VENTRICLES: Unremarkable. No hydrocephalus. CALVARIUM: No destructive bony lesion or displaced fracture identified including through the skullbase. PARANASAL SINUSES: Unremarkable as visualized. No significant inflammatory changes. MASTOID AIR CELLS: Unremarkable as visualized. No inflammatory changes. OTHER FINDINGS: None. IMPRESSION: Limited diffuse cerebral atrophy reiterated. No acute findings as discussed above. Follow-up CT or MRI are available if clinically warranted.
== END 2017-09-05 20:30 | disposition home or self-care (01) ==
LOC: H.ER 13:24
DX: F10.129 Alcohol abuse with intoxication, unspecified (principal); S09.90XA Unspecified injury of head, initial encounter; W19.XXXA Unspecified fall, initial encounter; Y92.410 Unspecified street and highway as the place of occurrence of the external cause; J44.9 Chronic obstructive pulmonary disease, unspecified; I48.91 Unspecified atrial fibrillation; Z59.0 Homelessness

== ENCOUNTER 2017-09-05 23:48 | Emergency (ER) | payer MEDICAID ==
[2017-09-05 23:48] VITALS: BMI 21.7
[2017-09-05 23:59] VITALS: O2SAT 97
--- NOTE | 2017-09-06 00:10 | ED PDOC ---
HPI: Psych/Substance Abuse Time Seen by Provider: 09/05/17 23:53 Chief Complaint (Nursing): Shortness Of Breath Chief Complaint (Provider): ETOH, SOB, Homless History Per: Patient Additional Complaint(s): 57yo M routinely seen in ED-homeless state he wants something to eat. offeres no medical complaints. Past Medical History Reviewed: Historical Data, Nursing Documentation, Vital Signs Vital Signs: Last Vital Signs Temp 99.6 F 09/05/17 23:57 Pulse 76 09/05/17 23:57 Resp 16 09/05/17 23:57 BP 136/89 09/05/17 23:57 Pulse Ox 97 09/05/17 23:57 - Medical History PMH: Asthma, Atrial Fibrillation, COPD, Hepatitis (C), Seizures - Surgical History Surgical History: Appendectomy, Tonsillectomy - Family History Family History: States: Unknown Family Hx - Living Arrangements Living Arrangements: Other - Social History Alcohol: > 2 Drinks/Day - Home Medications Home Medications: Ambulatory Orders Medication Instructions Recorded Albuterol HFA [Ventolin HFA 90 1 - 2 puff IH Q6 PRN #1 inhaler 06/10/17 mcg/actuation (8 g)] Albuterol HFA [Ventolin HFA 90 2 puff IH Q4H #1 puff 08/12/17 mcg/actuation (8 g)] Albuterol HFA [Ventolin HFA 90 2 puff IH [id number] PRN #1 inhaler 08/15/17 mcg/actuation (8 g)] Azithromycin [Zithromax Tri-Vidal] 500 mg PO DAILY #2 tablet 08/15/17 Prednisone [Deltasone] 3 tab PO DAILY #12 tablet 08/15/17 predniSONE [predniSONE Tab] 60 mg PO DAILY #9 tab 08/17/17 Albuterol Sulfate [Proair Hfa] 0.09 mg IH Q6H PRN #2 inh 08/24/17 predniSONE [predniSONE Tab] 20 mg PO BID 5 Days tab 08/24/17 Albuterol Sulfate [Proair Hfa] 2 puff INH Q4H PRN #1 inh 08/30/17 - Allergies Allergies/Adverse Reactions: Allergies Allergy/AdvReac Type Severity Reaction Status Date / Time No Known Allergies Allergy Verified 09/05/17 23:57 Review of Systems ROS Statement: Except As Marked, All Systems Reviewed And Found Negative Physical Exam - Reviewed Nursing Documentation Reviewed: Yes Vital Signs Reviewed: Yes - Physical Exam Appears: Positive for: Well, Non-toxic, No Acute Distress Head Exam: Positive for: ATRAUMATIC, NORMAL INSPECTION, NORMOCEPHALIC Skin: Positive for: Normal Color, Warm, DRY Eye Exam: Positive for: EOMI, Normal appearance, PERRL ENT: Positive for: Normal ENT Inspection Neck: Positive for: Normal, Painless ROM Cardiovascular/Chest: Positive for: Regular Rate, Rhythm Respiratory: Positive for: CNT, Normal Breath Sounds Gastrointestinal/Abdominal: Positive for: Normal Exam, Bowel Sounds, Soft Back: Positive for: Normal Inspection Extremity: Positive for: Normal ROM Neurologic/Psych: Positive for: Alert, Oriented - ECG O2 Sat by Pulse Oximetry: 97 Disposition - Clinical Impression Clinical Impression: Alcohol abuse - Patient ED Disposition Is Patient to be Admitted: No - Disposition Disposition: Routine/Home Disposition Time: 04:55 Condition: STABLE Instructions: Alcohol Intoxication (ED), Abuse of Alcohol (ED), Alcohol Dependence (ED) Forms: [employer] (Nauruan)
[2017-09-06] MEDS ORDERED: Albuterol-Ipratrop 3 mg / 0.5 (3 ml) UD INH STA (00:11)
[2017-09-06] MEDS ORDERED: Albuterol-Ipratrop 3 mg / 0.5 (3 ml) UD ONE (02:20)
[2017-09-06 06:32] VITALS: BP 124/76; PULSE 75; RESP 18; TEMP 97.2
== END 2017-09-06 05:40 | disposition home or self-care (01) ==
LOC: H.ER 23:48
DX: F10.10 Alcohol abuse, uncomplicated (principal); I48.91 Unspecified atrial fibrillation; J44.9 Chronic obstructive pulmonary disease, unspecified; Z59.0 Homelessness

== ENCOUNTER 2017-09-06 13:59 | Emergency (ER) | payer MEDICAID ==
[2017-09-06 13:59] VITALS: BMI 21.7
[2017-09-06 14:06] VITALS: BP 110/64; PULSE 100; RESP 16; TEMP 98.8; O2SAT 97
[2017-09-06] MEDS ORDERED: Albuterol-Ipratrop 3 mg / 0.5 (3 ml) UD INH STA (14:26)
--- NOTE | 2017-09-06 14:42 | ED PDOC ---
HPI: Psych/Substance Abuse Time Seen by Provider: 09/06/17 14:20 Chief Complaint (Nursing): Alcohol Ingestion Chief Complaint (Provider): Alcohol Ingestion/Asthma Exacerbation History Per: Patient History/Exam Limitations: no limitations Onset/Duration Of Symptoms: Hrs Additional Complaint(s): Jorge L Huitron is a 57 year old male well known to the ED that presents with a chief complaint of asthma exacerbation. Patient reports that he feels as though his asthma has been worsened due to a rise in temperature outside. In ED, patient is requesting that the light be turned off in his room so that he can sleep. Past Medical History Reviewed: Historical Data, Nursing Documentation, Vital Signs Vital Signs: Last Vital Signs Temp 98.8 F 09/06/17 14:04 Pulse 100 H 09/06/17 14:04 Resp 16 09/06/17 14:04 BP 110/64 09/06/17 14:04 Pulse Ox 97 09/06/17 14:04 - Medical History PMH: Asthma, Atrial Fibrillation, COPD, Hepatitis (C), Seizures - Surgical History Surgical History: Appendectomy, Tonsillectomy - Family History Family History: States: Unknown Family Hx - Home Medications Home Medications: Ambulatory Orders Medication Instructions Recorded Albuterol HFA [Ventolin HFA 90 1 - 2 puff IH Q6 PRN #1 inhaler 06/10/17 mcg/actuation (8 g)] Albuterol HFA [Ventolin HFA 90 2 puff IH Q4H #1 puff 08/12/17 mcg/actuation (8 g)] Albuterol HFA [Ventolin HFA 90 2 puff IH [id number] PRN #1 inhaler 08/15/17 mcg/actuation (8 g)] Azithromycin [Zithromax Tri-Vidal] 500 mg PO DAILY #2 tablet 08/15/17 Prednisone [Deltasone] 3 tab PO DAILY #12 tablet 08/15/17 predniSONE [predniSONE Tab] 60 mg PO DAILY #9 tab 08/17/17 Albuterol Sulfate [Proair Hfa] 0.09 mg IH Q6H PRN #2 inh 08/24/17 predniSONE [predniSONE Tab] 20 mg PO BID 5 Days tab 08/24/17 Albuterol Sulfate [Proair Hfa] 2 puff INH Q4H PRN #1 inh 08/30/17 - Allergies Allergies/Adverse Reactions: Allergies Allergy/AdvReac Type Severity Reaction Status Date / Time No Known Allergies Allergy Verified 09/05/17 23:57 Review of Systems Respiratory: Positive for: Wheezing Physical Exam - Reviewed Nursing Documentation Reviewed: Yes Vital Signs Reviewed: Yes - Physical Exam Appears: Positive for: Non-toxic, No Acute Distress Head Exam: Positive for: ATRAUMATIC, NORMOCEPHALIC Skin: Positive for: Normal Color, Warm Eye Exam: Positive for: Normal appearance, EOMI, PERRL Cardiovascular/Chest: Positive for: Regular Rate, Rhythm. Negative for: Murmur Respiratory: Positive for: Wheezing (mild wheeze). Negative for: Normal Breath Sounds Neurologic/Psych: Positive for: Alert, Oriented. Negative for: Motor/Sensory Deficits - ECG O2 Sat by Pulse Oximetry: 97 (RA) Pulse Ox Interpretation: Normal Medical Decision Making Medical Decision Making: Impression: Mild Asthma Exacerbation Plan: * Albuterol 3 ml INH * Reevaluation Scribe Attestation: Documented by Luz Samuel, acting as a scribe for Carlos Ram PA-C. Provider Scribe Attestation: All medical record entries made by the Scribe were at my direction and personally dictated by me. I have reviewed the chart and agree that the record accurately reflects my personal performance of the history, physical exam, medical decision making, and the department course for this patient. I have also personally directed, reviewed, and agree with the discharge instructions and disposition. Disposition - Clinical Impression Clinical Impression: Asthma, Alcohol intoxication - Patient ED Disposition Is Patient to be Admitted: No - Disposition Disposition: Routine/Home Disposition Time: 16:15 Condition: FAIR Instructions: Alcohol Intoxication (ED), Asthma (ED) Forms: [employer] (Omani)
[2017-09-06] MEDS ORDERED: Albuterol-Ipratrop 3 mg / 0.5 (3 ml) UD ONE (14:51)
== END 2017-09-06 16:45 | disposition home or self-care (01) ==
LOC: H.ER 13:59
DX: J45.901 Unspecified asthma with (acute) exacerbation (principal); F10.129 Alcohol abuse with intoxication, unspecified; I48.91 Unspecified atrial fibrillation; J44.9 Chronic obstructive pulmonary disease, unspecified

== ENCOUNTER 2017-09-07 19:16 | Emergency (ER) | payer MEDICAID ==
[2017-09-07 19:16] VITALS: BMI 21.7
[2017-09-07 22:53] VITALS: O2SAT 95
--- NOTE | 2017-09-08 01:19 | ED PDOC ---
HPI: SOB/CHF/COPD Time Seen by Provider: 09/07/17 19:53 Chief Complaint (Nursing): Respiratory Distress Chief Complaint (Provider): Shortness of Breath History Per: Patient Current Symptoms Are (Timing): Still Present Initiating Event: Upper Respiratory Illness Recently: Seen In ED Additional Complaint(s): 57 year old male presents to ED with complaints of SOB and has a past medical history of AFIB, COPD, and asthma. Patient is well known to ED and to provider for bed-seeking behavior. Patient requests a treatment for his asthma as well as a bed. PCP: [facility] Past Medical History Reviewed: Historical Data, Nursing Documentation, Vital Signs Vital Signs: Last Vital Signs Temp 98.2 F 09/08/17 05:44 Pulse 82 09/08/17 05:44 Resp 18 09/08/17 05:44 BP 118/78 09/08/17 05:44 Pulse Ox 95 09/08/17 05:44 - Medical History PMH: Asthma, Atrial Fibrillation, COPD, Hepatitis (C), Seizures - Surgical History Surgical History: Appendectomy, Tonsillectomy - Family History Family History: States: Unknown Family Hx - Social History Current smoker - smoking cessation education provided: Yes (heavy) Alcohol: > 2 Drinks/Day - Home Medications Home Medications: Ambulatory Orders Medication Instructions Recorded Albuterol HFA [Ventolin HFA 90 1 - 2 puff IH Q6 PRN #1 inhaler 06/10/17 mcg/actuation (8 g)] Albuterol HFA [Ventolin HFA 90 2 puff IH Q4H #1 puff 08/12/17 mcg/actuation (8 g)] Albuterol HFA [Ventolin HFA 90 2 puff IH [id number] PRN #1 inhaler 08/15/17 mcg/actuation (8 g)] Azithromycin [Zithromax Tri-Vidal] 500 mg PO DAILY #2 tablet 08/15/17 Prednisone [Deltasone] 3 tab PO DAILY #12 tablet 08/15/17 predniSONE [predniSONE Tab] 60 mg PO DAILY #9 tab 08/17/17 Albuterol Sulfate [Proair Hfa] 0.09 mg IH Q6H PRN #2 inh 08/24/17 predniSONE [predniSONE Tab] 20 mg PO BID 5 Days tab 08/24/17 Albuterol Sulfate [Proair Hfa] 2 puff INH Q4H PRN #1 inh 08/30/17 - Allergies Allergies/Adverse Reactions: Allergies Allergy/AdvReac Type Severity Reaction Status Date / Time No Known Allergies Allergy Verified 09/07/17 22:50 Curb-65 Severity Score - CURB-65 Severity Score Confusion: No Respiratory Rate greater than/equal to 30: No Systolic BP <90 or Diastolic BP less than/equal 60mmHg: No Age >64: No Curb-65 Score: 0 Percentage 30-day mortality: 0.6% Wells Criteria for PE - Wells Criteria for Pulmonary Embolism Clinical Signs and Symptoms of DVT: No Heart Rate >100: No Previous, objectively diagnosed PE or DVT: No Hemoptysis: No Total Score: 0 Review of Systems ROS Statement: Except As Marked, All Systems Reviewed And Found Negative Respiratory: Positive for: Shortness of Breath Physical Exam - Reviewed Nursing Documentation Reviewed: Yes Vital Signs Reviewed: Yes - Physical Exam Appears: Positive for: Non-toxic, No Acute Distress Skin: Positive for: Normal Color Eye Exam: Positive for: Normal appearance ENT: Positive for: Normal ENT Inspection Cardiovascular/Chest: Positive for: Regular Rate, Rhythm. Negative for: Murmur Respiratory: Negative for: Respiratory Distress Neurologic/Psych: Positive for: Alert. Negative for: Motor/Sensory Deficits - ECG O2 Sat by Pulse Oximetry: 95 (RA) Pulse Ox Interpretation: Normal Medical Decision Making Medical Decision Makin Initial impression: EtOH dependence Initial plan: Scribe Attestation: Documented by Kenia Ozuna acting as a scribe for Renaldo Gates MD. Scribe Attestation: All medical record entries made by the Scribe were at my direction and personally dictated by me. I have reviewed the chart and agree that the record accurately reflects my personal performance of the history, physical exam, medical decision making, and the department course for this patient. I have also personally directed, reviewed, and agree with the discharge instructions and disposition. Disposition - Clinical Impression Clinical Impression: Alcoholism - Patient ED Disposition Is Patient to be Admitted: No - Disposition Disposition: Routine/Home Disposition Time: 06:00 Condition: STABLE Instructions: Alcohol Dependence (ED) Forms: [employer] (Turkish)
[2017-09-08 05:46] VITALS: BP 118/78; PULSE 82; RESP 18; TEMP 98.2
== END 2017-09-08 05:47 | disposition home or self-care (01) ==
LOC: H.ER 19:16
DX: J44.9 Chronic obstructive pulmonary disease, unspecified (principal); F10.20 Alcohol dependence, uncomplicated; F17.200 Nicotine dependence, unspecified, uncomplicated; I48.91 Unspecified atrial fibrillation

== ENCOUNTER 2017-09-08 12:46 | Emergency (ER) | payer MEDICAID, OTHER ==
[2017-09-08 12:46] VITALS: BMI 21.7
--- NOTE | 2017-09-08 13:17 | ED PDOC ---
HPI: Psych/Substance Abuse Time Seen by Provider: 09/08/17 13:11 Chief Complaint (Nursing): Alcohol Ingestion Chief Complaint (Provider): etoh History Per: Patient Additional Complaint(s): 57 year old male with history of etoh abuse presents acutely intoxicated. Patient is well known to ED for daily visits. He is currently non-domiciled. Patient offers no acute complaints but is requesting food. Past Medical History Reviewed: Historical Data, Nursing Documentation, Vital Signs Vital Signs: Last Vital Signs Temp 98.0 F 09/08/17 13:08 Pulse 88 09/08/17 13:08 Resp 16 09/08/17 13:08 BP 132/70 09/08/17 13:08 Pulse Ox 95 09/08/17 13:08 - Medical History PMH: Asthma, Atrial Fibrillation, COPD, Hepatitis (C), Seizures - Surgical History Surgical History: Appendectomy, Tonsillectomy - Family History Family History: States: No Known Family Hx - Living Arrangements Living Arrangements: Other (non-domiciled) - Social History Alcohol: > 2 Drinks/Day - Home Medications Home Medications: Ambulatory Orders Medication Instructions Recorded Albuterol HFA [Ventolin HFA 90 1 - 2 puff IH Q6 PRN #1 inhaler 06/10/17 mcg/actuation (8 g)] Albuterol HFA [Ventolin HFA 90 2 puff IH Q4H #1 puff 08/12/17 mcg/actuation (8 g)] Albuterol HFA [Ventolin HFA 90 2 puff IH [id number] PRN #1 inhaler 08/15/17 mcg/actuation (8 g)] Azithromycin [Zithromax Tri-Vidal] 500 mg PO DAILY #2 tablet 08/15/17 Prednisone [Deltasone] 3 tab PO DAILY #12 tablet 08/15/17 predniSONE [predniSONE Tab] 60 mg PO DAILY #9 tab 08/17/17 Albuterol Sulfate [Proair Hfa] 0.09 mg IH Q6H PRN #2 inh 08/24/17 predniSONE [predniSONE Tab] 20 mg PO BID 5 Days tab 08/24/17 Albuterol Sulfate [Proair Hfa] 2 puff INH Q4H PRN #1 inh 08/30/17 - Allergies Allergies/Adverse Reactions: Allergies Allergy/AdvReac Type Severity Reaction Status Date / Time No Known Allergies Allergy Verified 09/08/17 13:08 Review of Systems ROS Statement: Except As Marked, All Systems Reviewed And Found Negative Psych: Positive for: Other (etoh) Physical Exam - Reviewed Nursing Documentation Reviewed: Yes Vital Signs Reviewed: Yes - Physical Exam Appears: Positive for: Well, Non-toxic, No Acute Distress Skin: Negative for: Rash Eye Exam: Positive for: Normal appearance Cardiovascular/Chest: Positive for: Regular Rate, Rhythm Respiratory: Positive for: Normal Breath Sounds. Negative for: Respiratory Distress Neurologic/Psych: Positive for: Alert, Other (intoxicated, answers questions appropriately) - ECG O2 Sat by Pulse Oximetry: 95 Pulse Ox Interpretation: Normal Medical Decision Making Medical Decision Makin57 year old intoxicated male Plan: Glucose POC ED observation Glucose POC: 98 Patient was observed for several hours in emergency department. His condition remained stable throughout his stay. 6:40 PM, patient is awake, alert, has steady gait with walker which she uses at baseline, he is stable for discharge. Disposition - Clinical Impression Clinical Impression: Alcohol abuse with intoxication - Patient ED Disposition Is Patient to be Admitted: No - Disposition Referrals: [facility] [Outside] Disposition: Routine/Home Disposition Time: 18:41 Condition: STABLE Instructions: Alcohol Intoxication (ED), Abuse of Alcohol (ED) Forms: [employer] (Senegalese)
[2017-09-08 18:46] VITALS: BP 114/78; PULSE 70; RESP 18; TEMP 97.6; O2SAT 97
[2017-09-08] MEDS ORDERED: Albuterol-Ipratrop 3 mg / 0.5 (3 ml) UD ONE (23:59)
== END 2017-09-08 19:12 | disposition home or self-care (01) ==
LOC: H.ER 12:46
DX: F10.129 Alcohol abuse with intoxication, unspecified (principal); I48.91 Unspecified atrial fibrillation; J44.9 Chronic obstructive pulmonary disease, unspecified

== ENCOUNTER 2017-09-08 22:31 | Emergency (ER) | payer MEDICAID ==
[2017-09-08 22:32] VITALS: BMI 21.7
[2017-09-08 22:39] VITALS: BP 138/68; PULSE 88; RESP 16; TEMP 97; O2SAT 95
--- NOTE | 2017-09-08 23:06 | ED PDOC ---
HPI: Psych/Substance Abuse Time Seen by Provider: 09/08/17 23:02 Chief Complaint (Nursing): Cough, Cold, Congestion Chief Complaint (Provider): etoh, cough History Per: Patient Additional Complaint(s): Patient returns to emergency Department for the second time today. He is a non- domiciled male who has a history of alcohol abuse. Patient states that his cough is worse in the cold weather pumping his ED visit tonight. He denies any chest pain. Patient has known history of asthma and is noncompliant with asthma meds. Past Medical History Reviewed: Historical Data, Nursing Documentation, Vital Signs Vital Signs: Last Vital Signs Temp 97.0 F L 09/08/17 22:37 Pulse 88 09/08/17 22:37 Resp 16 09/08/17 22:37 BP 138/68 09/08/17 22:37 Pulse Ox 95 09/08/17 22:37 - Medical History PMH: Asthma, Atrial Fibrillation, COPD, Hepatitis (C), Seizures - Surgical History Surgical History: Appendectomy, Tonsillectomy - Family History Family History: States: No Known Family Hx - Living Arrangements Living Arrangements: Other (non-domiciled) - Social History Alcohol: > 2 Drinks/Day - Home Medications Home Medications: Ambulatory Orders Medication Instructions Recorded Albuterol HFA [Ventolin HFA 90 1 - 2 puff IH Q6 PRN #1 inhaler 06/10/17 mcg/actuation (8 g)] Albuterol HFA [Ventolin HFA 90 2 puff IH Q4H #1 puff 08/12/17 mcg/actuation (8 g)] Albuterol HFA [Ventolin HFA 90 2 puff IH [id number] PRN #1 inhaler 08/15/17 mcg/actuation (8 g)] Azithromycin [Zithromax Tri-Vidal] 500 mg PO DAILY #2 tablet 08/15/17 Prednisone [Deltasone] 3 tab PO DAILY #12 tablet 08/15/17 predniSONE [predniSONE Tab] 60 mg PO DAILY #9 tab 08/17/17 Albuterol Sulfate [Proair Hfa] 0.09 mg IH Q6H PRN #2 inh 08/24/17 predniSONE [predniSONE Tab] 20 mg PO BID 5 Days tab 08/24/17 Albuterol Sulfate [Proair Hfa] 2 puff INH Q4H PRN #1 inh 08/30/17 - Allergies Allergies/Adverse Reactions: Allergies Allergy/AdvReac Type Severity Reaction Status Date / Time No Known Allergies Allergy Verified 09/08/17 13:08 Review of Systems ROS Statement: Except As Marked, All Systems Reviewed And Found Negative Respiratory: Positive for: Cough Psych: Positive for: Other (etoh) Physical Exam - Reviewed Nursing Documentation Reviewed: Yes Vital Signs Reviewed: Yes - Physical Exam Appears: Positive for: Well, Non-toxic, No Acute Distress Skin: Negative for: Rash Eye Exam: Positive for: Normal appearance Cardiovascular/Chest: Positive for: Regular Rate, Rhythm Respiratory: Positive for: Normal Breath Sounds. Negative for: Respiratory Distress Neurologic/Psych: Positive for: Alert, Oriented, Other (intoxicated, answers some questions appropriately) - ECG O2 Sat by Pulse Oximetry: 95 Pulse Ox Interpretation: Normal Medical Decision Making Medical Decision Makin-year-old male with history of alcohol abuse. Plan: Fingerstick ED observation Disposition - Clinical Impression Clinical Impression: Alcohol abuse, Asthma - Patient ED Disposition Is Patient to be Admitted: Transfer of Care - Disposition Disposition: Transfer of Care Disposition Time: 23:55 Condition: FAIR Instructions: Alcohol Intoxication (ED), Abuse of Alcohol (ED), Alcohol Dependence (ED) Patient Signed Over To: Faye Rangel Handoff Comments: Case was signed out to ANAY Rangel pending sobriety and final disposition
[2017-09-08] MEDS ORDERED: Albuterol-Ipratrop 3 mg / 0.5 (3 ml) UD INH STA (23:43)
--- NOTE | 2017-09-09 05:24 | ED PDOC ---
- ECG O2 Sat by Pulse Oximetry: 95 - Progress ED Course And Treament: Case endorsed to blog writer from Bethanie SALDANA pending re-evaluation 5:00 Patient awake, alert, oriented x 3. Ambulating at baseline. Stable for discharge Disposition - Clinical Impression Clinical Impression: Alcohol abuse, Asthma - POA Present On Arrival: None - Disposition Disposition: Routine/Home Disposition Time: 05:00 Condition: IMPROVED Instructions: Alcohol Intoxication (ED), Abuse of Alcohol (ED), Alcohol Dependence (ED) Forms: [employer] (Icelandic)
--- NOTE | 2017-09-10 16:00 | CARD ---
APPROVED REPORT EKG Measurement Heart [id number] <Conclusion> Normal sinus rhythm Normal ECG
== END 2017-09-09 05:59 | disposition home or self-care (01) ==
LOC: H.ER 22:31
DX: J44.9 Chronic obstructive pulmonary disease, unspecified (principal); I48.91 Unspecified atrial fibrillation; Z91.19 Patient's noncompliance with other medical treatment and regimen; F10.10 Alcohol abuse, uncomplicated

== ENCOUNTER 2017-09-09 12:32 | Emergency (ER) | payer MEDICAID ==
[2017-09-09 12:34] VITALS: BMI 21.7
[2017-09-09 12:38] VITALS: BP 130/54; PULSE 88; RESP 16; TEMP 97; O2SAT 96
--- NOTE | 2017-09-09 13:05 | ED PDOC ---
HPI: Asthma Time Seen by Provider: 09/09/17 12:45 Chief Complaint (Nursing): Cough, Cold, Congestion Chief Complaint (Provider): Asthma History Per: Patient History/Exam Limitations: no limitations Onset/Duration Of Symptoms: Persistent Current Symptoms Are (Timing): Still Present Additional Complaint(s): 57 year old male presents to ED with complaints of cough and congestion and has a past medical history of alcohol abuse, COPD, and asthma. Patient is well known to provider and ED for bed-seeking behavior. Patient requests a nebulizer treatment for asthma symptoms. PCP: None - Asthma History Date Of Last ED Visit: 09/08/17 Past Medical History Reviewed: Historical Data, Nursing Documentation, Vital Signs Vital Signs: Last Vital Signs Temp 97.0 F L 09/09/17 12:35 Pulse 88 09/09/17 12:35 Resp 16 09/09/17 12:35 BP 130/54 L 09/09/17 12:35 Pulse Ox 96 09/09/17 12:35 - Medical History PMH: Asthma, Atrial Fibrillation, COPD, Hepatitis (C), Seizures - Surgical History Surgical History: Appendectomy, Tonsillectomy - Family History Family History: States: Unknown Family Hx - Social History Current smoker - smoking cessation education provided: Yes Ex-Smoker (has not smoked in the last 12 months): No Alcohol: > 2 Drinks/Day - Home Medications Home Medications: Ambulatory Orders Medication Instructions Recorded Albuterol HFA [Ventolin HFA 90 1 - 2 puff IH Q6 PRN #1 inhaler 06/10/17 mcg/actuation (8 g)] Albuterol HFA [Ventolin HFA 90 2 puff IH Q4H #1 puff 08/12/17 mcg/actuation (8 g)] Albuterol HFA [Ventolin HFA 90 2 puff IH [id number] PRN #1 inhaler 08/15/17 mcg/actuation (8 g)] Azithromycin [Zithromax Tri-Vidal] 500 mg PO DAILY #2 tablet 08/15/17 Prednisone [Deltasone] 3 tab PO DAILY #12 tablet 08/15/17 predniSONE [predniSONE Tab] 60 mg PO DAILY #9 tab 08/17/17 Albuterol Sulfate [Proair Hfa] 0.09 mg IH Q6H PRN #2 inh 12/05/17 predniSONE [predniSONE Tab] 20 mg PO BID 5 Days tab 08/24/17 Albuterol Sulfate [Proair Hfa] 2 puff INH Q4H PRN #1 inh 08/30/17 - Allergies Allergies/Adverse Reactions: Allergies Allergy/AdvReac Type Severity Reaction Status Date / Time No Known Allergies Allergy Verified 09/08/17 13:08 Review of Systems ROS Statement: Except As Marked, All Systems Reviewed And Found Negative ENT: Positive for: Nose Congestion Respiratory: Positive for: Cough Physical Exam - Reviewed Nursing Documentation Reviewed: Yes Vital Signs Reviewed: Yes - Physical Exam Appears: Positive for: Non-toxic, No Acute Distress Skin: Positive for: Normal Color ENT: Positive for: Normal ENT Inspection Respiratory: Positive for: Wheezing. Negative for: Respiratory Distress Neurologic/Psych: Positive for: Alert, Oriented - ECG O2 Sat by Pulse Oximetry: 96 (RA) Pulse Ox Interpretation: Normal Medical Decision Making Medical Decision Makin Initial impression: asthma exacerbation Initial plan: stable for d/c. requesting to leave Scribe Attestation: Documented by Kenia Ozuna, acting as a scribe for Valeri Epstein PA-C. Provider Scribe Attestation: All medical record entries made by the Scribe were at my direction and personally dictated by me. I have reviewed the chart and agree that the record accurately reflects my personal performance of the history, physical exam, medical decision making, and the department course for this patient. I have also personally directed, reviewed, and agree with the discharge instructions and disposition. Disposition - Clinical Impression Clinical Impression: Alcohol abuse - Patient ED Disposition Is Patient to be Admitted: No - Disposition Disposition: Routine/Home Disposition Time: 17:40 Condition: STABLE Instructions: Alcohol Intoxication (ED), Abuse of Alcohol (ED), Alcohol Dependence (ED) Forms: [employer] (Indonesian)
== END 2017-09-09 17:45 | disposition home or self-care (01) ==
LOC: H.ER 12:32
DX: F10.10 Alcohol abuse, uncomplicated (principal); F17.200 Nicotine dependence, unspecified, uncomplicated; I48.91 Unspecified atrial fibrillation; J44.9 Chronic obstructive pulmonary disease, unspecified; J45.901 Unspecified asthma with (acute) exacerbation

== ENCOUNTER 2017-09-10 11:31 | Emergency (ER) | payer MEDICAID ==
[2017-09-10 11:31] VITALS: BMI 21.7
[2017-09-10 11:38] VITALS: BP 151/66; PULSE 82; RESP 22; TEMP 97.7; O2SAT 98
--- NOTE | 2017-09-10 11:53 | ED PDOC ---
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 Pt admits he is intoxicated. Past Medical History Reviewed: Nursing Documentation, Vital Signs Vital Signs: Last Vital Signs Temp 97.7 F 09/10/17 11:35 Pulse 82 09/10/17 11:35 Resp 22 09/10/17 11:35 BP 151/66 H 09/10/17 11:35 Pulse Ox 98 09/10/17 11:53 - Medical History PMH: Asthma, Atrial Fibrillation, COPD, Hepatitis (C), Seizures - Surgical History Surgical History: Appendectomy, Tonsillectomy - Family History Family History: States: Unknown Family Hx - Living Arrangements Living Arrangements: With Family - Social History Current smoker - smoking cessation education provided: No Alcohol: None Drugs: Denies - Home Medications Home Medications: Ambulatory Orders Medication Instructions Recorded Albuterol HFA [Ventolin HFA 90 1 - 2 puff IH Q6 PRN #1 inhaler 06/10/17 mcg/actuation (8 g)] Albuterol HFA [Ventolin HFA 90 2 puff IH Q4H #1 puff 08/12/17 mcg/actuation (8 g)] Albuterol HFA [Ventolin HFA 90 2 puff IH [id number] PRN #1 inhaler 08/15/17 mcg/actuation (8 g)] Azithromycin [Zithromax Tri-Vidal] 500 mg PO DAILY #2 tablet 08/15/17 Prednisone [Deltasone] 3 tab PO DAILY #12 tablet 08/15/17 predniSONE [predniSONE Tab] 60 mg PO DAILY #9 tab 08/17/17 Albuterol Sulfate [Proair Hfa] 0.09 mg IH Q6H PRN #2 inh 08/24/17 predniSONE [predniSONE Tab] 20 mg PO BID 5 Days tab 08/24/17 Albuterol Sulfate [Proair Hfa] 2 puff INH Q4H PRN #1 inh 08/30/17 - Allergies Allergies/Adverse Reactions: Allergies Allergy/AdvReac Type Severity Reaction Status Date / Time No Known Allergies Allergy Verified 09/08/17 13:08 Review of Systems ROS Statement: Except As Marked, All Systems Reviewed And Found Negative Physical Exam - Reviewed Nursing Documentation Reviewed: Yes Vital Signs Reviewed: Yes - Physical Exam Appears: Positive for: Well, Non-toxic, No Acute Distress Head Exam: Positive for: ATRAUMATIC, NORMAL INSPECTION, NORMOCEPHALIC Skin: Positive for: Normal Color, Warm, DRY Eye Exam: Positive for: EOMI, Normal appearance, PERRL ENT: Positive for: Normal ENT Inspection Neck: Positive for: Normal, Painless ROM Cardiovascular/Chest: Positive for: Regular Rate, Rhythm Respiratory: Positive for: CNT, Normal Breath Sounds Gastrointestinal/Abdominal: Positive for: Normal Exam, Bowel Sounds, Soft Back: Positive for: Normal Inspection Extremity: Positive for: Normal ROM Neurologic/Psych: Positive for: Alert, Oriented - ECG O2 Sat by Pulse Oximetry: 98 Medical Decision Making Medical Decision Making: Pt administered 2 duo nebs in ED Asking for food tray on re-eval Disposition - Clinical Impression Clinical Impression: Alcohol abuse - Patient ED Disposition Is Patient to be Admitted: No - Disposition Disposition: Routine/Home Disposition Time: 17:12 Condition: STABLE Instructions: Alcohol Intoxication (ED), Abuse of Alcohol (ED), Alcohol Dependence (ED) Forms: [employer] (Kiswahili)
[2017-09-10] MEDS ORDERED: Albuterol-Ipratrop 3 mg / 0.5 (3 ml) UD ONE (12:05)
[2017-09-10] MEDS: Albuterol-Ipratrop 3 mg / 0.5 (3 ml) UD INH STA ×2 (12:05)
== END 2017-09-10 16:47 | disposition home or self-care (01) ==
LOC: H.ER 11:31
DX: J44.9 Chronic obstructive pulmonary disease, unspecified (principal); F10.129 Alcohol abuse with intoxication, unspecified; I48.91 Unspecified atrial fibrillation

== ENCOUNTER 2017-09-10 19:35 | Emergency (ER) | payer MEDICAID ==
[2017-09-10 19:36] VITALS: BMI 21.7
[2017-09-10 19:38] VITALS: TEMP 97.6
--- NOTE | 2017-09-10 20:02 | ED PDOC ---
HPI: General Adult Time Seen by Provider: 09/10/17 19:48 Chief Complaint (Nursing): Alcohol Ingestion Chief Complaint (Provider): Alcohol Ingestion History Per: Patient History/Exam Limitations: no limitations Onset/Duration Of Symptoms: Hrs Current Symptoms Are (Timing): Still Present Additional Complaint(s): Jorge L Huitron, a 57 year old male, is brought into the ED by EMS for alcohol intoxication. Patient is well known to the ED and provider. Past Medical History Reviewed: Historical Data, Nursing Documentation, Vital Signs Vital Signs: Last Vital Signs Temp 97.6 F 09/10/17 19:38 Pulse 89 09/10/17 21:10 Resp 20 09/10/17 21:10 BP 108/78 09/10/17 21:10 Pulse Ox 96 09/10/17 21:10 - Medical History PMH: Asthma, Atrial Fibrillation, COPD, Hepatitis (C), Seizures - Surgical History Surgical History: Appendectomy, Tonsillectomy - Family History Family History: States: Unknown Family Hx - Social History Alcohol: < 2 Drinks/Day Drugs: Denies - Home Medications Home Medications: Ambulatory Orders Medication Instructions Recorded Albuterol HFA [Ventolin HFA 90 1 - 2 puff IH Q6 PRN #1 inhaler 06/10/17 mcg/actuation (8 g)] Albuterol HFA [Ventolin HFA 90 2 puff IH Q4H #1 puff 08/12/17 mcg/actuation (8 g)] Albuterol HFA [Ventolin HFA 90 2 puff IH [id number] PRN #1 inhaler 08/15/17 mcg/actuation (8 g)] Azithromycin [Zithromax Tri-Vidal] 500 mg PO DAILY #2 tablet 08/15/17 Prednisone [Deltasone] 3 tab PO DAILY #12 tablet 08/15/17 predniSONE [predniSONE Tab] 60 mg PO DAILY #9 tab 08/17/17 Albuterol Sulfate [Proair Hfa] 0.09 mg IH Q6H PRN #2 inh 08/24/17 predniSONE [predniSONE Tab] 20 mg PO BID 5 Days tab 08/24/17 Albuterol Sulfate [Proair Hfa] 2 puff INH Q4H PRN #1 inh 08/30/17 - Allergies Allergies/Adverse Reactions: Allergies Allergy/AdvReac Type Severity Reaction Status Date / Time No Known Allergies Allergy Verified 09/08/17 13:08 Review of Systems ROS Statement: Except As Marked, All Systems Reviewed And Found Negative Constitutional: Positive for: Other (Alcohol Intoxication) Physical Exam - Reviewed Nursing Documentation Reviewed: Yes Vital Signs Reviewed: Yes - Physical Exam Appears: Positive for: Non-toxic, No Acute Distress Head Exam: Positive for: ATRAUMATIC, NORMAL INSPECTION, NORMOCEPHALIC Skin: Positive for: Normal Color, Warm, Dry. Negative for: Rash ENT: Negative for: Normal ENT Inspection (Alcohol on breath), Tonsillar Exudate , Tonsillar Swelling Cardiovascular/Chest: Positive for: Regular Rate, Rhythm, Chest Non Tender. Negative for: Tachycardia Respiratory: Positive for: Normal Breath Sounds. Negative for: Wheezing, Respiratory Distress Neurologic/Psych: Positive for: Alert, Oriented - ECG O2 Sat by Pulse Oximetry: 97 (RA) Pulse Ox Interpretation: Normal Medical Decision Making Medical Decision Makin Initial Impression 57 y/o male presenting with alcohol Intoxication Initial Plan: * Reevaluation Scribe Attestation Documented by Adilene Lemus acting as a scribe for Valeri Epstein PA-C. Scribe Attestation All medical record entries made by the Scribe were at my direction and personally dictated by me. I have reviewed the chart and agree that the record accurately reflects my personal performance of the history, physical exam, medical decision making, and the department course for this patient. I have also personally directed, reviewed, and agree with the discharge instructions and disposition. Disposition - Clinical Impression Clinical Impression: Alcohol abuse - Patient ED Disposition Is Patient to be Admitted: Transfer of Care - Disposition Disposition Time: 23:32 Condition: STABLE Instructions: Alcohol Intoxication (ED), Abuse of Alcohol (ED), Alcohol Dependence (ED) Forms: [employer] (French)
[2017-09-10 23:18] VITALS: BP 108/78; PULSE 89; RESP 20
[2017-09-10 23:33] VITALS: O2SAT 97
--- NOTE | 2017-09-10 23:36 | ED PDOC ---
- ECG O2 Sat by Pulse Oximetry: 97 (RA) Medical Decision Making Medical Decision Making: Case was signed out to global technical writer from ANAY Epstein pending sobriety and re- evaluation. Patient was observed in ED for several hours. Patient's condition has remained stable throughout ED stay. 6:00 am: patient is awake and alert, has steady gait, he is stable for discharge. Disposition - Clinical Impression Clinical Impression: Alcohol abuse - POA Present On Arrival: None - Disposition Referrals: [facility] [Outside] Disposition: Routine/Home Disposition Time: 04:35 Condition: STABLE Instructions: Alcohol Intoxication (ED), Abuse of Alcohol (ED), Alcohol Dependence (ED) Forms: [employer] (Tunisian)
== END 2017-09-11 06:28 | disposition home or self-care (01) ==
LOC: H.ER 19:35
DX: F10.129 Alcohol abuse with intoxication, unspecified (principal); I48.91 Unspecified atrial fibrillation; J44.9 Chronic obstructive pulmonary disease, unspecified

== ENCOUNTER 2017-09-11 20:50 | Emergency (ER) | payer MEDICAID ==
[2017-09-11 20:50] VITALS: BMI 21.7
[2017-09-11 20:57] VITALS: RESP 18
--- NOTE | 2017-09-11 21:09 | ED PDOC ---
HPI: Psych/Substance Abuse Time Seen by Provider: 09/11/17 20:55 Chief Complaint (Nursing): Cough, Cold, Congestion Chief Complaint (Provider): URI History Per: Patient Additional Complaint(s): To ED via BLS for evaluation of cough and congestion. Patient is homeless and states symptoms worsen in the cold. Patient is intoxicated, admits to drinking alcohol today. Past Medical History Reviewed: Historical Data, Nursing Documentation, Vital Signs Vital Signs: Last Vital Signs Temp 98.0 F 09/11/17 20:52 Pulse 94 H 09/11/17 20:52 Resp 18 09/11/17 20:52 BP 138/68 09/11/17 20:52 Pulse Ox 99 09/11/17 20:52 - Medical History PMH: Asthma, Atrial Fibrillation, COPD, Hepatitis (C), Seizures - Surgical History Surgical History: Appendectomy, Tonsillectomy - Family History Family History: States: Unknown Family Hx - Living Arrangements Living Arrangements: Other - Social History Current smoker - smoking cessation education provided: Yes Alcohol: > 2 Drinks/Day Drugs: Denies - Home Medications Home Medications: Ambulatory Orders Medication Instructions Recorded Albuterol HFA [Ventolin HFA 90 1 - 2 puff IH Q6 PRN #1 inhaler 06/10/17 mcg/actuation (8 g)] Albuterol HFA [Ventolin HFA 90 2 puff IH Q4H #1 puff 08/12/17 mcg/actuation (8 g)] Albuterol HFA [Ventolin HFA 90 2 puff IH [id number] PRN #1 inhaler 08/15/17 mcg/actuation (8 g)] Azithromycin [Zithromax Tri-Vidal] 500 mg PO DAILY #2 tablet 08/15/17 Prednisone [Deltasone] 3 tab PO DAILY #12 tablet 08/15/17 predniSONE [predniSONE Tab] 60 mg PO DAILY #9 tab 08/17/17 Albuterol Sulfate [Proair Hfa] 0.09 mg IH Q6H PRN #2 inh 08/24/17 predniSONE [predniSONE Tab] 20 mg PO BID 5 Days tab 08/24/17 Albuterol Sulfate [Proair Hfa] 2 puff INH Q4H PRN #1 inh 08/30/17 - Allergies Allergies/Adverse Reactions: Allergies Allergy/AdvReac Type Severity Reaction Status Date / Time No Known Allergies Allergy Verified 09/11/17 20:52 Review of Systems ROS Statement: Except As Marked, All Systems Reviewed And Found Negative Physical Exam - Reviewed Nursing Documentation Reviewed: Yes Vital Signs Reviewed: Yes - Physical Exam Appears: Positive for: Well, Non-toxic, No Acute Distress Head Exam: Positive for: ATRAUMATIC, NORMAL INSPECTION, NORMOCEPHALIC Skin: Positive for: Normal Color, Warm, DRY Eye Exam: Positive for: EOMI, Normal appearance, PERRL ENT: Positive for: Normal ENT Inspection Neck: Positive for: Normal, Painless ROM Cardiovascular/Chest: Positive for: Regular Rate, Rhythm Respiratory: Positive for: CNT, Normal Breath Sounds Gastrointestinal/Abdominal: Positive for: Normal Exam, Bowel Sounds, Soft Back: Positive for: Normal Inspection Extremity: Positive for: Normal ROM Neurologic/Psych: Positive for: Alert, Oriented - ECG O2 Sat by Pulse Oximetry: 99 Medical Decision Making Medical Decision Making: Pt asking for food tray Disposition - Clinical Impression Clinical Impression: Alcoholism /alcohol abuse - Patient ED Disposition Is Patient to be Admitted: No - Disposition Disposition: Routine/Home Disposition Time: 21:09 Condition: STABLE - POA Present On Arrival: None
[2017-09-11] MEDS ORDERED: Albuterol-Ipratrop 3 mg / 0.5 (3 ml) UD INH STA (22:48)
--- NOTE | 2017-09-11 23:46 | ED PDOC ---
- ECG O2 Sat by Pulse Oximetry: 99 Pulse Ox Interpretation: Normal Medical Decision Making Medical Decision Making: Case signed out to program writer from ANAY Patrick pending sobriety and final disposition. Patient was observed in ED for several hours, his condition has remained stable throughout his stay. 6:00 am: patient is awake, alert, has steady gait with walker which he uses at baseline, he is stable for discharge. Disposition - Clinical Impression Clinical Impression: Alcoholism /alcohol abuse - POA Present On Arrival: None - Disposition [facility]errals: [facility] [[facility]] Disposition: Routine/Home Disposition Time: 01:07 Condition: STABLE Instructions: Alcohol Intoxication (ED) Forms: [employer] (Luxembourgish)
[2017-09-12 05:46] VITALS: BP 126/79; PULSE 76; TEMP 98.3; O2SAT 96
== END 2017-09-12 06:00 | disposition home or self-care (01) ==
LOC: H.ER 20:50
DX: J44.9 Chronic obstructive pulmonary disease, unspecified (principal); F10.129 Alcohol abuse with intoxication, unspecified; F17.200 Nicotine dependence, unspecified, uncomplicated; I48.91 Unspecified atrial fibrillation

== ENCOUNTER 2017-09-12 07:32 | Emergency (ER) | payer MEDICAID ==
[2017-09-12 07:35] VITALS: BP 108/70; PULSE 85; TEMP 97.1; O2SAT 99
[2017-09-12 07:36] VITALS: BMI 21.2
[2017-09-12 07:48] VITALS: RESP 18
--- NOTE | 2017-09-12 07:58 | ED PDOC ---
HPI: SOB/CHF/COPD Time Seen by Provider: 09/12/17 07:55 Chief Complaint (Nursing): Shortness Of Breath Chief Complaint (Provider): Shortness of Breath History Per: Patient History/Exam Limitations: no limitations Current Symptoms Are (Timing): Still Present Recently: Seen In ED Additional Complaint(s): 57 year old male brought in by EMS presents to ED with complaints of SOB and has a past medical history of COPD and alcohol abuse. Patient is well known to ED and provider for bed-seeking behavior. Patient was just discharged from ED minutes prior to repeat ED arrival. Patient states outdoor weather worsens his breathing. PCP: ARCHA[facility] Past Medical History Reviewed: Historical Data, Nursing Documentation, Vital Signs Vital Signs: Last Vital Signs Temp 97.1 F L 09/12/17 07:34 Pulse 85 09/12/17 07:34 Resp 18 09/12/17 07:47 BP 108/70 09/12/17 07:34 Pulse Ox 99 09/12/17 10:00 - Medical History PMH: Asthma, Atrial Fibrillation, COPD, Hepatitis (C), Seizures - Surgical History Surgical History: Appendectomy, Tonsillectomy - Family History Family History: States: Unknown Family Hx - Social History Alcohol: > 2 Drinks/Day - Home Medications Home Medications: Ambulatory Orders Medication Instructions Recorded Albuterol HFA [Ventolin HFA 90 1 - 2 puff IH Q6 PRN #1 inhaler 06/10/17 mcg/actuation (8 g)] Albuterol HFA [Ventolin HFA 90 2 puff IH Q4H #1 puff 08/12/17 mcg/actuation (8 g)] Albuterol HFA [Ventolin HFA 90 2 puff IH [id number] PRN #1 inhaler 08/15/17 mcg/actuation (8 g)] Azithromycin [Zithromax Tri-Vidal] 500 mg PO DAILY #2 tablet 08/15/17 Prednisone [Deltasone] 3 tab PO DAILY #12 tablet 08/15/17 predniSONE [predniSONE Tab] 60 mg PO DAILY #9 tab 08/17/17 Albuterol Sulfate [Proair Hfa] 0.09 mg IH Q6H PRN #2 inh 08/24/17 predniSONE [predniSONE Tab] 20 mg PO BID 5 Days tab 08/24/17 Albuterol Sulfate [Proair Hfa] 2 puff INH Q4H PRN #1 inh 08/30/17 - Allergies Allergies/Adverse Reactions: Allergies Allergy/AdvReac Type Severity Reaction Status Date / Time No Known Allergies Allergy Verified 09/11/17 20:52 Review of Systems ROS Statement: Except As Marked, All Systems Reviewed And Found Negative Respiratory: Positive for: Shortness of Breath Physical Exam - Reviewed Nursing Documentation Reviewed: Yes Vital Signs Reviewed: Yes - Physical Exam Appears: Positive for: Non-toxic, No Acute Distress (Disheveled) Skin: Positive for: Normal Color, Warm, Dry Respiratory: Negative for: Respiratory Distress Extremity: Positive for: Normal ROM. Negative for: Deformity Neurologic/Psych: Positive for: Alert, Oriented - ECG O2 Sat by Pulse Oximetry: 99 (RA) Pulse Ox Interpretation: Normal Medical Decision Making Medical Decision Makin Initial impression: chronic asthma Initial plan: Provider discussed with patient how warmer, dry climates are better for those with asthma/COPD due to less humidity. Patient states he is feeling better now that he is indoors. Scribe Attestation: Documented by Kenia Ozuna acting as a scribe for Nely Jernigan MD. Scribe Attestation: All medical record entries made by the Scribe were at my direction and personally dictated by me. I have reviewed the chart and agree that the record accurately reflects my personal performance of the history, physical exam, medical decision making, and the department course for this patient. I have also personally directed, reviewed, and agree with the discharge instructions and disposition. Disposition - Clinical Impression Clinical Impression: Bronchospasm - Patient ED Disposition Is Patient to be Admitted: No Doctor Will See Patient In The: Office Counseled Patient/Family Regarding: Studies Performed, Diagnosis, Need For Followup - Disposition Referrals: [facility] [Outside] Disposition: Routine/Home Disposition Time: 10:00 Condition: GOOD Instructions: Asthma (ED)
== END 2017-09-12 10:00 | disposition home or self-care (01) ==
LOC: H.ER 07:32
DX: J44.9 Chronic obstructive pulmonary disease, unspecified (principal); I48.91 Unspecified atrial fibrillation

== ENCOUNTER 2017-09-12 18:36 | Emergency (ER) | payer MEDICAID ==
[2017-09-12 18:36] VITALS: BMI 21.2
[2017-09-12 18:40] VITALS: BP 151/92; RESP 18; TEMP 97.9; O2SAT 100
[2017-09-12 18:52] VITALS: PULSE 92
--- NOTE | 2017-09-12 19:00 | ED PDOC ---
HPI: Psych/Substance Abuse Time Seen by Provider: 09/12/17 18:44 Chief Complaint (Nursing): Alcohol Ingestion Chief Complaint (Provider): Alcohol Ingestion ED Caveat: Intoxicated History/Exam Limitations: intoxication Additional Complaint(s): 57 y/o male is brought to the ED by EMS for alcohol intoxication. Admits to drinking alcohol. Offers no complaints. Past Medical History Reviewed: Historical Data, Nursing Documentation, Vital Signs Vital Signs: Last Vital Signs Temp 97.9 F 09/12/17 18:37 Pulse 92 H 09/12/17 18:51 Resp 18 09/12/17 18:37 BP 151/92 H 09/12/17 18:37 Pulse Ox 100 09/12/17 18:37 - Medical History PMH: Asthma, Atrial Fibrillation, COPD, Hepatitis (C), Seizures - Surgical History Surgical History: Appendectomy, Tonsillectomy - Family History Family History: States: Unknown Family Hx - Social History Alcohol: Other (yes) - Home Medications Home Medications: Ambulatory Orders Medication Instructions Recorded Albuterol HFA [Ventolin HFA 90 1 - 2 puff IH Q6 PRN #1 inhaler 06/10/17 mcg/actuation (8 g)] Albuterol HFA [Ventolin HFA 90 2 puff IH Q4H #1 puff 08/12/17 mcg/actuation (8 g)] Albuterol HFA [Ventolin HFA 90 2 puff IH [id number] PRN #1 inhaler 08/15/17 mcg/actuation (8 g)] Azithromycin [Zithromax Tri-Vidal] 500 mg PO DAILY #2 tablet 08/15/17 Prednisone [Deltasone] 3 tab PO DAILY #12 tablet 08/15/17 predniSONE [predniSONE Tab] 60 mg PO DAILY #9 tab 08/17/17 Albuterol Sulfate [Proair Hfa] 0.09 mg IH Q6H PRN #2 inh 08/24/17 predniSONE [predniSONE Tab] 20 mg PO BID 5 Days tab 08/24/17 Albuterol Sulfate [Proair Hfa] 2 puff INH Q4H PRN #1 inh 08/30/17 - Allergies Allergies/Adverse Reactions: Allergies Allergy/AdvReac Type Severity Reaction Status Date / Time No Known Allergies Allergy Verified 09/12/17 18:37 Review of Systems Review Of Systems: ROS cannot be obtained secondary to pt's inabilty to answer questions. (Information cannot be obtained due to alcohol intoxication) Physical Exam - Reviewed Nursing Documentation Reviewed: Yes Vital Signs Reviewed: Yes - Physical Exam Appears: Positive for: Well, Non-toxic, No Acute Distress Head Exam: Positive for: ATRAUMATIC Skin: Positive for: Normal Color, Warm, Dry. Negative for: Rash Eye Exam: Positive for: Normal appearance Cardiovascular/Chest: Positive for: Regular Rate, Rhythm Respiratory: Positive for: Normal Breath Sounds. Negative for: Accessory Muscle Use, Respiratory Distress Gastrointestinal/Abdominal: Positive for: Normal Exam, Soft. Negative for: Tenderness Back: Positive for: Normal Inspection Extremity: Positive for: Normal ROM Neurologic/Psych: Positive for: Alert, Oriented, Other (slurred speech, AOB). Negative for: Aphasia, Facial Droop - ECG O2 Sat by Pulse Oximetry: 100 (RA) Pulse Ox Interpretation: Normal - Progress ED Course And Treament: FSBS: 82 Medical Decision Making Medical Decision Making: Time: Initial Impression: Alcohol intoxication Plan: Scribe Attestation: Documented by Tomás Ram acting as a scribe for PA. MAYA Qureshi Scribe Attestation: All medical record entries made by the Scribe were at my direction and personally dictated by me. I have reviewed the chart and agree that the record accurately reflects my personal performance of the history, physical exam, medical decision making, and the department course for this patient. I have also personally directed, reviewed, and agree with the discharge instructions and disposition. Disposition - Clinical Impression Clinical Impression: Alcohol intoxication in active alcoholic - Patient ED Disposition Is Patient to be Admitted: Transfer of Care (Signed out to Bethanie SALDANA pending sobriety) - Disposition Disposition Time: 11:34 Condition: STABLE Forms: [employer] (Paraguayan)
--- NOTE | 2017-09-12 23:35 | ED PDOC ---
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 His condition remained stable throughout his stay. 3:20 am: patient is awake, alert, has steady gait with walker which he uses at baseline. Patient is stable for discharge. Disposition - Clinical Impression Clinical Impression: Alcohol intoxication in active alcoholic - POA Present On Arrival: None - Disposition Referrals: [facility] [Outside] Disposition: Routine/Home Disposition Time: 03:26 Condition: STABLE Forms: [facility] (Azeri)
[2017-09-13] MEDS ORDERED: Albuterol-Ipratrop 3 mg / 0.5 (3 ml) UD ONE (15:23)
== END 2017-09-13 03:25 | disposition home or self-care (01) ==
LOC: H.ER 18:36
DX: F10.129 Alcohol abuse with intoxication, unspecified (principal); I48.91 Unspecified atrial fibrillation; J44.9 Chronic obstructive pulmonary disease, unspecified

== ENCOUNTER 2017-09-13 14:32 | Emergency (ER) | payer MEDICAID ==
[2017-09-13 14:32] VITALS: BMI 21.2
[2017-09-13] MEDS ORDERED: Albuterol-Ipratrop 3 mg / 0.5 (3 ml) UD INH STA (15:12)
--- NOTE | 2017-09-13 20:27 | ED PDOC ---
HPI: SOB/CHF/COPD Time Seen by Provider: 09/13/17 14:37 Chief Complaint (Nursing): Shortness Of Breath Chief Complaint (Provider): SOB, requesting treatment for COPD/asthma History Per: Patient History/Exam Limitations: no limitations Onset/Duration Of Symptoms: Hrs Current Symptoms Are (Timing): Still Present Initiating Event: Out Of Medications Context: Denies pain. Requesting food. Current Respiratory Medications: Albuterol Past Medical History Reviewed: Historical Data, Nursing Documentation, Vital Signs Vital Signs: Last Vital Signs Temp Pulse Resp 20 09/13/17 17:47 BP Pulse Ox 96 09/13/17 17:47 - Medical History PMH: Asthma, Atrial Fibrillation, COPD, Hepatitis (C), Seizures - Surgical History Surgical History: Appendectomy, Tonsillectomy - Family History Family History: States: Unknown Family Hx - Living Arrangements Living Arrangements: With Family - Social History Current smoker - smoking cessation education provided: Yes Alcohol: > 2 Drinks/Day Drugs: Denies - Home Medications Home Medications: Ambulatory Orders Medication Instructions Recorded Albuterol HFA [Ventolin HFA 90 1 - 2 puff IH Q6 PRN #1 inhaler 06/10/17 mcg/actuation (8 g)] Albuterol HFA [Ventolin HFA 90 2 puff IH Q4H #1 puff 08/12/17 mcg/actuation (8 g)] Albuterol HFA [Ventolin HFA 90 2 puff IH [id number] PRN #1 inhaler 08/15/17 mcg/actuation (8 g)] Azithromycin [Zithromax Tri-Vidal] 500 mg PO DAILY #2 tablet 08/15/17 Prednisone [Deltasone] 3 tab PO DAILY #12 tablet 08/15/17 predniSONE [predniSONE Tab] 60 mg PO DAILY #9 tab 08/17/17 Albuterol Sulfate [Proair Hfa] 0.09 mg IH Q6H PRN #2 inh 08/24/17 predniSONE [predniSONE Tab] 20 mg PO BID 5 Days tab 08/24/17 Albuterol Sulfate [Proair Hfa] 2 puff INH Q4H PRN #1 inh 08/30/17 - Allergies Allergies/Adverse Reactions: Allergies Allergy/AdvReac Type Severity Reaction Status Date / Time No Known Allergies Allergy Verified 09/12/17 18:37 Review of Systems ROS Statement: Except As Marked, All Systems Reviewed And Found Negative Constitutional: Negative for: Fever, Chills Cardiovascular: Negative for: Chest Pain, Palpitations Respiratory: Positive for: Cough, Shortness of Breath Physical Exam - Reviewed Nursing Documentation Reviewed: Yes Vital Signs Reviewed: Yes - Physical Exam Appears: Positive for: Well, Non-toxic, No Acute Distress Head Exam: Positive for: ATRAUMATIC, NORMAL INSPECTION, NORMOCEPHALIC Skin: Positive for: Normal Color, Warm, DRY Eye Exam: Positive for: Normal appearance ENT: Positive for: Normal ENT Inspection Neck: Positive for: Normal, Painless ROM Cardiovascular/Chest: Positive for: Regular Rate, Rhythm Respiratory: Positive for: Wheezing (Diffuse ). Negative for: Normal Breath Sounds, Respiratory Distress Gastrointestinal/Abdominal: Positive for: Normal Exam, Bowel Sounds, Soft Back: Positive for: Normal Inspection Extremity: Positive for: Normal ROM Neurologic/Psych: Positive for: Alert, Oriented - ECG O2 Sat by Pulse Oximetry: 96 Medical Decision Making Medical Decision Making: Pt reports feeling better on re-evaluation. Disposition - Clinical Impression Clinical Impression: Alcohol abuse, Asthma - Patient ED Disposition Is Patient to be Admitted: No Counseled Patient/Family Regarding: Diagnosis, Need For Followup - Disposition Disposition: Routine/Home Disposition Time: 20:31 Condition: GOOD Instructions: Abuse of Alcohol (ED)
[2017-09-13 20:29] VITALS: BP 109/72; PULSE 89; RESP 18; TEMP 98; O2SAT 96
--- NOTE | 2017-09-14 08:03 | CARD ---
APPROVED REPORT EKG Measurement Heart [id number] <Conclusion> Normal sinus rhythm with sinus arrhythmia Possible Right ventricular hypertrophy Abnormal ECG
== END 2017-09-13 22:10 | disposition home or self-care (01) ==
LOC: H.ER 14:32
DX: J44.9 Chronic obstructive pulmonary disease, unspecified (principal); F10.10 Alcohol abuse, uncomplicated; F17.200 Nicotine dependence, unspecified, uncomplicated; I48.91 Unspecified atrial fibrillation

== ENCOUNTER 2017-09-13 22:14 | Emergency (ER) | payer MEDICAID ==
[2017-09-13 22:14] VITALS: BMI 21.2
--- NOTE | 2017-09-14 00:42 | ED PDOC ---
HPI: General Adult Time Seen by Provider: 09/13/17 23:05 Chief Complaint (Nursing): Cough, Cold, Congestion Chief Complaint (Provider): etoh History Per: Patient Additional Complaint(s): Patient was discharge from ED at 10:30 pm and upon being discharged he signed again immediately to be seen. Patient is undomiciled and abuses alcohol daily. Past Medical History Reviewed: Historical Data, Nursing Documentation, Vital Signs Vital Signs: Last Vital Signs Temp 98.6 F 09/13/17 22:19 Pulse 80 09/13/17 22:19 Resp 16 09/13/17 22:19 BP 127/63 09/13/17 22:19 Pulse Ox 98 09/14/17 00:41 - Medical History PMH: Asthma, Atrial Fibrillation, COPD, Hepatitis (C), Seizures - Surgical History Surgical History: Appendectomy, Tonsillectomy - Family History Family History: States: Unknown Family Hx - Living Arrangements Living Arrangements: Other (undomiciled) - Social History Alcohol: > 2 Drinks/Day - Home Medications Home Medications: Ambulatory Orders Medication Instructions Recorded Albuterol HFA [Ventolin HFA 90 1 - 2 puff IH Q6 PRN #1 inhaler 06/10/17 mcg/actuation (8 g)] Albuterol HFA [Ventolin HFA 90 2 puff IH Q4H #1 puff 08/12/17 mcg/actuation (8 g)] Albuterol HFA [Ventolin HFA 90 2 puff IH [id number] PRN #1 inhaler 08/15/17 mcg/actuation (8 g)] Azithromycin [Zithromax Tri-Vidal] 500 mg PO DAILY #2 tablet 08/15/17 Prednisone [Deltasone] 3 tab PO DAILY #12 tablet 08/15/17 predniSONE [predniSONE Tab] 60 mg PO DAILY #9 tab 08/17/17 Albuterol Sulfate [Proair Hfa] 0.09 mg IH Q6H PRN #2 inh 08/24/17 predniSONE [predniSONE Tab] 20 mg PO BID 5 Days tab 08/24/17 Albuterol Sulfate [Proair Hfa] 2 puff INH Q4H PRN #1 inh 08/30/17 - Allergies Allergies/Adverse Reactions: Allergies Allergy/AdvReac Type Severity Reaction Status Date / Time No Known Allergies Allergy Verified 09/12/17 18:37 Review of Systems ROS Statement: Except As Marked, All Systems Reviewed And Found Negative Psych: Positive for: Other (etoh) Physical Exam - Reviewed Vital Signs Reviewed: Yes - Physical Exam Appears: Negative for: Well (smells of urine and feces) Skin: Negative for: Rash Eye Exam: Positive for: Normal appearance Neurologic/Psych: Positive for: Alert, Oriented, Gait (steady with walker) - ECG O2 Sat by Pulse Oximetry: 98 Pulse Ox Interpretation: Normal Medical Decision Making Medical Decision Makin57 year old male with alcohol abuse Patient was observed in ED for several hours, his condition remained stable throughout his stay. 6:00 am: patient is awake and alert, has steady gait with walker, he is stable for discharge. Disposition - Clinical Impression Clinical Impression: Alcohol abuse - Patient ED Disposition Is Patient to be Admitted: No - Disposition Referrals: [facility] [Outside] Disposition: Routine/Home Disposition Time: 06:00 Condition: FAIR Instructions: Alcohol Intoxication (ED), Abuse of Alcohol (ED), Alcohol Dependence (ED) Forms: [employer] ([place])
[2017-09-14 06:59] VITALS: BP 121/73; PULSE 85; RESP 17; TEMP 98.3; O2SAT 99
== END 2017-09-14 06:00 | disposition home or self-care (01) ==
LOC: H.ER 22:14
DX: F10.10 Alcohol abuse, uncomplicated (principal); I48.91 Unspecified atrial fibrillation; J44.9 Chronic obstructive pulmonary disease, unspecified

== ENCOUNTER 2017-09-14 11:06 | Emergency (ER) | payer MEDICAID ==
[2017-09-14 11:06] VITALS: BMI 21.2
--- NOTE | 2017-09-14 11:46 | CARD ---
APPROVED REPORT EKG Measurement Heart [id number] <Conclusion> Normal sinus rhythm Normal ECG
[2017-09-14] MEDS ORDERED: Albuterol 0.083% Inhal Sol (2.5 mg/3 mL) UD ONE (11:48)
[2017-09-14] MEDS: Albuterol 0.083% Inhal Sol (2.5 mg/3 mL) UD INH STA (11:52)
[2017-09-14 11:55] VITALS: BP 110/71; PULSE 86; RESP 18; TEMP 98; O2SAT 94
[2017-09-14] MEDS: Albuterol-Ipratrop 3 mg / 0.5 (3 ml) UD INH STA (16:55)
[2017-09-14] MEDS ORDERED: Albuterol-Ipratrop 3 mg / 0.5 (3 ml) UD ONE (16:55)
--- NOTE | 2017-09-14 18:15 | ED PDOC ---
HPI: Psych/Substance Abuse Time Seen by Provider: 09/14/17 11:32 Chief Complaint (Nursing): Alcohol Ingestion Chief Complaint (Provider): ETOH, asthma History Per: Patient History/Exam Limitations: no limitations Onset/Duration Of Symptoms: Days Current Symptoms Are (Timing): Still Present Suicide/Self Injury Attempted (Context): None Modifying Factor(s): Alcohol Additional Complaint(s): Pt requesting albuterol treatment for asthma/COPD Past Medical History Reviewed: Historical Data, Nursing Documentation, Vital Signs Vital Signs: Last Vital Signs Temp 98.0 F 09/14/17 11:54 Pulse 86 09/14/17 11:54 Resp 18 09/14/17 11:54 BP 110/71 09/14/17 11:54 Pulse Ox 94 L 09/14/17 11:54 - Medical History PMH: Asthma, Atrial Fibrillation, COPD, Hepatitis (C), Seizures - Surgical History Surgical History: Appendectomy, Tonsillectomy - Family History Family History: States: Unknown Family Hx - Home Medications Home Medications: Ambulatory Orders Medication Instructions Recorded Albuterol HFA [Ventolin HFA 90 1 - 2 puff IH Q6 PRN #1 inhaler 06/10/17 mcg/actuation (8 g)] Albuterol HFA [Ventolin HFA 90 2 puff IH Q4H #1 puff 08/12/17 mcg/actuation (8 g)] Albuterol HFA [Ventolin HFA 90 2 puff IH [id number] PRN #1 inhaler 08/15/17 mcg/actuation (8 g)] Azithromycin [Zithromax Tri-Vidal] 500 mg PO DAILY #2 tablet 08/15/17 Prednisone [Deltasone] 3 tab PO DAILY #12 tablet 08/15/17 predniSONE [predniSONE Tab] 60 mg PO DAILY #9 tab 08/17/17 Albuterol Sulfate [Proair Hfa] 0.09 mg IH Q6H PRN #2 inh 08/24/17 predniSONE [predniSONE Tab] 20 mg PO BID 5 Days tab 08/24/17 Albuterol Sulfate [Proair Hfa] 2 puff INH Q4H PRN #1 inh 08/30/17 - Allergies Allergies/Adverse Reactions: Allergies Allergy/AdvReac Type Severity Reaction Status Date / Time No Known Allergies Allergy Verified 12/24/17 18:37 Review of Systems ROS Statement: Except As Marked, All Systems Reviewed And Found Negative Constitutional: Negative for: Fever, Chills Cardiovascular: Negative for: Chest Pain Respiratory: Positive for: Shortness of Breath. Negative for: Cough Gastrointestinal: Negative for: Nausea, Vomiting, Abdominal Pain Physical Exam - Reviewed Nursing Documentation Reviewed: Yes Vital Signs Reviewed: Yes - Physical Exam Appears: Positive for: Well, Non-toxic, No Acute Distress Head Exam: Positive for: ATRAUMATIC, NORMAL INSPECTION, NORMOCEPHALIC Skin: Positive for: Normal Color, Warm, DRY Eye Exam: Positive for: Normal appearance ENT: Positive for: Normal ENT Inspection Neck: Positive for: Normal, Painless ROM Cardiovascular/Chest: Positive for: Regular Rate, Rhythm Respiratory: Positive for: Wheezing. Negative for: Accessory Muscle Use Gastrointestinal/Abdominal: Positive for: Normal Exam, Bowel Sounds, Soft Back: Positive for: Normal Inspection Extremity: Positive for: Normal ROM Neurologic/Psych: Positive for: Alert, Oriented - ECG O2 Sat by Pulse Oximetry: 94 Disposition - Clinical Impression Clinical Impression: Alcohol abuse, Asthma - Patient ED Disposition Is Patient to be Admitted: No - Disposition Disposition: Routine/Home Disposition Time: 18:19 Condition: GOOD Instructions: Alcohol Intoxication (ED), Abuse of Alcohol (ED), Alcohol Dependence (ED)
== END 2017-09-14 18:14 | disposition home or self-care (01) ==
LOC: H.ER 11:06
DX: F10.10 Alcohol abuse, uncomplicated (principal); J45.909 Unspecified asthma, uncomplicated; J44.9 Chronic obstructive pulmonary disease, unspecified; I48.91 Unspecified atrial fibrillation

== ENCOUNTER 2017-09-15 00:29 | Emergency (ER) | payer MEDICAID ==
[2017-09-15 01:11] VITALS: BMI 20.5
[2017-09-15] MEDS ORDERED: Albuterol 0.083% Inhal Sol (2.5 mg/3 mL) UD INH ONE (01:11)
--- NOTE | 2017-09-15 01:13 | ED PDOC ---
HPI: Psych/Substance Abuse Time Seen by Provider: 09/15/17 00:42 Chief Complaint (Nursing): Shortness Of Breath Chief Complaint (Provider): etoh Additional Complaint(s): 57 y/o male brought in by EMS intoxicated. Patient requesting nebulizer treatment for his chronic asthma/copd. Patient with multiple ED visits for same. Denies fever, cough, chest pain, shortness of breath, palpitations, leg pain/swelling. Past Medical History Reviewed: Historical Data, Nursing Documentation, Vital Signs - Medical History PMH: Asthma, Atrial Fibrillation, COPD, Hepatitis (C), Seizures - Surgical History Surgical History: Appendectomy, Tonsillectomy - Family History Family History: States: Unknown Family Hx - Home Medications Home Medications: Ambulatory Orders Medication Instructions Recorded Albuterol HFA [Ventolin HFA 90 1 - 2 puff IH Q6 PRN #1 inhaler 06/10/17 mcg/actuation (8 g)] Albuterol HFA [Ventolin HFA 90 2 puff IH Q4H #1 puff 08/12/17 mcg/actuation (8 g)] Albuterol HFA [Ventolin HFA 90 2 puff IH [id number] PRN #1 inhaler 08/15/17 mcg/actuation (8 g)] Azithromycin [Zithromax Tri-Vidal] 500 mg PO DAILY #2 tablet 08/15/17 Prednisone [Deltasone] 3 tab PO DAILY #12 tablet 08/15/17 predniSONE [predniSONE Tab] 60 mg PO DAILY #9 tab 08/17/17 Albuterol Sulfate [Proair Hfa] 0.09 mg IH Q6H PRN #2 inh 08/24/17 predniSONE [predniSONE Tab] 20 mg PO BID 5 Days tab 08/24/17 Albuterol Sulfate [Proair Hfa] 2 puff INH Q4H PRN #1 inh 08/30/17 - Allergies Allergies/Adverse Reactions: Allergies Allergy/AdvReac Type Severity Reaction Status Date / Time No Known Allergies Allergy Verified 09/15/17 16:01 Review of Systems ROS Statement: Except As Marked, All Systems Reviewed And Found Negative Respiratory: Positive for: Wheezing Physical Exam - Reviewed Nursing Documentation Reviewed: Yes Vital Signs Reviewed: Yes - Physical Exam Appears: Positive for: Well, Non-toxic, No Acute Distress Head Exam: Positive for: ATRAUMATIC, NORMAL INSPECTION, NORMOCEPHALIC Skin: Positive for: Normal Color Eye Exam: Positive for: Normal appearance ENT: Positive for: Normal ENT Inspection Cardiovascular/Chest: Positive for: Regular Rate, Rhythm Respiratory: Positive for: Normal Breath Sounds Gastrointestinal/Abdominal: Positive for: Normal Exam Back: Positive for: Normal Inspection Extremity: Positive for: Normal ROM Neurologic/Psych: Positive for: Alert, Oriented, Other (+AOB) - Progress ED Course And Treament: Albuterol neb Patient states he feels better on re-eval. AAOx3. Ambulating steady gait. Stable for discharge Disposition - Clinical Impression Clinical Impression: Alcohol abuse, Asthma - Patient ED Disposition Is Patient to be Admitted: No Counseled Patient/Family Regarding: Studies Performed, Diagnosis, Need For Followup - Disposition Disposition: Routine/Home Disposition Time: 04:00 Condition: IMPROVED Instructions: Asthma (ED), Alcohol Intoxication (ED), Abuse of Alcohol (ED), Alcohol Dependence (ED)
[2017-09-15 01:14] VITALS: BP 126/84; PULSE 84; RESP 16; TEMP 98
[2017-09-15] MEDS ORDERED: Albuterol 0.083% Inhal Sol (2.5 mg/3 mL) UD ONE (01:20)
[2017-09-15 06:06] VITALS: O2SAT 98
== END 2017-09-15 06:06 | disposition home or self-care (01) ==
LOC: H.ER 00:29
DX: J44.9 Chronic obstructive pulmonary disease, unspecified (principal); I48.91 Unspecified atrial fibrillation; F10.10 Alcohol abuse, uncomplicated

== ENCOUNTER 2017-09-15 15:55 | Emergency (ER) | payer MEDICAID, OTHER ==
[2017-09-15 15:55] VITALS: BMI 20.5
--- NOTE | 2017-09-15 16:35 | ED PDOC ---
HPI: General Adult Time Seen by Provider: 09/15/17 16:20 Chief Complaint (Nursing): Cough, Cold, Congestion Chief Complaint (Provider): Hungry History Per: Patient History/Exam Limitations: no limitations Onset/Duration Of Symptoms: Hrs Have you had recent travel within the past 21 days to any of the following countries: [place], [place], [place] or [place]?: No Additional Complaint(s): 57 year old male presents to the ED stating that he is hungry and needs something to eat. 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 Patient offers no medical complaint. Past Medical History Reviewed: Historical Data, Nursing Documentation, Vital Signs Vital Signs: Last Vital Signs Temp 98 F 09/15/17 16:16 Pulse 81 09/15/17 16:16 Resp 19 09/15/17 16:16 BP 134/78 09/15/17 16:16 Pulse Ox 97 09/15/17 16:16 - Medical History PMH: Asthma, Atrial Fibrillation, COPD, Hepatitis (C), Seizures - Surgical History Surgical History: Appendectomy, Tonsillectomy - Family History Family History: States: Unknown Family Hx - Home Medications Home Medications: Ambulatory Orders Medication Instructions Recorded No Known Home Med 09/18/17 - Allergies Allergies/Adverse Reactions: Allergies Allergy/AdvReac Type Severity Reaction Status Date / Time No Known Allergies Allergy Verified 09/15/17 16:01 Review of Systems Constitutional: Negative for: Fever Gastrointestinal: Negative for: Abdominal Pain Physical Exam - Reviewed Nursing Documentation Reviewed: Yes Vital Signs Reviewed: Yes - Physical Exam Appears: Positive for: Non-toxic, No Acute Distress Head Exam: Positive for: ATRAUMATIC, NORMAL INSPECTION Skin: Positive for: Normal Color, Warm, Dry. Negative for: Rash Eye Exam: Positive for: Normal appearance, EOMI, PERRL. Negative for: Nystagmus Cardiovascular/Chest: Positive for: Regular Rate, Rhythm, Chest Non Tender. Negative for: Tachycardia Respiratory: Positive for: Normal Breath Sounds. Negative for: Wheezing, Respiratory Distress Neurologic/Psych: Positive for: Alert, Oriented, Gait Medical Decision Making Medical Decision Makin Initial Impression 57 y/o male presenting stating he is hungry Initial Plan: * Reevaluation Documented by Adilene Lemus acting as a scribe for Carlos Ram PA-C. All medical record entries made by the Scribe were at my direction and personally dictated by me. I have reviewed the chart and agree that the record accurately reflects my personal performance of the history, physical exam, medical decision making, and the department course for this patient. I have also personally directed, reviewed, and agree with the discharge instructions and disposition. Disposition - Clinical Impression Clinical Impression: Alcohol intoxication, Cough - Patient ED Disposition Is Patient to be Admitted: No - Disposition Disposition: Routine/Home Disposition Time: 16:50 Condition: FAIR Instructions: Upper Respiratory Infection (ED) Forms: [facility] (Estonian) - POA Present On Arrival: None
[2017-09-15 17:15] VITALS: BP 134/78; PULSE 81; RESP 19; TEMP 98; O2SAT 97
== END 2017-09-15 16:55 | disposition home or self-care (01) ==
LOC: H.ER 15:55
DX: J06.9 Acute upper respiratory infection, unspecified (principal); F10.129 Alcohol abuse with intoxication, unspecified; I48.91 Unspecified atrial fibrillation; J44.9 Chronic obstructive pulmonary disease, unspecified

== ENCOUNTER 2017-09-17 23:26 | Emergency (ER) | payer MEDICAID, OTHER ==
[2017-09-17 23:26] VITALS: BMI 20.5
[2017-09-18] MEDS ORDERED: Albuterol 0.083% Inhal Sol (2.5 mg/3 mL) UD ONE (00:18)
[2017-09-18] MEDS ORDERED: Albuterol 0.083% Inhal Sol (2.5 mg/3 mL) UD INH ONE (02:26)
--- NOTE | 2017-09-18 02:26 | ED PDOC ---
HPI: Psych/Substance Abuse Time Seen by Provider: 09/17/17 23:34 Chief Complaint (Nursing): Alcohol Ingestion Chief Complaint (Provider): etoh History Per: Patient, EMS Additional Complaint(s): 57 y/o male brought in by EMS for acute alcohol intoxication. Patient well known to ED with multiple visits for same. Patient denies acute medical or psychiatric complaints; requesting room with a TV. Past Medical History Reviewed: Historical Data, Nursing Documentation, Vital Signs Vital Signs: Last Vital Signs Temp 97.8 F 09/18/17 00:05 Pulse 81 09/17/17 23:31 Resp 16 09/17/17 23:31 BP 97/55 L 09/17/17 23:31 Pulse Ox 97 09/17/17 23:31 - Medical History PMH: Asthma, Atrial Fibrillation, COPD, Hepatitis (C), Seizures - Surgical History Surgical History: Appendectomy, Tonsillectomy - Family History Family History: States: Unknown Family Hx - Allergies Allergies/Adverse Reactions: Allergies Allergy/AdvReac Type Severity Reaction Status Date / Time No Known Allergies Allergy Verified 09/15/17 16:01 Review of Systems ROS Statement: Except As Marked, All Systems Reviewed And Found Negative Physical Exam - Reviewed Nursing Documentation Reviewed: Yes Vital Signs Reviewed: Yes - Physical Exam Appears: Positive for: Well, Non-toxic, No Acute Distress (intoxicated) Head Exam: Positive for: ATRAUMATIC, NORMAL INSPECTION, NORMOCEPHALIC Skin: Positive for: Normal Color Eye Exam: Positive for: Normal appearance ENT: Positive for: Normal ENT Inspection Cardiovascular/Chest: Positive for: Regular Rate, Rhythm Respiratory: Positive for: Normal Breath Sounds Gastrointestinal/Abdominal: Positive for: Normal Exam Back: Positive for: Normal Inspection Extremity: Positive for: Normal ROM Neurologic/Psych: Positive for: Alert, Oriented, Other (+slurred speech, +AOB) - ECG O2 Sat by Pulse Oximetry: 97 - Progress ED Course And Treament: accucheck Patient requesting nebulizer treatment for his asthma. Albuterol neb ordered Disposition - Clinical Impression Clinical Impression: Alcohol abuse - Disposition Disposition: Transfer of Care Disposition Time: 06:00 Condition: STABLE Instructions: Alcohol Intoxication (ED), Abuse of Alcohol (ED), Alcohol Dependence (ED) Forms: [employer] (Korean) Patient Signed Over To: Nely Jernigan Handoff Comments: pending sobriety
--- NOTE | 2017-09-18 07:08 | ED PDOC ---
- ECG O2 Sat by Pulse Oximetry: 97 (RA) Pulse Ox Interpretation: Normal Medical Decision Making Medical Decision Making: Time: 06:00 Patient is endorsed to me by ANAY Rangel PA-C, pending clinical sobriety. Time: 07:00 Patient is endorsed to Dr. Ubaldo Sharma DO, pending clinical sobriety. Scribe Attestation: Documented by Rupal Senior, acting as a scribe for Nely Jernigan MD Provider Scribe Attestation: All medical record entries made by the Scribe were at my direction and personally dictated by me. I have reviewed the chart and agree that the record accurately reflects my personal performance of the history, physical exam, medical decision making, and the department course for this patient. I have also personally directed, reviewed, and agree with the discharge instructions and disposition. Disposition - Clinical Impression Clinical Impression: Alcohol abuse - POA Present On Arrival: None - Disposition Disposition: Transfer of Care Disposition Time: 07:00 Condition: FAIR Instructions: Alcohol Intoxication (ED), Abuse of Alcohol (ED), Alcohol Dependence (ED) Forms: [employer] (Greenlandic) Patient Signed Over To: Ubaldo Sharma III (pending sobriety)
--- NOTE | 2017-09-18 07:13 | ED PDOC ---
- ECG O2 Sat by Pulse Oximetry: 97 (RA) Medical Decision Making Medical Decision Makinam recd pending sobriety and dispo Disposition - Clinical Impression Clinical Impression: Alcohol abuse - Disposition Condition: STABLE Instructions: Alcohol Intoxication (ED), Abuse of Alcohol (ED), Alcohol Dependence (ED) Forms: [facility] (Ukrainian)
[2017-09-18 07:21] VITALS: TEMP 98.9
[2017-09-18] MEDS ORDERED: Albuterol-Ipratrop 3 mg / 0.5 (3 ml) UD INH STA (10:43)
[2017-09-18] MEDS ORDERED: Albuterol-Ipratrop 3 mg / 0.5 (3 ml) UD ONE (10:46)
[2017-09-18 13:19] VITALS: BP 111/61; PULSE 99; RESP 19
[2017-09-18 19:22] VITALS: O2SAT 97
== END 2017-09-18 18:16 | disposition home or self-care (01) ==
LOC: H.ER 23:26
DX: F10.129 Alcohol abuse with intoxication, unspecified (principal); I48.91 Unspecified atrial fibrillation; J44.9 Chronic obstructive pulmonary disease, unspecified

== ENCOUNTER 2017-09-19 21:27 | Emergency (ER) | payer MEDICAID ==
[2017-09-19 21:27] VITALS: BMI 20.5
[2017-09-19 21:31] VITALS: BP 145/80; PULSE 75; RESP 16; TEMP 97.9; O2SAT 100
[2017-09-19] MEDS ORDERED: Albuterol-Ipratrop 3 mg / 0.5 (3 ml) UD INH STA (21:44)
--- NOTE | 2017-09-19 21:49 | ED PDOC ---
HPI: General Adult Time Seen by Provider: 09/19/17 21:30 Chief Complaint (Nursing): Cough, Cold, Congestion Chief Complaint (Provider): Pt requesting cereal, seat with veiw of TV and treatment History Per: Patient History/Exam Limitations: no limitations Onset/Duration Of Symptoms: Days Have you had recent travel within the past 21 days to any of the following countries: [place], [place], [place] or [place]?: No Current Symptoms Are (Timing): Still Present Additional Complaint(s): Pt reports needing albuterol treatment for asthma/COPD. Denies fever/chills. Denies cough. Past Medical History Reviewed: Historical Data, Nursing Documentation, Vital Signs Vital Signs: Last Vital Signs Temp 97.9 F 09/19/17 21:29 Pulse 75 09/19/17 21:29 Resp 16 09/19/17 21:29 BP 145/80 09/19/17 21:29 Pulse Ox 100 09/19/17 21:29 - Medical History PMH: Asthma, Atrial Fibrillation, COPD, Hepatitis (C), Seizures - Surgical History Surgical History: Appendectomy, Tonsillectomy - Family History Family History: States: Unknown Family Hx - Living Arrangements Living Arrangements: With Family - Social History Current smoker - smoking cessation education provided: No Alcohol: None - Home Medications Home Medications: Ambulatory Orders Medication Instructions Recorded No Known Home Med 09/18/17 - Allergies Allergies/Adverse Reactions: Allergies Allergy/AdvReac Type Severity Reaction Status Date / Time No Known Allergies Allergy Verified 09/15/17 16:01 Review of Systems ROS Statement: Except As Marked, All Systems Reviewed And Found Negative Constitutional: Negative for: Fever, Chills Respiratory: Positive for: Wheezing. Negative for: Shortness of Breath Skin: Negative for: Rash Physical Exam - Reviewed Nursing Documentation Reviewed: Yes Vital Signs Reviewed: Yes - Physical Exam Appears: Positive for: Well, Non-toxic, No Acute Distress Head Exam: Positive for: ATRAUMATIC, NORMAL INSPECTION, NORMOCEPHALIC Skin: Positive for: Normal Color, Warm, DRY Eye Exam: Positive for: Normal appearance. Negative for: EOMI, PERRL ENT: Positive for: Normal ENT Inspection Neck: Positive for: Normal, Painless ROM Cardiovascular/Chest: Positive for: Regular Rate, Rhythm Respiratory: Positive for: Wheezing. Negative for: Accessory Muscle Use, Respiratory Distress Gastrointestinal/Abdominal: Positive for: Normal Exam, Bowel Sounds, Soft Back: Positive for: Normal Inspection Extremity: Positive for: Normal ROM Neurologic/Psych: Positive for: Alert, Oriented - ECG O2 Sat by Pulse Oximetry: 100 Disposition - Clinical Impression Clinical Impression: Asthma, Homeless - Patient ED Disposition Is Patient to be Admitted: No Counseled Patient/Family Regarding: Diagnosis, Need For Followup - Disposition Disposition: Routine/Home Disposition Time: 21:57 Condition: GOOD Instructions: Asthma (ED)
== END 2017-09-19 22:45 | disposition home or self-care (01) ==
LOC: H.ER 21:27
DX: J44.9 Chronic obstructive pulmonary disease, unspecified (principal); I48.91 Unspecified atrial fibrillation; Z59.0 Homelessness

== ENCOUNTER 2017-09-20 23:43 | Emergency (ER) | payer MEDICAID ==
[2017-09-20 23:43] VITALS: BMI 20.5
[2017-09-20 23:49] VITALS: BP 105/68; PULSE 85; RESP 16; TEMP 97.9; O2SAT 97
[2017-09-21] MEDS: Albuterol-Ipratrop 3 mg / 0.5 (3 ml) UD INH STA ×2 (01:30→01:36)
[2017-09-21] MEDS ORDERED: Albuterol-Ipratrop 3 mg / 0.5 (3 ml) UD ONE (01:32)
--- NOTE | 2017-09-21 01:45 | ED PDOC ---
HPI: General Adult Time Seen by Provider: 09/21/17 00:13 Chief Complaint (Nursing): Cough, Cold, Congestion Chief Complaint (Provider): SOB - Wants a treatment History Per: Patient History/Exam Limitations: no limitations Onset/Duration Of Symptoms: Days Have you had recent travel within the past 21 days to any of the following countries: [place], [place], [place] or [place]?: No Current Symptoms Are (Timing): Still Present Additional Complaint(s): Pt well known to the ER presents complaining of SOB. Denies chest pain. Past Medical History Reviewed: Historical Data, Nursing Documentation, Vital Signs Vital Signs: Last Vital Signs Temp 97.9 F 09/20/17 23:46 Pulse 85 09/20/17 23:46 Resp 16 09/20/17 23:46 BP 105/68 09/20/17 23:46 Pulse Ox 97 09/20/17 23:46 - Medical History PMH: Asthma, Atrial Fibrillation, COPD, Hepatitis (C), Seizures - Surgical History Surgical History: Appendectomy, Tonsillectomy - Family History Family History: States: Unknown Family Hx - Living Arrangements Living Arrangements: With Family - Social History Current smoker - smoking cessation education provided: No - Home Medications Home Medications: Ambulatory Orders Medication Instructions Recorded No Known Home Med 09/18/17 - Allergies Allergies/Adverse Reactions: Allergies Allergy/AdvReac Type Severity Reaction Status Date / Time No Known Allergies Allergy Verified 09/15/17 16:01 Review of Systems ROS Statement: Except As Marked, All Systems Reviewed And Found Negative Constitutional: Negative for: Fever, Chills Gastrointestinal: Negative for: Nausea, Vomiting Physical Exam - Reviewed Nursing Documentation Reviewed: Yes Vital Signs Reviewed: Yes - Physical Exam Appears: Positive for: Well, Non-toxic, No Acute Distress Head Exam: Positive for: ATRAUMATIC, NORMAL INSPECTION, NORMOCEPHALIC Skin: Positive for: Normal Color, Warm, DRY Eye Exam: Positive for: Normal appearance ENT: Positive for: Normal ENT Inspection Neck: Positive for: Normal, Painless ROM Cardiovascular/Chest: Positive for: Regular Rate, Rhythm Respiratory: Positive for: Wheezing. Negative for: Accessory Muscle Use, Respiratory Distress Gastrointestinal/Abdominal: Positive for: Normal Exam, Bowel Sounds, Soft Back: Positive for: Normal Inspection Extremity: Positive for: Normal ROM Neurologic/Psych: Positive for: Alert, Oriented - ECG O2 Sat by Pulse Oximetry: 97 Medical Decision Making Medical Decision Making: Pt refused treatment because he is sleeping. Disposition - Clinical Impression Clinical Impression: Homeless - Patient ED Disposition Is Patient to be Admitted: No Counseled Patient/Family Regarding: Diagnosis, Need For Followup - Disposition Disposition: Routine/Home Disposition Time: 01:45 Condition: GOOD
== END 2017-09-21 02:04 | disposition home or self-care (01) ==
LOC: H.ER 23:43
DX: J44.9 Chronic obstructive pulmonary disease, unspecified (principal); I48.91 Unspecified atrial fibrillation; Z59.0 Homelessness

== ENCOUNTER 2017-09-24 01:29 | Emergency (ER) | payer MEDICAID ==
[2017-09-24 01:29] VITALS: BMI 20.5
[2017-09-24 01:37] VITALS: BP 139/89; PULSE 77; RESP 17; TEMP 99.2; O2SAT 97
[2017-09-24] MEDS ORDERED: Albuterol 0.083% Inhal Sol (2.5 mg/3 mL) UD INH ONE (02:26)
--- NOTE | 2017-09-24 02:35 | ED PDOC ---
HPI: SOB/CHF/COPD Time Seen by Provider: 09/24/17 01:57 Chief Complaint (Nursing): Cough, Cold, Congestion Chief Complaint (Provider): wheezing History Per: Patient History/Exam Limitations: no limitations Initiating Event: Out Of Medications Current Respiratory Medications: Albuterol Additional History Per: Patient Additional Complaint(s): 57 y/o male presents to ED requesting albuterol treatment for his asthma. Patient states he ran out of his albuterol inhaler. Denies fever, cough, chest pain, shortness of breath, palpitations, leg pain/swelling. Past Medical History Reviewed: Historical Data, Nursing Documentation, Vital Signs Vital Signs: Last Vital Signs Temp 99.2 F 09/24/17 01:36 Pulse 77 09/24/17 01:36 Resp 17 09/24/17 01:36 BP 139/89 09/24/17 01:36 Pulse Ox 97 09/24/17 02:36 - Medical History PMH: Asthma, Atrial Fibrillation, COPD, Hepatitis (C), Seizures - Surgical History Surgical History: Appendectomy, Tonsillectomy - Family History Family History: States: Unknown Family Hx - Home Medications Home Medications: Ambulatory Orders Medication Instructions Recorded Albuterol HFA [Ventolin HFA 90 1 - 2 puff IH Q4 PRN #1 inh 09/24/17 mcg/actuation (8 g)] - Allergies Allergies/Adverse Reactions: Allergies Allergy/AdvReac Type Severity Reaction Status Date / Time No Known Allergies Allergy Verified 09/15/17 16:01 Review of Systems ROS Statement: Except As Marked, All Systems Reviewed And Found Negative Respiratory: Positive for: Wheezing Physical Exam - Reviewed Nursing Documentation Reviewed: Yes Vital Signs Reviewed: Yes - Physical Exam Appears: Positive for: Well, Non-toxic, No Acute Distress (sleeping) Head Exam: Positive for: ATRAUMATIC, NORMAL INSPECTION, NORMOCEPHALIC Skin: Positive for: Normal Color Cardiovascular/Chest: Positive for: Regular Rate, Rhythm Respiratory: Positive for: Wheezing (mild expiratory) Back: Positive for: Normal Inspection Extremity: Positive for: Normal ROM Neurologic/Psych: Positive for: Alert, Oriented - ECG O2 Sat by Pulse Oximetry: 97 - Progress ED Course And Treament: Patient reports improvement with albuterol neb. Rx albuterol provided upon discharge Return precautions given. Disposition - Clinical Impression Clinical Impression: Asthma - Patient ED Disposition Is Patient to be Admitted: No Counseled Patient/Family Regarding: Diagnosis, Need For Followup, Rx Given - Disposition Disposition: Routine/Home Disposition Time: 06:00 Condition: IMPROVED Prescriptions: Albuterol HFA [Ventolin HFA 90 mcg/actuation (8 g)] 1 - 2 puff IH Q4 PRN #1 inh PRN Reason: Wheezing Instructions: Asthma (ED)
[2017-09-24] MEDS ORDERED: Albuterol 0.083% Inhal Sol (2.5 mg/3 mL) UD ONE (04:44)
== END 2017-09-24 06:16 | disposition home or self-care (01) ==
LOC: H.ER 01:29
DX: J45.909 Unspecified asthma, uncomplicated (principal); I48.91 Unspecified atrial fibrillation; J44.9 Chronic obstructive pulmonary disease, unspecified; B18.2 Chronic viral hepatitis C

== ENCOUNTER 2017-09-25 23:39 | Emergency (ER) | payer MEDICAID ==
[2017-09-25 23:39] VITALS: BMI 20.5
[2017-09-26 00:03] VITALS: BP 92/58; PULSE 106
[2017-09-26 01:03] VITALS: RESP 16; O2SAT 98
--- NOTE | 2017-09-26 02:00 | ED PDOC ---
HPI: SOB/CHF/COPD Time Seen by Provider: 09/26/17 00:55 Chief Complaint (Nursing): Shortness Of Breath Chief Complaint (Provider): shortness of breath History Per: Patient History/Exam Limitations: no limitations Onset/Duration Of Symptoms: Days (x1) Current Symptoms Are (Timing): Still Present Initiating Event: Out Of Medications Current Respiratory Medications: See Home Med List Associated Symptoms: denies: Fever, Chills Recently: Seen In ED Additional Complaint(s): Jorge L Huitron is a 57 year old male, with a past medical history of asthma, who presents to the emergency department requesting nebulizer treatment for his asthma. Patient is well known in the ER for multiple visits. Denies any fever, chills or shortness of breath. No further medical complaints. PMD: None provided. Past Medical History Reviewed: Historical Data, Nursing Documentation, Vital Signs Vital Signs: Last Vital Signs Temp Pulse 106 H 09/26/17 00:01 Resp 16 09/26/17 01:01 BP 92/58 L 09/26/17 00:01 Pulse Ox 98 09/26/17 02:02 - Medical History PMH: Asthma, Atrial Fibrillation, COPD, Hepatitis (C), Seizures - Surgical History Surgical History: Appendectomy, Tonsillectomy - Family History Family History: States: Unknown Family Hx - Social History Current smoker - smoking cessation education provided: Yes (heavy smoker >10 cigarettes daily) Alcohol: > 2 Drinks/Day (2-3 pints of vodka daily) Drugs: Denies - Home Medications Home Medications: Ambulatory Orders Medication Instructions Recorded Albuterol HFA [Ventolin HFA 90 1 - 2 puff IH Q4 PRN #1 inh 09/24/17 mcg/actuation (8 g)] - Allergies Allergies/Adverse Reactions: Allergies Allergy/AdvReac Type Severity Reaction Status Date / Time No Known Allergies Allergy Verified 09/15/17 16:01 Review of Systems ROS Statement: Except As Marked, All Systems Reviewed And Found Negative Constitutional: Negative for: Fever, Chills Physical Exam - Reviewed Nursing Documentation Reviewed: Yes Vital Signs Reviewed: Yes - Physical Exam Appears: Positive for: Well, Non-toxic, No Acute Distress Head Exam: Positive for: ATRAUMATIC, NORMAL INSPECTION, NORMOCEPHALIC Skin: Positive for: Normal Color, Warm, Dry Eye Exam: Positive for: Normal appearance Neck: Positive for: Normal, Painless ROM, Supple Cardiovascular/Chest: Positive for: Regular Rate, Rhythm. Negative for: Murmur Respiratory: Positive for: Normal Breath Sounds. Negative for: Respiratory Distress Extremity: Positive for: Normal ROM. Negative for: Deformity, Swelling Neurologic/Psych: Positive for: Alert, Oriented - ECG O2 Sat by Pulse Oximetry: 98 (RA) Pulse Ox Interpretation: Normal Medical Decision Making Medical Decision Making: Initial Impression: asthma exacerbation Initial Plan: pt sleeping and has no resp. distress. pt d/c home. Scribe Attestation: Documented by Josemanuel Yuen, acting as a scribe for Valeri Epstein PA-C Provider Scribe Attestation: All medical record entries made by the Scribe were at my direction and personally dictated by me. I have reviewed the chart and agree that the record accurately reflects my personal performance of the history, physical exam, medical decision making, and the department course for this patient. I have also personally directed, reviewed, and agree with the discharge instructions and disposition. Disposition - Clinical Impression Clinical Impression: Alcohol abuse - Patient ED Disposition Is Patient to be Admitted: No Counseled Patient/Family Regarding: Need For Followup - Disposition Disposition: Routine/Home Disposition Time: 02:48 Condition: STABLE Instructions: Alcohol Intoxication (ED), Abuse of Alcohol (ED), Alcohol Dependence (ED) Forms: [employer] (Spanish)
== END 2017-09-26 02:45 | disposition home or self-care (01) ==
LOC: H.ER 23:39
DX: F10.10 Alcohol abuse, uncomplicated (principal); F17.210 Nicotine dependence, cigarettes, uncomplicated; I48.91 Unspecified atrial fibrillation; J44.9 Chronic obstructive pulmonary disease, unspecified; J45.901 Unspecified asthma with (acute) exacerbation

== ENCOUNTER 2017-09-28 19:14 | Emergency (ER) | payer MEDICAID ==
[2017-09-28 19:14] VITALS: BMI 20.5
[2017-09-28 19:24] VITALS: BP 118/74; PULSE 88; RESP 16; TEMP 98; O2SAT 96
--- NOTE | 2017-09-28 21:22 | ED PDOC ---
HPI: General Adult Time Seen by Provider: 09/28/17 19:18 Chief Complaint (Nursing): Cough, Cold, Congestion Chief Complaint (Provider): Denies complaint, wants food History Per: Patient History/Exam Limitations: no limitations Have you had recent travel within the past 21 days to any of the following countries: [place], [place], [place] or [place]?: No Past Medical History Reviewed: Historical Data, Nursing Documentation, Vital Signs Vital Signs: Last Vital Signs Temp 98.0 F 09/28/17 19:23 Pulse 88 09/28/17 19:23 Resp 16 09/28/17 19:23 BP 118/74 09/28/17 19:23 Pulse Ox 96 09/28/17 19:23 - Medical History PMH: Asthma, Atrial Fibrillation, COPD, Hepatitis (C), Seizures - Surgical History Surgical History: Appendectomy, Tonsillectomy - Family History Family History: States: Unknown Family Hx - Home Medications Home Medications: Ambulatory Orders Medication Instructions Recorded Albuterol HFA [Ventolin HFA 90 1 - 2 puff IH Q4 PRN #1 inh 09/24/17 mcg/actuation (8 g)] - Allergies Allergies/Adverse Reactions: Allergies Allergy/AdvReac Type Severity Reaction Status Date / Time No Known Allergies Allergy Verified 09/28/17 19:23 Review of Systems Constitutional: Negative for: Fever, Chills Skin: Negative for: Rash Neurological: Negative for: Weakness, Numbness Physical Exam - Reviewed Nursing Documentation Reviewed: Yes Vital Signs Reviewed: Yes - Physical Exam Appears: Positive for: Well, Non-toxic, No Acute Distress Head Exam: Positive for: ATRAUMATIC, NORMAL INSPECTION, NORMOCEPHALIC Skin: Positive for: Normal Color, Warm, DRY Eye Exam: Positive for: Normal appearance ENT: Positive for: Normal ENT Inspection Neck: Positive for: Normal, Painless ROM Cardiovascular/Chest: Positive for: Regular Rate, Rhythm Respiratory: Positive for: Normal Breath Sounds. Negative for: Accessory Muscle Use, Respiratory Distress Back: Positive for: Normal Inspection Extremity: Positive for: Normal ROM Neurologic/Psych: Positive for: Alert, Oriented - ECG O2 Sat by Pulse Oximetry: 96 Disposition - Clinical Impression Clinical Impression: Homeless - Patient ED Disposition Is Patient to be Admitted: No Counseled Patient/Family Regarding: Diagnosis, Need For Followup - Disposition Disposition: Routine/Home Disposition Time: 21:22 Condition: GOOD
== END 2017-09-28 22:47 | disposition home or self-care (01) ==
LOC: H.ER 19:14
DX: J44.9 Chronic obstructive pulmonary disease, unspecified (principal); I48.91 Unspecified atrial fibrillation; Z59.0 Homelessness

== ENCOUNTER 2017-09-29 17:57 | Emergency (ER) | payer MEDICAID ==
[2017-09-29 17:58] VITALS: BMI 20.5
[2017-09-29 18:33] VITALS: BP 138/64; PULSE 84; RESP 16; TEMP 98; O2SAT 96
--- NOTE | 2017-09-29 18:59 | ED PDOC ---
HPI: Psych/Substance Abuse Time Seen by Provider: 09/29/17 18:02 Chief Complaint (Nursing): Alcohol Ingestion Chief Complaint (Provider): ETOH History Per: Patient Additional Complaint(s): To ED via BLS for evaluation of alcohol intoxication. Patient is homeless [place]. Pt asking for cereal Past Medical History Reviewed: Nursing Documentation, Vital Signs Vital Signs: Last Vital Signs Temp 98.0 F 09/29/17 18:31 Pulse 84 09/29/17 18:31 Resp 16 09/29/17 18:31 BP 138/64 09/29/17 18:31 Pulse Ox 96 09/29/17 18:31 - Medical History PMH: Asthma, Atrial Fibrillation, COPD, Hepatitis (C), Seizures - Surgical History Surgical History: Appendectomy, Tonsillectomy - Family History Family History: States: Unknown Family Hx - Living Arrangements Living Arrangements: With Family - Social History Current smoker - smoking cessation education provided: No Alcohol: None Drugs: Denies - Home Medications Home Medications: Ambulatory Orders Medication Instructions Recorded Albuterol HFA [Ventolin HFA 90 1 - 2 puff IH Q4 PRN #1 inh 09/24/17 mcg/actuation (8 g)] - Allergies Allergies/Adverse Reactions: Allergies Allergy/AdvReac Type Severity Reaction Status Date / Time No Known Allergies Allergy Verified 09/29/17 18:31 Review of Systems ROS Statement: Except As Marked, All Systems Reviewed And Found Negative Physical Exam - Reviewed Nursing Documentation Reviewed: Yes Vital Signs Reviewed: Yes - Physical Exam Appears: Positive for: Well, Non-toxic, No Acute Distress Head Exam: Positive for: ATRAUMATIC, NORMAL INSPECTION, NORMOCEPHALIC Skin: Positive for: Normal Color, Warm, DRY Eye Exam: Positive for: EOMI, Normal appearance, PERRL ENT: Positive for: Normal ENT Inspection Neck: Positive for: Normal, Painless ROM Cardiovascular/Chest: Positive for: Regular Rate, Rhythm Respiratory: Positive for: CNT, Normal Breath Sounds Gastrointestinal/Abdominal: Positive for: Normal Exam, Bowel Sounds, Soft Back: Positive for: Normal Inspection Extremity: Positive for: Normal ROM Neurologic/Psych: Positive for: Alert, Oriented - ECG O2 Sat by Pulse Oximetry: 96 Medical Decision Making Medical Decision Making: Pt remains asleep in ED. Waking up occasionally to sleep or use restroom Disposition - Clinical Impression Clinical Impression: Alcohol abuse - Patient ED Disposition Is Patient to be Admitted: Transfer of Care - Disposition Disposition: Transfer of Care Disposition Time: 23:10 Condition: STABLE Instructions: Alcohol Intoxication (ED), Abuse of Alcohol (ED), Alcohol Dependence (ED) Forms: [facility] [employer] [facility] (Norwegian)
--- NOTE | 2017-09-30 05:05 | ED PDOC ---
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 Ambulating baseline with walker. Stable for discharge Disposition - Clinical Impression Clinical Impression: Alcohol abuse - POA Present On Arrival: None - Disposition Disposition: Routine/Home Disposition Time: 06:00 Condition: STABLE Instructions: Alcohol Intoxication (ED), Abuse of Alcohol (ED), Alcohol Dependence (ED)
== END 2017-09-30 06:30 | disposition home or self-care (01) ==
LOC: H.ER 17:57
DX: F10.129 Alcohol abuse with intoxication, unspecified (principal); I48.91 Unspecified atrial fibrillation; J44.9 Chronic obstructive pulmonary disease, unspecified

== ENCOUNTER 2017-09-30 19:45 | Emergency (ER) | payer MEDICAID, SELFPAY ==
[2017-09-30 19:47] VITALS: BP 99/72; PULSE 70; RESP 16; TEMP 98; O2SAT 98; BMI 21.2
[2017-09-30] MEDS ORDERED: Albuterol 0.083% Inhal Sol (2.5 mg/3 mL) UD INH ONE (20:07)
--- NOTE | 2017-09-30 20:12 | ED PDOC ---
HPI: Psych/Substance Abuse Time Seen by Provider: 09/30/17 20:02 Chief Complaint (Nursing): Alcohol Ingestion Chief Complaint (Provider): etoh History Per: Patient, EMS Additional Complaint(s): 57 y/o male brought in by EMS for alcohol intoxication. Patient admits to drinking, requesting a bowl of cereal and a breathing treatment for his asthma. Past Medical History Reviewed: Historical Data, Nursing Documentation, Vital Signs Vital Signs: Last Vital Signs Temp 98.0 F 09/30/17 19:46 Pulse 70 09/30/17 19:46 Resp 16 09/30/17 19:46 BP 99/72 L 09/30/17 19:46 Pulse Ox 98 09/30/17 19:46 - Medical History PMH: Asthma, Atrial Fibrillation, COPD, Hepatitis (C), Seizures - Surgical History Surgical History: Appendectomy, Tonsillectomy - Family History Family History: States: Unknown Family Hx - Home Medications Home Medications: Ambulatory Orders Medication Instructions Recorded Albuterol HFA [Ventolin HFA 90 1 - 2 puff IH Q4 PRN #1 inh 09/24/17 mcg/actuation (8 g)] - Allergies Allergies/Adverse Reactions: Allergies Allergy/AdvReac Type Severity Reaction Status Date / Time No Known Allergies Allergy Verified 09/29/17 18:31 Review of Systems ROS Statement: Except As Marked, All Systems Reviewed And Found Negative Physical Exam - Reviewed Nursing Documentation Reviewed: Yes Vital Signs Reviewed: Yes - Physical Exam Appears: Positive for: Well, Non-toxic, No Acute Distress Head Exam: Positive for: ATRAUMATIC, NORMAL INSPECTION, NORMOCEPHALIC Cardiovascular/Chest: Positive for: Regular Rate, Rhythm Respiratory: Positive for: Normal Breath Sounds Gastrointestinal/Abdominal: Positive for: Normal Exam Back: Positive for: Normal Inspection Extremity: Positive for: Normal ROM Neurologic/Psych: Positive for: Alert, Oriented (x3) - ECG O2 Sat by Pulse Oximetry: 98 - Progress ED Course And Treament: Patient awake, alert, oriented x3 upon arrival. Ambulating at baseline. Patient well known to ED for bed-seeking behavior Patient is stable for discharge Disposition - Clinical Impression Clinical Impression: Alcohol abuse, Asthma - Patient ED Disposition Is Patient to be Admitted: No Counseled Patient/Family Regarding: Diagnosis, Need For Followup - Disposition Disposition: Routine/Home Disposition Time: 22:32 Condition: IMPROVED Instructions: Alcohol Intoxication (ED), Abuse of Alcohol (ED), Alcohol Dependence (ED)
== END 2017-09-30 22:54 | disposition home or self-care (01) ==
LOC: H.ER 19:45
DX: F10.129 Alcohol abuse with intoxication, unspecified (principal); J44.9 Chronic obstructive pulmonary disease, unspecified; I48.91 Unspecified atrial fibrillation

== ENCOUNTER 2017-10-03 01:25 | Emergency (ER) | payer MEDICAID ==
[2017-10-03 01:25] VITALS: BMI 21.2
[2017-10-03 02:02] VITALS: BP 144/77; PULSE 76; RESP 16; TEMP 97.2; O2SAT 96
--- NOTE | 2017-10-03 02:04 | ED PDOC ---
HPI: Psych/Substance Abuse Time Seen by Provider: 10/03/17 01:34 Chief Complaint (Nursing): Cough, Cold, Congestion Chief Complaint (Provider): Evaluation for cough History Per: Patient History/Exam Limitations: no limitations Onset/Duration Of Symptoms: Mins (prior to arrival) Current Symptoms Are (Timing): Still Present Additional Complaint(s): 57yo M routinely seen in ED-homeless state he wants something to eat. Patient brought to ED via EMS for eval of coug, and offers no medical complaints. Past Medical History Reviewed: Historical Data, Nursing Documentation, Vital Signs Vital Signs: Last Vital Signs Temp 97.2 F L 10/03/17 01:34 Pulse 76 10/03/17 01:34 Resp 16 10/03/17 01:34 BP 144/77 10/03/17 01:34 Pulse Ox 96 10/03/17 01:34 - Medical History PMH: Asthma, Atrial Fibrillation, COPD, Hepatitis (C), Seizures - Surgical History Surgical History: Appendectomy, Tonsillectomy - Family History Family History: States: Unknown Family Hx - Living Arrangements Living Arrangements: Alone - Social History Current smoker - smoking cessation education provided: No Ex-Smoker (has not smoked in the last 12 months): No Alcohol: > 2 Drinks/Day Drugs: Denies - Home Medications Home Medications: Ambulatory Orders Medication Instructions Recorded Albuterol HFA [Ventolin HFA 90 1 - 2 puff IH Q4 PRN #1 inh 09/24/17 mcg/actuation (8 g)] - Allergies Allergies/Adverse Reactions: Allergies Allergy/AdvReac Type Severity Reaction Status Date / Time No Known Allergies Allergy Verified 09/29/17 18:31 Review of Systems ROS Statement: Except As Marked, All Systems Reviewed And Found Negative Constitutional: Negative for: Fever Respiratory: Positive for: Cough Physical Exam - Reviewed Nursing Documentation Reviewed: Yes Vital Signs Reviewed: Yes - Physical Exam Appears: Positive for: Non-toxic, No Acute Distress Head Exam: Positive for: ATRAUMATIC, NORMOCEPHALIC Skin: Positive for: Normal Color, Warm Eye Exam: Positive for: Normal appearance, EOMI, PERRL ENT: Positive for: Normal ENT Inspection Neck: Positive for: Normal Cardiovascular/Chest: Positive for: Regular Rate, Rhythm. Negative for: Murmur Respiratory: Positive for: Normal Breath Sounds. Negative for: Respiratory Distress Gastrointestinal/Abdominal: Positive for: Normal Exam, Soft. Negative for: Tenderness Back: Positive for: Normal Inspection Extremity: Positive for: Normal ROM. Negative for: Pedal Edema, Deformity Neurologic/Psych: Positive for: Alert, Oriented. Negative for: Motor/Sensory Deficits - ECG O2 Sat by Pulse Oximetry: 96 (RA) Pulse Ox Interpretation: Normal Medical Decision Making Medical Decision Making: Time: --01:34 Impression: --Alcohol Abuse Reassess --05:50 Patient is stable for discharge home. Scribe Attestation: Documented by Lazaro Baez acting as a scribe for Renaldo Gates MD. Disposition - Clinical Impression Clinical Impression: Alcohol abuse, Malingering - Patient ED Disposition Is Patient to be Admitted: No - Disposition Disposition: Routine/Home Disposition Time: 05:50 Condition: IMPROVED Instructions: Alcohol Intoxication (ED), Abuse of Alcohol (ED), Alcohol Dependence (ED) Forms: [facility] (Thai)
== END 2017-10-03 06:09 | disposition home or self-care (01) ==
LOC: H.ER 01:25
DX: F10.10 Alcohol abuse, uncomplicated (principal); Z59.0 Homelessness; Z76.5 Malingerer [conscious simulation]

== ENCOUNTER 2017-10-03 18:22 | Emergency (ER) | payer MEDICAID ==
[2017-10-03 18:22] VITALS: BMI 21.2
[2017-10-03 18:26] VITALS: O2SAT 97
--- NOTE | 2017-10-03 18:33 | ED PDOC ---
HPI: Psych/Substance Abuse Time Seen by Provider: 10/03/17 18:25 Chief Complaint (Nursing): Cough, Cold, Congestion Chief Complaint (Provider): ETOH History Per: Patient Additional Complaint(s): 57 yo M routinely seen in ED-homeless state he wants something to eat and needs a neb treatment. Patient brought to ED via EMS for eval of cough, and "being homeless." Past Medical History Reviewed: Historical Data, Nursing Documentation, Vital Signs Vital Signs: Last Vital Signs Temp 98.1 F 10/03/17 18:23 Pulse 91 H 10/03/17 18:23 Resp 16 10/03/17 18:23 BP 148/78 10/03/17 18:23 Pulse Ox 97 10/03/17 18:23 - Medical History PMH: Asthma, Atrial Fibrillation, COPD, Hepatitis (C), Seizures - Surgical History Surgical History: Appendectomy, Tonsillectomy - Family History Family History: States: Unknown Family Hx - Living Arrangements Living Arrangements: Other - Social History Current smoker - smoking cessation education provided: No Alcohol: > 2 Drinks/Day Drugs: Denies - Home Medications Home Medications: Ambulatory Orders Medication Instructions Recorded Albuterol HFA [Ventolin HFA 90 1 - 2 puff IH Q4 PRN #1 inh 09/24/17 mcg/actuation (8 g)] - Allergies Allergies/Adverse Reactions: Allergies Allergy/AdvReac Type Severity Reaction Status Date / Time No Known Allergies Allergy Verified 09/29/17 18:31 Review of Systems ROS Statement: Except As Marked, All Systems Reviewed And Found Negative Respiratory: Positive for: Cough, Shortness of Breath Physical Exam - Reviewed Nursing Documentation Reviewed: Yes Vital Signs Reviewed: Yes - Physical Exam Appears: Positive for: Well, Non-toxic, No Acute Distress Head Exam: Positive for: ATRAUMATIC, NORMAL INSPECTION, NORMOCEPHALIC Skin: Positive for: Normal Color, Warm, DRY Eye Exam: Positive for: EOMI, Normal appearance, PERRL ENT: Positive for: Normal ENT Inspection Neck: Positive for: Normal, Painless ROM Cardiovascular/Chest: Positive for: Regular Rate, Rhythm Respiratory: Positive for: CNT, Normal Breath Sounds Gastrointestinal/Abdominal: Positive for: Normal Exam, Bowel Sounds, Soft Back: Positive for: Normal Inspection Extremity: Positive for: Normal ROM Neurologic/Psych: Positive for: Alert, Oriented - ECG O2 Sat by Pulse Oximetry: 97 Medical Decision Making Medical Decision Making: Duo neb treatments initiated while in ED Case endorsed to SHANA Rider at 2000 pending re-eval Disposition - Clinical Impression Clinical Impression: Bronchospasm - Patient ED Disposition Is Patient to be Admitted: Transfer of Care - Disposition Disposition: Transfer of Care Disposition Time: 02:00 Condition: STABLE Instructions: Alcohol Intoxication (ED), Abuse of Alcohol (ED), Alcohol Dependence (ED) Forms: [employer] (Barbadian)
[2017-10-03] MEDS ORDERED: Albuterol-Ipratrop 3 mg / 0.5 (3 ml) UD INH STA (19:29)
--- NOTE | 2017-10-04 05:36 | ED PDOC ---
- ECG O2 Sat by Pulse Oximetry: 97 (RA) Pulse Ox Interpretation: Normal Medical Decision Making Medical Decision Making: Time: 1999 --Patient endorsed to provider by Gladis Patrick PA-C. Pending clinical sobriety. Time: 050 --Upon provider reevaluation, patient is clinically sober, medically stable and requires no further treatment in the ED at this time. Patient will be discharged home. Counseling was provided and all questions were answered regarding diagnosis. There is agreement to discharge plan. Return if symptoms persist or worsen. Clinical Impression: Alcohol intoxication; bronchospasm Scribe Attestation: Documented by Brittaney Molina, acting as a scribe for Renaldo Gates MD. Provider Scribe Attestation: All medical record entries made by the Scribe were at my direction and personally dictated by me. I have reviewed the chart and agree that the record accurately reflects my personal performance of the history, physical exam, medical decision making, and the department course for this patient. I have also personally directed, reviewed, and agree with the discharge instructions and disposition. Disposition Counseled Patient/Family Regarding: Diagnosis - Clinical Impression Clinical Impression: Alcohol abuse, Bronchospasm - POA Present On Arrival: None - Disposition Disposition: Routine/Home Disposition Time: 05:00 Condition: STABLE Instructions: Alcohol Intoxication (ED), Abuse of Alcohol (ED), Alcohol Dependence (ED) Forms: [employer] (Nepali)
[2017-10-04 05:55] VITALS: BP 132/78; PULSE 86; RESP 18; TEMP 98.7
== END 2017-10-04 05:30 | disposition home or self-care (01) ==
LOC: H.ER 18:22
DX: J44.9 Chronic obstructive pulmonary disease, unspecified (principal); F10.129 Alcohol abuse with intoxication, unspecified; I48.91 Unspecified atrial fibrillation; Z59.0 Homelessness

== ENCOUNTER 2017-10-05 23:38 | Emergency (ER) | payer MEDICAID ==
[2017-10-05 23:38] VITALS: BMI 21.2
[2017-10-06 00:40] VITALS: TEMP 97.6; O2SAT 96
--- NOTE | 2017-10-06 03:25 | ED PDOC ---
HPI: Psych/Substance Abuse Time Seen by Provider: 10/05/17 23:43 Chief Complaint (Nursing): Alcohol Ingestion Chief Complaint (Provider): Alcohol Ingestion ED Caveat: Intoxicated History Per: Patient, EMS History/Exam Limitations: no limitations Onset/Duration Of Symptoms: Days (x today) Current Symptoms Are (Timing): Still Present Modifying Factor(s): Alcohol Additional Complaint(s): Jorge L is a 57 year old female who presents to the emergency department via EMS for alcohol intoxication. Patient is well-known to ED. PMD: Provider TBD Past Medical History Reviewed: Historical Data, Nursing Documentation, Vital Signs, Unable To Obtain Vital Signs: Last Vital Signs Temp 97.6 F 10/06/17 00:39 Pulse 82 10/06/17 00:39 Resp 16 10/06/17 00:39 BP 96/60 L 10/06/17 00:39 Pulse Ox 96 10/06/17 00:39 - Medical History PMH: Asthma, Atrial Fibrillation, COPD, Hepatitis (C), Seizures - Surgical History Surgical History: Appendectomy, Tonsillectomy - Family History Family History: States: Unknown Family Hx - Home Medications Home Medications: Ambulatory Orders Medication Instructions Recorded Albuterol HFA [Ventolin HFA 90 1 - 2 puff IH Q4 PRN #1 inh 09/24/17 mcg/actuation (8 g)] - Allergies Allergies/Adverse Reactions: Allergies Allergy/AdvReac Type Severity Reaction Status Date / Time No Known Allergies Allergy Verified 10/06/17 00:39 Review of Systems Review Of Systems: ROS cannot be obtained secondary to pt's inabilty to answer questions. (Caveat: Intoxication) Physical Exam - Reviewed Nursing Documentation Reviewed: Yes Vital Signs Reviewed: Yes - Physical Exam Appears: Positive for: Well Head Exam: Positive for: ATRAUMATIC, NORMAL INSPECTION, NORMOCEPHALIC Skin: Positive for: Normal Color, Warm Eye Exam: Positive for: Normal appearance ENT: Positive for: Normal ENT Inspection Neck: Positive for: Normal Cardiovascular/Chest: Positive for: Regular Rate, Rhythm Respiratory: Positive for: Normal Breath Sounds. Negative for: Respiratory Distress Gastrointestinal/Abdominal: Positive for: Normal Exam Back: Positive for: Normal Inspection Extremity: Positive for: Normal ROM. Negative for: Deformity Neurologic/Psych: Positive for: Alert, Oriented, Other (Speech is slurred) - ECG O2 Sat by Pulse Oximetry: 96 (RA) Pulse Ox Interpretation: Normal Medical Decision Making Medical Decision Making: Upon provider evaluation patient is medically stable, and requires no further treatment in the ED at this time. Patient will be discharged. Diagnosis is alcohol intoxication. Scribe Attestation: Documented by Clarence Mccoy, acting as a scribe for Renaldo Gates MD Provider Scribe Attestation: All medical record entries made by the Scribe were at my direction and personally dictated by me. I have reviewed the chart and agree that the record accurately reflects my personal performance of the history, physical exam, medical decision making, and the department course for this patient. I have also personally directed, reviewed, and agree with the discharge instructions and disposition. Disposition - Clinical Impression Clinical Impression: Alcohol abuse with uncomplicated intoxication - Patient ED Disposition Is Patient to be Admitted: No - Disposition Disposition: Routine/Home Disposition Time: 00:30 Condition: STABLE Instructions: Alcohol Use Disorder (ED) Forms: [employer] (Slovak)
[2017-10-06 05:30] VITALS: BP 112/74; PULSE 77; RESP 18
== END 2017-10-06 06:00 | disposition home or self-care (01) ==
LOC: H.ER 23:38
DX: F10.120 Alcohol abuse with intoxication, uncomplicated (principal); J44.9 Chronic obstructive pulmonary disease, unspecified

== ENCOUNTER 2017-10-07 01:23 | Emergency (ER) | payer MEDICAID ==
[2017-10-07 01:23] VITALS: BMI 21.2
[2017-10-07 01:29] VITALS: RESP 16
[2017-10-07] MEDS ORDERED: Albuterol 0.083% Inhal Sol (2.5 mg/3 mL) UD INH ONE (01:36)
--- NOTE | 2017-10-07 01:41 | ED PDOC ---
HPI: Psych/Substance Abuse Time Seen by Provider: 10/07/17 01:31 Chief Complaint (Nursing): Cough, Cold, Congestion Chief Complaint (Provider): etoh History Per: EMS Additional Complaint(s): 57 y/o nondomiciled male brought in by EMS for alcohol intoxication. Patient admits to drinking, requesting albuterol treatment for his asthma. Denies fever , chest pain, shortness of breath, palpitations, leg pain/swelling. Past Medical History Vital Signs: Last Vital Signs Temp 97.5 F L 10/07/17 01:25 Pulse 97 H 10/07/17 01:25 Resp 16 10/07/17 01:25 BP 108/63 10/07/17 01:25 Pulse Ox 97 10/07/17 01:25 - Medical History PMH: Asthma, Atrial Fibrillation, COPD, Hepatitis (C), Seizures - Surgical History Surgical History: Appendectomy, Tonsillectomy - Family History Family History: States: Unknown Family Hx - Home Medications Home Medications: Ambulatory Orders Medication Instructions Recorded Albuterol HFA [Ventolin HFA 90 1 - 2 puff IH Q4 PRN #1 inh 09/24/17 mcg/actuation (8 g)] - Allergies Allergies/Adverse Reactions: Allergies Allergy/AdvReac Type Severity Reaction Status Date / Time No Known Allergies Allergy Verified 10/12/17 16:00 Review of Systems ROS Statement: Except As Marked, All Systems Reviewed And Found Negative Respiratory: Positive for: Cough Physical Exam - Reviewed Nursing Documentation Reviewed: Yes Vital Signs Reviewed: Yes - Physical Exam Appears: Positive for: Well, Non-toxic, No Acute Distress Head Exam: Positive for: ATRAUMATIC, NORMAL INSPECTION, NORMOCEPHALIC Skin: Positive for: Normal Color Eye Exam: Positive for: Normal appearance ENT: Positive for: Normal ENT Inspection Cardiovascular/Chest: Positive for: Regular Rate, Rhythm Respiratory: Positive for: Normal Breath Sounds Gastrointestinal/Abdominal: Positive for: Normal Exam Back: Positive for: Normal Inspection Extremity: Positive for: Normal ROM Neurologic/Psych: Positive for: Alert, Oriented - ECG O2 Sat by Pulse Oximetry: 97 - Progress ED Course And Treament: Patient given albuterol treatment with improvement of symptoms. Patient awake, alert, oriented x3. Ambulating baseline. Stable for discharge Disposition - Clinical Impression Clinical Impression: Alcohol abuse, Asthma - Patient ED Disposition Is Patient to be Admitted: No Counseled Patient/Family Regarding: Diagnosis, Need For Followup - Disposition Disposition: Routine/Home Disposition Time: 05:30 Condition: STABLE Instructions: Alcohol Intoxication (ED), Abuse of Alcohol (ED), Alcohol Dependence (ED)
[2017-10-07] MEDS ORDERED: Albuterol 0.083% Inhal Sol (2.5 mg/3 mL) UD ONE (01:48)
[2017-10-07 05:52] VITALS: BP 116/78; PULSE 68; TEMP 97.2
[2017-10-13 02:48] VITALS: O2SAT 97
== END 2017-10-07 05:52 | disposition home or self-care (01) ==
LOC: H.ER 01:23
DX: J44.9 Chronic obstructive pulmonary disease, unspecified (principal); F10.129 Alcohol abuse with intoxication, unspecified

== ENCOUNTER 2017-10-09 01:21 | Emergency (ER) | payer MEDICAID, OTHER ==
[2017-10-09 01:21] VITALS: BMI 21.2
[2017-10-09 01:44] VITALS: PULSE 79; RESP 17; TEMP 98.7; O2SAT 97
--- NOTE | 2017-10-09 03:17 | ED PDOC ---
HPI: General Adult Time Seen by Provider: 10/09/17 01:30 Chief Complaint (Nursing): Lower Extremity Problem/Injury History Per: Patient Additional Complaint(s): Pt. c/o chronic leg pain. Pt. states he was dx with neuropathy due to his alcoholism. Denies trauma, fever. Pt. well known to ED. Past Medical History Reviewed: Historical Data, Nursing Documentation, Vital Signs Vital Signs: Last Vital Signs Temp 98.7 F 10/09/17 01:40 Pulse 79 10/09/17 01:40 Resp 17 10/09/17 01:40 BP 98/59 L 10/09/17 04:58 Pulse Ox 97 10/09/17 05:54 - Medical History PMH: Asthma, Atrial Fibrillation, COPD, Hepatitis (C), Seizures - Surgical History Surgical History: Appendectomy, Tonsillectomy - Family History Family History: States: Unknown Family Hx - Home Medications Home Medications: Ambulatory Orders Medication Instructions Recorded Albuterol HFA [Ventolin HFA 90 1 - 2 puff IH Q4 PRN #1 inh 09/24/17 mcg/actuation (8 g)] - Allergies Allergies/Adverse Reactions: Allergies Allergy/AdvReac Type Severity Reaction Status Date / Time No Known Allergies Allergy Verified 10/09/17 01:43 Review of Systems ROS Statement: Except As Marked, All Systems Reviewed And Found Negative Physical Exam - Physical Exam Appears: Positive for: Well, Non-toxic, No Acute Distress Skin: Positive for: Normal Color, Warm. Negative for: Rash Eye Exam: Positive for: Normal appearance Cardiovascular/Chest: Positive for: Regular Rate, Rhythm Respiratory: Positive for: Normal Breath Sounds. Negative for: Accessory Muscle Use Pulses-Dorsalis Pedis (L): 2+ Pulses-Dorsalis Pedis (R): 2+ Gastrointestinal/Abdominal: Positive for: Normal Exam, Soft. Negative for: Tenderness Back: Positive for: Normal Inspection Extremity: Positive for: Normal ROM, Other (b/l legs without erythema or edema) . Negative for: Calf Tenderness (b/l), Swelling (b/l legs) Neurologic/Psych: Positive for: Alert, Oriented, Gait (steady with walker). Negative for: Aphasia, Facial Droop - ECG O2 Sat by Pulse Oximetry: 97 - Progress ED Course And Treament: FSBS: 81 Disposition - Clinical Impression Clinical Impression: Peripheral neuropathy - Patient ED Disposition Is Patient to be Admitted: No - Disposition Disposition: Routine/Home Disposition Time: 01:50 Condition: STABLE Instructions: Peripheral Neuropathy (ED) Forms: [facility] (North Korean) Print Language: BERMUDIAN
[2017-10-09 04:59] VITALS: BP 98/59
== END 2017-10-09 07:13 | disposition home or self-care (01) ==
LOC: H.ER 01:21
DX: G62.9 Polyneuropathy, unspecified (principal); G89.29 Other chronic pain; I48.91 Unspecified atrial fibrillation; J44.9 Chronic obstructive pulmonary disease, unspecified

== ENCOUNTER 2017-10-09 17:43 | Emergency (ER) | payer MEDICAID ==
[2017-10-09 17:43] VITALS: BMI 21.2
[2017-10-09 18:10] VITALS: BP 142/71; RESP 18; TEMP 97.9; O2SAT 96
--- NOTE | 2017-10-09 18:39 | ED PDOC ---
HPI: Psych/Substance Abuse Time Seen by Provider: 10/09/17 17:44 Chief Complaint (Nursing): Cough, Cold, Congestion Chief Complaint (Provider): "I'm hungry" History Per: Patient Additional Complaint(s): 57 yo M routinely seen in ED-homeless state he wants something to eat and needs a neb treatment. Patient brought to ED via EMS for eval of cough, and "being homeless." Past Medical History Reviewed: Historical Data, Nursing Documentation, Vital Signs Vital Signs: Last Vital Signs Temp 97.9 F 10/09/17 18:08 Pulse 68 10/09/17 18:08 Resp 18 10/09/17 18:08 BP 142/71 10/09/17 18:08 Pulse Ox 96 10/09/17 18:08 - Medical History PMH: Asthma, Atrial Fibrillation, COPD, Hepatitis (C), Seizures - Surgical History Surgical History: Appendectomy, Tonsillectomy - Family History Family History: States: Unknown Family Hx - Living Arrangements Living Arrangements: Other - Social History Alcohol: > 2 Drinks/Day - Home Medications Home Medications: Ambulatory Orders Medication Instructions Recorded Albuterol HFA [Ventolin HFA 90 1 - 2 puff IH Q4 PRN #1 inh 09/24/17 mcg/actuation (8 g)] - Allergies Allergies/Adverse Reactions: Allergies Allergy/AdvReac Type Severity Reaction Status Date / Time No Known Allergies Allergy Verified 10/09/17 18:08 Review of Systems ROS Statement: Except As Marked, All Systems Reviewed And Found Negative Physical Exam - Reviewed Nursing Documentation Reviewed: Yes Vital Signs Reviewed: Yes - Physical Exam Appears: Positive for: Well, Non-toxic, No Acute Distress Head Exam: Positive for: ATRAUMATIC, NORMAL INSPECTION, NORMOCEPHALIC Skin: Positive for: Normal Color, Warm, DRY Eye Exam: Positive for: EOMI, Normal appearance, PERRL ENT: Positive for: Normal ENT Inspection Neck: Positive for: Normal, Painless ROM Cardiovascular/Chest: Positive for: Regular Rate, Rhythm Respiratory: Positive for: CNT, Normal Breath Sounds Gastrointestinal/Abdominal: Positive for: Normal Exam, Bowel Sounds, Soft Back: Positive for: Normal Inspection Extremity: Positive for: Normal ROM Neurologic/Psych: Positive for: Alert, Oriented - ECG O2 Sat by Pulse Oximetry: 96 Medical Decision Making Medical Decision Making: given food tray in ED which Pt tolerated without difficulty. Permitted to rest in ED Disposition - Clinical Impression Clinical Impression: Alcohol abuse - Disposition Disposition: Routine/Home Disposition Time: 23:21 Condition: STABLE Instructions: Alcohol Intoxication (ED) Forms: [employer] (Chinese)
[2017-10-09 23:22] VITALS: PULSE 64
== END 2017-10-09 23:51 | disposition home or self-care (01) ==
LOC: H.ER 17:43
DX: F10.10 Alcohol abuse, uncomplicated (principal); I48.91 Unspecified atrial fibrillation; J44.9 Chronic obstructive pulmonary disease, unspecified; Z59.0 Homelessness

== ENCOUNTER 2017-10-10 02:57 | Emergency (ER) | payer MEDICAID ==
[2017-10-10 02:57] VITALS: BMI 21.2
[2017-10-10 03:32] VITALS: BP 128/61; PULSE 91; RESP 16; TEMP 97.2; O2SAT 95
--- NOTE | 2017-10-10 03:40 | ED PDOC ---
HPI: General Adult Time Seen by Provider: 10/10/17 03:13 Chief Complaint (Nursing): Cough, Cold, Congestion Chief Complaint (Provider): Cough History Per: Patient History/Exam Limitations: no limitations Onset/Duration Of Symptoms: Persistent Recently: Seen In ED Additional Complaint(s): 57yo male, well known to ED for multiple visits with same complaints, presents today with complaint of cough. Patient denies any chest pain, shortness of breath, and is in no respiratory distress. Past Medical History Reviewed: Historical Data, Nursing Documentation, Vital Signs Vital Signs: Last Vital Signs Temp 97.2 F L 10/10/17 03:29 Pulse 91 H 10/10/17 03:29 Resp 16 10/10/17 03:29 BP 128/61 10/10/17 03:29 Pulse Ox 95 10/10/17 05:01 - Medical History PMH: Asthma, Atrial Fibrillation, COPD, Hepatitis (C), Seizures - Surgical History Surgical History: Appendectomy, Tonsillectomy - Family History Family History: States: No Known Family Hx - Living Arrangements Living Arrangements: Other (undomiciled) - Home Medications Home Medications: Ambulatory Orders Medication Instructions Recorded Albuterol HFA [Ventolin HFA 90 1 - 2 puff IH Q4 PRN #1 inh 09/24/17 mcg/actuation (8 g)] - Allergies Allergies/Adverse Reactions: Allergies Allergy/AdvReac Type Severity Reaction Status Date / Time No Known Allergies Allergy Verified 10/09/17 18:08 Review of Systems ROS Statement: Except As Marked, All Systems Reviewed And Found Negative Constitutional: Negative for: Fever, Chills Cardiovascular: Negative for: Chest Pain Respiratory: Positive for: Cough. Negative for: Shortness of Breath Physical Exam - Reviewed Nursing Documentation Reviewed: Yes Vital Signs Reviewed: Yes - Physical Exam Appears: Positive for: Non-toxic, No Acute Distress Head Exam: Positive for: ATRAUMATIC, NORMAL INSPECTION, NORMOCEPHALIC Skin: Positive for: Normal Color Eye Exam: Positive for: Normal appearance Neck: Positive for: Supple Cardiovascular/Chest: Positive for: Regular Rate, Rhythm Respiratory: Positive for: Normal Breath Sounds. Negative for: Respiratory Distress Neurologic/Psych: Positive for: Alert, Oriented - ECG O2 Sat by Pulse Oximetry: 95 (RA) Medical Decision Making Medical Decision Making: Impression: Cough Plan: -- Pt resting in ED, breathing without difficulty. Scribe Attestation: Documented by Dana Victor, acting as a scribe for ANAY Gonzalez. Provider Scribe Attestation: All medical record entries made by the Scribe were at my direction and personally dictated by me. I have reviewed the chart and agree that the record accurately reflects my personal performance of the history, physical exam, medical decision making, and the department course for this patient. I have also personally directed, reviewed, and agree with the discharge instructions and disposition. Disposition - Clinical Impression Clinical Impression: Cough - Patient ED Disposition Is Patient to be Admitted: No - Disposition Disposition: Routine/Home Disposition Time: 03:50 Condition: STABLE Forms: [facility] (Uruguayan)
== END 2017-10-10 06:00 | disposition home or self-care (01) ==
LOC: H.ER 02:57
DX: R05 Cough (principal); J44.9 Chronic obstructive pulmonary disease, unspecified; I48.91 Unspecified atrial fibrillation

== ENCOUNTER 2017-10-10 21:30 | Emergency (ER) | payer MEDICAID ==
[2017-10-10 21:30] VITALS: BMI 21.2
--- NOTE | 2017-10-10 22:55 | ED PDOC ---
HPI: Psych/Substance Abuse Time Seen by Provider: 10/10/17 22:50 Chief Complaint (Nursing): Alcohol Ingestion Chief Complaint (Provider): ALCOHOL INGESTION History Per: Patient (57 Y/O MALE UNDOMICILED HERE FOR APPARENT ETOH INTOXICATION. HAS NO COMPLAINTS.) Past Medical History Reviewed: Historical Data, Nursing Documentation, Vital Signs - Medical History PMH: Asthma, Atrial Fibrillation, COPD, Hepatitis (C), Seizures - Surgical History Surgical History: Appendectomy, Tonsillectomy - Family History Family History: States: Unknown Family Hx - Home Medications Home Medications: Ambulatory Orders Medication Instructions Recorded Albuterol HFA [Ventolin HFA 90 1 - 2 puff IH Q4 PRN #1 inh 09/24/17 mcg/actuation (8 g)] - Allergies Allergies/Adverse Reactions: Allergies Allergy/AdvReac Type Severity Reaction Status Date / Time No Known Allergies Allergy Verified 10/10/17 22:48 Review of Systems ROS Statement: Except As Marked, All Systems Reviewed And Found Negative Physical Exam - Reviewed Nursing Documentation Reviewed: Yes Vital Signs Reviewed: Yes - Physical Exam Appears: Positive for: Well, Non-toxic, No Acute Distress Head Exam: Positive for: ATRAUMATIC, NORMAL INSPECTION, NORMOCEPHALIC Skin: Positive for: Normal Color, Warm, DRY Eye Exam: Positive for: EOMI, Normal appearance, PERRL ENT: Positive for: Normal ENT Inspection Neck: Positive for: Normal, Painless ROM Cardiovascular/Chest: Positive for: Regular Rate, Rhythm Respiratory: Positive for: CNT, Normal Breath Sounds Gastrointestinal/Abdominal: Positive for: Normal Exam, Bowel Sounds, Soft Back: Positive for: Normal Inspection Extremity: Positive for: Normal ROM Neurologic/Psych: Positive for: Alert, Oriented - Progress ED Course And Treament: WILL OBSERVE FOR CLINICAL SOBRIETY Disposition - Clinical Impression Clinical Impression: Alcohol intoxication - Patient ED Disposition Is Patient to be Admitted: No - Disposition Disposition: Routine/Home Disposition Time: 23:27 Condition: FAIR Instructions: Alcohol Intoxication (GEN) Forms: [employer] (Malagasy) Patient Signed Over To: Gladis Patrick Handoff Comments: SOBRIETY
[2017-10-10 23:05] VITALS: BP 117/54; PULSE 84; RESP 19; TEMP 98.1; O2SAT 94
--- NOTE | 2017-10-11 05:32 | ED PDOC ---
- ECG O2 Sat by Pulse Oximetry: 94 Medical Decision Making Medical Decision Making: Case endorsed to life underwriter from SHANA Ram at 0000 pending sobriety Monitored in ED overnight. stable for discharge in am Disposition - Clinical Impression Clinical Impression: Alcohol intoxication - POA Present On Arrival: None - Disposition Disposition: Routine/Home Disposition Time: 05:32 Condition: FAIR Instructions: Alcohol Intoxication (GEN) Forms: [employer] (Mongolian)
== END 2017-10-11 05:43 | disposition home or self-care (01) ==
LOC: H.ER 21:30
DX: F10.129 Alcohol abuse with intoxication, unspecified (principal)

== ENCOUNTER 2017-12-12 20:54 | Emergency (ER) | payer OTHER ==
[2017-12-12 21:01] VITALS: O2SAT 97
[2017-12-12] MEDS ORDERED: Albuterol-Ipratrop 3 mg / 0.5 (3 ml) UD INH STA (21:04)
[2017-12-12] MEDS ORDERED: Albuterol 0.083% Inhal Sol (2.5 mg/3 mL) UD INH STA (21:04)
[2017-12-12] MEDS ORDERED: Albuterol-Ipratrop 3 mg / 0.5 (3 ml) UD ONE (21:22)
[2017-12-12] MEDS ORDERED: Albuterol 0.083% Inhal Sol (2.5 mg/3 mL) UD ONE (21:22)
--- NOTE | 2017-12-12 21:37 | ED PDOC ---
HPI: Psych/Substance Abuse Time Seen by Provider: 12/12/17 21:04 Chief Complaint (Nursing): Alcohol Ingestion Chief Complaint (Provider): Alcohol Ingestion History Per: Patient History/Exam Limitations: no limitations Onset/Duration Of Symptoms: Days (x 1) Current Symptoms Are (Timing): Still Present Additional Complaint(s): 57 year old male with a history of COPD and asthma presents to the ED with shortness of breath and cough. Patient is well known to the ED for bed seeking behavior and alcohol abuse. He denies alcohol use today and any other medical complaints. PMD: none provided Past Medical History Reviewed: Historical Data, Nursing Documentation, Vital Signs Vital Signs: Last Vital Signs Temp 97.5 F L 12/12/17 20:59 Pulse 84 12/12/17 20:59 Resp 19 12/12/17 20:59 BP 131/74 12/12/17 20:59 Pulse Ox 97 12/12/17 20:59 - Medical History PMH: Asthma, Atrial Fibrillation, COPD, Hepatitis (C), Seizures - Surgical History Surgical History: Appendectomy, Tonsillectomy - Family History Family History: States: Unknown Family Hx - Home Medications Home Medications: Ambulatory Orders Medication Instructions Recorded Albuterol HFA [Ventolin HFA 90 1 puff IH Q4 PRN #1 inh 10/26/17 mcg/actuation (8 g)] Cephalexin [Keflex] 250 mg PO Q8 #15 capsule 10/29/17 Methylprednisolone [Medrol Dose 4 mg PO DAILY #21 mg 10/29/17 Pack (21 tabs)] Albuterol HFA [Ventolin HFA 90 1 - 2 puff IH Q4 PRN #1 inh 11/16/17 mcg/actuation (8 g)] Albuterol Sulfate [Proair Hfa] 0.09 mg IH Q6 PRN #1 inh 12/12/17 - Allergies Allergies/Adverse Reactions: Allergies Allergy/AdvReac Type Severity Reaction Status Date / Time No Known Allergies Allergy Verified 12/12/17 00:55 Review of Systems ROS Statement: Except As Marked, All Systems Reviewed And Found Negative Respiratory: Positive for: Cough, Shortness of Breath Physical Exam - Reviewed Nursing Documentation Reviewed: Yes Vital Signs Reviewed: Yes - Physical Exam Appears: Positive for: Non-toxic, No Acute Distress (speaking in full sentences , disheveled appearence) Head Exam: Positive for: ATRAUMATIC, NORMOCEPHALIC Skin: Positive for: Normal Color, Warm, DRY Eye Exam: Positive for: EOMI, PERRL Neck: Positive for: Painless ROM, Supple Cardiovascular/Chest: Positive for: Regular Rate, Rhythm. Negative for: Murmur Respiratory: Positive for: Decreased Breath Sounds (bilaterally), Wheezing ( scattered inspiratory ). Negative for: Accessory Muscle Use, Respiratory Distress Gastrointestinal/Abdominal: Positive for: Soft. Negative for: Tenderness, Guarding Neurologic/Psych: Positive for: Alert, Oriented (x3), Gait (steady with walker at baseline). Negative for: Motor/Sensory Deficits - ECG O2 Sat by Pulse Oximetry: 97 (RA) Pulse Ox Interpretation: Normal Medical Decision Making Medical Decision Making: Time; 21:04 Initial Plan: --Albuterol .083% 2.5 mg INH --Duoneb 3 ml INH --Peak flow pre/ post 2230 On re-evaluation, patient with improvement of presenting symptoms. Patient is requesting a food tray at this time. [id number] Patient asleep comfortably in ED stretcher. No acute distress noted. 000 Case endorsed to ANAY Walker at 0000 pending re-evaluation and further disposition. Pertinent details reviewed. ---- Scribe Attestation: Documented by Pooja Hobbs, acting as a scribe for Patti Downey PA-C Provider Scribe Attestation: All medical record entries made by the Scribe were at my direction and personally dictated by me. I have reviewed the chart and agree that the record accurately reflects my personal performance of the history, physical exam, medical decision making, and the department course for this patient. I have also personally directed, reviewed, and agree with the discharge instructions and disposition. Disposition - Clinical Impression Clinical Impression: SOB (shortness of breath), Asthma exacerbation - Patient ED Disposition Is Patient to be Admitted: Transfer of Care Counseled Patient/Family Regarding: Diagnosis, Need For Followup - Disposition Referrals: [facility] [Provider Group] Disposition: Routine/Home Disposition Time: 00:00 Condition: FAIR Additional Instructions: Case endorsed to ANAY Walker at 0000 pending re-evaluation and further disposition. Pertinent details reviewed. Forms: [employer] (Indonesian) - POA Present On Arrival: None
[2017-12-13 01:21] VITALS: RESP 17
--- NOTE | 2017-12-13 04:43 | ED PDOC ---
- ECG O2 Sat by Pulse Oximetry: 97 (RA) Medical Decision Making Medical Decision Making: pt ready for discharge after medical clearance pt expressive and steady gait Disposition Counseled Patient/Family Regarding: Studies Performed, Diagnosis - Clinical Impression Clinical Impression: SOB (shortness of breath), Asthma exacerbation - POA Present On Arrival: None - Disposition Referrals: [facility] [Provider Group] Disposition: Routine/Home Disposition Time: 04:43 Condition: FAIR Additional Instructions: Case endorsed to ANAY Walker at 0000 pending re-evaluation and further disposition. Pertinent details reviewed. Instructions: Asthma in Adults, Shortness of Breath (Dyspnea) (DC), Asthma Action Plan Forms: [employer] (Singaporean)
[2017-12-13 05:01] VITALS: BP 126/81; PULSE 81; TEMP 97.6
== END 2017-12-13 05:10 | disposition home or self-care (01) ==
LOC: H.ER 20:54
DX: J44.9 Chronic obstructive pulmonary disease, unspecified (principal); I48.91 Unspecified atrial fibrillation; J45.901 Unspecified asthma with (acute) exacerbation

== ENCOUNTER 2017-12-13 20:46 | Emergency (ER) | payer OTHER ==
[2017-12-13 21:49] VITALS: BMI 21.2
[2017-12-13 21:51] VITALS: BP 116/72; PULSE 89; RESP 16; TEMP 97.8; O2SAT 94
--- NOTE | 2017-12-14 01:39 | ED PDOC ---
HPI: Psych/Substance Abuse Time Seen by Provider: 12/13/17 22:04 Chief Complaint (Nursing): Alcohol Ingestion Chief Complaint (Provider): public intoxication History Per: Patient History/Exam Limitations: no limitations Onset/Duration Of Symptoms: Sudden Onset Current Symptoms Are (Timing): Still Present Additional Complaint(s): 57 year old male, brought in by EMS, with a history of COPD and asthma presents to the ED with public intoxication. Patient is well known to the ED for bed seeking behavior and alcohol abuse. He denies any other medical complaints. PMD: none provided Past Medical History Reviewed: Historical Data, Nursing Documentation, Vital Signs Vital Signs: Last Vital Signs Temp 97.8 F 12/13/17 21:49 Pulse 89 12/13/17 21:49 Resp 16 12/13/17 21:49 BP 116/72 12/13/17 21:49 Pulse Ox 94 L 12/13/17 21:49 - Medical History PMH: Asthma, Atrial Fibrillation, COPD, Hepatitis (C), Seizures - Surgical History Surgical History: Appendectomy, Tonsillectomy - Family History Family History: States: Unknown Family Hx - Social History Current smoker - smoking cessation education provided: Yes (heavy) Ex-Smoker (has not smoked in the last 12 months): No Alcohol: > 2 Drinks/Day Drugs: Denies - Home Medications Home Medications: Ambulatory Orders Medication Instructions Recorded Albuterol HFA [Ventolin HFA 90 1 puff IH Q4 PRN #1 inh 10/26/17 mcg/actuation (8 g)] Cephalexin [Keflex] 250 mg PO Q8 #15 capsule 10/29/17 Methylprednisolone [Medrol Dose 4 mg PO DAILY #21 mg 10/29/17 Pack (21 tabs)] Albuterol HFA [Ventolin HFA 90 1 - 2 puff IH Q4 PRN #1 inh 11/16/17 mcg/actuation (8 g)] Albuterol Sulfate [Proair Hfa] 0.09 mg IH Q6 PRN #1 inh 12/12/17 - Allergies Allergies/Adverse Reactions: Allergies Allergy/AdvReac Type Severity Reaction Status Date / Time No Known Allergies Allergy Verified 12/13/17 21:48 Review of Systems ROS Statement: Except As Marked, All Systems Reviewed And Found Negative Constitutional: Negative for: Fever Psych: Negative for: Suicidal ideation Physical Exam - Reviewed Nursing Documentation Reviewed: Yes Vital Signs Reviewed: Yes - Physical Exam Appears: Positive for: Well, Non-toxic, No Acute Distress Head Exam: Positive for: ATRAUMATIC, NORMAL INSPECTION, NORMOCEPHALIC Skin: Positive for: Normal Color, Warm, DRY Eye Exam: Positive for: EOMI, Normal appearance, PERRL ENT: Positive for: Normal ENT Inspection Neck: Positive for: Normal, Painless ROM Cardiovascular/Chest: Positive for: Regular Rate, Rhythm. Negative for: Murmur Respiratory: Positive for: Normal Breath Sounds. Negative for: Respiratory Distress Gastrointestinal/Abdominal: Positive for: Normal Exam, Soft. Negative for: Tenderness Back: Positive for: Normal Inspection Extremity: Positive for: Normal ROM. Negative for: Pedal Edema, Deformity Neurologic/Psych: Positive for: Alert, Oriented. 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 Provider Attestation: All medical record entries made by the Scribe were at my direction and personally dictated by me. I have reviewed the chart and agree that the record accurately reflects my personal performance of the history, physical exam, medical decision making, and the department course for this patient. I have also personally directed, reviewed, and agree with the discharge instructions and disposition. Disposition - Clinical Impression Clinical Impression: Alcohol abuse - Patient ED Disposition Is Patient to be Admitted: No - Disposition Referrals: George Campbell MD [Primary Care Provider] - Disposition: Routine/Home Disposition Time: 02:45 Condition: STABLE Instructions: Alcohol Intoxication (ED) Forms: [employer] (Bengali)
== END 2017-12-14 03:00 | disposition home or self-care (01) ==
LOC: H.ER 20:46
DX: F10.10 Alcohol abuse, uncomplicated (principal); F17.200 Nicotine dependence, unspecified, uncomplicated; J44.9 Chronic obstructive pulmonary disease, unspecified; Z76.5 Malingerer [conscious simulation]

== ENCOUNTER 2017-12-14 20:16 | Emergency (ER) | payer OTHER ==
[2017-12-14 20:17] VITALS: BMI 21.2
[2017-12-14 20:22] VITALS: BP 114/78; PULSE 94; RESP 20; TEMP 97.8; O2SAT 99
[2017-12-14] MEDS ORDERED: Albuterol 0.083% Inhal Sol (2.5 mg/3 mL) UD INH ONE (20:37)
[2017-12-14] MEDS ORDERED: Albuterol 0.083% Inhal Sol (2.5 mg/3 mL) UD ONE (20:39)
--- NOTE | 2017-12-14 20:42 | ED PDOC ---
HPI: Psych/Substance Abuse Time Seen by Provider: 12/14/17 20:26 Chief Complaint (Nursing): Shortness Of Breath Chief Complaint (Provider): eval History Per: Patient History/Exam Limitations: no limitations Additional Complaint(s): 57 y/o male presents to ED requesting cereal and nebulizer treatment for his asthma. Drinks daily. Patient well known to ED for bed-seeking behavior. Denies chest pain, shortness of breath, palpitations, leg pain/swelling. Past Medical History Reviewed: Historical Data, Nursing Documentation, Vital Signs Vital Signs: Last Vital Signs Temp 97.8 F 12/14/17 20:20 Pulse 94 H 12/14/17 20:20 Resp 20 12/14/17 20:20 BP 114/78 12/14/17 20:20 Pulse Ox 99 12/14/17 20:20 - Medical History PMH: Asthma, Atrial Fibrillation, COPD, Hepatitis (C), Seizures - Surgical History Surgical History: Appendectomy, Tonsillectomy - Family History Family History: States: Unknown Family Hx - Home Medications Home Medications: Ambulatory Orders Medication Instructions Recorded Albuterol HFA [Ventolin HFA 90 1 puff IH Q4 PRN #1 inh 10/26/17 mcg/actuation (8 g)] Cephalexin [Keflex] 250 mg PO Q8 #15 capsule 10/29/17 Methylprednisolone [Medrol Dose 4 mg PO DAILY #21 mg 10/29/17 Pack (21 tabs)] Albuterol HFA [Ventolin HFA 90 1 - 2 puff IH Q4 PRN #1 inh 11/16/17 mcg/actuation (8 g)] Albuterol Sulfate [Proair Hfa] 0.09 mg IH Q6 PRN #1 inh 12/12/17 - Allergies Allergies/Adverse Reactions: Allergies Allergy/AdvReac Type Severity Reaction Status Date / Time No Known Allergies Allergy Verified 12/13/17 21:48 Review of Systems ROS Statement: Except As Marked, All Systems Reviewed And Found Negative Respiratory: Positive for: Wheezing Physical Exam - Reviewed Nursing Documentation Reviewed: Yes Vital Signs Reviewed: Yes - Physical Exam Appears: Positive for: Well, Non-toxic, No Acute Distress Head Exam: Positive for: ATRAUMATIC, NORMAL INSPECTION, NORMOCEPHALIC Skin: Positive for: Normal Color Eye Exam: Positive for: Normal appearance Cardiovascular/Chest: Positive for: Regular Rate, Rhythm Respiratory: Positive for: Wheezing (mild expiratory) Gastrointestinal/Abdominal: Positive for: Normal Exam Back: Positive for: Normal Inspection Extremity: Positive for: Normal ROM Neurologic/Psych: Positive for: Alert, Oriented - ECG O2 Sat by Pulse Oximetry: 99 - Progress ED Course And Treament: albuterol neb, accucheck Patient given cereal. States he is feeling better on re-eval Stable for discharge. Disposition - Clinical Impression Clinical Impression: Alcohol abuse, Asthma - Disposition Disposition: Routine/Home Disposition Time: 01:15 Condition: IMPROVED Instructions: Alcohol Intoxication (ED), Abuse of Alcohol (ED), Alcohol Dependence (ED)
== END 2017-12-15 01:21 | disposition home or self-care (01) ==
LOC: H.ER 20:16
DX: J45.909 Unspecified asthma, uncomplicated (principal); F10.10 Alcohol abuse, uncomplicated; I48.91 Unspecified atrial fibrillation

== ENCOUNTER 2017-12-15 18:34 | Emergency (ER) | payer OTHER ==
[2017-12-15 18:34] VITALS: BMI 21.2
[2017-12-15] MEDS ORDERED: Silver Sulfadiazine 1% CREAM (50 gm) ONE (19:33)
[2017-12-15] MEDS ORDERED: Albuterol-Ipratrop 3 mg / 0.5 (3 ml) UD INH STA (20:02)
[2017-12-15] MEDS ORDERED: Albuterol-Ipratrop 3 mg / 0.5 (3 ml) UD ONE (22:33)
--- NOTE | 2017-12-15 23:14 | ED PDOC ---
HPI: CCC, URI, Sore Throat Time Seen by Provider: 12/15/17 18:57 Chief Complaint (Nursing): Abdominal Pain Chief Complaint (Provider): COPD Exacerbation History Per: Patient History/Exam Limitations: no limitations, intoxication Have you had recent travel within the past 21 days to any of the following countries: [place], [place], [place] or [place]?: No Onset/Duration Of Symptoms: Days (>30), Waxing/Waning, Intermittent Episodes Current Symptoms Are (Timing): Still Present Severity: Mild Past Medical History Vital Signs: Last Vital Signs Temp 97.8 F 12/15/17 18:38 Pulse 76 12/15/17 18:38 Resp 16 12/15/17 18:38 BP 104/84 12/15/17 18:38 Pulse Ox 96 12/15/17 18:38 - Medical History PMH: Asthma, Atrial Fibrillation, COPD, Hepatitis (C), Seizures - Surgical History Surgical History: Appendectomy, Tonsillectomy - Family History Family History: States: Unknown Family Hx - Home Medications Home Medications: Ambulatory Orders Medication Instructions Recorded Albuterol HFA [Ventolin HFA 90 1 puff IH Q4 PRN #1 inh 10/26/17 mcg/actuation (8 g)] Cephalexin [Keflex] 250 mg PO Q8 #15 capsule 10/29/17 Methylprednisolone [Medrol Dose 4 mg PO DAILY #21 mg 10/29/17 Pack (21 tabs)] Albuterol HFA [Ventolin HFA 90 1 - 2 puff IH Q4 PRN #1 inh 11/16/17 mcg/actuation (8 g)] Albuterol Sulfate [Proair Hfa] 0.09 mg IH Q6 PRN #1 inh 12/12/17 - Allergies Allergies/Adverse Reactions: Allergies Allergy/AdvReac Type Severity Reaction Status Date / Time No Known Allergies Allergy Verified 12/15/17 18:38 Physical Exam - Reviewed Nursing Documentation Reviewed: Yes Vital Signs Reviewed: Yes - Physical Exam Appears: Positive for: Uncomfortable Head Exam: Positive for: ATRAUMATIC, NORMAL INSPECTION, NORMOCEPHALIC Neck: Positive for: Normal, Painless ROM, Supple, Trachea Midline. Negative for : Decreased ROM, Limited ROM Cardiovascular/Chest: Positive for: Regular Rate, Rhythm, Chest Non Tender Respiratory: Positive for: Decreased Breath Sounds. Negative for: Accessory Muscle Use, Crackles, Rales, Rhonchi, Stridor Pulses-Carotid (L): 2+ Pulses-Carotid (R): 2+ - ECG O2 Sat by Pulse Oximetry: 96 Nebulizer Treatments/Peak Flow - Duonebs Number of Bronchodilator Doses given?: 1 - Clinical Response Clinical Response: Improved Disposition - Clinical Impression Clinical Impression: COPD exacerbation, COPD (chronic obstructive pulmonary disease) - Patient ED Disposition Is Patient to be Admitted: No Counseled Patient/Family Regarding: Diagnosis, Need For Followup, Smoking Cessation - Disposition Referrals: [facility] [Outside] Disposition: Routine/Home Disposition Time: 23:15 Condition: GOOD Instructions: Chronic Obstructive Pulmonary Disease (COPD), Including Emphysema , Exacerbation of COPD
[2017-12-16 11:34] VITALS: BP 104/84; PULSE 76; RESP 16; TEMP 97.8; O2SAT 96
== END 2017-12-15 23:34 | disposition home or self-care (01) ==
LOC: H.ER 18:34
DX: J44.1 Chronic obstructive pulmonary disease with (acute) exacerbation (principal); I48.91 Unspecified atrial fibrillation; F10.10 Alcohol abuse, uncomplicated

== ENCOUNTER 2017-12-16 14:47 | Emergency (ER) | payer OTHER ==
[2017-12-16 14:47] VITALS: BMI 21.2
[2017-12-16 15:18] VITALS: BP 134/82; PULSE 88; RESP 16; TEMP 98; O2SAT 96
[2017-12-16] MEDS ORDERED: Albuterol-Ipratrop 3 mg / 0.5 (3 ml) UD INH STA (15:33)
--- NOTE | 2017-12-16 15:35 | ED PDOC ---
HPI: General Adult Time Seen by Provider: 12/16/17 15:22 Chief Complaint (Nursing): Cough, Cold, Congestion Chief Complaint (Provider): Cough, etoh History Per: Patient Current Symptoms Are (Timing): Still Present Additional Complaint(s): 57 year old non-domiciled male presents to the emergency department with alcohol intoxication. Patient is also complaining of a cough, ongoing for weeks associated with shortness of breath. He denies chest pain, fever, or chills. Patient is requesting a nebulizer treatment and bowl of cereal. PMD: None Past Medical History Reviewed: Historical Data, Nursing Documentation, Vital Signs Vital Signs: Last Vital Signs Temp 98.0 F 12/16/17 15:14 Pulse 88 12/16/17 15:14 Resp 16 12/16/17 15:14 BP 134/82 12/16/17 15:14 Pulse Ox 96 12/16/17 15:38 - Medical History PMH: Asthma, Atrial Fibrillation, COPD, Hepatitis (C), Seizures - Surgical History Surgical History: Appendectomy, Tonsillectomy - Family History Family History: States: No Known Family Hx - Living Arrangements Living Arrangements: Other (non-domiciled) - Social History Alcohol: > 2 Drinks/Day - Home Medications Home Medications: Ambulatory Orders Medication Instructions Recorded Albuterol HFA [Ventolin HFA 90 1 puff IH Q4 PRN #1 inh 10/26/17 mcg/actuation (8 g)] Cephalexin [Keflex] 250 mg PO Q8 #15 capsule 10/29/17 Methylprednisolone [Medrol Dose 4 mg PO DAILY #21 mg 10/29/17 Pack (21 tabs)] Albuterol HFA [Ventolin HFA 90 1 - 2 puff IH Q4 PRN #1 inh 11/16/17 mcg/actuation (8 g)] Albuterol Sulfate [Proair Hfa] 0.09 mg IH Q6 PRN #1 inh 12/12/17 - Allergies Allergies/Adverse Reactions: Allergies Allergy/AdvReac Type Severity Reaction Status Date / Time No Known Allergies Allergy Verified 12/16/17 15:14 Review of Systems ROS Statement: Except As Marked, All Systems Reviewed And Found Negative Constitutional: Negative for: Fever Cardiovascular: Negative for: Chest Pain Respiratory: Positive for: Cough. Negative for: Shortness of Breath Psych: Positive for: Other (etoh) Physical Exam - Reviewed Nursing Documentation Reviewed: Yes Vital Signs Reviewed: Yes - Physical Exam Appears: Positive for: Well, Non-toxic, No Acute Distress Head Exam: Positive for: ATRAUMATIC, NORMAL INSPECTION, NORMOCEPHALIC Skin: Positive for: Normal Color. Negative for: Rash Eye Exam: Positive for: Normal appearance Cardiovascular/Chest: Positive for: Regular Rate, Rhythm Respiratory: Positive for: Wheezing (bilaterally). Negative for: Accessory Muscle Use, Respiratory Distress Extremity: Positive for: Normal ROM. Negative for: Pedal Edema, Calf Tenderness Neurologic/Psych: Positive for: Alert, Oriented - ECG O2 Sat by Pulse Oximetry: 96 (RA) Pulse Ox Interpretation: Normal Nebulizer Treatments/Peak Flow - Duonebs Number of Bronchodilator Doses given?: 1 (duoneb) - Steroid Treatment Steroid: Not Clinically Indicated - Clinical Response Clinical Response: Improved Medical Decision Making Medical Decision Making: Impression: 57 year old with cough, ETOH intoxication Time: 15:33 Plan: Alcohol serum Accucheck Duoneb 3 ml INH Peak Flow pre/post treatment Reevaluation Glucose POC: 83 17:10: patient is awake, alert, has steady gait with walker, stable for discharge. Scribe Attestation: Documented by Rupal Senior, acting as a scribe for Gladis Kovacs PA-C Provider Scribe Attestation: All medical record entries made by the Scribe were at my direction and personally dictated by me. I have reviewed the chart and agree that the record accurately reflects my personal performance of the history, physical exam, medical decision making, and the department course for this patient. I have also personally directed, reviewed, and agree with the discharge instructions and disposition. Disposition - Clinical Impression Clinical Impression: Alcohol abuse, Asthma - Patient ED Disposition Is Patient to be Admitted: No Counseled Patient/Family Regarding: Need For Followup - Disposition Referrals: [facility] [Outside] Disposition: Routine/Home Disposition Time: 17:21 Condition: STABLE Instructions: Alcohol Intoxication (ED), Abuse of Alcohol (ED), Alcohol Dependence (ED), Asthma, Adult (DC) Forms: [employer] (South Korean)
[2017-12-16] MEDS ORDERED: Albuterol-Ipratrop 3 mg / 0.5 (3 ml) UD ONE (16:09)
== END 2017-12-16 17:19 | disposition home or self-care (01) ==
LOC: H.ER 14:47
DX: J45.909 Unspecified asthma, uncomplicated (principal); F10.129 Alcohol abuse with intoxication, unspecified; I48.91 Unspecified atrial fibrillation; J44.9 Chronic obstructive pulmonary disease, unspecified

== ENCOUNTER 2017-12-17 17:47 | Emergency (ER) | payer OTHER ==
[2017-12-17 17:47] VITALS: BMI 21.2
[2017-12-17 17:52] VITALS: BP 120/80; PULSE 84; RESP 16; TEMP 98.1; O2SAT 94
[2017-12-17] MEDS ORDERED: Albuterol-Ipratrop 3 mg / 0.5 (3 ml) UD IH STA (18:11)
--- NOTE | 2017-12-17 18:15 | ED PDOC ---
HPI: Psych/Substance Abuse Time Seen by Provider: 12/17/17 18:03 Chief Complaint (Nursing): Alcohol Ingestion Chief Complaint (Provider): ETOH Ingestion History Per: Patient History/Exam Limitations: no limitations Onset/Duration Of Symptoms: Mins (just prior to arrival) Additional Complaint(s): 57 yo asthmatic, homeless male is well known to the provider and this ED for multiple visits relating to alcohol intoxication and bed-seeking behavior. He presents to the ED, via EMS, today complaining of shortness of breath and admits drinking alcohol prior to arrival. Past Medical History Reviewed: Historical Data, Nursing Documentation, Vital Signs Vital Signs: Last Vital Signs Temp 98.1 F 12/17/17 17:49 Pulse 84 12/17/17 17:49 Resp 16 12/17/17 17:49 BP 120/80 12/17/17 17:49 Pulse Ox 94 L 12/17/17 17:49 - Medical History PMH: Asthma, Atrial Fibrillation, COPD, Hepatitis (C), Seizures - Surgical History Surgical History: Appendectomy, Tonsillectomy - Family History Family History: States: Unknown Family Hx - Social History Current smoker - smoking cessation education provided: Yes Alcohol: > 2 Drinks/Day Drugs: Denies - Home Medications Home Medications: Ambulatory Orders Medication Instructions Recorded Albuterol HFA [Ventolin HFA 90 1 puff IH Q4 PRN #1 inh 10/26/17 mcg/actuation (8 g)] Cephalexin [Keflex] 250 mg PO Q8 #15 capsule 10/29/17 Methylprednisolone [Medrol Dose 4 mg PO DAILY #21 mg 10/29/17 Pack (21 tabs)] Albuterol HFA [Ventolin HFA 90 1 - 2 puff IH Q4 PRN #1 inh 11/16/17 mcg/actuation (8 g)] Albuterol Sulfate [Proair Hfa] 0.09 mg IH Q6 PRN #1 inh 12/12/17 Albuterol HFA [Ventolin HFA 90 2 puff IH Q4H #1 puff 12/17/17 mcg/actuation (8 g)] - Allergies Allergies/Adverse Reactions: Allergies Allergy/AdvReac Type Severity Reaction Status Date / Time No Known Allergies Allergy Verified 12/16/17 15:14 Review of Systems ROS Statement: Except As Marked, All Systems Reviewed And Found Negative Constitutional: Negative for: Fever Respiratory: Positive for: Cough, Shortness of Breath Physical Exam - Reviewed Nursing Documentation Reviewed: Yes Vital Signs Reviewed: Yes - Physical Exam Appears: Positive for: Non-toxic, No Acute Distress Head Exam: Positive for: ATRAUMATIC, NORMAL INSPECTION, NORMOCEPHALIC Skin: Positive for: Normal Color, Warm, DRY Eye Exam: Positive for: Normal appearance, EOMI, PERRL ENT: Positive for: Normal ENT Inspection Neck: Positive for: Normal, Painless ROM Cardiovascular/Chest: Positive for: Regular Rate, Rhythm. Negative for: Murmur Respiratory: Positive for: Rhonchi (scattered), Wheezing Gastrointestinal/Abdominal: Positive for: Normal Exam, Soft. Negative for: Tenderness Back: Positive for: Normal Inspection Extremity: Positive for: Normal ROM. Negative for: Pedal Edema, Calf Tenderness , Deformity, Swelling Neurologic/Psych: Positive for: Alert, Oriented (x3). Negative for: Motor/ Sensory Deficits - ECG O2 Sat by Pulse Oximetry: 94 (RA) Pulse Ox Interpretation: Normal - Progress Re-evaluation Time: 22:55 Condition: Improved Medical Decision Making Medical Decision Making: Time: --18:11 Impression: --shortness of breath in setting of ETOH intoxication and bed-seeking behavior Plan: --Albuterol 3ml INH --Peak Flow Pre/Post Tx Reassess -- Scribe Attestation: Documented by Lazaro Baez acting as a scribe for Jean Carlos Calderon MD. Provider Attestation: All medical record entries made by the Scribe were at my direction and personally dictated by me. I have reviewed the chart and agree that the record accurately reflects my personal performance of the history, physical exam, medical decision making, and the department course for this patient. I have also personally directed, reviewed, and agree with the discharge instructions and disposition. Disposition - Clinical Impression Clinical Impression: Asthma - Patient ED Disposition Is Patient to be Admitted: No Counseled Patient/Family Regarding: Diagnosis, Need For Followup, Rx Given - Disposition Referrals: [facility] [Outside] Disposition: Routine/Home Disposition Time: 22:55 Condition: FAIR Prescriptions: Albuterol HFA [Ventolin HFA 90 mcg/actuation (8 g)] 2 puff IH Q4H #1 puff Instructions: Asthma in Adults Forms: [employer] (German)
[2017-12-17] MEDS ORDERED: Albuterol-Ipratrop 3 mg / 0.5 (3 ml) UD ONE (18:30)
== END 2017-12-18 06:02 | disposition home or self-care (01) ==
LOC: H.ER 17:47
DX: F10.129 Alcohol abuse with intoxication, unspecified (principal); J45.909 Unspecified asthma, uncomplicated; I48.91 Unspecified atrial fibrillation; J44.9 Chronic obstructive pulmonary disease, unspecified; Z59.0 Homelessness; F17.200 Nicotine dependence, unspecified, uncomplicated

== ENCOUNTER 2017-12-18 03:16 | Emergency (ER) | payer OTHER ==
[2017-12-18 03:16] VITALS: BMI 21.2
[2017-12-18 03:32] VITALS: O2SAT 98
--- NOTE | 2017-12-18 04:51 | ED PDOC ---
HPI: Psych/Substance Abuse Time Seen by Provider: 12/18/17 03:38 Chief Complaint (Nursing): Alcohol Ingestion Chief Complaint (Provider): Alcogol Ingestion History Per: Patient, EMS History/Exam Limitations: no limitations Onset/Duration Of Symptoms: Mins (prior to arrival) Current Symptoms Are (Timing): Still Present Additional Complaint(s): Jorge L Huitron is a 57 year old male, well known to the ER, with a past medical history of asthma, COPD, atrial fibrillation, and alcohol abuse, who was brought to the ER by EMS for evaluation of alcohol intoxication prior to arrival. Patient was seen in the ER within the last 12 hours for the same symptoms. He told EMS he needed to come to the hospital again because the wheel on his walker broke. He denies any chest pain, shortness of breath, headaches, or fevers. Patient offers no new medical complaints at this time. Past Medical History Reviewed: Historical Data, Nursing Documentation, Vital Signs Vital Signs: Last Vital Signs Temp 97.9 F 12/18/17 03:28 Pulse 78 12/18/17 03:28 Resp 16 12/18/17 03:28 BP 128/79 12/18/17 03:28 Pulse Ox 98 12/18/17 03:28 - Medical History PMH: Asthma, Atrial Fibrillation, COPD, Hepatitis (C), Seizures - Surgical History Surgical History: Appendectomy, Tonsillectomy - Family History Family History: States: Unknown Family Hx - Social History Alcohol: > 2 Drinks/Day Drugs: Denies - Home Medications Home Medications: Ambulatory Orders Medication Instructions Recorded Albuterol HFA [Ventolin HFA 90 1 puff IH Q4 PRN #1 inh 10/26/17 mcg/actuation (8 g)] Cephalexin [Keflex] 250 mg PO Q8 #15 capsule 10/29/17 Methylprednisolone [Medrol Dose 4 mg PO DAILY #21 mg 10/29/17 Pack (21 tabs)] Albuterol HFA [Ventolin HFA 90 1 - 2 puff IH Q4 PRN #1 inh 11/16/17 mcg/actuation (8 g)] Albuterol Sulfate [Proair Hfa] 0.09 mg IH Q6 PRN #1 inh 12/12/17 Albuterol HFA [Ventolin HFA 90 2 puff IH Q4H #1 puff 12/17/17 mcg/actuation (8 g)] - Allergies Allergies/Adverse Reactions: Allergies Allergy/AdvReac Type Severity Reaction Status Date / Time No Known Allergies Allergy Verified 12/16/17 15:14 Review of Systems ROS Statement: Except As Marked, All Systems Reviewed And Found Negative Constitutional: Negative for: Fever Cardiovascular: Negative for: Chest Pain Respiratory: Negative for: Shortness of Breath Neurological: Negative for: Headache Physical Exam - Reviewed Nursing Documentation Reviewed: Yes Vital Signs Reviewed: Yes - Physical Exam Comments: GENERAL APPEARANCE: Patient is awake, alert, oriented x 3, in no acute distress. SKIN: Warm, dry; (-) cyanosis HEAD: (-) scalp swelling, (-) scalp tenderness. EYES: (-) conjunctival pallor, (-) scleral icterus, (-) nystagmus. ENMT: Mucous membranes moist. Airway patent: (-) stridor. Uvula midline. NECK: Supple, FROM (-) tenderness, (-) stiffness CHEST AND RESPIRATORY: (-) rales, (-) rhonchi, (-) wheezes; breath sounds equal. ABDOMEN: Soft, (-) distention, (-) tenderness, (-) guarding. NEURO AND PSYCH: Mental status as above. Affect: Calm and cooperative. craft coordinator: Intact. Pupils equal and reactive; EOMI; (-) facial asymmetry; tongue and uvula midline. - ECG O2 Sat by Pulse Oximetry: 98 (RA) Pulse Ox Interpretation: Normal Medical Decision Making Medical Decision Making: Time: 4:00 Patient is ambulatory in ED with walker. He requires no intervention at this time. His vital signs were taken and physical exam conducted. Upon provider reevaluation patient is feeling better, is medically stable, and requires no further treatment in the ED at this time. Patient will be discharged. Scribe Attestation: Documented by Bertha Jackson acting as a scribe for Patti Gonzalez MD Scribe Attestation: All medical record entries made by the Scribe were at my direction and personally dictated by me. I have reviewed the chart and agree that the record accurately reflects my personal performance of the history, physical exam, medical decision making, and the department course for this patient. I have also personally directed, reviewed, and agree with the discharge instructions and disposition. Disposition - Clinical Impression Clinical Impression: Alcohol abuse, Alcohol ingestion, Malingering - Patient ED Disposition Is Patient to be Admitted: No Counseled Patient/Family Regarding: Diagnosis, Need For Followup - Disposition Referrals: LTAC[facility] [Outside] Disposition: Routine/Home Disposition Time: 04:14 Condition: FAIR Instructions: Alcohol Intoxication (ED), Abuse of Alcohol (ED), Alcohol Dependence (ED), Effects of Alcohol on Your Health Forms: [facility] ([place] Citizen) Print Language: SLOVAK - POA Present On Arrival: None
[2017-12-18 07:21] VITALS: BP 127/76; PULSE 68; RESP 17; TEMP 98.6
== END 2017-12-18 07:00 | disposition home or self-care (01) ==
LOC: H.ER 03:16
DX: F10.129 Alcohol abuse with intoxication, unspecified (principal); Z76.5 Malingerer [conscious simulation]; J44.9 Chronic obstructive pulmonary disease, unspecified; I48.91 Unspecified atrial fibrillation

== ENCOUNTER 2017-12-18 18:46 | Emergency (ER) | payer OTHER ==
[2017-12-18 18:46] VITALS: BMI 21.2
[2017-12-18] MEDS ORDERED: Albuterol-Ipratrop 3 mg / 0.5 (3 ml) UD INH STA (19:09)
--- NOTE | 2017-12-18 19:33 | ED PDOC ---
HPI: SOB/CHF/COPD Time Seen by Provider: 12/18/17 19:04 Chief Complaint (Nursing): Shortness Of Breath Chief Complaint (Provider): Asthma, Cough, chest Tightness History Per: Patient History/Exam Limitations: no limitations Current Symptoms Are (Timing): Still Present Quality: Tightness Current Respiratory Medications: None Associated Symptoms: denies: Fever, Chills, Chest Pain, Tingling In Hands Or Face Additional Complaint(s): 57 year old male with a past medical history of asthma presents to the emergency department complaining of chest tightness, cough productive of sputum and asthma x1 week. Patient is well known to the ED for COPD, homelessness and alcoholism. He reports that he continues to smoke cigarettes. Past Medical History Vital Signs: Last Vital Signs Temp 98.7 F 12/19/17 02:12 Pulse 94 H 12/19/17 02:12 Resp 18 12/18/17 20:54 BP 114/69 12/19/17 02:12 Pulse Ox 91 L 12/19/17 02:12 - Medical History PMH: Asthma, Atrial Fibrillation, COPD, Hepatitis (C), Seizures - Surgical History Surgical History: Appendectomy, Tonsillectomy - Family History Family History: States: Unknown Family Hx - Social History Current smoker - smoking cessation education provided: Yes Ex-Smoker (has not smoked in the last 12 months): Yes Alcohol: < 2 Drinks/Day Drugs: Denies - Home Medications Home Medications: Ambulatory Orders Medication Instructions Recorded Albuterol HFA [Ventolin HFA 90 1 puff IH Q4 PRN #1 inh 10/26/17 mcg/actuation (8 g)] Cephalexin [Keflex] 250 mg PO Q8 #15 capsule 10/29/17 Methylprednisolone [Medrol Dose 4 mg PO DAILY #21 mg 10/29/17 Pack (21 tabs)] Albuterol HFA [Ventolin HFA 90 1 - 2 puff IH Q4 PRN #1 inh 11/16/17 mcg/actuation (8 g)] Albuterol Sulfate [Proair Hfa] 0.09 mg IH Q6 PRN #1 inh 12/12/17 Albuterol HFA [Ventolin HFA 90 2 puff IH Q4H #1 puff 12/17/17 mcg/actuation (8 g)] - Allergies Allergies/Adverse Reactions: Allergies Allergy/AdvReac Type Severity Reaction Status Date / Time No Known Allergies Allergy Verified 12/18/17 18:48 Review of Systems ROS Statement: Except As Marked, All Systems Reviewed And Found Negative Constitutional: Positive for: Other (asthma) Cardiovascular: Negative for: Chest Pain Respiratory: Positive for: Cough (productice of sputum). Negative for: Hemoptysis Physical Exam - Reviewed Nursing Documentation Reviewed: Yes Vital Signs Reviewed: Yes - Physical Exam Appears: Positive for: Non-toxic, No Acute Distress (unkempt and disheveled; comfortably watching television) Head Exam: Positive for: ATRAUMATIC, NORMAL INSPECTION, NORMOCEPHALIC Skin: Positive for: Normal Color, Warm, Dry. Negative for: Rash Eye Exam: Positive for: Normal appearance, EOMI, PERRL. Negative for: Nystagmus ENT: Positive for: Normal ENT Inspection. Negative for: Nasal Congestion, Tonsillar Exudate, Tonsillar Swelling Neck: Positive for: Normal, Painless ROM, Supple Cardiovascular/Chest: Positive for: Regular Rate, Rhythm, Chest Non Tender. Negative for: Tachycardia Respiratory: Positive for: Normal Breath Sounds, Rhonchi (bilateral), Wheezing ( scattered). Negative for: Accessory Muscle Use, Rales, Respiratory Distress Gastrointestinal/Abdominal: Positive for: Normal Exam, Bowel Sounds, Soft. Negative for: Tenderness, Mass, Guarding, Rebound Back: Positive for: Normal Inspection. Negative for: L CVA Tenderness, R CVA Tenderness Extremity: Positive for: Normal ROM. Negative for: Tenderness, Deformity, Swelling Neurologic/Psych: Positive for: Alert, Oriented, Gait. Negative for: Motor/ Sensory Deficits - ECG ECG: Positive for: Interpreted By Me ECG Rhythm: Positive for: Normal QRS, Normal ST Segment, Sinus Rhythm O2 Sat by Pulse Oximetry: 94 (RA) Pulse Ox Interpretation: Normal Medical Decision Making Medical Decision Makin Initial Impression 57 year old male presenting wit asthma Initial Plan: * EKG * CXR * Accucheck * albuterol 9mL INH * prednisone 60mg PO * Nebulizer treatment * Peak flow pre/post * Reevaluation Documented by Adilene Lemus acting as a scribe for Gladis Haywood MD. All medical record entries made by the Scribe were at my direction and personally dictated by me. I have reviewed the chart and agree that the record accurately reflects my personal performance of the history, physical exam, medical decision making, and the department course for this patient. I have also personally directed, reviewed, and agree with the discharge instructions and disposition. Disposition - Clinical Impression Clinical Impression: Alcohol abuse, COPD exacerbation Counseled Patient/Family Regarding: Studies Performed, Diagnosis - Disposition Referrals: [facility] [Outside] Disposition: Routine/Home Disposition Time: 05:00 Condition: IMPROVED Instructions: Abuse of Alcohol (ED), Exacerbation of COPD (DC)
[2017-12-18] MEDS ORDERED: Albuterol-Ipratrop 3 mg / 0.5 (3 ml) UD ONE ×2 (20:18→20:19)
--- NOTE | 2017-12-19 00:05 | CARD ---
APPROVED REPORT EKG Measurement Heart [id number] <Conclusion> Normal sinus rhythm Normal ECG
[2017-12-19 06:04] VITALS: RESP 16; O2SAT 95
[2017-12-19 06:51] VITALS: BP 124/72; PULSE 87; TEMP 98.5
--- NOTE | 2017-12-19 10:00 | RAD ---
HISTORY: sob COMPARISON: Chest radiograph dated 12/10/2017 FINDINGS: LUNGS: No active pulmonary disease. PLEURA: Stable mild elevation of the right hemidiaphragm. No significant pleural effusion identified, no pneumothorax apparent. CARDIOVASCULAR: Cardiomediastinal silhouette stably prominent. OSSEOUS STRUCTURES: Old right-sided rib fractures. Unchanged. VISUALIZED UPPER ABDOMEN: Normal. OTHER FINDINGS: None. IMPRESSION: No active disease.
== END 2017-12-19 06:25 | disposition home or self-care (01) ==
LOC: H.ER 18:46
DX: J44.1 Chronic obstructive pulmonary disease with (acute) exacerbation (principal); F10.10 Alcohol abuse, uncomplicated; F17.200 Nicotine dependence, unspecified, uncomplicated; Z59.0 Homelessness; K75.9 Inflammatory liver disease, unspecified

== ENCOUNTER 2017-12-19 17:42 | Emergency (ER) | payer OTHER ==
[2017-12-19 17:42] VITALS: BMI 21.2
[2017-12-19 17:56] VITALS: RESP 18
[2017-12-19] MEDS ORDERED: Albuterol 0.083% Inhal Sol (2.5 mg/3 mL) UD INH STA (18:36)
--- NOTE | 2017-12-19 18:48 | ED PDOC ---
HPI: Psych/Substance Abuse Time Seen by Provider: 12/19/17 18:16 Chief Complaint (Provider): Alcohol Intoxication History Per: Patient History/Exam Limitations: no limitations Onset/Duration Of Symptoms: Hrs Current Symptoms Are (Timing): Still Present Suicide/Self Injury Attempted (Context): None Modifying Factor(s): Alcohol Additional Complaint(s): 58 year old male presenting to the emergency department requesting food. Patient offers no complaints. Past Medical History Reviewed: Historical Data, Nursing Documentation, Vital Signs Vital Signs: Last Vital Signs Temp 97.5 F L 12/19/17 17:49 Pulse 84 12/19/17 17:49 Resp 18 12/19/17 17:49 BP 134/83 12/19/17 17:49 Pulse Ox 98 12/19/17 17:49 - Medical History PMH: Asthma, Atrial Fibrillation, COPD, Hepatitis (C), Seizures - Surgical History Surgical History: Appendectomy, Tonsillectomy - Family History Family History: States: Unknown Family Hx - Social History Current smoker - smoking cessation education provided: Yes Ex-Smoker (has not smoked in the last 12 months): Yes Alcohol: < 2 Drinks/Day Drugs: Denies - Home Medications Home Medications: Ambulatory Orders Medication Instructions Recorded Albuterol HFA [Ventolin HFA 90 1 puff IH Q4 PRN #1 inh 10/26/17 mcg/actuation (8 g)] Cephalexin [Keflex] 250 mg PO Q8 #15 capsule 10/29/17 Methylprednisolone [Medrol Dose 4 mg PO DAILY #21 mg 10/29/17 Pack (21 tabs)] Albuterol HFA [Ventolin HFA 90 1 - 2 puff IH Q4 PRN #1 inh 11/16/17 mcg/actuation (8 g)] Albuterol Sulfate [Proair Hfa] 0.09 mg IH Q6 PRN #1 inh 12/12/17 Albuterol HFA [Ventolin HFA 90 2 puff IH Q4H #1 puff 12/17/17 mcg/actuation (8 g)] - Allergies Allergies/Adverse Reactions: Allergies Allergy/AdvReac Type Severity Reaction Status Date / Time No Known Allergies Allergy Verified 12/18/17 18:48 Review of Systems ROS Statement: Except As Marked, All Systems Reviewed And Found Negative Constitutional: Positive for: Other (Alcohol Intoxication) Physical Exam - Reviewed Nursing Documentation Reviewed: Yes Vital Signs Reviewed: Yes - Physical Exam Appears: Positive for: Non-toxic, No Acute Distress (no alcohol on breath; no slurred speech) Head Exam: Positive for: NORMAL INSPECTION Skin: Positive for: Normal Color, Warm, Dry Cardiovascular/Chest: Positive for: Regular Rate, Rhythm, Chest Non Tender. Negative for: Tachycardia Respiratory: Positive for: Wheezing (minimal b/l expiratory). Negative for: Respiratory Distress Neurologic/Psych: Positive for: Alert, Oriented, Gait (steady) - ECG O2 Sat by Pulse Oximetry: 98 (RA) Pulse Ox Interpretation: Normal - Progress Re-evaluation Time: 19:50 (Lungs clear b/l without wheezing. ) Condition: Re-examined, Improved Medical Decision Making Medical Decision Makin Initial Impression 57 y/o male presenting to the emergency room requesting food Initial PLAn: * Albuterol 2.5mg INH * Reevaluation Patient is eating food happily in the ER Documented by Adilene Lemus acting as a scribe for Kiran Auguste MD. All medical record entries made by the Scribe were at my direction and personally dictated by me. I have reviewed the chart and agree that the record accurately reflects my personal performance of the history, physical exam, medical decision making, and the department course for this patient. I have also personally directed, reviewed, and agree with the discharge instructions and disposition. Disposition - Clinical Impression Clinical Impression: Bronchospasm - Patient ED Disposition Is Patient to be Admitted: No - Disposition Disposition: Routine/Home Disposition Time: 20:00 Condition: STABLE
[2017-12-19 23:47] VITALS: BP 115/65; PULSE 94; TEMP 97.6; O2SAT 95
== END 2017-12-19 23:59 | disposition home or self-care (01) ==
LOC: H.ER 17:42
DX: J98.01 Acute bronchospasm (principal); F10.129 Alcohol abuse with intoxication, unspecified; F17.200 Nicotine dependence, unspecified, uncomplicated; I48.91 Unspecified atrial fibrillation; J44.9 Chronic obstructive pulmonary disease, unspecified

== ENCOUNTER 2017-12-20 03:18 | Emergency (ER) | payer OTHER ==
[2017-12-20 03:18] VITALS: BMI 21.2
[2017-12-20 03:25] VITALS: BP 137/80; PULSE 90; RESP 18; TEMP 98.2; O2SAT 98
[2017-12-20] MEDS ORDERED: Albuterol-Ipratrop 3 mg / 0.5 (3 ml) UD INH STA (04:35)
--- NOTE | 2017-12-20 05:05 | ED PDOC ---
HPI: Psych/Substance Abuse Time Seen by Provider: 12/20/17 03:53 Chief Complaint (Nursing): Alcohol Ingestion Chief Complaint (Provider): Alcohol Ingestion History Per: Patient History/Exam Limitations: no limitations Onset/Duration Of Symptoms: Persistent Modifying Factor(s): Alcohol Additional Complaint(s): 57 year old male brought in by EMS presents to ED due to possible alcohol intoxication, has a history of alcohol abuse and COPD, and is well known to the ED for visits related to said history. Patient admits drinking and smoking after his discharge yesterday morning. (+) wheeze and nausea. (-) chest pain or fever. PCP: None Past Medical History Reviewed: Historical Data, Nursing Documentation, Vital Signs Vital Signs: Last Vital Signs Temp 98.2 F 12/20/17 03:21 Pulse 90 12/20/17 03:21 Resp 18 12/20/17 03:21 BP 137/80 12/20/17 03:21 Pulse Ox 98 12/20/17 03:21 - Medical History PMH: Asthma, Atrial Fibrillation, COPD, Hepatitis (C), Seizures - Surgical History Surgical History: Appendectomy, Tonsillectomy - Family History Family History: States: Unknown Family Hx - Social History Current smoker - smoking cessation education provided: Yes Ex-Smoker (has not smoked in the last 12 months): No Alcohol: > 2 Drinks/Day - Home Medications Home Medications: Ambulatory Orders Medication Instructions Recorded Albuterol HFA [Ventolin HFA 90 1 puff IH Q4 PRN #1 inh 10/26/17 mcg/actuation (8 g)] Cephalexin [Keflex] 250 mg PO Q8 #15 capsule 10/29/17 Methylprednisolone [Medrol Dose 4 mg PO DAILY #21 mg 10/29/17 Pack (21 tabs)] Albuterol HFA [Ventolin HFA 90 1 - 2 puff IH Q4 PRN #1 inh 11/16/17 mcg/actuation (8 g)] Albuterol Sulfate [Proair Hfa] 0.09 mg IH Q6 PRN #1 inh 12/12/17 Albuterol HFA [Ventolin HFA 90 2 puff IH Q4H #1 puff 12/17/17 mcg/actuation (8 g)] - Allergies Allergies/Adverse Reactions: Allergies Allergy/AdvReac Type Severity Reaction Status Date / Time No Known Allergies Allergy Verified 12/18/17 18:48 Review of Systems ROS Statement: Except As Marked, All Systems Reviewed And Found Negative Constitutional: Negative for: Fever Cardiovascular: Negative for: Chest Pain Respiratory: Positive for: Wheezing Gastrointestinal: Positive for: Nausea Physical Exam - Reviewed Nursing Documentation Reviewed: Yes Vital Signs Reviewed: Yes - Physical Exam Appears: Positive for: Non-toxic, No Acute Distress Head Exam: Positive for: ATRAUMATIC, NORMOCEPHALIC Skin: Positive for: Normal Color, Warm, Dry Eye Exam: Positive for: Normal appearance ENT: Positive for: Normal ENT Inspection Neck: Positive for: Normal, Painless ROM, Supple Cardiovascular/Chest: Negative for: Tachycardia Respiratory: Negative for: Respiratory Distress Extremity: Positive for: Normal ROM. Negative for: Deformity Neurologic/Psych: Positive for: Alert. Negative for: Motor/Sensory Deficits - ECG O2 Sat by Pulse Oximetry: 98 (RA) Pulse Ox Interpretation: Normal - Progress Re-evaluation Time: 06:30 Condition: Re-examined, Improved Medical Decision Making Medical Decision Makin Initial impression: EtOH abuse, COPD Initial plan: * Duonebs 3mL INH * Zofran 8mg PO * Peak flow pre-post Tx * Re-eval Scribe Attestation: Documented by Kenia Ozuna acting as a scribe Nely Jernigan MD. Scribe Attestation: All medical record entries made by the Scribe were at my direction and personally dictated by me. I have reviewed the chart and agree that the record accurately reflects my personal performance of the history, physical exam, medical decision making, and the department course for this patient. I have also personally directed, reviewed, and agree with the discharge instructions and disposition. Disposition - Clinical Impression Clinical Impression: Alcohol abuse, COPD (chronic obstructive pulmonary disease) - Patient ED Disposition Is Patient to be Admitted: No Counseled Patient/Family Regarding: Studies Performed, Diagnosis - Disposition Disposition: Routine/Home Disposition Time: 06:30 Condition: STABLE Instructions: Alcohol Intoxication (ED), Abuse of Alcohol (ED)
== END 2017-12-20 06:45 | disposition home or self-care (01) ==
LOC: H.ER 03:18
DX: F10.10 Alcohol abuse, uncomplicated (principal); J44.9 Chronic obstructive pulmonary disease, unspecified; I48.91 Unspecified atrial fibrillation; F17.200 Nicotine dependence, unspecified, uncomplicated

== ENCOUNTER 2017-12-21 10:43 | Emergency (ER) | payer OTHER ==
[2017-12-21 10:43] VITALS: BMI 21.2
[2017-12-21 10:49] VITALS: BP 107/69; PULSE 92; RESP 20; TEMP 97.3; O2SAT 94
[2017-12-21] MEDS ORDERED: Albuterol-Ipratrop 3 mg / 0.5 (3 ml) UD INH STA (11:34)
--- NOTE | 2017-12-21 11:40 | ED PDOC ---
HPI: Chest Pain Time Seen by Provider: 12/21/17 11:31 Chief Complaint (Nursing): Weakness/Neurological Deficit Chief Complaint (Provider): Weakness, chest pain History Per: Patient History/Exam Limitations: no limitations Onset/Duration Of Symptoms: Hrs (2) Current Symptoms Are (Timing): Still Present Severity: Moderate Modifying Factors: None Exacerbating Factors: None Additional Complaint(s): 57 yo male with history of alcohol abuse, COPD and A.fib presents with chest pain, dull central for unknown duration. Pt states he is also feeling weaker than normal. Pt states his legs are getting more swollen than in the past. Pt states he is SOB but the SOB is normal for him. Past Medical History Reviewed: Historical Data, Nursing Documentation, Vital Signs Vital Signs: Last Vital Signs Temp 97.3 F L 12/21/17 10:45 Pulse 92 H 12/21/17 10:45 Resp 20 12/21/17 10:45 BP 107/69 12/21/17 10:45 Pulse Ox 94 L 12/21/17 11:52 - Medical History PMH: Asthma, Atrial Fibrillation, COPD, Hepatitis (C), Seizures - Surgical History Surgical History: Appendectomy, Tonsillectomy - Family History Family History: States: Unknown Family Hx - Home Medications Home Medications: Ambulatory Orders Medication Instructions Recorded Albuterol HFA [Ventolin HFA 90 1 puff IH Q4 PRN #1 inh 10/26/17 mcg/actuation (8 g)] Cephalexin [Keflex] 250 mg PO Q8 #15 capsule 10/29/17 Methylprednisolone [Medrol Dose 4 mg PO DAILY #21 mg 10/29/17 Pack (21 tabs)] Albuterol HFA [Ventolin HFA 90 1 - 2 puff IH Q4 PRN #1 inh 11/16/17 mcg/actuation (8 g)] Albuterol Sulfate [Proair Hfa] 0.09 mg IH Q6 PRN #1 inh 12/12/17 Albuterol HFA [Ventolin HFA 90 2 puff IH Q4H #1 puff 12/17/17 mcg/actuation (8 g)] - Allergies Allergies/Adverse Reactions: Allergies Allergy/AdvReac Type Severity Reaction Status Date / Time No Known Allergies Allergy Verified 12/21/17 10:44 Review of Systems ROS Statement: Except As Marked, All Systems Reviewed And Found Negative Constitutional: Positive for: Weakness. Negative for: Fever, Chills Cardiovascular: Positive for: Chest Pain Gastrointestinal: Negative for: Nausea, Vomiting Neurological: Positive for: Weakness. Negative for: Confusion, Seizures - Laboratory Results Result Diagrams: 12/21/17 12:40 12/21/17 12:40 - ECG O2 Sat by Pulse Oximetry: 94 Medical Decision Making Medical Decision Making: Pt asking for food several times in ER. Labs normal. Duplex normal. CXR without acute abnormalities. Disposition - Clinical Impression Clinical Impression: Weakness - Patient ED Disposition Is Patient to be Admitted: No Counseled Patient/Family Regarding: Diagnosis, Need For Followup - Disposition Disposition: Routine/Home Disposition Time: 15:27 Condition: GOOD Instructions: Weakness (ED) Forms: [facility] (Scottish)
[2017-12-21] MEDS ORDERED: Albuterol-Ipratrop 3 mg / 0.5 (3 ml) UD ONE (12:41)
[2017-12-21 13:03] LABS: BASO % 0.9 % (0.0-2.0); EOS # 0.1 K/uL (0.0-0.7); EOS % 1.5 % (0.0-4.0); HEMOGLOBIN 15.1 g/dL (12.0-18.0); LYMPH % 28.9 % (20.0-40.0); MEAN CELL VOLUME 103.6 fl (80.0-94.0); MEAN CORPUSCULAR HEMOGLOBIN 35.7 pg (27.0-31.0); MEAN CORPUSCULAR HGB CONC 34.5 g/dL (33.0-37.0); MEAN PLATELET VOLUME 9.2 fl (7.2-11.7); MONO # 0.3 K/uL (0.0-0.8); MONO % 9.1 % (0.0-10.0); NEUT # 2.1 K/uL (1.8-7.0); NEUT % 59.6 % (50.0-75.0); NRBC % 0.1 % (0.0-0.0); RBC 4.24 Mil/uL (4.40-5.90); RED CELL DISTRIBUTION WIDTH 13.5 % (11.5-14.5); WHITE BLOOD COUNT 3.6 K/uL (4.8-10.8)
[2017-12-21 13:05] LABS: INR 1.1 (0.9-1.2); PARTIAL THROMBOPLASTIN TIME 39.1 Seconds (25.6-37.1); PROTHROMBIN TIME 11.8 Seconds (9.8-13.1)
[2017-12-21 13:08] LABS: ALB/GLOB RATIO 0.9 (1.0-2.1); ALBUMIN 3.8 g/dL (3.5-5.0); ALT/SGPT 64 U/L (21-72); AST/SGOT 79 U/L (17-59); BLOOD UREA NITROGEN 24 mg/dl (9-20); CALCIUM 8.8 mg/dL (8.4-10.2); GFR AFRICAN-AMERICAN > 60; GFR NON-AFRICAN AMERICAN > 60
[2017-12-21 13:13] LABS: B-TYPE NATRIURETIC PEPTIDE 124 pg/ml (0-900)
--- NOTE | 2017-12-21 13:13 | RAD ---
HISTORY: Chest pressure COMPARISON: 12/18/2017. FINDINGS: LUNGS: The lungs are clear. PLEURA: No significant pleural effusion identified, no pneumothorax apparent. CARDIOVASCULAR: Normal. OSSEOUS STRUCTURES: There are old fracture deformities in the right posterior 6th and 7th ribs. VISUALIZED UPPER ABDOMEN: Normal. OTHER FINDINGS: There is elevation of the right hemidiaphragm. IMPRESSION: No acute findings.
--- NOTE | 2017-12-21 13:54 | US ---
PROCEDURE: Bilateral lower extremity venous duplex Doppler. HISTORY: lower leg swelling COMPARISON: 12/04/2016 lower extremity duplex venous sonography TECHNIQUE: Bilateral common femoral, superficial femoral, popliteal and posterior tibial veins were evaluated. Flow was assessed with color Doppler, compressibility, assessment of phasic flow and augmentation response. FINDINGS: COMMON FEMORAL VEIN: Right CFV: Unremarkable. Left CFV: Unremarkable. SUPERFICIAL FEMORAL VEIN: Right SFV: Unremarkable. Left SFV: Unremarkable. POPLITEAL VEIN: Right Popliteal: Unremarkable. Left Popliteal: Unremarkable. POSTERIOR TIBIAL VEIN: Right PTV: Unremarkable. Left PTV: Unremarkable. OTHER FINDINGS: Left calf and ankle edema. IMPRESSION: No evidence of deep venous thrombosis.
--- NOTE | 2017-12-22 11:36 | CARD ---
APPROVED REPORT EKG Measurement Heart [id number] <Conclusion> Normal sinus rhythm Possible Left atrial enlargement Borderline ECG
== END 2017-12-21 22:39 | disposition home or self-care (01) ==
LOC: H.ER 10:43
DX: R53.1 Weakness (principal); I48.91 Unspecified atrial fibrillation; J44.9 Chronic obstructive pulmonary disease, unspecified

== ENCOUNTER 2017-12-22 18:27 | Emergency (ER) | payer OTHER ==
[2017-12-22 18:27] VITALS: BMI 21.2
[2017-12-22 18:34] VITALS: TEMP 97
[2017-12-22] MEDS ORDERED: Sodium Chloride 0.9% 1,000 ML IV STA (19:01)
--- NOTE | 2017-12-22 19:03 | ED PDOC ---
HPI: Abdomen Time Seen by Provider: 12/22/17 19:00 Chief Complaint (Nursing): Abdominal Pain Chief Complaint (Provider): vomiting, diarrhea History Per: Patient Additional Complaint(s): 57 year-old non-domiciled male with history of alcohol abuse presents to emergency department with abdominal pain, nausea, vomiting and diarrhea that started shortly after he ate a sandwich this afternoon. Patient states he believes the mayonnaise on the sandwich was spoiled. He relates abdominal pain as a 4 out of 10. Past Medical History Reviewed: Historical Data, Nursing Documentation, Vital Signs Vital Signs: Last Vital Signs Temp 97.0 F L 12/22/17 18:31 Pulse 84 12/22/17 18:31 Resp 16 12/22/17 18:31 BP 118/64 12/22/17 18:31 Pulse Ox 95 12/22/17 19:03 - Medical History PMH: Asthma, Atrial Fibrillation, COPD, Hepatitis (C), Seizures - Surgical History Surgical History: Appendectomy, Tonsillectomy - Family History Family History: States: No Known Family Hx - Living Arrangements Living Arrangements: Other (nondomiciled) - Social History Alcohol: > 2 Drinks/Day - Home Medications Home Medications: Ambulatory Orders Medication Instructions Recorded Albuterol HFA [Ventolin HFA 90 1 puff IH Q4 PRN #1 inh 10/26/17 mcg/actuation (8 g)] Cephalexin [Keflex] 250 mg PO Q8 #15 capsule 10/29/17 Methylprednisolone [Medrol Dose 4 mg PO DAILY #21 mg 10/29/17 Pack (21 tabs)] Albuterol HFA [Ventolin HFA 90 1 - 2 puff IH Q4 PRN #1 inh 11/16/17 mcg/actuation (8 g)] Albuterol Sulfate [Proair Hfa] 0.09 mg IH Q6 PRN #1 inh 12/12/17 Albuterol HFA [Ventolin HFA 90 2 puff IH Q4H #1 puff 12/17/17 mcg/actuation (8 g)] - Allergies Allergies/Adverse Reactions: Allergies Allergy/AdvReac Type Severity Reaction Status Date / Time No Known Allergies Allergy Verified 12/22/17 18:31 Review of Systems ROS Statement: Except As Marked, All Systems Reviewed And Found Negative Constitutional: Negative for: Fever, Chills Cardiovascular: Negative for: Chest Pain Gastrointestinal: Positive for: Nausea, Vomiting, Abdominal Pain, Diarrhea. Negative for: Constipation, Rectal Pain Genitourinary Male: Negative for: Dysuria Psych: Positive for: Other (etoh) Physical Exam - Reviewed Nursing Documentation Reviewed: Yes Vital Signs Reviewed: Yes - Physical Exam Appears: Positive for: Well, Non-toxic, No Acute Distress Skin: Negative for: Rash Eye Exam: Positive for: Normal appearance Cardiovascular/Chest: Positive for: Regular Rate, Rhythm Respiratory: Positive for: Normal Breath Sounds Gastrointestinal/Abdominal: Positive for: Soft. Negative for: Tenderness, Distended, Guarding, Rebound Extremity: Positive for: Normal ROM Neurologic/Psych: Positive for: Alert, Oriented - ECG O2 Sat by Pulse Oximetry: 95 Pulse Ox Interpretation: Normal Medical Decision Making Medical Decision Makin-year-old male with abdominal pain status post eating a sandwich that may have been spoiled Plan: CBC CMP Lipase BAL UDS IVF PO zofran UA Disposition - Clinical Impression Clinical Impression: Abdominal pain - Patient ED Disposition Is Patient to be Admitted: Transfer of Care - Disposition Disposition: Transfer of Care Disposition Time: 20:00 Condition: STABLE Forms: [employer] ([place]) Patient Signed Over To: Faye Rangel Handoff Comments: Case was signed out pending diagnostic testing results, reevaluation and final disposition
[2017-12-22 20:56] LABS: EOS # 0.1 K/uL (0.0-0.7); EOS % 3.3 % (0.0-4.0); HEMOGLOBIN 13.5 g/dL (12.0-18.0); LYMPH # 1.6 K/uL (1.0-4.3); LYMPH % 38.7 % (20.0-40.0); MEAN CELL VOLUME 104.3 fl (80.0-94.0); MEAN CORPUSCULAR HEMOGLOBIN 35.7 pg (27.0-31.0); MEAN CORPUSCULAR HGB CONC 34.2 g/dL (33.0-37.0); MEAN PLATELET VOLUME 9.3 fl (7.2-11.7); MONO # 0.4 K/uL (0.0-0.8); MONO % 10.9 % (0.0-10.0); NEUT # 1.9 K/uL (1.8-7.0); NEUT % 46.1 % (50.0-75.0); NRBC % 0.1 % (0.0-0.0); RBC 3.78 Mil/uL (4.40-5.90); RED CELL DISTRIBUTION WIDTH 13.5 % (11.5-14.5); WHITE BLOOD COUNT 4.1 K/uL (4.8-10.8)
[2017-12-22 21:19] LABS: ALBUMIN 3.5 g/dL (3.5-5.0); ALT/SGPT 60 U/L (21-72); AST/SGOT 75 U/L (17-59); BLOOD UREA NITROGEN 24 mg/dl (9-20); CALCIUM 8.5 mg/dL (8.4-10.2); GFR AFRICAN-AMERICAN > 60; GFR NON-AFRICAN AMERICAN > 60; LIPASE 231 U/L (23-300)
--- NOTE | 2017-12-22 22:52 | ED PDOC ---
- Laboratory Results Result Diagrams: 12/22/17 20:38 12/22/17 20:38 - ECG O2 Sat by Pulse Oximetry: 95 - Progress ED Course And Treament: Case endorsed to documentation writer from Bethanie SALDANA pending labs, re-eval Patient tolerating PO, states he is feeling better. Patient educated on findings, discharged with rx Zofran. Advised fluids, bland diet. Follow uP PMD 2-3 days. Return precautions given. Disposition - Clinical Impression Clinical Impression: Gastroenteritis, Alcohol abuse - POA Present On Arrival: None - Disposition Disposition: Routine/Home Disposition Time: 22:52 Condition: IMPROVED Prescriptions: Ondansetron ODT [Zofran ODT] 4 mg PO Q8 PRN #10 odt PRN Reason: Nausea/Vomiting Instructions: Gastroenteritis (ED), Abuse of Alcohol (ED) Forms: [email or web address] (Divehi)
[2017-12-22 23:17] VITALS: BP 125/78; PULSE 81; RESP 15; O2SAT 97
== END 2017-12-22 23:35 | disposition home or self-care (01) ==
LOC: H.ER 18:27
DX: K52.9 Noninfective gastroenteritis and colitis, unspecified (principal); F10.10 Alcohol abuse, uncomplicated; I48.91 Unspecified atrial fibrillation; J44.9 Chronic obstructive pulmonary disease, unspecified
CPT/HCPCS: 80053; 80320; 82948; 83690; 85025; 96374; 99283; J1885; J7040

== ENCOUNTER 2017-12-23 22:55 | Emergency (ER) | payer OTHER ==
[2017-12-23 22:55] VITALS: BMI 21.2
[2017-12-23 22:59] VITALS: BP 112/76; PULSE 82; RESP 18; TEMP 97.9; O2SAT 97
--- NOTE | 2017-12-24 00:19 | ED PDOC ---
HPI: General Adult Time Seen by Provider: 12/23/17 23:38 Chief Complaint (Nursing): Lower Extremity Problem/Injury History Per: Patient Additional Complaint(s): Pt. brought in by EMS as pt. was c/o leg pain. Pt. well known to ED. States he does not have leg pain. Admits to drinking alcohol. Past Medical History Reviewed: Historical Data, Nursing Documentation, Vital Signs Vital Signs: Last Vital Signs Temp 97.9 F 12/23/17 22:56 Pulse 82 12/23/17 22:56 Resp 18 12/23/17 22:56 BP 112/76 12/23/17 22:56 Pulse Ox 97 12/24/17 00:19 - Medical History PMH: Asthma, Atrial Fibrillation, COPD, Hepatitis (C), Seizures - Surgical History Surgical History: Appendectomy, Tonsillectomy - Family History Family History: States: No Known Family Hx - Home Medications Home Medications: Ambulatory Orders Medication Instructions Recorded Albuterol HFA [Ventolin HFA 90 1 puff IH Q4 PRN #1 inh 10/26/17 mcg/actuation (8 g)] Cephalexin [Keflex] 250 mg PO Q8 #15 capsule 10/29/17 Methylprednisolone [Medrol Dose 4 mg PO DAILY #21 mg 10/29/17 Pack (21 tabs)] Albuterol HFA [Ventolin HFA 90 1 - 2 puff IH Q4 PRN #1 inh 11/16/17 mcg/actuation (8 g)] Albuterol Sulfate [Proair Hfa] 0.09 mg IH Q6 PRN #1 inh 12/12/17 Albuterol HFA [Ventolin HFA 90 2 puff IH Q4H #1 puff 12/17/17 mcg/actuation (8 g)] Ondansetron ODT [Zofran ODT] 4 mg PO Q8 PRN #10 odt 12/22/17 - Allergies Allergies/Adverse Reactions: Allergies Allergy/AdvReac Type Severity Reaction Status Date / Time No Known Allergies Allergy Verified 12/24/17 21:43 Review of Systems Review Of Systems: ROS cannot be obtained secondary to pt's inabilty to answer questions. Physical Exam - Physical Exam Appears: Positive for: Well, Non-toxic, No Acute Distress Head Exam: Positive for: ATRAUMATIC, NORMAL INSPECTION, NORMOCEPHALIC Skin: Positive for: Normal Color, Warm. Negative for: Rash Eye Exam: Positive for: Normal appearance Cardiovascular/Chest: Positive for: Regular Rate, Rhythm Respiratory: Positive for: Normal Breath Sounds. Negative for: Respiratory Distress Gastrointestinal/Abdominal: Positive for: Normal Exam, Soft. Negative for: Tenderness Back: Positive for: Normal Inspection Extremity: Negative for: Calf Tenderness (b/l) Neurologic/Psych: Positive for: Alert, Oriented, Gait (steady with walker). Negative for: Aphasia, Facial Droop - ECG O2 Sat by Pulse Oximetry: 97 - Progress ED Course And Treament: 0201 Sleeping comfortably. No distress. 0410 No distress. 0600 Gait steady with walker. Disposition - Clinical Impression Clinical Impression: Malingerer - Patient ED Disposition Is Patient to be Admitted: No - Disposition Disposition: Routine/Home Disposition Time: 05:59 Condition: STABLE Forms: [employer] (Cymro) Print Language: POLISH
== END 2017-12-24 06:00 | disposition home or self-care (01) ==
LOC: H.ER 22:55
DX: F10.129 Alcohol abuse with intoxication, unspecified (principal)

== ENCOUNTER 2017-12-24 20:53 | Emergency (ER) | payer OTHER ==
[2017-12-24 20:53] VITALS: BMI 21.2
--- NOTE | 2017-12-24 23:41 | ED PDOC ---
HPI: Psych/Substance Abuse Time Seen by Provider: 12/24/17 21:30 Chief Complaint (Nursing): Alcohol Ingestion Chief Complaint (Provider): Alcohol Ingestion History Per: Patient History/Exam Limitations: no limitations Additional Complaint(s): 57 year old male presents to the emergency department after public intoxication. Denies any further medical complaints. Past Medical History Reviewed: Historical Data, Nursing Documentation, Vital Signs Vital Signs: Last Vital Signs Temp 97.4 F L 12/24/17 21:43 Pulse 81 12/24/17 21:43 Resp 18 12/24/17 21:43 BP 131/76 12/24/17 21:43 Pulse Ox 98 12/24/17 21:43 - Medical History PMH: Asthma, Atrial Fibrillation, COPD, Hepatitis (C), Seizures - Surgical History Surgical History: Appendectomy, Tonsillectomy - Family History Family History: States: Unknown Family Hx - Home Medications Home Medications: Ambulatory Orders Medication Instructions Recorded Albuterol HFA [Ventolin HFA 90 1 puff IH Q4 PRN #1 inh 10/26/17 mcg/actuation (8 g)] Cephalexin [Keflex] 250 mg PO Q8 #15 capsule 10/29/17 Methylprednisolone [Medrol Dose 4 mg PO DAILY #21 mg 10/29/17 Pack (21 tabs)] Albuterol HFA [Ventolin HFA 90 1 - 2 puff IH Q4 PRN #1 inh 11/16/17 mcg/actuation (8 g)] Albuterol Sulfate [Proair Hfa] 0.09 mg IH Q6 PRN #1 inh 12/12/17 Albuterol HFA [Ventolin HFA 90 2 puff IH Q4H #1 puff 12/17/17 mcg/actuation (8 g)] Ondansetron ODT [Zofran ODT] 4 mg PO Q8 PRN #10 odt 12/22/17 - Allergies Allergies/Adverse Reactions: Allergies Allergy/AdvReac Type Severity Reaction Status Date / Time No Known Allergies Allergy Verified 12/24/17 21:43 Review of Systems ROS Statement: Except As Marked, All Systems Reviewed And Found Negative (As per HPI, otherwise negative) Physical Exam - Reviewed Nursing Documentation Reviewed: Yes Vital Signs Reviewed: Yes - Physical Exam Appears: Positive for: No Acute Distress Head Exam: Positive for: NORMAL INSPECTION Skin: Positive for: Normal Color, Warm, Dry Cardiovascular/Chest: Positive for: Regular Rate, Rhythm. Negative for: Murmur Respiratory: Positive for: Normal Breath Sounds. Negative for: Accessory Muscle Use, Respiratory Distress Gastrointestinal/Abdominal: Positive for: Normal Exam, Soft. Negative for: Tenderness Extremity: Positive for: Normal ROM. Negative for: Pedal Edema Neurologic/Psych: Positive for: Alert, Oriented (x3) - ECG O2 Sat by Pulse Oximetry: 98 (RA) Pulse Ox Interpretation: Normal Medical Decision Making Medical Decision Making: Time: 2130 Initial Impression: Public intoxication Time: 552 --Patient is clinically sober and medically stable for discharge. Clinical impression: Alcohol ingestion Scribe Attestation: Documented by Geovanna Chun acting as a scribe for Renaldo Gates MD. Scribe Attestation: All medical record entries made by the Scribe were at my direction and personally dictated by me. I have reviewed the chart and agree that the record accurately reflects my personal performance of the history, physical exam, medical decision making, and the department course for this patient. I have also personally directed, reviewed, and agree with the discharge instructions and disposition. Disposition - Clinical Impression Clinical Impression: Alcohol abuse - Disposition Disposition: Routine/Home Disposition Time: 06:00 Condition: STABLE Instructions: Alcohol Intoxication (ED), Abuse of Alcohol (ED), Alcohol Dependence (ED) Forms: [employer] (Kinyarwanda)
[2017-12-25 06:06] VITALS: BP 125/71; PULSE 87; RESP 17; TEMP 98.3
[2017-12-25 06:39] VITALS: O2SAT 98
== END 2017-12-25 06:08 | disposition home or self-care (01) ==
LOC: H.ER 20:53
DX: F10.10 Alcohol abuse, uncomplicated (principal)

== ENCOUNTER 2017-12-25 18:45 | Emergency (ER) | payer OTHER ==
[2017-12-25 18:47] VITALS: BMI 21.2
[2017-12-25 18:51] VITALS: BP 114/76; PULSE 78; RESP 18; TEMP 97.9; O2SAT 99
--- NOTE | 2017-12-25 22:30 | ED PDOC ---
HPI: Psych/Substance Abuse Time Seen by Provider: 12/25/17 18:49 Chief Complaint (Nursing): Alcohol Ingestion Chief Complaint (Provider): ETOH - Wants food History Per: Patient History/Exam Limitations: no limitations Onset/Duration Of Symptoms: Mins Modifying Factor(s): Alcohol Past Medical History Reviewed: Historical Data, Nursing Documentation, Vital Signs Vital Signs: Last Vital Signs Temp 97.9 F 12/25/17 18:49 Pulse 78 12/25/17 18:49 Resp 18 12/25/17 18:49 BP 114/76 12/25/17 18:49 Pulse Ox 99 12/25/17 18:49 - Medical History PMH: Asthma, Atrial Fibrillation, COPD, Hepatitis (C), Seizures - Surgical History Surgical History: Appendectomy, Tonsillectomy - Family History Family History: States: Unknown Family Hx - Social History Alcohol: > 2 Drinks/Day - Home Medications Home Medications: Ambulatory Orders Medication Instructions Recorded Albuterol HFA [Ventolin HFA 90 1 puff IH Q4 PRN #1 inh 10/26/17 mcg/actuation (8 g)] Cephalexin [Keflex] 250 mg PO Q8 #15 capsule 10/29/17 Methylprednisolone [Medrol Dose 4 mg PO DAILY #21 mg 10/29/17 Pack (21 tabs)] Albuterol HFA [Ventolin HFA 90 1 - 2 puff IH Q4 PRN #1 inh 11/16/17 mcg/actuation (8 g)] Albuterol Sulfate [Proair Hfa] 0.09 mg IH Q6 PRN #1 inh 12/12/17 Albuterol HFA [Ventolin HFA 90 2 puff IH Q4H #1 puff 12/17/17 mcg/actuation (8 g)] Ondansetron ODT [Zofran ODT] 4 mg PO Q8 PRN #10 odt 12/22/17 - Allergies Allergies/Adverse Reactions: Allergies Allergy/AdvReac Type Severity Reaction Status Date / Time No Known Allergies Allergy Verified 12/24/17 21:43 Review of Systems ROS Statement: Except As Marked, All Systems Reviewed And Found Negative Constitutional: Negative for: Fever, Chills Respiratory: Negative for: Cough, Shortness of Breath Gastrointestinal: Negative for: Nausea, Vomiting, Abdominal Pain Physical Exam - Reviewed Nursing Documentation Reviewed: Yes Vital Signs Reviewed: Yes - Physical Exam Appears: Positive for: Well, Non-toxic, No Acute Distress Head Exam: Positive for: ATRAUMATIC, NORMAL INSPECTION, NORMOCEPHALIC Skin: Positive for: Normal Color, Warm, DRY Eye Exam: Positive for: Normal appearance ENT: Positive for: Normal ENT Inspection Neck: Positive for: Normal, Painless ROM Cardiovascular/Chest: Positive for: Regular Rate, Rhythm Respiratory: Positive for: CNT, Normal Breath Sounds Gastrointestinal/Abdominal: Positive for: Normal Exam, Soft Back: Positive for: Normal Inspection Extremity: Positive for: Normal ROM Neurologic/Psych: Positive for: Alert, Oriented - ECG O2 Sat by Pulse Oximetry: 99 Medical Decision Making Medical Decision Makin - Sleeping comfortably in room. Pt drank milk and ate a sandwich. 0000 - Clear speech and gait at baseline. Disposition - Clinical Impression Clinical Impression: Alcohol abuse - Patient ED Disposition Is Patient to be Admitted: No Counseled Patient/Family Regarding: Diagnosis, Need For Followup - Disposition Disposition: Routine/Home Disposition Time: 00:00 Condition: STABLE Instructions: Alcohol Intoxication (ED), Abuse of Alcohol (ED), Alcohol Dependence (ED) Forms: [employer] (Chinese)
== END 2017-12-26 00:05 | disposition home or self-care (01) ==
LOC: H.ER 18:45
DX: F10.10 Alcohol abuse, uncomplicated (principal); I48.91 Unspecified atrial fibrillation; J44.9 Chronic obstructive pulmonary disease, unspecified

== ENCOUNTER 2017-12-26 00:37 | Emergency (ER) | payer OTHER ==
[2017-12-26 00:37] VITALS: BMI 21.2
[2017-12-26] MEDS ORDERED: Albuterol-Ipratrop 3 mg / 0.5 (3 ml) UD INH STA (00:46)
--- NOTE | 2017-12-26 00:48 | ED PDOC ---
HPI: Psych/Substance Abuse Time Seen by Provider: 12/26/17 00:44 Chief Complaint (Nursing): Alcohol Ingestion Chief Complaint (Provider): Alcohol Intoxication ED Caveat: Intoxicated History Per: Patient History/Exam Limitations: intoxication Onset/Duration Of Symptoms: Unknown Current Symptoms Are (Timing): Still Present Additional History Per: EMS Additional Complaint(s): Jorge L is a 57 y/o male brought to the ED via EMS for intoxication. Patient's history is limited due to intoxication. PMD: None Past Medical History Reviewed: Historical Data, Nursing Documentation, Vital Signs - Medical History PMH: Asthma, Atrial Fibrillation, COPD, Hepatitis (C), Seizures - Surgical History Surgical History: Appendectomy, Tonsillectomy - Family History Family History: States: Unknown Family Hx - Social History Alcohol: > 2 Drinks/Day - Home Medications Home Medications: Ambulatory Orders Medication Instructions Recorded Albuterol HFA [Ventolin HFA 90 1 puff IH Q4 PRN #1 inh 10/26/17 mcg/actuation (8 g)] Cephalexin [Keflex] 250 mg PO Q8 #15 capsule 10/29/17 Methylprednisolone [Medrol Dose 4 mg PO DAILY #21 mg 10/29/17 Pack (21 tabs)] Albuterol HFA [Ventolin HFA 90 1 - 2 puff IH Q4 PRN #1 inh 11/16/17 mcg/actuation (8 g)] Albuterol Sulfate [Proair Hfa] 0.09 mg IH Q6 PRN #1 inh 12/12/17 Albuterol HFA [Ventolin HFA 90 2 puff IH Q4H #1 puff 12/17/17 mcg/actuation (8 g)] Ondansetron ODT [Zofran ODT] 4 mg PO Q8 PRN #10 odt 12/22/17 - Allergies Allergies/Adverse Reactions: Allergies Allergy/AdvReac Type Severity Reaction Status Date / Time No Known Allergies Allergy Verified 12/26/17 19:24 Review of Systems Review Of Systems: ROS cannot be obtained secondary to pt's inabilty to answer questions. Physical Exam - Reviewed Nursing Documentation Reviewed: Yes Vital Signs Reviewed: Yes - Physical Exam Appears: Positive for: No Acute Distress Cardiovascular/Chest: Positive for: Regular Rate, Rhythm. Negative for: Murmur Respiratory: Positive for: Normal Breath Sounds. Negative for: Respiratory Distress Neurologic/Psych: Positive for: Gait (unsteady), Other (slurred speech). Negative for: Alert, Oriented Medical Decision Making Medical Decision Making: Time: 00:40 Initial Impression: 57 y/o intoxicated male Initial Plan: --Duelisab Time: 5:55 --Patient is awake, alert, with steady gait and clear speech. He is stable for discharge home. Scribe Attestation: Documented by Denny Park, acting as a scribe for Renaldo Gates MD Provider Scribe Attestation: All medical record entries made by the Scribe were at my direction and personally dictated by me. I have reviewed the chart and agree that the record accurately reflects my personal performance of the history, physical exam, medical decision making, and the department course for this patient. I have also personally directed, reviewed, and agree with the discharge instructions and disposition. Disposition - Clinical Impression Clinical Impression: Alcohol abuse - Patient ED Disposition Is Patient to be Admitted: No Counseled Patient/Family Regarding: Studies Performed, Diagnosis, Need For Followup - Disposition Disposition: Routine/Home Disposition Time: 05:55 Condition: STABLE Instructions: Effects of Alcohol on Your Health Forms: [employer] (Swedish)
[2017-12-26] MEDS ORDERED: Albuterol-Ipratrop 3 mg / 0.5 (3 ml) UD ONE (05:24)
[2017-12-26 06:45] VITALS: BP 129/78; PULSE 68; RESP 16; TEMP 98.8; O2SAT 95
== END 2017-12-26 06:45 | disposition home or self-care (01) ==
LOC: H.ER 00:37
DX: F10.129 Alcohol abuse with intoxication, unspecified (principal); J44.9 Chronic obstructive pulmonary disease, unspecified

== ENCOUNTER 2017-12-26 19:21 | Emergency (ER) | payer OTHER ==
[2017-12-26 19:21] VITALS: BMI 21.2
[2017-12-26] MEDS ORDERED: Albuterol-Ipratrop 3 mg / 0.5 (3 ml) UD INH STA (19:37)
[2017-12-26] MEDS ORDERED: Albuterol-Ipratrop 3 mg / 0.5 (3 ml) UD ONE (20:18)
--- NOTE | 2017-12-26 22:03 | ED PDOC ---
HPI: Psych/Substance Abuse Time Seen by Provider: 12/26/17 19:24 Chief Complaint (Nursing): Alcohol Ingestion Chief Complaint (Provider): Brought in for evaluation of alcohol abuse History Per: Patient History/Exam Limitations: no limitations Onset/Duration Of Symptoms: Days Current Symptoms Are (Timing): Still Present Suicide/Self Injury Attempted (Context): None Modifying Factor(s): None Additional Complaint(s): PT was sleeping outside of [facility] and brought in by EMS. PT states "I was just sleeping because I was tired". Pt admits to drinking alcohol. Denies additional complaints. Past Medical History Reviewed: Historical Data, Nursing Documentation, Vital Signs Vital Signs: Last Vital Signs Temp 97.7 F 12/26/17 19:32 Pulse 89 12/26/17 19:32 Resp 16 12/26/17 19:32 BP 110/56 L 12/26/17 19:32 Pulse Ox 94 L 12/26/17 19:32 - Medical History PMH: Asthma, Atrial Fibrillation, COPD, Hepatitis (C), Seizures - Surgical History Surgical History: Appendectomy, Tonsillectomy - Family History Family History: States: Unknown Family Hx - Home Medications Home Medications: Ambulatory Orders Medication Instructions Recorded Albuterol HFA [Ventolin HFA 90 1 puff IH Q4 PRN #1 inh 10/26/17 mcg/actuation (8 g)] Cephalexin [Keflex] 250 mg PO Q8 #15 capsule 10/29/17 Methylprednisolone [Medrol Dose 4 mg PO DAILY #21 mg 10/29/17 Pack (21 tabs)] Albuterol HFA [Ventolin HFA 90 1 - 2 puff IH Q4 PRN #1 inh 11/16/17 mcg/actuation (8 g)] Albuterol Sulfate [Proair Hfa] 0.09 mg IH Q6 PRN #1 inh 12/12/17 Albuterol HFA [Ventolin HFA 90 2 puff IH Q4H #1 puff 12/17/17 mcg/actuation (8 g)] Ondansetron ODT [Zofran ODT] 4 mg PO Q8 PRN #10 odt 12/22/17 - Allergies Allergies/Adverse Reactions: Allergies Allergy/AdvReac Type Severity Reaction Status Date / Time No Known Allergies Allergy Verified 12/26/17 19:24 Review of Systems ROS Statement: Except As Marked, All Systems Reviewed And Found Negative Constitutional: Negative for: Fever, Chills Cardiovascular: Negative for: Chest Pain Respiratory: Negative for: Cough, Shortness of Breath Gastrointestinal: Negative for: Nausea, Vomiting, Abdominal Pain Physical Exam - Reviewed Nursing Documentation Reviewed: Yes Vital Signs Reviewed: Yes - Physical Exam Appears: Positive for: Well, Non-toxic, No Acute Distress Head Exam: Positive for: ATRAUMATIC, NORMAL INSPECTION, NORMOCEPHALIC Skin: Positive for: Normal Color, Warm, DRY Eye Exam: Positive for: Normal appearance ENT: Positive for: Normal ENT Inspection Neck: Positive for: Normal, Painless ROM Cardiovascular/Chest: Positive for: Regular Rate, Rhythm Respiratory: Positive for: Wheezing (Diffuse). Negative for: Accessory Muscle Use, Respiratory Distress Gastrointestinal/Abdominal: Positive for: Normal Exam, Soft Back: Positive for: Normal Inspection Extremity: Positive for: Normal ROM Neurologic/Psych: Positive for: Alert, Oriented - ECG O2 Sat by Pulse Oximetry: 94 Medical Decision Making Medical Decision Making: Treatment given in ER. Pt states he feels better on re-evaluation. PT ate in ER. Disposition - Clinical Impression Clinical Impression: Alcohol abuse - Patient ED Disposition Is Patient to be Admitted: No Counseled Patient/Family Regarding: Diagnosis, Need For Followup - Disposition Disposition: Routine/Home Disposition Time: 23:48 Condition: GOOD Instructions: Abuse of Alcohol (ED) Forms: [employer] (Bengali)
[2017-12-26 23:54] VITALS: RESP 15
[2017-12-27 06:00] VITALS: BP 132/74; PULSE 82; TEMP 98.7; O2SAT 94
== END 2017-12-27 06:30 | disposition home or self-care (01) ==
LOC: H.ER 19:21
DX: F10.10 Alcohol abuse, uncomplicated (principal); J44.9 Chronic obstructive pulmonary disease, unspecified; K75.9 Inflammatory liver disease, unspecified; R56.9 Unspecified convulsions

== ENCOUNTER 2017-12-27 22:36 | Emergency (ER) | payer OTHER ==
[2017-12-27 22:37] VITALS: BMI 21.2
[2017-12-27 22:40] VITALS: BP 110/61; PULSE 74; RESP 18; TEMP 97.8; O2SAT 97
== END 2017-12-28 05:54 | disposition left against medical advice (07) ==
LOC: H.ER 22:36
DX: Z02.89 Encounter for other administrative examinations (principal)

== ENCOUNTER 2017-12-29 01:25 | Emergency (ER) | payer OTHER ==
[2017-12-29 01:26] VITALS: BMI 21.2
[2017-12-29 01:48] VITALS: BP 118/78; PULSE 80; RESP 17; TEMP 98.2; O2SAT 98
--- NOTE | 2017-12-29 02:34 | ED PDOC ---
HPI: Psych/Substance Abuse Time Seen by Provider: 12/29/17 01:48 Chief Complaint (Nursing): Alcohol Ingestion Chief Complaint (Provider): etoh History Per: Patient, EMS Additional Complaint(s): 57 y/o male brought in by EMS for acute alcohol intoxication. Patient eating a bag of pretzels, denies acute medical or psychiatric complaints. Past Medical History Vital Signs: Last Vital Signs Temp 98.2 F 12/29/17 01:44 Pulse 80 12/29/17 01:44 Resp 17 12/29/17 01:44 BP 118/78 12/29/17 01:44 Pulse Ox 98 12/29/17 01:44 - Medical History PMH: Asthma, Atrial Fibrillation, COPD, Hepatitis (C), Seizures Denies: Chronic Kidney Disease - Surgical History Surgical History: Appendectomy, Tonsillectomy - Family History Family History: States: Unknown Family Hx - Home Medications Home Medications: Ambulatory Orders Medication Instructions Recorded Albuterol HFA [Ventolin HFA 90 1 puff IH Q4 PRN #1 inh 10/26/17 mcg/actuation (8 g)] Cephalexin [Keflex] 250 mg PO Q8 #15 capsule 10/29/17 Methylprednisolone [Medrol Dose 4 mg PO DAILY #21 mg 10/29/17 Pack (21 tabs)] Albuterol HFA [Ventolin HFA 90 1 - 2 puff IH Q4 PRN #1 inh 11/16/17 mcg/actuation (8 g)] Albuterol Sulfate [Proair Hfa] 0.09 mg IH Q6 PRN #1 inh 12/12/17 Albuterol HFA [Ventolin HFA 90 2 puff IH Q4H #1 puff 12/17/17 mcg/actuation (8 g)] Ondansetron ODT [Zofran ODT] 4 mg PO Q8 PRN #10 odt 12/22/17 - Allergies Allergies/Adverse Reactions: Allergies Allergy/AdvReac Type Severity Reaction Status Date / Time No Known Allergies Allergy Verified 12/26/17 19:24 Review of Systems ROS Statement: Except As Marked, All Systems Reviewed And Found Negative Physical Exam - Reviewed Nursing Documentation Reviewed: Yes Vital Signs Reviewed: Yes - Physical Exam Appears: Positive for: Well, Non-toxic, No Acute Distress Head Exam: Positive for: ATRAUMATIC, NORMAL INSPECTION, NORMOCEPHALIC Skin: Positive for: Normal Color Eye Exam: Positive for: Normal appearance ENT: Positive for: Normal ENT Inspection Cardiovascular/Chest: Positive for: Regular Rate, Rhythm Respiratory: Positive for: Normal Breath Sounds Gastrointestinal/Abdominal: Positive for: Normal Exam Back: Positive for: Normal Inspection Extremity: Positive for: Normal ROM Neurologic/Psych: Positive for: Alert, Oriented - ECG O2 Sat by Pulse Oximetry: 98 Disposition - Disposition
== END 2017-12-29 05:37 | disposition home or self-care (01) ==
LOC: H.ER 01:25
DX: F10.129 Alcohol abuse with intoxication, unspecified (principal)

== ENCOUNTER 2017-12-29 16:17 | Emergency (ER) | payer OTHER ==
[2017-12-29 16:17] VITALS: BMI 21.2
[2017-12-29 16:24] VITALS: BP 138/74; PULSE 88; RESP 16; TEMP 98; O2SAT 100
[2017-12-29] MEDS ORDERED: Albuterol 0.083% Inhal Sol (2.5 mg/3 mL) UD INH STA (17:45)
[2017-12-29] MEDS ORDERED: Albuterol-Ipratrop 3 mg / 0.5 (3 ml) UD ONE (18:26)
--- NOTE | 2017-12-29 20:01 | ED PDOC ---
HPI: General Adult Time Seen by Provider: 12/29/17 17:23 Chief Complaint (Nursing): Seizure History Per: Patient, EMS Additional Complaint(s): Pt. requesting albuterol neb treatment. Brought in by EMS for a possible unwitnessed seizure. Pt. reports no seizure. States he has not had any alcohol drink since yesterday morning. Denies chest pain, fever. Past Medical History Reviewed: Historical Data, Nursing Documentation, Vital Signs Vital Signs: Last Vital Signs Temp 98.0 F 12/29/17 16:20 Pulse 88 12/29/17 16:20 Resp 16 12/29/17 16:20 BP 138/74 12/29/17 16:20 Pulse Ox 100 12/29/17 20:01 - Medical History PMH: Asthma, Atrial Fibrillation, COPD, Hepatitis (C), Seizures Denies: Chronic Kidney Disease - Surgical History Surgical History: Appendectomy, Tonsillectomy - Family History Family History: States: Unknown Family Hx - Home Medications Home Medications: Ambulatory Orders Medication Instructions Recorded Albuterol HFA [Ventolin HFA 90 1 puff IH Q4 PRN #1 inh 10/26/17 mcg/actuation (8 g)] Cephalexin [Keflex] 250 mg PO Q8 #15 capsule 10/29/17 Methylprednisolone [Medrol Dose 4 mg PO DAILY #21 mg 10/29/17 Pack (21 tabs)] Albuterol HFA [Ventolin HFA 90 1 - 2 puff IH Q4 PRN #1 inh 11/16/17 mcg/actuation (8 g)] Albuterol Sulfate [Proair Hfa] 0.09 mg IH Q6 PRN #1 inh 12/12/17 Albuterol HFA [Ventolin HFA 90 2 puff IH Q4H #1 puff 12/17/17 mcg/actuation (8 g)] Ondansetron ODT [Zofran ODT] 4 mg PO Q8 PRN #10 odt 12/22/17 - Allergies Allergies/Adverse Reactions: Allergies Allergy/AdvReac Type Severity Reaction Status Date / Time No Known Allergies Allergy Verified 12/29/17 16:20 Review of Systems ROS Statement: Except As Marked, All Systems Reviewed And Found Negative () Respiratory: Positive for: Wheezing Physical Exam - Physical Exam Appears: Positive for: Well, Non-toxic, No Acute Distress Skin: Positive for: Normal Color, Warm. Negative for: Rash Eye Exam: Positive for: Normal appearance Respiratory: Positive for: Wheezing (minimal wheezing b/l). Negative for: Respiratory Distress Extremity: Positive for: Normal ROM, Other (no tremors) Neurologic/Psych: Positive for: Alert, Oriented, Gait (steady, unassisted). Negative for: Aphasia, Facial Droop - ECG O2 Sat by Pulse Oximetry: 100 - Progress ED Course And Treament: Albuterol neb x1, librium PO ordered. On re-evaluation, pt. in no distress. Lungs clear b/l. States it is cold outside and is requesting for a bed to sleep in. Gait steady. Disposition - Clinical Impression Clinical Impression: Bronchospasm, acute - Patient ED Disposition Is Patient to be Admitted: No - Disposition Disposition: Routine/Home Disposition Time: 20:18 Condition: STABLE Forms: [facility] (Spanish)
== END 2017-12-29 21:57 | disposition home or self-care (01) ==
LOC: H.ER 16:17
DX: J98.01 Acute bronchospasm (principal); I48.91 Unspecified atrial fibrillation; J44.9 Chronic obstructive pulmonary disease, unspecified

== ENCOUNTER 2017-12-29 21:58 | Emergency (ER) | payer OTHER ==
[2017-12-29 21:58] VITALS: BMI 21.2
[2017-12-29 22:06] VITALS: BP 126/84; PULSE 92; RESP 16; TEMP 98; O2SAT 96
--- NOTE | 2017-12-29 22:37 | ED PDOC ---
HPI: Abdomen Time Seen by Provider: 12/29/17 22:35 Chief Complaint (Nursing): GI Problem Chief Complaint (Provider): Vomiting History/Exam Limitations: intoxication Onset/Duration Of Symptoms: Intermittent Episodes Outside of [place] travel?: No Current Symptoms Are (Timing): Still Present Associated Symptoms: Nausea, Vomiting Past Medical History Vital Signs: Last Vital Signs Temp 98.0 F 12/29/17 22:03 Pulse 92 H 12/29/17 22:03 Resp 16 12/29/17 22:03 BP 126/84 12/29/17 22:03 Pulse Ox 96 12/29/17 22:37 - Medical History PMH: Asthma, Atrial Fibrillation, COPD, Hepatitis (C), Seizures Denies: Chronic Kidney Disease - Surgical History Surgical History: Appendectomy, Tonsillectomy - Family History Family History: States: Unknown Family Hx - Home Medications Home Medications: Ambulatory Orders Medication Instructions Recorded Albuterol HFA [Ventolin HFA 90 1 puff IH Q4 PRN #1 inh 10/26/17 mcg/actuation (8 g)] Cephalexin [Keflex] 250 mg PO Q8 #15 capsule 10/29/17 Methylprednisolone [Medrol Dose 4 mg PO DAILY #21 mg 10/29/17 Pack (21 tabs)] Albuterol HFA [Ventolin HFA 90 1 - 2 puff IH Q4 PRN #1 inh 11/16/17 mcg/actuation (8 g)] Albuterol Sulfate [Proair Hfa] 0.09 mg IH Q6 PRN #1 inh 12/12/17 Albuterol HFA [Ventolin HFA 90 2 puff IH Q4H #1 puff 12/17/17 mcg/actuation (8 g)] Ondansetron ODT [Zofran ODT] 4 mg PO Q8 PRN #10 odt 12/22/17 - Allergies Allergies/Adverse Reactions: Allergies Allergy/AdvReac Type Severity Reaction Status Date / Time No Known Allergies Allergy Verified 12/29/17 16:20 - ECG O2 Sat by Pulse Oximetry: 96 Disposition - Clinical Impression Clinical Impression: Nausea - Patient ED Disposition Is Patient to be Admitted: No Doctor Will See Patient In The: Office Counseled Patient/Family Regarding: Diagnosis - Disposition Referrals: [facility] [Outside] Disposition: Routine/Home Disposition Time: 23:37 Condition: STABLE Instructions: Nausea and Vomiting, Adult (DC) Forms: [email or web address] [facility] (Cape Verdean)
== END 2017-12-29 23:50 | disposition home or self-care (01) ==
LOC: H.ER 21:58
DX: R11.2 Nausea with vomiting, unspecified (principal); I48.91 Unspecified atrial fibrillation; J44.9 Chronic obstructive pulmonary disease, unspecified

== ENCOUNTER 2017-12-31 19:09 | Emergency (ER) | payer OTHER ==
[2017-12-31 19:09] VITALS: BMI 21.2
[2017-12-31 19:17] VITALS: BP 120/75; PULSE 93; RESP 16; TEMP 98; O2SAT 97
--- NOTE | 2017-12-31 19:32 | ED PDOC ---
HPI: Psych/Substance Abuse Time Seen by Provider: 12/31/17 19:31 Chief Complaint (Nursing): Alcohol Ingestion Chief Complaint (Provider): etoh History Per: Patient Additional Complaint(s): 57 year old male well known to ED self presents intoxicated. Patient states he needs a place to rest. PMD: none Past Medical History Reviewed: Historical Data, Nursing Documentation, Vital Signs Vital Signs: Last Vital Signs Temp 98.0 F 12/31/17 19:15 Pulse 93 H 12/31/17 19:15 Resp 16 12/31/17 19:15 BP 120/75 12/31/17 19:15 Pulse Ox 97 12/31/17 19:15 - Medical History PMH: Asthma, Atrial Fibrillation, COPD, Hepatitis (C), Seizures - Surgical History Surgical History: Appendectomy, Tonsillectomy - Family History Family History: States: No Known Family Hx - Living Arrangements Living Arrangements: Other (non-domiciled) - Social History Alcohol: > 2 Drinks/Day - Home Medications Home Medications: Ambulatory Orders Medication Instructions Recorded Albuterol HFA [Ventolin HFA 90 1 puff IH Q4 PRN #1 inh 10/26/17 mcg/actuation (8 g)] Cephalexin [Keflex] 250 mg PO Q8 #15 capsule 10/29/17 Methylprednisolone [Medrol Dose 4 mg PO DAILY #21 mg 10/29/17 Pack (21 tabs)] Albuterol HFA [Ventolin HFA 90 1 - 2 puff IH Q4 PRN #1 inh 11/16/17 mcg/actuation (8 g)] Albuterol Sulfate [Proair Hfa] 0.09 mg IH Q6 PRN #1 inh 12/12/17 Albuterol HFA [Ventolin HFA 90 2 puff IH Q4H #1 puff 12/17/17 mcg/actuation (8 g)] Ondansetron ODT [Zofran ODT] 4 mg PO Q8 PRN #10 odt 12/22/17 - Allergies Allergies/Adverse Reactions: Allergies Allergy/AdvReac Type Severity Reaction Status Date / Time No Known Allergies Allergy Verified 12/29/17 16:20 Review of Systems ROS Statement: Except As Marked, All Systems Reviewed And Found Negative Psych: Positive for: Other (etoh) Physical Exam - Reviewed Nursing Documentation Reviewed: Yes Vital Signs Reviewed: Yes - Physical Exam Appears: Positive for: Well, Non-toxic, No Acute Distress Skin: Negative for: Rash Eye Exam: Positive for: Normal appearance Neurologic/Psych: Positive for: Alert, Gait (steady with walker used at baseline , ), Other (intoxicated, answers questions appropriately) - ECG O2 Sat by Pulse Oximetry: 97 Pulse Ox Interpretation: Normal Medical Decision Making Medical Decision Makin:35 57 year old intoxicated male Plan: Glucose POC BAL 20:05: Shortly after arrival to ED patient left before treatment complete. Disposition - Clinical Impression Clinical Impression: Alcohol abuse - Patient ED Disposition Is Patient to be Admitted: No - Disposition Disposition: Left W/O Treatment (Patient left before treatment complete) Disposition Time: 20:27 Condition: UNKNOWN Forms: [employer] (Stateless)
[2018-01-01] MEDS ORDERED: Albuterol-Ipratrop 3 mg / 0.5 (3 ml) UD ONE (02:07)
== END 2017-12-31 19:45 | disposition left against medical advice (07) ==
LOC: H.ER 19:09
DX: F10.10 Alcohol abuse, uncomplicated (principal); I48.91 Unspecified atrial fibrillation; J44.9 Chronic obstructive pulmonary disease, unspecified

== ENCOUNTER 2018-01-01 00:56 | Emergency (ER) | payer OTHER ==
[2018-01-01 00:57] VITALS: BMI 21.2
[2018-01-01 01:22] VITALS: BP 111/64; PULSE 84; RESP 18; TEMP 97.5; O2SAT 94
[2018-01-01] MEDS ORDERED: Albuterol-Ipratrop 3 mg / 0.5 (3 ml) UD INH STA (02:05)
--- NOTE | 2018-01-01 02:58 | ED PDOC ---
HPI: Psych/Substance Abuse Time Seen by Provider: 01/01/18 01:14 Chief Complaint (Nursing): Alcohol Ingestion Chief Complaint (Provider): Alcohol Ingestion History Per: Patient History/Exam Limitations: no limitations Additional Complaint(s): 57 year old male, brought to ER by EMS for evaluation as patient was noted to be publicly intoxicated. Patient is well known to ER and provider for multiple presentations with similar complaints. Currently, patient denies any fever, chills, chest pain, shortness of breath. No other complaints. Past Medical History Reviewed: Historical Data, Nursing Documentation, Vital Signs Vital Signs: Last Vital Signs Temp 97.5 F L 01/01/18 01:17 Pulse 84 01/01/18 01:17 Resp 18 01/01/18 01:17 BP 111/64 01/01/18 01:17 Pulse Ox 94 L 01/01/18 01:17 - Medical History PMH: Asthma, Atrial Fibrillation, COPD, Hepatitis (C), Seizures Denies: Chronic Kidney Disease - Surgical History Surgical History: Appendectomy, Tonsillectomy - Family History Family History: States: Unknown Family Hx - Social History Current smoker - smoking cessation education provided: Yes (heavy smoker of cigarettes) Alcohol: < 2 Drinks/Day Drugs: Denies - Home Medications Home Medications: Ambulatory Orders Medication Instructions Recorded Albuterol HFA [Ventolin HFA 90 1 puff IH Q4 PRN #1 inh 10/26/17 mcg/actuation (8 g)] Cephalexin [Keflex] 250 mg PO Q8 #15 capsule 10/29/17 Methylprednisolone [Medrol Dose 4 mg PO DAILY #21 mg 10/29/17 Pack (21 tabs)] Albuterol HFA [Ventolin HFA 90 1 - 2 puff IH Q4 PRN #1 inh 11/16/17 mcg/actuation (8 g)] Albuterol Sulfate [Proair Hfa] 0.09 mg IH Q6 PRN #1 inh 12/12/17 Albuterol HFA [Ventolin HFA 90 2 puff IH Q4H #1 puff 12/17/17 mcg/actuation (8 g)] Ondansetron ODT [Zofran ODT] 4 mg PO Q8 PRN #10 odt 12/22/17 - Allergies Allergies/Adverse Reactions: Allergies Allergy/AdvReac Type Severity Reaction Status Date / Time No Known Allergies Allergy Verified 12/29/17 16:20 Review of Systems ROS Statement: Except As Marked, All Systems Reviewed And Found Negative Constitutional: Negative for: Fever, Chills Psych: Positive for: Other (alcohol intoxication) Physical Exam - Reviewed Nursing Documentation Reviewed: Yes Vital Signs Reviewed: Yes - Physical Exam Appears: Positive for: Non-toxic, No Acute Distress Skin: Positive for: Normal Color, Warm, Dry Eye Exam: Positive for: Normal appearance Neck: Positive for: Normal Cardiovascular/Chest: Positive for: Regular Rate, Rhythm. Negative for: Murmur Respiratory: Positive for: Normal Breath Sounds. Negative for: Respiratory Distress Gastrointestinal/Abdominal: Positive for: Normal Exam, Soft. Negative for: Tenderness Back: Positive for: Normal Inspection Extremity: Positive for: Normal ROM. Negative for: Pedal Edema, Swelling Neurologic/Psych: Positive for: Alert, Oriented - ECG O2 Sat by Pulse Oximetry: 94 (RA) Medical Decision Making Medical Decision Making: Initial Impression: 57 years old male with poor state of hygiene, bed seeking behavior and alcoholism. Initial Plan: --Duoneb 3 mg Time: 0600 Patient awake, alert and oriented x 3 with steady gait. Patient is in no respiratory distress and is stable for discharge home. Scribe Attestation: Documented by Kassandra Mims, acting as a scribe for Renaldo Gates MD. Provider Scribe Attestation: All medical record entries made by the Scribe were at my direction and personally dictated by me. I have reviewed the chart and agree that the record accurately reflects my personal performance of the history, physical exam, medical decision making, and the department course for this patient. I have also personally directed, reviewed, and agree with the discharge instructions and disposition Disposition - Clinical Impression Clinical Impression: Alcohol abuse - Disposition Disposition: Routine/Home Disposition Time: 06:00 Condition: STABLE Instructions: Alcohol Intoxication (ED), Abuse of Alcohol (ED), Alcohol Dependence (ED) Forms: [employer] [facility] (Greenlandic)
== END 2018-01-01 06:36 | disposition home or self-care (01) ==
LOC: H.ER 00:56
DX: J44.9 Chronic obstructive pulmonary disease, unspecified (principal); F10.20 Alcohol dependence, uncomplicated; F17.210 Nicotine dependence, cigarettes, uncomplicated; I48.91 Unspecified atrial fibrillation

== ENCOUNTER 2018-01-01 14:29 | Emergency (ER) | payer OTHER ==
[2018-01-01 14:30] VITALS: BMI 21.2
--- NOTE | 2018-01-01 15:22 | ED PDOC ---
HPI: Psych/Substance Abuse Time Seen by Provider: 01/01/18 15:02 Chief Complaint (Nursing): Alcohol Ingestion Chief Complaint (Provider): etoh History Per: Patient Additional Complaint(s): 57-year-old male well-known to the emergency department presents to ED acutely intoxicated. Patient was noted to have bugs crawling on his personal belongings and on his body. Past Medical History Reviewed: Historical Data, Nursing Documentation, Vital Signs - Medical History PMH: Asthma, Atrial Fibrillation, COPD, Hepatitis (C), Seizures - Surgical History Surgical History: Appendectomy, Tonsillectomy - Family History Family History: States: No Known Family Hx - Living Arrangements Living Arrangements: Other (non-domiciled) - Social History Alcohol: > 2 Drinks/Day - Home Medications Home Medications: Ambulatory Orders Medication Instructions Recorded Albuterol HFA [Ventolin HFA 90 1 puff IH Q4 PRN #1 inh 10/26/17 mcg/actuation (8 g)] Cephalexin [Keflex] 250 mg PO Q8 #15 capsule 10/29/17 Methylprednisolone [Medrol Dose 4 mg PO DAILY #21 mg 10/29/17 Pack (21 tabs)] Albuterol HFA [Ventolin HFA 90 1 - 2 puff IH Q4 PRN #1 inh 11/16/17 mcg/actuation (8 g)] Albuterol Sulfate [Proair Hfa] 0.09 mg IH Q6 PRN #1 inh 12/12/17 Albuterol HFA [Ventolin HFA 90 2 puff IH Q4H #1 puff 12/17/17 mcg/actuation (8 g)] Ondansetron ODT [Zofran ODT] 4 mg PO Q8 PRN #10 odt 12/22/17 - Allergies Allergies/Adverse Reactions: Allergies Allergy/AdvReac Type Severity Reaction Status Date / Time No Known Allergies Allergy Verified 12/29/17 16:20 Review of Systems ROS Statement: Except As Marked, All Systems Reviewed And Found Negative Skin: Positive for: Other (infestation) Psych: Positive for: Other (etoh) Physical Exam - Reviewed Nursing Documentation Reviewed: Yes Vital Signs Reviewed: Yes - Physical Exam Appears: Positive for: Non-toxic, No Acute Distress. Negative for: Well ( unkempt, insects noted on patient and person belongings) Eye Exam: Positive for: Normal appearance Neurologic/Psych: Positive for: Alert, Other (intoxicated, answers some questions appropriately) Medical Decision Making Medical Decision Makin57 year old intoxicated male with infestation Patient is well-known to the emergency room for frequent daily visits. Patient refused to go to Decon shower. He refused to change into gowns. Patient was informed that if he refuses he cannot stay in ED. Patient decided to leave. He was informed that if he returns to ED he will need decon shower. Patient cursed and yelled and staff on his way out, he was escorted out by security. Disposition - Clinical Impression Clinical Impression: Alcohol abuse, Infestation (skin) - Patient ED Disposition Is Patient to be Admitted: No - Disposition Disposition: Left W/O Treatment (Patient left ED before treatment complete, refused decon shower) Disposition Time: 17:46 Condition: UNKNOWN Instructions: Alcohol Intoxication (ED), Abuse of Alcohol (ED), Alcohol Dependence (ED), Lice Forms: [employer] (Jamaican)
== END 2018-01-01 15:30 | disposition left against medical advice (07) ==
LOC: H.ER 14:29
DX: F10.10 Alcohol abuse, uncomplicated (principal); B85.0 Pediculosis due to Pediculus humanus capitis; I48.91 Unspecified atrial fibrillation; J44.9 Chronic obstructive pulmonary disease, unspecified

== ENCOUNTER 2018-01-02 03:23 | Emergency (ER) | payer OTHER ==
[2018-01-02 03:23] VITALS: BMI 21.2
[2018-01-02 03:29] VITALS: BP 123/70; PULSE 79; TEMP 97.5; O2SAT 95
--- NOTE | 2018-01-02 03:50 | ED PDOC ---
HPI: Psych/Substance Abuse Time Seen by Provider: 01/02/18 03:45 Chief Complaint (Nursing): Alcohol Ingestion Chief Complaint (Provider): Alcohol ingestion ED Caveat: Intoxicated History Per: EMS History/Exam Limitations: intoxication Additional Complaint(s): 57yo male, brought to ER by EMS for evaluation after patient was discovered publicly intoxicated. Patient offers no medical complaints. The patient is well known to provider and facility for multiple presentations with similar complaints. Past Medical History Reviewed: Historical Data, Nursing Documentation, Vital Signs Vital Signs: Last Vital Signs Temp 97.5 F L 01/02/18 03:28 Pulse 79 01/02/18 03:28 Resp BP 123/70 01/02/18 03:28 Pulse Ox 95 01/02/18 03:28 - Medical History PMH: Asthma, Atrial Fibrillation, COPD, Hepatitis (C), Seizures - Surgical History Surgical History: Appendectomy, Tonsillectomy - Family History Family History: States: No Known Family Hx - Home Medications Home Medications: Ambulatory Orders Medication Instructions Recorded Albuterol HFA [Ventolin HFA 90 1 puff IH Q4 PRN #1 inh 10/26/17 mcg/actuation (8 g)] Cephalexin [Keflex] 250 mg PO Q8 #15 capsule 10/29/17 Methylprednisolone [Medrol Dose 4 mg PO DAILY #21 mg 10/29/17 Pack (21 tabs)] Albuterol HFA [Ventolin HFA 90 1 - 2 puff IH Q4 PRN #1 inh 11/16/17 mcg/actuation (8 g)] Albuterol Sulfate [Proair Hfa] 0.09 mg IH Q6 PRN #1 inh 12/12/17 Albuterol HFA [Ventolin HFA 90 2 puff IH Q4H #1 puff 12/17/17 mcg/actuation (8 g)] Ondansetron ODT [Zofran ODT] 4 mg PO Q8 PRN #10 odt 12/22/17 - Allergies Allergies/Adverse Reactions: Allergies Allergy/AdvReac Type Severity Reaction Status Date / Time No Known Allergies Allergy Verified 01/03/18 15:51 Review of Systems ROS Statement: Except As Marked, All Systems Reviewed And Found Negative Psych: Positive for: Other (alcohol use) Physical Exam - Reviewed Nursing Documentation Reviewed: Yes Vital Signs Reviewed: Yes - Physical Exam Appears: Positive for: No Acute Distress Head Exam: Positive for: ATRAUMATIC, NORMAL INSPECTION, NORMOCEPHALIC Skin: Positive for: Normal Color Neck: Positive for: Supple Cardiovascular/Chest: Positive for: Regular Rate, Rhythm Respiratory: Positive for: Normal Breath Sounds. Negative for: Respiratory Distress Neurologic/Psych: Positive for: Alert, Oriented, Gait (unsteady) - ECG O2 Sat by Pulse Oximetry: 95 (RA) Pulse Ox Interpretation: Normal Medical Decision Making Medical Decision Making: Impression: 57yo male, presents with alcohol intoxication Plan: -- Patient pending clinical sobriety Time: 48 Patient awake, alert and oriented x 3. Able to ambulate without difficulty in ER. Stable for discharge home. Scribe Attestation: Documented by Dana Victor acting as a scribe for Renaldo Gates MD. Provider Attestation: All medical record entries made by the Scribe were at my direction and personally dictated by me. I have reviewed the chart and agree that the record accurately reflects my personal performance of the history, physical exam, medical decision making, and the department course for this patient. I have also personally directed, reviewed, and agree with the discharge instructions and disposition. Disposition - Clinical Impression Clinical Impression: Alcohol abuse - Patient ED Disposition Is Patient to be Admitted: No - Disposition Disposition: Routine/Home Disposition Time: 06:49 Condition: STABLE Instructions: Alcohol Intoxication (ED), Abuse of Alcohol (ED), Alcohol Dependence (ED) Forms: [employer] (Pashto)
== END 2018-01-02 07:13 | disposition home or self-care (01) ==
LOC: H.ER 03:23
DX: F10.129 Alcohol abuse with intoxication, unspecified (principal); I48.91 Unspecified atrial fibrillation; J44.9 Chronic obstructive pulmonary disease, unspecified

== ENCOUNTER 2018-01-02 22:54 | Emergency (ER) | payer OTHER ==
[2018-01-02 22:55] VITALS: BMI 21.2
--- NOTE | 2018-01-03 00:11 | ED PDOC ---
HPI: Psych/Substance Abuse Time Seen by Provider: 01/02/18 23:00 Chief Complaint (Nursing): Alcohol Ingestion Chief Complaint (Provider): Alcohol Ingestion History Per: Patient History/Exam Limitations: no limitations Current Symptoms Are (Timing): Still Present Additional Complaint(s): 58 year old male brought in by EMS presents to ED with complaints of SOB and has a past medical history of COPD and alcohol abuse. Patient is well known to the ED and this provider for bed-seeking behavior. On arrival to ED patient shows no SOB in triage as per nurse. PCP: None Past Medical History Reviewed: Historical Data, Nursing Documentation, Vital Signs Vital Signs: Last Vital Signs Temp 97.5 F L 01/02/18 22:57 Pulse 73 01/02/18 22:57 Resp 16 01/02/18 22:57 BP 134/85 01/02/18 22:57 Pulse Ox 95 01/02/18 22:57 - Medical History PMH: Asthma, Atrial Fibrillation, COPD, Hepatitis (C), Seizures - Surgical History Surgical History: Appendectomy, Tonsillectomy - Family History Family History: States: No Known Family Hx - Living Arrangements Living Arrangements: Other (Non-domiciled) - Social History Alcohol: > 2 Drinks/Day - Home Medications Home Medications: Ambulatory Orders Medication Instructions Recorded Albuterol HFA [Ventolin HFA 90 1 puff IH Q4 PRN #1 inh 10/26/17 mcg/actuation (8 g)] Cephalexin [Keflex] 250 mg PO Q8 #15 capsule 10/29/17 Methylprednisolone [Medrol Dose 4 mg PO DAILY #21 mg 10/29/17 Pack (21 tabs)] Albuterol HFA [Ventolin HFA 90 1 - 2 puff IH Q4 PRN #1 inh 11/16/17 mcg/actuation (8 g)] Albuterol Sulfate [Proair Hfa] 0.09 mg IH Q6 PRN #1 inh 12/12/17 Albuterol HFA [Ventolin HFA 90 2 puff IH Q4H #1 puff 12/17/17 mcg/actuation (8 g)] Ondansetron ODT [Zofran ODT] 4 mg PO Q8 PRN #10 odt 12/22/17 - Allergies Allergies/Adverse Reactions: Allergies Allergy/AdvReac Type Severity Reaction Status Date / Time No Known Allergies Allergy Verified 01/03/18 15:51 Review of Systems ROS Statement: Except As Marked, All Systems Reviewed And Found Negative Respiratory: Positive for: Shortness of Breath Physical Exam - Reviewed Nursing Documentation Reviewed: Yes Vital Signs Reviewed: Yes - Physical Exam Appears: Positive for: Non-toxic, No Acute Distress Head Exam: Positive for: ATRAUMATIC, NORMOCEPHALIC Skin: Positive for: Normal Color, Warm, Dry Eye Exam: Positive for: EOMI, Normal appearance, PERRL ENT: Positive for: Normal ENT Inspection Neck: Positive for: Normal, Painless ROM Cardiovascular/Chest: Positive for: Regular Rate, Rhythm. Negative for: Bradycardia Respiratory: Positive for: Normal Breath Sounds. Negative for: Respiratory Distress Gastrointestinal/Abdominal: Positive for: Soft. Negative for: Tenderness Back: Positive for: Normal Inspection Extremity: Positive for: Normal ROM Neurologic/Psych: Positive for: Alert, Oriented. Negative for: Motor/Sensory Deficits - ECG O2 Sat by Pulse Oximetry: 95 (RA) Pulse Ox Interpretation: Normal Medical Decision Making Medical Decision Makin Initial impression: alcohol intoxication Initial plan: await clinical sobriety 0530 Upon re-evaluation patient is awake, alert, and oriented x3. Patient walks with a steady gait and is clinically sober. Patient is stable for discharge home. Dx: alcohol abuse ~ Scribe Attestation: Documented by Kenia Ozuna, acting as a scribe for Renaldo Gates MD. Provider Scribe Attestation: All medical record entries made by the Scribe were at my direction and personally dictated by me. I have reviewed the chart and agree that the record accurately reflects my personal performance of the history, physical exam, medical decision making, and the department course for this patient. I have also personally directed, reviewed, and agree with the discharge instructions and disposition. Disposition - Clinical Impression Clinical Impression: Alcohol abuse - Disposition Disposition: Routine/Home Disposition Time: 05:30 Condition: STABLE Instructions: Alcohol Abuse and Alcoholism (DC) Forms: [facility] (Romanian)
[2018-01-03 06:13] VITALS: BP 131/71; PULSE 69; RESP 18; TEMP 97.6
[2018-01-03] MEDS ORDERED: Albuterol-Ipratrop 3 mg / 0.5 (3 ml) UD ONE (16:41)
[2018-01-04 06:06] VITALS: O2SAT 95
== END 2018-01-03 06:15 | disposition home or self-care (01) ==
LOC: H.ER 22:54
DX: F10.129 Alcohol abuse with intoxication, unspecified (principal); J44.9 Chronic obstructive pulmonary disease, unspecified; R06.02 Shortness of breath; I48.91 Unspecified atrial fibrillation

== ENCOUNTER 2018-01-03 15:49 | Emergency (ER) | payer OTHER ==
[2018-01-03 15:49] VITALS: BMI 21.2
[2018-01-03 15:55] VITALS: O2SAT 98
[2018-01-03] MEDS ORDERED: Albuterol-Ipratrop 3 mg / 0.5 (3 ml) UD IH STA (16:03)
--- NOTE | 2018-01-03 16:07 | ED PDOC ---
HPI: SOB/CHF/COPD Time Seen by Provider: 01/03/18 15:54 Chief Complaint (Nursing): Alcohol Ingestion Chief Complaint (Provider): Alcohol Ingestion History Per: Patient, EMS History/Exam Limitations: no limitations Current Symptoms Are (Timing): Still Present Additional History Per: EMS, Prior Records Additional Complaint(s): 58-year-old male who presents to ED via EMS complaining of shortness of breath and chronic non-productive cough. Patient is well-known to ED and provider. PMD: No Provider Past Medical History Reviewed: Historical Data, Nursing Documentation, Vital Signs Vital Signs: Last Vital Signs Temp 98.6 F 01/03/18 15:51 Pulse 82 01/03/18 15:51 Resp 20 01/03/18 15:51 BP 156/78 H 01/03/18 15:51 Pulse Ox 98 01/03/18 16:23 - Medical History PMH: Asthma, Atrial Fibrillation, COPD, Hepatitis (C), Seizures - Surgical History Surgical History: Appendectomy, Tonsillectomy - Family History Family History: States: Unknown Family Hx - Living Arrangements Living Arrangements: Other (Un-domiciled) - Social History Current smoker - smoking cessation education provided: Yes (Heavy smoker) Alcohol: > 2 Drinks/Day Drugs: Denies - Home Medications Home Medications: Ambulatory Orders Medication Instructions Recorded Albuterol HFA [Ventolin HFA 90 1 puff IH Q4 PRN #1 inh 10/26/17 mcg/actuation (8 g)] Cephalexin [Keflex] 250 mg PO Q8 #15 capsule 10/29/17 Methylprednisolone [Medrol Dose 4 mg PO DAILY #21 mg 10/29/17 Pack (21 tabs)] Albuterol HFA [Ventolin HFA 90 1 - 2 puff IH Q4 PRN #1 inh 11/16/17 mcg/actuation (8 g)] Albuterol Sulfate [Proair Hfa] 0.09 mg IH Q6 PRN #1 inh 12/12/17 Albuterol HFA [Ventolin HFA 90 2 puff IH Q4H #1 puff 12/17/17 mcg/actuation (8 g)] Ondansetron ODT [Zofran ODT] 4 mg PO Q8 PRN #10 odt 12/22/17 - Allergies Allergies/Adverse Reactions: Allergies Allergy/AdvReac Type Severity Reaction Status Date / Time No Known Allergies Allergy Verified 01/03/18 15:51 Review of Systems ROS Statement: Except As Marked, All Systems Reviewed And Found Negative Respiratory: Positive for: Cough (non-productive), Shortness of Breath Physical Exam - Reviewed Nursing Documentation Reviewed: Yes Vital Signs Reviewed: Yes - Physical Exam Appears: Positive for: No Acute Distress Head Exam: Positive for: ATRAUMATIC, NORMOCEPHALIC Skin: Positive for: Normal Color, Warm, Dry Eye Exam: Positive for: Normal appearance, EOMI, PERRL ENT: Positive for: Normal ENT Inspection Neck: Positive for: Normal, Painless ROM Cardiovascular/Chest: Positive for: Regular Rate, Rhythm Respiratory: Positive for: Wheezing (Mild expiratory wheezing). Negative for: Respiratory Distress Gastrointestinal/Abdominal: Positive for: Normal Exam, Soft. Negative for: Tenderness Back: Positive for: Normal Inspection Extremity: Positive for: Normal ROM Neurologic/Psych: Positive for: Alert, Oriented - ECG O2 Sat by Pulse Oximetry: 98 (RA) Pulse Ox Interpretation: Normal Medical Decision Making Medical Decision Making: Time: 16:03 Plan: - Duoneb 3 mg/0.5 mg (3 ml) UD - Peak Flow Pre/Post Treatment Scribe Attestation: Documented by Clarence Mccoy, acting as a scribe for Jean Carlos Calderon MD Provider Scribe Attestation: All medical record entries made by the Scribe were at my direction and personally dictated by me. I have reviewed the chart and agree that the record accurately reflects my personal performance of the history, physical exam, medical decision making, and the department course for this patient. I have also personally directed, reviewed, and agree with the discharge instructions and disposition. Disposition - Clinical Impression Clinical Impression: COPD exacerbation - Patient ED Disposition Is Patient to be Admitted: Transfer of Care - Disposition Disposition: Transfer of Care Disposition Time: 17:00 Condition: FAIR Forms: [employer] (Kiswahili) Patient Signed Over To: Gladis Haywood
--- NOTE | 2018-01-03 17:46 | ED PDOC ---
- ECG O2 Sat by Pulse Oximetry: 98 (RA) Pulse Ox Interpretation: Normal Medical Decision Making Medical Decision Making: Time: 1700 Patient signed out to me by Dr. Calderon at 1700 pending reevaluation and disposition. Scribe Attestation: Documented by Dana Victor acting as a scribe for Gladis Haywood MD. Provider Attestation: All medical record entries made by the Scribe were at my direction and personally dictated by me. I have reviewed the chart and agree that the record accurately reflects my personal performance of the history, physical exam, medical decision making, and the department course for this patient. I have also personally directed, reviewed, and agree with the discharge instructions and disposition. Disposition - Clinical Impression Clinical Impression: COPD exacerbation - POA Present On Arrival: None - Disposition Referrals: [facility] [Outside] - 01/04/18 Disposition: Routine/Home Disposition Time: 18:30 Condition: GOOD Instructions: Exacerbation of COPD (DC) Forms: [employer] (Faroese)
[2018-01-03 18:52] VITALS: BP 128/78; PULSE 80; RESP 19; TEMP 98
== END 2018-01-03 18:59 | disposition home or self-care (01) ==
LOC: H.ER 15:49
DX: J44.1 Chronic obstructive pulmonary disease with (acute) exacerbation (principal); I48.91 Unspecified atrial fibrillation

== ENCOUNTER 2018-01-04 00:40 | Emergency (ER) | payer OTHER ==
[2018-01-04 00:40] VITALS: BMI 21.2
[2018-01-04 00:51] VITALS: O2SAT 98
[2018-01-04] MEDS ORDERED: Albuterol-Ipratrop 3 mg / 0.5 (3 ml) UD INH STA ×2 (00:55→06:06)
--- NOTE | 2018-01-04 01:35 | ED PDOC ---
HPI: General Adult Time Seen by Provider: 01/04/18 00:55 Chief Complaint (Nursing): Cough, Cold, Congestion Chief Complaint (Provider): Bed-Seeking History Per: Patient History/Exam Limitations: no limitations Onset/Duration Of Symptoms: Sudden Onset Current Symptoms Are (Timing): Still Present Additional Complaint(s): 58 year old male brought in by EMS presents to ED with complaints of SOB and has a past medical history of COPD and alcohol abuse. Patient is well known to the ED and this provider for bed-seeking behavior. On arrival to ED patient shows no SOB in triage as per nurse. Past Medical History Reviewed: Historical Data, Nursing Documentation, Vital Signs Vital Signs: Last Vital Signs Temp 98 F 01/04/18 00:49 Pulse 96 H 01/04/18 00:49 Resp 20 01/04/18 00:49 BP 131/83 01/04/18 00:49 Pulse Ox 98 01/04/18 01:39 - Medical History PMH: Asthma, Atrial Fibrillation, COPD, Hepatitis (C), Seizures - Surgical History Surgical History: Appendectomy, Tonsillectomy - Family History Family History: States: Unknown Family Hx - Social History Current smoker - smoking cessation education provided: Yes Alcohol: > 2 Drinks/Day Drugs: Denies - Home Medications Home Medications: Ambulatory Orders Medication Instructions Recorded Albuterol HFA [Ventolin HFA 90 1 puff IH Q4 PRN #1 inh 10/26/17 mcg/actuation (8 g)] Cephalexin [Keflex] 250 mg PO Q8 #15 capsule 10/29/17 Methylprednisolone [Medrol Dose 4 mg PO DAILY #21 mg 10/29/17 Pack (21 tabs)] Albuterol HFA [Ventolin HFA 90 1 - 2 puff IH Q4 PRN #1 inh 11/16/17 mcg/actuation (8 g)] Albuterol Sulfate [Proair Hfa] 0.09 mg IH Q6 PRN #1 inh 12/12/17 Albuterol HFA [Ventolin HFA 90 2 puff IH Q4H #1 puff 12/17/17 mcg/actuation (8 g)] Ondansetron ODT [Zofran ODT] 4 mg PO Q8 PRN #10 odt 12/22/17 - Allergies Allergies/Adverse Reactions: Allergies Allergy/AdvReac Type Severity Reaction Status Date / Time No Known Allergies Allergy Verified 01/03/18 15:51 Review of Systems ROS Statement: Except As Marked, All Systems Reviewed And Found Negative Constitutional: Negative for: Fever Respiratory: Positive for: Shortness of Breath Physical Exam - Reviewed Nursing Documentation Reviewed: Yes Vital Signs Reviewed: Yes - Physical Exam Appears: Positive for: Well, Non-toxic, No Acute Distress Head Exam: Positive for: ATRAUMATIC, NORMAL INSPECTION, NORMOCEPHALIC Skin: Positive for: Normal Color, Warm, DRY Eye Exam: Positive for: EOMI, Normal appearance, PERRL ENT: Positive for: Normal ENT Inspection Neck: Positive for: Normal, Painless ROM Cardiovascular/Chest: Positive for: Regular Rate, Rhythm. Negative for: Murmur Respiratory: Positive for: Normal Breath Sounds. Negative for: Respiratory Distress Gastrointestinal/Abdominal: Positive for: Normal Exam, Soft. Negative for: Tenderness Back: Positive for: Normal Inspection Extremity: Positive for: Normal ROM. Negative for: Pedal Edema, Deformity Neurologic/Psych: Positive for: Alert, Oriented. Negative for: Motor/Sensory Deficits - ECG O2 Sat by Pulse Oximetry: 98 (RA) Pulse Ox Interpretation: Normal Medical Decision Making Medical Decision Making: Time: --00:55 Impression: --58 yo homeless male with bed-seeking behavior Plan: --albuterol 3ml INH --Peak Flow Pre/Post Tx Reassess --06:06 Patient is clinically sober for discharge home. Scribe Attestation: Documented by Lazaro Baez acting as a scribe for Renaldo Gates MD. Provider Attestation: All medical record entries made by the Scribe were at my direction and personally dictated by me. I have reviewed the chart and agree that the record accurately reflects my personal performance of the history, physical exam, medical decision making, and the department course for this patient. I have also personally directed, reviewed, and agree with the discharge instructions and disposition. Disposition - Clinical Impression Clinical Impression: Alcohol abuse - Patient ED Disposition Is Patient to be Admitted: No - Disposition Disposition: Routine/Home Disposition Time: 06:06 Condition: STABLE Instructions: Abuse of Alcohol (ED) Forms: [employer] (Indonesian)
[2018-01-04] MEDS ORDERED: Albuterol-Ipratrop 3 mg / 0.5 (3 ml) UD ONE ×2 (02:20→05:54)
[2018-01-04] MEDS ORDERED: Alum-Mag Hydrox-Simethicone Susp (30 mL) PO STA (06:22)
[2018-01-04 06:51] VITALS: BP 129/79; PULSE 79; RESP 17; TEMP 98.6
== END 2018-01-04 06:30 | disposition home or self-care (01) ==
LOC: H.ER 00:40
DX: J44.9 Chronic obstructive pulmonary disease, unspecified (principal); Z59.0 Homelessness; F10.10 Alcohol abuse, uncomplicated; F17.200 Nicotine dependence, unspecified, uncomplicated; I48.91 Unspecified atrial fibrillation

== ENCOUNTER 2018-01-04 23:48 | Emergency (ER) | payer OTHER ==
[2018-01-04 23:50] VITALS: BMI 21.2
[2018-01-05] MEDS ORDERED: Albuterol-Ipratrop 3 mg / 0.5 (3 ml) UD INH STA (00:20)
--- NOTE | 2018-01-05 00:21 | ED PDOC ---
HPI: Psych/Substance Abuse Time Seen by Provider: 01/04/18 23:52 Chief Complaint (Nursing): Med Refill Chief Complaint (Provider): Med Refill ED Caveat: Intoxicated History Per: Patient History/Exam Limitations: intoxication Onset/Duration Of Symptoms: Persistent Current Symptoms Are (Timing): Still Present Additional Complaint(s): 58 year old male, well-known to provider for multiple visits, presents to the emergency department with bed seeking behavior. Patient requests Albuterol refills for shortness of breath. Denies any fever or chills. PMD: none provided Past Medical History Reviewed: Historical Data, Nursing Documentation, Vital Signs Vital Signs: Last Vital Signs Temp 97.6 F 01/04/18 23:53 Pulse 72 01/04/18 23:53 Resp 18 01/04/18 23:53 BP 100/60 01/04/18 23:53 Pulse Ox 97 01/04/18 23:53 - Medical History PMH: Asthma, Atrial Fibrillation, COPD, Hepatitis (C), Seizures - Surgical History Surgical History: Appendectomy, Tonsillectomy - Family History Family History: States: Unknown Family Hx - Social History Current smoker - smoking cessation education provided: No Ex-Smoker (has not smoked in the last 12 months): No Alcohol: None Drugs: Denies - Home Medications Home Medications: Ambulatory Orders Medication Instructions Recorded Albuterol HFA [Ventolin HFA 90 1 puff IH Q4 PRN #1 inh 10/26/17 mcg/actuation (8 g)] Cephalexin [Keflex] 250 mg PO Q8 #15 capsule 10/29/17 Methylprednisolone [Medrol Dose 4 mg PO DAILY #21 mg 10/29/17 Pack (21 tabs)] Albuterol HFA [Ventolin HFA 90 1 - 2 puff IH Q4 PRN #1 inh 11/16/17 mcg/actuation (8 g)] Albuterol Sulfate [Proair Hfa] 0.09 mg IH Q6 PRN #1 inh 12/12/17 Albuterol HFA [Ventolin HFA 90 2 puff IH Q4H #1 puff 12/17/17 mcg/actuation (8 g)] Ondansetron ODT [Zofran ODT] 4 mg PO Q8 PRN #10 odt 12/22/17 Albuterol HFA [Ventolin HFA 90 1 - 2 puff IH Q6 PRN #1 inhaler 01/05/18 mcg/actuation (8 g)] - Allergies Allergies/Adverse Reactions: Allergies Allergy/AdvReac Type Severity Reaction Status Date / Time No Known Allergies Allergy Verified 01/03/18 15:51 Review of Systems ROS Statement: Except As Marked, All Systems Reviewed And Found Negative Constitutional: Negative for: Fever, Chills Respiratory: Positive for: Shortness of Breath Physical Exam - Reviewed Nursing Documentation Reviewed: Yes Vital Signs Reviewed: Yes - Physical Exam Appears: Positive for: No Acute Distress Head Exam: Positive for: ATRAUMATIC, NORMAL INSPECTION, NORMOCEPHALIC Skin: Positive for: Normal Color Eye Exam: Positive for: Normal appearance ENT: Positive for: Normal ENT Inspection Neck: Positive for: Normal Cardiovascular/Chest: Positive for: Regular Rate, Rhythm, Chest Non Tender Respiratory: Positive for: Normal Breath Sounds. Negative for: Decreased Breath Sounds, Wheezing, Respiratory Distress Gastrointestinal/Abdominal: Positive for: Normal Exam, Soft. Negative for: Tenderness Extremity: Positive for: Normal ROM (upper/lower) Neurologic/Psych: Positive for: Alert, Oriented. Negative for: Motor/Sensory Deficits - ECG O2 Sat by Pulse Oximetry: 97 (RA) Pulse Ox Interpretation: Normal Medical Decision Making Medical Decision Making: Initial Impression: Bed-seeking behavior Initial Plan: * Duoneb 3ml INH * Peak flow pre/post tx Scribe Attestation: Documented by Brittaney Molina, acting as a scribe for Renaldo Gates MD. Provider Scribe Attestation: All medical record entries made by the Scribe were at my direction and personally dictated by me. I have reviewed the chart and agree that the record accurately reflects my personal performance of the history, physical exam, medical decision making, and the department course for this patient. I have also personally directed, reviewed, and agree with the discharge instructions and disposition. Disposition - Clinical Impression Clinical Impression: Tobacco use, Alcoholism /alcohol abuse - Disposition Disposition: Routine/Home Disposition Time: 06:00 Condition: STABLE Prescriptions: Albuterol HFA [Ventolin HFA 90 mcg/actuation (8 g)] 1 - 2 puff IH Q6 PRN #1 inhaler PRN Reason: Shortness Of Breath Instructions: Smoking: Not Just Harmful to Your Lungs and Heart Forms: [employer] [facility] (Kyrgyz)
[2018-01-05] MEDS ORDERED: Albuterol-Ipratrop 3 mg / 0.5 (3 ml) UD ONE (01:06)
[2018-01-05 04:07] VITALS: BP 118/76; PULSE 78; RESP 16; TEMP 98.1
[2018-01-05 06:25] VITALS: O2SAT 97
== END 2018-01-05 04:05 | disposition home or self-care (01) ==
LOC: H.ER 23:48
DX: F10.129 Alcohol abuse with intoxication, unspecified (principal); J44.9 Chronic obstructive pulmonary disease, unspecified; I48.91 Unspecified atrial fibrillation; Z87.891 Personal history of nicotine dependence

== ENCOUNTER 2018-01-06 01:27 | Emergency (ER) | payer OTHER ==
[2018-01-06 01:28] VITALS: BMI 21.2
--- NOTE | 2018-01-06 02:08 | ED PDOC ---
HPI: SOB/CHF/COPD Time Seen by Provider: 01/06/18 01:34 Chief Complaint (Nursing): Shortness Of Breath Chief Complaint (Provider): Shortness Of Breath History Per: Patient History/Exam Limitations: no limitations Onset/Duration Of Symptoms: Days (x 1) Current Symptoms Are (Timing): Still Present Additional Complaint(s): 58 year old male, well known to the provider and the ED for bed seeking behavior , was brought in by EMS for shortness of breath. Patient has no other medical complaints. PMD: none provided Past Medical History Reviewed: Historical Data, Nursing Documentation, Vital Signs - Medical History PMH: Asthma, Atrial Fibrillation, COPD, Hepatitis (C), Seizures - Surgical History Surgical History: Appendectomy, Tonsillectomy - Family History Family History: States: Unknown Family Hx - Home Medications Home Medications: Ambulatory Orders Medication Instructions Recorded Albuterol HFA [Ventolin HFA 90 1 puff IH Q4 PRN #1 inh 10/26/17 mcg/actuation (8 g)] Cephalexin [Keflex] 250 mg PO Q8 #15 capsule 10/29/17 Methylprednisolone [Medrol Dose 4 mg PO DAILY #21 mg 10/29/17 Pack (21 tabs)] Albuterol HFA [Ventolin HFA 90 1 - 2 puff IH Q4 PRN #1 inh 11/16/17 mcg/actuation (8 g)] Albuterol Sulfate [Proair Hfa] 0.09 mg IH Q6 PRN #1 inh 12/12/17 Albuterol HFA [Ventolin HFA 90 2 puff IH Q4H #1 puff 12/17/17 mcg/actuation (8 g)] Ondansetron ODT [Zofran ODT] 4 mg PO Q8 PRN #10 odt 12/22/17 Albuterol HFA [Ventolin HFA 90 1 - 2 puff IH Q6 PRN #1 inhaler 01/05/18 mcg/actuation (8 g)] - Allergies Allergies/Adverse Reactions: Allergies Allergy/AdvReac Type Severity Reaction Status Date / Time No Known Allergies Allergy Verified 01/03/18 15:51 Review of Systems ROS Statement: Except As Marked, All Systems Reviewed And Found Negative Respiratory: Positive for: Shortness of Breath Physical Exam - Reviewed Nursing Documentation Reviewed: Yes Vital Signs Reviewed: Yes - Physical Exam Appears: Positive for: No Acute Distress Head Exam: Positive for: ATRAUMATIC, NORMOCEPHALIC Skin: Positive for: Normal Color, Warm, Dry Eye Exam: Positive for: EOMI, Normal appearance, PERRL Neck: Positive for: Normal, Painless ROM, Supple Cardiovascular/Chest: Positive for: Regular Rate, Rhythm Respiratory: Positive for: CNT, Normal Breath Sounds Gastrointestinal/Abdominal: Positive for: Normal Exam, Soft Extremity: Positive for: Normal ROM. Negative for: Deformity Neurologic/Psych: Positive for: Alert, Oriented. Negative for: Motor/Sensory Deficits Medical Decision Making Medical Decision Making: Time; 05:20 --Upon reevaluation, patient has steady gait and clear speech. He is stable for discharge. Return to ED if symptoms persist or worsen. ---- Scribe Attestation: Documented by Pooja Hobbs, acting as a scribe for Renaldo Gates MD Provider Scribe Attestation: All medical record entries made by the Scribe were at my direction and personally dictated by me. I have reviewed the chart and agree that the record accurately reflects my personal performance of the history, physical exam, medical decision making, and the department course for this patient. I have also personally directed, reviewed, and agree with the discharge instructions and disposition. Disposition - Clinical Impression Clinical Impression: Homeless single person, Alcoholism /alcohol abuse - Patient ED Disposition Is Patient to be Admitted: No - Disposition Disposition: Routine/Home Disposition Time: 05:20 Condition: STABLE Forms: [employer] (Macedonian)
== END 2018-01-06 06:34 | disposition home or self-care (01) ==
LOC: H.ER 01:27
DX: J44.9 Chronic obstructive pulmonary disease, unspecified (principal); I48.91 Unspecified atrial fibrillation; Z59.0 Homelessness

== ENCOUNTER 2018-01-06 22:02 | Emergency (ER) | payer OTHER ==
[2018-01-06 22:02] VITALS: BMI 21.2
[2018-01-06 22:15] VITALS: BP 123/65; PULSE 75; RESP 18; TEMP 97.4; O2SAT 96
--- NOTE | 2018-01-06 22:16 | ED PDOC ---
HPI: Psych/Substance Abuse Time Seen by Provider: 01/06/18 22:13 Chief Complaint (Nursing): Alcohol Ingestion Chief Complaint (Provider): etoh History Per: Patient, EMS Additional Complaint(s): Patient arrives via ambulance intoxicated. Patient is well-known to emergency department for frequent visits. He is non-domiciled male with history of alcohol abuse. He offers no acute complaints. Past Medical History Reviewed: Historical Data, Nursing Documentation, Vital Signs - Medical History PMH: Asthma, Atrial Fibrillation, COPD, Hepatitis (C), Seizures - Surgical History Surgical History: Appendectomy, Tonsillectomy - Family History Family History: States: No Known Family Hx - Living Arrangements Living Arrangements: Other (non-domiciled) - Social History Alcohol: > 2 Drinks/Day - Home Medications Home Medications: Ambulatory Orders Medication Instructions Recorded Albuterol HFA [Ventolin HFA 90 1 puff IH Q4 PRN #1 inh 10/26/17 mcg/actuation (8 g)] Cephalexin [Keflex] 250 mg PO Q8 #15 capsule 10/29/17 Methylprednisolone [Medrol Dose 4 mg PO DAILY #21 mg 10/29/17 Pack (21 tabs)] Albuterol HFA [Ventolin HFA 90 1 - 2 puff IH Q4 PRN #1 inh 11/16/17 mcg/actuation (8 g)] Albuterol Sulfate [Proair Hfa] 0.09 mg IH Q6 PRN #1 inh 12/12/17 Albuterol HFA [Ventolin HFA 90 2 puff IH Q4H #1 puff 12/17/17 mcg/actuation (8 g)] Ondansetron ODT [Zofran ODT] 4 mg PO Q8 PRN #10 odt 12/22/17 Albuterol HFA [Ventolin HFA 90 1 - 2 puff IH Q6 PRN #1 inhaler 01/05/18 mcg/actuation (8 g)] - Allergies Allergies/Adverse Reactions: Allergies Allergy/AdvReac Type Severity Reaction Status Date / Time No Known Allergies Allergy Verified 01/03/18 15:51 Review of Systems ROS Statement: Except As Marked, All Systems Reviewed And Found Negative Psych: Positive for: Other (etoh) Physical Exam - Reviewed Nursing Documentation Reviewed: Yes Vital Signs Reviewed: Yes - Physical Exam Appears: Negative for: Well (umkempt) Skin: Negative for: Rash Eye Exam: Positive for: Normal appearance Cardiovascular/Chest: Positive for: Regular Rate, Rhythm Respiratory: Positive for: Normal Breath Sounds Neurologic/Psych: Positive for: Other (intoxicated, answers some questions appropriately) - ECG O2 Sat by Pulse Oximetry: 96 Pulse Ox Interpretation: Normal Medical Decision Making Medical Decision Makin58 year old intoxicated male Plan: Glucose POC - 89 12:00 am - patient is awake, alert, stable for discharge. Disposition - Clinical Impression Clinical Impression: Alcohol abuse - Patient ED Disposition Is Patient to be Admitted: No - Disposition Referrals: [facility] [Outside] Disposition: Routine/Home Disposition Time: 23:23 Condition: STABLE Instructions: Alcohol Abuse and Alcoholism (DC), Alcohol Dependence (ED) Forms: [employer] (Romanian)
== END 2018-01-06 23:30 | disposition home or self-care (01) ==
LOC: H.ER 22:02
DX: F10.10 Alcohol abuse, uncomplicated (principal); I48.91 Unspecified atrial fibrillation; J44.9 Chronic obstructive pulmonary disease, unspecified

== ENCOUNTER 2018-01-07 00:37 | Emergency (ER) | payer OTHER ==
[2018-01-07 00:38] VITALS: BMI 21.2
[2018-01-07 00:59] VITALS: BP 138/89; PULSE 76; RESP 17; TEMP 98; O2SAT 97
--- NOTE | 2018-01-07 00:59 | ED PDOC ---
HPI: General Adult Time Seen by Provider: 01/07/18 00:50 Chief Complaint (Nursing): Medical Clearance Chief Complaint (Provider): eval History Per: Patient Additional Complaint(s): 58-year-old male with history of alcohol abuse presents to emergency department this evening. Patient states he is non-domiciled and needs a place to rest. He offers no acute medical or psychiatric complaints. Past Medical History Reviewed: Historical Data, Nursing Documentation, Vital Signs - Medical History PMH: Asthma, Atrial Fibrillation, COPD, Hepatitis (C), Seizures - Surgical History Surgical History: Appendectomy, Tonsillectomy - Family History Family History: States: No Known Family Hx - Living Arrangements Living Arrangements: Other (non domiciled) - Home Medications Home Medications: Ambulatory Orders Medication Instructions Recorded Albuterol HFA [Ventolin HFA 90 1 puff IH Q4 PRN #1 inh 10/26/17 mcg/actuation (8 g)] Cephalexin [Keflex] 250 mg PO Q8 #15 capsule 10/29/17 Methylprednisolone [Medrol Dose 4 mg PO DAILY #21 mg 10/29/17 Pack (21 tabs)] Albuterol HFA [Ventolin HFA 90 1 - 2 puff IH Q4 PRN #1 inh 11/16/17 mcg/actuation (8 g)] Albuterol Sulfate [Proair Hfa] 0.09 mg IH Q6 PRN #1 inh 12/12/17 Albuterol HFA [Ventolin HFA 90 2 puff IH Q4H #1 puff 12/17/17 mcg/actuation (8 g)] Ondansetron ODT [Zofran ODT] 4 mg PO Q8 PRN #10 odt 12/22/17 Albuterol HFA [Ventolin HFA 90 1 - 2 puff IH Q6 PRN #1 inhaler 01/05/18 mcg/actuation (8 g)] - Allergies Allergies/Adverse Reactions: Allergies Allergy/AdvReac Type Severity Reaction Status Date / Time No Known Allergies Allergy Verified 01/03/18 15:51 Review of Systems ROS Statement: Except As Marked, All Systems Reviewed And Found Negative Constitutional: Negative for: Fever Cardiovascular: Negative for: Chest Pain Respiratory: Negative for: Cough, SOB with Exertion Neurological: Negative for: Headache, Dizziness Physical Exam - Reviewed Nursing Documentation Reviewed: Yes Vital Signs Reviewed: Yes - Physical Exam Appears: Positive for: Well, Non-toxic, No Acute Distress Skin: Negative for: Rash Eye Exam: Positive for: Normal appearance Cardiovascular/Chest: Positive for: Regular Rate, Rhythm Respiratory: Positive for: Normal Breath Sounds Neurologic/Psych: Positive for: Alert, Oriented Medical Decision Making Medical Decision Making: Patient arrives in stable condition. Has steady gait with walker. He requires no emergent medical treatment at this time. Patient is stable for discharge. Disposition - Clinical Impression Clinical Impression: Alcohol abuse - Patient ED Disposition Is Patient to be Admitted: No - Disposition Referrals: [facility] [Outside] Disposition: Routine/Home Disposition Time: 00:59 Condition: STABLE Instructions: Alcohol Abuse and Alcoholism (DC)
== END 2018-01-07 01:15 | disposition home or self-care (01) ==
LOC: H.ER 00:37
DX: F10.10 Alcohol abuse, uncomplicated (principal); Z59.0 Homelessness

== ENCOUNTER 2018-01-08 21:26 | Emergency (ER) | payer OTHER ==
[2018-01-08 21:27] VITALS: BMI 21.2
[2018-01-08 21:31] VITALS: BP 108/70; PULSE 80; RESP 22; TEMP 97.4; O2SAT 96
[2018-01-08] MEDS ORDERED: Albuterol-Ipratrop 3 mg / 0.5 (3 ml) UD INH STA ×2 (21:44→21:45)
[2018-01-08] MEDS ORDERED: Albuterol-Ipratrop 3 mg / 0.5 (3 ml) UD ONE (22:02)
--- NOTE | 2018-01-09 04:49 | ED PDOC ---
HPI: General Adult Time Seen by Provider: 01/08/18 21:32 Chief Complaint (Nursing): Cough, Cold, Congestion Chief Complaint (Provider): Right ear pain, drainage History Per: Patient History/Exam Limitations: no limitations Onset/Duration Of Symptoms: Days Have you had recent travel within the past 21 days to any of the following countries: [place], [place], [place] or [place]?: No Current Symptoms Are (Timing): Still Present Additional Complaint(s): Pt states he would also like a treatment but denies SOB. Past Medical History Reviewed: Historical Data, Nursing Documentation, Vital Signs Vital Signs: Last Vital Signs Temp 97.4 F L 01/08/18 21:28 Pulse 80 01/08/18 21:28 Resp 22 01/08/18 21:28 BP 108/70 01/08/18 21:28 Pulse Ox 96 01/08/18 21:28 - Medical History PMH: Asthma, Atrial Fibrillation, COPD, Hepatitis (C), Seizures - Surgical History Surgical History: Appendectomy, Tonsillectomy - Family History Family History: States: No Known Family Hx - Living Arrangements Living Arrangements: With Family - Social History Current smoker - smoking cessation education provided: No - Home Medications Home Medications: Ambulatory Orders Medication Instructions Recorded Albuterol HFA [Ventolin HFA 90 1 puff IH Q4 PRN #1 inh 10/26/17 mcg/actuation (8 g)] Cephalexin [Keflex] 250 mg PO Q8 #15 capsule 10/29/17 Methylprednisolone [Medrol Dose 4 mg PO DAILY #21 mg 10/29/17 Pack (21 tabs)] Albuterol HFA [Ventolin HFA 90 1 - 2 puff IH Q4 PRN #1 inh 11/16/17 mcg/actuation (8 g)] Albuterol Sulfate [Proair Hfa] 0.09 mg IH Q6 PRN #1 inh 12/12/17 Albuterol HFA [Ventolin HFA 90 2 puff IH Q4H #1 puff 12/17/17 mcg/actuation (8 g)] Ondansetron ODT [Zofran ODT] 4 mg PO Q8 PRN #10 odt 12/22/17 Albuterol HFA [Ventolin HFA 90 1 - 2 puff IH Q6 PRN #1 inhaler 01/05/18 mcg/actuation (8 g)] Amoxicillin 875 mg PO BID #20 tab 01/09/18 - Allergies Allergies/Adverse Reactions: Allergies Allergy/AdvReac Type Severity Reaction Status Date / Time No Known Allergies Allergy Verified 01/03/18 15:51 Review of Systems ROS Statement: Except As Marked, All Systems Reviewed And Found Negative Constitutional: Negative for: Fever, Chills ENT: Positive for: Ear Pain Respiratory: Positive for: Wheezing. Negative for: Cough, Shortness of Breath Physical Exam - Reviewed Nursing Documentation Reviewed: Yes Vital Signs Reviewed: Yes - Physical Exam Appears: Positive for: Well, Non-toxic, No Acute Distress Head Exam: Positive for: ATRAUMATIC, NORMAL INSPECTION, NORMOCEPHALIC Skin: Positive for: Normal Color, Warm, DRY Eye Exam: Positive for: Normal appearance ENT: Negative for: Normal ENT Inspection, TM Is/Are (Perforation) Neck: Positive for: Normal, Painless ROM Cardiovascular/Chest: Positive for: Regular Rate, Rhythm Respiratory: Positive for: CNT, Normal Breath Sounds Gastrointestinal/Abdominal: Positive for: Normal Exam, Soft Back: Positive for: Normal Inspection Extremity: Positive for: Normal ROM Neurologic/Psych: Positive for: Alert, Oriented - ECG O2 Sat by Pulse Oximetry: 96 Disposition - Clinical Impression Clinical Impression: Alcohol abuse, Perforation of right tympanic membrane - Patient ED Disposition Is Patient to be Admitted: No Counseled Patient/Family Regarding: Diagnosis, Need For Followup, Rx Given - Disposition Referrals: Trell Sandy MD [Staff Provider] - Disposition Time: 02:36 Condition: STABLE Prescriptions: Amoxicillin 875 mg PO BID #20 tab Instructions: Alcohol Dependence (ED)
== END 2018-01-09 06:00 | disposition home or self-care (01) ==
LOC: H.ER 21:26
DX: F10.10 Alcohol abuse, uncomplicated (principal); H72.91 Unspecified perforation of tympanic membrane, right ear; I48.91 Unspecified atrial fibrillation; J44.9 Chronic obstructive pulmonary disease, unspecified

== ENCOUNTER 2018-01-10 13:18 | Emergency (ER) | payer OTHER ==
[2018-01-10 13:18] VITALS: BMI 21.2
--- NOTE | 2018-01-10 14:19 | ED PDOC ---
HPI: Psych/Substance Abuse Time Seen by Provider: 01/10/18 14:05 Chief Complaint (Nursing): Alcohol Ingestion Chief Complaint (Provider): alcohol intoxication History Per: Patient History/Exam Limitations: intoxication Onset/Duration Of Symptoms: Hrs Current Symptoms Are (Timing): Still Present Additional Complaint(s): 58 y/o male brought in by EMS for public intoxication. Patient was found in park drinking and brought in for further evaluation. He offers no complaints. No signs of injury or trauma. PMD: None Past Medical History Reviewed: Historical Data, Nursing Documentation, Vital Signs - Medical History PMH: Asthma, Atrial Fibrillation, COPD, Hepatitis (C), Seizures - Surgical History Surgical History: Appendectomy, Tonsillectomy - Family History Family History: States: Unknown Family Hx - Social History Alcohol: > 2 Drinks/Day - Home Medications Home Medications: Ambulatory Orders Medication Instructions Recorded Albuterol HFA [Ventolin HFA 90 1 puff IH Q4 PRN #1 inh 10/26/17 mcg/actuation (8 g)] Cephalexin [Keflex] 250 mg PO Q8 #15 capsule 10/29/17 Methylprednisolone [Medrol Dose 4 mg PO DAILY #21 mg 10/29/17 Pack (21 tabs)] Albuterol HFA [Ventolin HFA 90 1 - 2 puff IH Q4 PRN #1 inh 11/16/17 mcg/actuation (8 g)] Albuterol Sulfate [Proair Hfa] 0.09 mg IH Q6 PRN #1 inh 12/12/17 Albuterol HFA [Ventolin HFA 90 2 puff IH Q4H #1 puff 12/17/17 mcg/actuation (8 g)] Ondansetron ODT [Zofran ODT] 4 mg PO Q8 PRN #10 odt 12/22/17 Albuterol HFA [Ventolin HFA 90 1 - 2 puff IH Q6 PRN #1 inhaler 01/05/18 mcg/actuation (8 g)] Amoxicillin 875 mg PO BID #20 tab 01/09/18 - Allergies Allergies/Adverse Reactions: Allergies Allergy/AdvReac Type Severity Reaction Status Date / Time No Known Allergies Allergy Verified 01/03/18 15:51 Review of Systems ROS Statement: Except As Marked, All Systems Reviewed And Found Negative Respiratory: Negative for: Shortness of Breath Gastrointestinal: Negative for: Abdominal Pain Psych: Positive for: Other (alcohol intoxication). Negative for: Suicidal ideation Physical Exam - Reviewed Nursing Documentation Reviewed: Yes Vital Signs Reviewed: Yes - Physical Exam Appears: Positive for: No Acute Distress Head Exam: Positive for: ATRAUMATIC, NORMOCEPHALIC Skin: Positive for: Normal Color. Negative for: Rash Eye Exam: Positive for: Normal appearance Cardiovascular/Chest: Positive for: Regular Rate, Rhythm. Negative for: Murmur Respiratory: Positive for: Normal Breath Sounds. Negative for: Accessory Muscle Use, Respiratory Distress Extremity: Positive for: Normal ROM. Negative for: Deformity Neurologic/Psych: Positive for: Alert, Oriented (x3) Medical Decision Making Medical Decision Making: Impression: Alcohol intoxication Time: 14:10 --Will observe in the ED until clinically sober Scribe Attestation: Documented by Rupal Senior, acting as a scribe for Carlos Ram PA-C Provider Scribe Attestation: All medical record entries made by the Scribe were at my direction and personally dictated by me. I have reviewed the chart and agree that the record accurately reflects my personal performance of the history, physical exam, medical decision making, and the department course for this patient. I have also personally directed, reviewed, and agree with the discharge instructions and disposition. Disposition - Clinical Impression Clinical Impression: Alcohol abuse - Patient ED Disposition Is Patient to be Admitted: No - Disposition Disposition: Routine/Home Disposition Time: 15:01 Condition: FAIR Instructions: Alcohol Abuse and Alcoholism (DC) Forms: [employer] ([place]ian)
[2018-01-10 14:33] VITALS: RESP 18; O2SAT 99
[2018-01-10 16:17] VITALS: BP 122/70; PULSE 86; TEMP 98
== END 2018-01-10 16:22 | disposition home or self-care (01) ==
LOC: H.ER 13:18
DX: F10.129 Alcohol abuse with intoxication, unspecified (principal); I48.91 Unspecified atrial fibrillation; J44.9 Chronic obstructive pulmonary disease, unspecified

== ENCOUNTER 2018-01-12 20:48 | Inpatient (IN) | payer OTHER ==
[2018-01-12 20:48] VITALS: BMI 21.2
--- NOTE | 2018-01-12 22:33 | ED PDOC ---
HPI: General Adult Time Seen by Provider: 01/12/18 22:31 Chief Complaint (Nursing): Lower Extremity Problem/Injury Chief Complaint (Provider): knee pain History Per: Patient Additional Complaint(s): 58 year old male with history of alcohol abuse presents to ED complaining of bilateral knee pain and shortness of breath. Patient was seen yesterday and was admitted secondary to hypoxia. Patient signed out against medical advice while admitted. He admits to drinking today and states his knees hurt and he is hungry. Past Medical History Reviewed: Historical Data, Nursing Documentation, Vital Signs Vital Signs: Last Vital Signs Temp 98.2 F 01/12/18 20:56 Pulse Resp 20 01/12/18 20:56 BP Pulse Ox 96 01/12/18 20:56 - Medical History PMH: Asthma, Atrial Fibrillation, COPD, Hepatitis (C), Seizures - Surgical History Surgical History: Appendectomy, Tonsillectomy - Family History Family History: States: No Known Family Hx - Living Arrangements Living Arrangements: Other (non-domiciled) - Social History Alcohol: > 2 Drinks/Day - Home Medications Home Medications: Ambulatory Orders Medication Instructions Recorded No Known Home Med 01/12/18 - Allergies Allergies/Adverse Reactions: Allergies Allergy/AdvReac Type Severity Reaction Status Date / Time No Known Allergies Allergy Verified 01/10/18 16:14 Review of Systems ROS Statement: Except As Marked, All Systems Reviewed And Found Negative Cardiovascular: Positive for: Chest Pain Respiratory: Positive for: Shortness of Breath, SOB with Exertion, Wheezing Psych: Positive for: Other (etoh) Physical Exam - Reviewed Nursing Documentation Reviewed: Yes Vital Signs Reviewed: Yes - Physical Exam Appears: Positive for: Well, Non-toxic, No Acute Distress Skin: Negative for: Rash Eye Exam: Positive for: Normal appearance Cardiovascular/Chest: Positive for: Regular Rate, Rhythm Respiratory: Positive for: Rhonchi, Wheezing, Respiratory Distress Extremity: Positive for: Normal ROM Neurologic/Psych: Positive for: Alert, Oriented - ECG O2 Sat by Pulse Oximetry: 96 Pulse Ox Interpretation: Normal Medical Decision Making Medical Decision Makin58 y/o with shortness of breath Plan: O2 sat ranges between 78-92 - oxygen via non-rebreather applied. CXR EKG CBC CMP Trop IVF IV solumedrol Duoneb x 2 dedenter Case was d/w Dr. Hogan. Patient was admitted last night for hypoxia and signed himself out AGAINST MEDICAL ADVICE this morning. He returns with worsening symptoms and agrees to be admitted again today. Case was discussed with medicine neon light installer Dr. Kaur who states to admit patient to telemetry. 12:00 am: Care of patient continued by Dr. Hogan pending diagnostic testing results. Disposition - Clinical Impression Clinical Impression: COPD exacerbation, Hypoxia, SOB (shortness of breath) - Patient ED Disposition Is Patient to be Admitted: Yes - Disposition Disposition Time: 23:40 Condition: GUARDED - Pt Status Changed To: Hospital Disposition Of: Observation - POA Present On Arrival: None
[2018-01-12] MEDS ORDERED: Albuterol-Ipratrop 3 mg / 0.5 (3 ml) UD INH STA ×2 (22:43→22:51)
[2018-01-12] MEDS ORDERED: Sodium Chloride 0.9% 1,000 ML IV STA (22:51)
[2018-01-12] MEDS ORDERED: Albuterol-Ipratrop 3 mg / 0.5 (3 ml) UD ONE ×2 (23:18)
[2018-01-13 00:13] LABS: MEAN CELL VOLUME 105.1 fl (80.0-94.0); RBC 3.9 Mil/uL (4.40-5.90); WHITE BLOOD COUNT 3.8 K/uL (4.8-10.8)
[2018-01-13 00:14] LABS: BASO % 0.5 % (0.0-2.0); EOS % 0.1 % (0.0-4.0); LYMPH # 1.4 K/uL (1.0-4.3); LYMPH % 37.3 % (20.0-40.0); MEAN CORPUSCULAR HEMOGLOBIN 35.9 pg (27.0-31.0); MEAN CORPUSCULAR HGB CONC 34.2 g/dL (33.0-37.0); MEAN PLATELET VOLUME 8.6 fl (7.2-11.7); MONO # 0.4 K/uL (0.0-0.8); NEUT # 1.9 K/uL (1.8-7.0); NEUT % 51.1 % (50.0-75.0); RED CELL DISTRIBUTION WIDTH 13.4 % (11.5-14.5)
[2018-01-13 00:25] LABS: ALBUMIN 3.8 g/dL (3.5-5.0); ALT/SGPT 56 U/L (21-72); AST/SGOT 90 U/L (17-59); BLOOD UREA NITROGEN 17 mg/dl (9-20); CALCIUM 8.5 mg/dL (8.4-10.2); GFR AFRICAN-AMERICAN > 60; GFR NON-AFRICAN AMERICAN > 60
[2018-01-13 00:36] LABS: B-TYPE NATRIURETIC PEPTIDE 66.3 pg/ml (0-900)
[2018-01-13] MEDS ORDERED: Albuterol-Ipratrop 3 mg / 0.5 (3 ml) UD INH PRN (03:54)
[2018-01-13 06:45] LABS: HEMOGLOBIN 13.5 g/dL (12.0-18.0); MEAN CELL VOLUME 104.6 fl (80.0-94.0); MEAN CORPUSCULAR HEMOGLOBIN 35.6 pg (27.0-31.0); MEAN CORPUSCULAR HGB CONC 34.1 g/dL (33.0-37.0); RBC 3.8 Mil/uL (4.40-5.90); RED CELL DISTRIBUTION WIDTH 13.4 % (11.5-14.5)
[2018-01-13 07:26] LABS: WHITE BLOOD COUNT 1.7 K/uL (4.8-10.8)
[2018-01-13 07:42] LABS: ALB/GLOB RATIO 0.9 (1.0-2.1); ALBUMIN 3.6 g/dL (3.5-5.0); ALT/SGPT 59 U/L (21-72); AST/SGOT 81 U/L (17-59); BLOOD UREA NITROGEN 13 mg/dl (9-20); CALCIUM 8.2 mg/dL (8.4-10.2); GFR AFRICAN-AMERICAN > 60; GFR NON-AFRICAN AMERICAN > 60
--- NOTE | 2018-01-13 08:23 | CP.PCM.HP ---
<Neeraj Sharp - Last Filed: 01/13/18 14:05> History of Present Illness - History of Present Illness History of Present Illness: CC: dyspnea HPI: 58 y/o man w/ pmh of COPD, ETOH abuse, presented to the ED w/ SOB. Patient was admitted for similar symptoms 1 day ago but signed out AMA. Patient returned to ED w/ complaint of worsening symptoms. Patient complained of associated mild chest tightness, non-productive/non-bloody cough. Patient denies fevers, chills, recent travel, headaches, dizziness, abdominal pain, nausea, vomiting, diarrhea, or dysuria. PMD: none PMH: COPD (not on medications), alcohol abuse meds: none allergies: NKDA PSH: appendectomy, tonsillectomy Fam: denies SOC: smokes 10-20 cigarettes/day, drinks vodka daily, denies IV drugs use ROS: 12 points assessed and negative unless otherwise reported in HPI Present on Admission - Present on Admission Any Indicators Present on Admission: No History of DVT/PE: No History of Uncontrolled Diabetes: No Urinary Catheter: No Decubitus Ulcer Present: No Review of Systems - Review of Systems All systems: reviewed and no additional remarkable complaints except - Constitutional Constitutional: absent: Chills, Fever, Headache - EENT Eyes: absent: Change in Vision - Respiratory Respiratory: As Per HPI, Cough, Dyspnea, Dyspnea on Exertion - Gastrointestinal Gastrointestinal: absent: Abdominal Pain, Diarrhea, Nausea, Vomiting - Genitourinary Genitourinary: absent: Dysuria - Integumentary Integumentary: absent: Rash Past Patient History - Infectious Disease Hx of Infectious Diseases: None - Past Medical History & Family History Past Medical History?: Yes - Past Social History Smoking Status: Current Some Days Smoker - CARDIAC Hx Atrial Fibrillation: Yes - PULMONARY Hx Asthma: Yes Hx Chronic Obstructive Pulmonary Disease (COPD): Yes - NEUROLOGICAL Hx Seizures: Yes - HEENT Hx HEENT Problems: No - ENDOCRINE/METABOLIC Hx Endocrine Disorders: No - HEMATOLOGICAL/ONCOLOGICAL Hx Hepatitis C: Yes - INTEGUMENTARY Hx Dermatological Problems: No - MUSCULOSKELETAL/RHEUMATOLOGICAL Hx Falls: Yes - GASTROINTESTINAL Hx Gastrointestinal Disorders: No - PSYCHIATRIC Hx Substance Use: No - SURGICAL HISTORY Hx Appendectomy: Yes Hx Tonsillectomy: Yes - ANESTHESIA Hx Anesthesia: Yes Hx Anesthesia Reactions: No Hx Malignant Hyperthermia: No Meds Allergies/Adverse Reactions: Allergies Allergy/AdvReac Type Severity Reaction Status Date / Time No Known Allergies Allergy Verified 01/10/18 16:14 Physical Exam - Constitutional Appears: Non-toxic, No Acute Distress - Head Exam Head Exam: ATRAUMATIC, NORMAL INSPECTION, NORMOCEPHALIC - Eye Exam Eye Exam: Normal appearance - ENT Exam ENT Exam: Mucous Membranes Dry - Neck Exam Neck exam: Positive for: Full Rom. Negative for: Tenderness - Respiratory Exam Respiratory Exam: Decreased Breath Sounds, Wheezes (diffuse, expiratory). absent: Accessory Muscle Use, Rales, Rhonchi, Respiratory Distress - Cardiovascular Exam Cardiovascular Exam: REGULAR RHYTHM. absent: Tachycardia - GI/Abdominal Exam GI & Abdominal Exam: Normal Bowel Sounds, Soft. absent: Distended, Tenderness - Extremities Exam Extremities exam: Negative for: calf tenderness, pedal edema, tenderness - Neurological Exam Neurological exam: Alert, Normal Gait, Oriented x3 - Skin Skin Exam: Dry, Intact, Normal Color, Warm Results - Vital Signs Recent Vital Signs: Last Vital Signs Temp 98.2 F 01/13/18 08:06 Pulse 93 H 01/13/18 08:06 Resp 18 01/13/18 08:06 BP 141/79 01/13/18 08:06 Pulse Ox 96 01/13/18 08:06 - Labs Result Diagrams: 01/13/18 06:15 01/13/18 06:15 Labs: Laboratory Results - last 24 hr 01/13/18 01/13/18 01/13/18 00:01 00:01 06:15 WBC 3.8 L 1.7 L* D RBC 3.90 L 3.80 L Hgb 14.0 13.5 Hct 40.9 39.7 MCV 105.1 H 104.6 H MCH 35.9 H 35.6 H MCHC 34.2 34.1 RDW 13.4 13.4 Plt Count 74 L 62 L MPV 8.6 Neut % (Auto) 51.1 Lymph % (Auto) 37.3 [place] % (Auto) 11.0 H Eos % (Auto) 0.1 Baso % (Auto) 0.5 Neut # (Auto) 1.9 Lymph # (Auto) 1.4 [place] # (Auto) 0.4 Eos # (Auto) 0.0 Baso # (Auto) 0.0 Sodium 148 Potassium 3.6 Chloride 101 Carbon Dioxide 29 Anion Gap 22 H BUN 17 Creatinine 0.5 L Est GFR ( Amer) > 60 Est GFR (Non-Af Amer) > 60 Random Glucose 117 H Calcium 8.5 Total Bilirubin 0.7 AST 90 H ALT 56 Alkaline Phosphatase 118 Troponin I < 0.0120 NT-Pro-B Natriuret Pep 66.3 Total Protein 7.8 Albumin 3.8 Globulin 4.0 H Albumin/Globulin Ratio 1.0 Alcohol, Quantitative 181 H 01/13/18 06:15 WBC RBC Hgb Hct MCV MCH MCHC RDW Plt Count MPV Neut % (Auto) Lymph % (Auto) [place] % (Auto) Eos % (Auto) Baso % (Auto) Neut # (Auto) Lymph # (Auto) [place] # (Auto) Eos # (Auto) Baso # (Auto) Sodium 146 Potassium 3.6 Chloride 102 Carbon Dioxide 30 Anion Gap 18 BUN 13 Creatinine 0.5 L Est GFR ( Amer) > 60 Est GFR (Non-Af Amer) > 60 Random Glucose 179 H Calcium 8.2 L Total Bilirubin 0.8 AST 81 H ALT 59 Alkaline Phosphatase 90 Troponin I NT-Pro-B Natriuret Pep Total Protein 7.4 Albumin 3.6 Globulin 3.9 Albumin/Globulin Ratio 0.9 L Alcohol, Quantitative Assessment & Plan (1) COPD exacerbation Status: Acute (2) SOB (shortness of breath) Status: Acute (3) Leukopenia Status: Acute (4) Thrombocytopenia Status: Acute (5) Alcohol abuse Status: Chronic - Assessment and Plan (Free Text) Plan: c/w present management afebrile. non-tachycardic, normotensive saturating 97% on NC 3L CBC: 1.7>13.3/39.7<62 CMP: 146/3.6, 102/30, 15/0.5, glucose 179, AST 81, ALt 59, alk phos 90 proBNP 66.3 troponin <0.0120 alcohol level 181 EKG: NSR, no acute ST elevation/depression, no prolonged QRS, QT, or [place], no abnormal T waves CXR: no acute cardiopulmonary disease process duonebs INH Q4h prn methylprednisone 60 mg IV Q8h folic acid 1 mg PO daily thiamine 100 mg PO daily c/w CIWA protocol prophylactic measures: DVT SCDs f/u leukopenia and thrombocytopenia studies monitor for alcohol withdrawal monitor for acute changes <Nelson Kaur - Last Filed: 01/17/18 00:07> Results - Vital Signs Recent Vital Signs: Last Vital Signs Temp 97.6 F 01/15/18 07:56 Pulse 100 H 01/15/18 07:56 Resp 20 01/15/18 07:56 BP 107/71 01/15/18 07:56 Pulse Ox 96 01/15/18 07:56 - Labs Result Diagrams: 01/14/18 08:10 01/14/18 08:10 Assessment & Plan - Assessment and Plan (Free Text) Plan: I was present during evaluation and discussed with Dr Sharp re plans of care and tx. Nelson Kaur M.D.
--- NOTE | 2018-01-13 09:49 | CARD ---
APPROVED REPORT EKG Measurement Heart [id number] <Conclusion> Normal sinus rhythm Normal ECG
--- NOTE | 2018-01-13 10:21 | RAD ---
HISTORY: clearance COMPARISON: 01/11/2018 FINDINGS: LUNGS: No interval consolidation. Asymmetrically elevated right hemidiaphragm-stable. Overall interstitial and bronchovascular markings appear slightly less conspicuous/ less pronounced than before. No interval pathology suggested. PLEURA: No significant pleural effusion identified, no pneumothorax apparent. CARDIOVASCULAR: Mild cardiomegaly-similar OSSEOUS STRUCTURES: Old healed rib fracture deformities right posterior mid to lower lung zone an old healed lateral clavicular fracture. No interval acute osseous pathology noted. Left shoulder arthrosis Thoraco lumbar mild spondylosis VISUALIZED UPPER ABDOMEN: Normal. OTHER FINDINGS: None. IMPRESSION: No interval cardiopulmonary pathology noted. Chronic findings as above
[2018-01-13 16:38] LABS: HEPATITIS B SURFACE AG Negative (NEGATIVE)
[2018-01-13 18:44] LABS: HEPATITIS C ANTIBODY REACTIVE (NEGATIVE)
[2018-01-13 18:45] LABS: FOLATE 11.4 ng/mL
--- NOTE | 2018-01-14 08:10 | CP.PCM.PN ---
<Neeraj Sharp - Last Filed: 01/14/18 12:18> Subjective - Date & Time of Evaluation Date of Evaluation: 01/14/18 Time of Evaluation: 11:10 - Subjective Subjective: Patient seen and examined this morning at bedside w/ Dr. Kaur. There are no acute events overnight, NAD. The patient reports improvement w/ breathing but still has cough which is non-bloody and mildly productive at times. Patient is tolerating PO, voiding independently, and having regular bowel movements. The patient denies headaches, chest pain, SOB, abdominal pain, nausea, vomiting, diarrhea, dysuria, or fever. Objective - Vital Signs/Intake and Output Vital Signs (last 24 hours): Temp Pulse Resp BP Pulse Ox 97.9 F 89 18 110/71 96 01/14/18 07:39 01/14/18 07:39 01/14/18 07:39 01/14/18 07:39 01/14/18 07:39 - Medications Medications: Current Medications Albuterol/Ipratropium (Duoneb 3 Mg/0.5 Mg (3 Ml) Ud) 3 ml INH RQ4 PRN PRN Reason: Shortness of Breath Folic Acid (Folic Acid) 1 mg PO DAILY [facility] Last Admin: 01/13/18 16:35 Dose: 1 mg Methylprednisolone (Solu-Medrol) 60 mg IVP Q8 [facility] Last Admin: 01/14/18 01:36 Dose: 60 mg Thiamine HCl (Vitamin B1 Tab) 100 mg PO DAILY [facility] Last Admin: 01/13/18 16:35 Dose: 100 mg - Labs Labs: 01/13/18 06:15 01/13/18 06:15 - Constitutional Appears: Non-toxic, No Acute Distress, Unkempt - Head Exam Head Exam: ATRAUMATIC, NORMAL INSPECTION, NORMOCEPHALIC - Eye Exam Eye Exam: Normal appearance - ENT Exam ENT Exam: Mucous Membranes Moist - Neck Exam Neck Exam: Full ROM. absent: Tenderness - Respiratory Exam Respiratory Exam: Clear to Ausculation Bilateral. absent: Accessory Muscle Use , Decreased Breath Sounds, Rales, Rhonchi, Wheezes, Respiratory Distress - Cardiovascular Exam Cardiovascular Exam: REGULAR RHYTHM. absent: Tachycardia - GI/Abdominal Exam GI & Abdominal Exam: Soft, Normal Bowel Sounds. absent: Distended, Tenderness - Extremities Exam Extremities Exam: absent: Calf Tenderness, Pedal Edema, Tenderness - Neurological Exam Neurological Exam: Alert, Awake, Normal Gait, Oriented x3 - Skin Skin Exam: Dry, Intact, Normal Color, Warm Assessment and Plan (1) COPD exacerbation Status: Acute (2) SOB (shortness of breath) Status: Acute (3) Leukopenia Status: Acute (4) Thrombocytopenia Status: Acute (5) Alcohol abuse Status: Chronic - Assessment and Plan (Free Text) Plan: c/w present management afebrile. non-tachycardic, normotensive saturating 97% on NC 3L CBC: 5.5>15.7/46.6<82 BMP: 138/4.0, 96/32, 15/0.5, glucose 151 HIV negative HepB negative duonebs INH Q4h prn methylprednisone 60 mg IV Q8h folic acid 1 mg PO daily thiamine 100 mg PO daily c/w CIWA protocol prophylactic measures: DVT SCDs f/u leukopenia and thrombocytopenia studies monitor for alcohol withdrawal monitor for acute changes stable for transfer to [facility] <Nelson Kaur - Last Filed: 01/17/18 00:08> Objective - Vital Signs/Intake and Output Vital Signs (last 24 hours): Temp Pulse Resp BP Pulse Ox 97.6 F 100 H 20 107/71 96 01/15/18 07:56 01/15/18 07:56 01/15/18 07:56 01/15/18 07:56 01/15/18 07:56 - Labs Labs: 01/14/18 08:10 01/14/18 08:10 Assessment and Plan - Assessment and Plan (Free Text) Plan: I was present during evaluation and discussed with DR Sharp re plans of care and mgt. Nelson Kaur M.D.
[2018-01-14 08:23] LABS: HEMOGLOBIN 15.7 g/dL (12.0-18.0); MEAN CELL VOLUME 104.7 fl (80.0-94.0); MEAN CORPUSCULAR HEMOGLOBIN 35.3 pg (27.0-31.0); MEAN CORPUSCULAR HGB CONC 33.7 g/dL (33.0-37.0); RBC 4.45 Mil/uL (4.40-5.90); RED CELL DISTRIBUTION WIDTH 13.6 % (11.5-14.5)
[2018-01-14 08:28] LABS: WHITE BLOOD COUNT 5.5 K/uL (4.8-10.8)
[2018-01-14 08:45] LABS: BLOOD UREA NITROGEN 15 mg/dl (9-20); CALCIUM 8.6 mg/dL (8.4-10.2); GFR AFRICAN-AMERICAN > 60; GFR NON-AFRICAN AMERICAN > 60
[2018-01-14] MEDS: Albuterol-Ipratrop 3 mg / 0.5 (3 ml) UD INH SCH (19:32)
[2018-01-15] MEDS: Albuterol-Ipratrop 3 mg / 0.5 (3 ml) UD INH SCH ×2 (00:59→07:30)
[2018-01-15 07:57] VITALS: BP 107/71; PULSE 100; RESP 20; TEMP 97.6; O2SAT 96
[2018-01-15 11:12] LABS: % CD4 (T HELPER CELL) 27 Percent (30-61); % CD8 (SUPPRESSOR T CELL) 41 Percent (12-42); ABSOLUTE CD4 CELLS 78 Cells/mcL (490-1740); ABSOLUTE CD8 CELLS 117 Cells/mcL (180-1170); ABSOLUTE LYMPHOCYTES 286 Cells/mcL (850-3900); HELPER/SUPPRESSOR RATIO 0.67 Ratio (0.86-5.00)
--- NOTE | 2018-01-17 00:11 | CP.PCM.DIS ---
Provider - Provider Date of Admission: 01/14/18 11:21 Attending physician: Nelson Kaur MD Time Spent in preparation of Discharge (in minutes): 30 Hospital Course - Lab Results Lab Results: Most Recent Lab Values WBC 5.5 K/uL (4.8-10.8) D 01/14/18 08:10 RBC 4.45 Mil/uL (4.40-5.90) 01/14/18 08:10 Hgb 15.7 g/dL (12.0-18.0) D 01/14/18 08:10 Hct 46.6 % (35.0-51.0) 01/14/18 08:10 MCV 104.7 fl (80.0-94.0) H 01/14/18 08:10 MCH 35.3 pg (27.0-31.0) H 01/14/18 08:10 MCHC 33.7 g/dL (33.0-37.0) 01/14/18 08:10 RDW 13.6 % (11.5-14.5) 01/14/18 08:10 Plt Count 82 K/uL (130-400) L D 01/14/18 08:10 MPV 8.6 fl (7.2-11.7) 01/13/18 00:01 Neut % (Auto) 51.1 % (50.0-75.0) 01/13/18 00:01 Lymph % (Auto) 37.3 % (20.0-40.0) 01/13/18 00:01 Routt % (Auto) 11.0 % (0.0-10.0) H 01/13/18 00:01 Eos % (Auto) 0.1 % (0.0-4.0) 01/13/18 00:01 Baso % (Auto) 0.5 % (0.0-2.0) 01/13/18 00:01 Neut # (Auto) 1.9 K/uL (1.8-7.0) 01/13/18 00:01 Lymph # (Auto) 1.4 K/uL (1.0-4.3) 01/13/18 00:01 Routt # (Auto) 0.4 K/uL (0.0-0.8) 01/13/18 00:01 Eos # (Auto) 0.0 K/uL (0.0-0.7) 01/13/18 00:01 Baso # (Auto) 0.0 K/uL (0.0-0.2) 01/13/18 00:01 Sodium 138 mmol/l (132-148) 01/14/18 08:10 Potassium 4.0 MMOL/L (3.6-5.0) 01/14/18 08:10 Chloride 96 mmol/L (98-107) L 01/14/18 08:10 Carbon Dioxide 32 mmol/L (22-30) H 01/14/18 08:10 Anion Gap 14 (10-20) 01/14/18 08:10 BUN 15 mg/dl (9-20) 01/14/18 08:10 Creatinine 0.5 mg/dl (0.8-1.5) L 01/14/18 08:10 Est GFR ( Amer) > 60 01/14/18 08:10 Est GFR (Non-Af Amer) > 60 01/14/18 08:10 Random Glucose 148 mg/dL (75-110) H 01/14/18 08:10 Calcium 8.6 mg/dL (8.4-10.2) 01/14/18 08:10 Total Bilirubin 0.8 mg/dl (0.2-1.3) 01/13/18 06:15 AST 81 U/L (17-59) H 01/13/18 06:15 ALT 59 U/L (21-72) 01/13/18 06:15 Alkaline Phosphatase 90 U/L (38-126) 01/13/18 06:15 Troponin I < 0.0120 ng/mL (0.00-0.120) 01/13/18 00:01 NT-Pro-B Natriuret Pep 66.3 pg/ml (0-900) 01/13/18 00:01 Total Protein 7.4 G/DL (6.3-8.2) 01/13/18 06:15 Albumin 3.6 g/dL (3.5-5.0) 01/13/18 06:15 Globulin 3.9 gm/dL (2.2-3.9) 01/13/18 06:15 Albumin/Globulin Ratio 0.9 (1.0-2.1) L 01/13/18 06:15 Vitamin B12 446 pg/mL (239-931) 01/13/18 11:25 Folate 11.4 ng/mL 01/13/18 11:25 Alcohol, Quantitative 181 mg/dl (0-10) H 01/13/18 00:01 CHRIS Nuclear Membr Pat Negative (Negative) 01/13/18 11:25 Absolute Lymphs (Flow) 286 Cells/mcL (850-3900) L 01/13/18 12:00 % CD4 Cells 27 Percent (30-61) L 01/13/18 12:00 Absolute CD4 Count 78 Cells/mcL (490-1740) L 01/13/18 12:00 T-Help/Suppress Ratio 0.67 Ratio (0.86-5.00) L 01/13/18 12:00 % CD8 Cells 41 Percent (12-42) 01/13/18 12:00 Absolute CD8 Count 117 Cells/mcL (180-1170) L 01/13/18 12:00 T-Lymph Analys Comment See note 01/13/18 12:00 Hep Bs Antigen Negative (NEGATIVE) 01/13/18 11:25 Hepatitis C Antibody Reactive (Non Reactive) H 01/13/18 11:25 Hep C Ab Signal/Cutoff 31.9 Ratio (<1.0) H 01/13/18 11:25 HIV 1&2 Ag/Ab, 4th Gen Nonreactive (Nonreactive) 01/13/18 11:25 - Hospital Course Hospital Course: This is a 58 y/o male admitted for exacerbation of COPD and alcohol toxicity. He was started on Iv antibiotics and neb tx, He was noted to be highly positive for alcohol, Also noted to be positive for hep C . Noted to have very low CD4 and total lymph count but HIV was nonreactive. He is homeless and had frequent visits to the ER. CXR showed chronic changes but no infiltrate He responded very well to the treatment and was sent home in stable condition. Discharge Exam - Head Exam Head Exam: ATRAUMATIC, NORMAL INSPECTION, NORMOCEPHALIC - Eye Exam Eye Exam: Normal appearance - Respiratory Exam Respiratory Exam: Rhonchi - Cardiovascular Exam Cardiovascular Exam: Clicks - GI/Abdominal Exam GI & Abdominal Exam: Normal Bowel Sounds Discharge Plan - Follow Up Plan Condition: GUARDED Disposition: HOME/ ROUTINE Additional Instructions: Advised to follow up in the clinic Rx given
--- NOTE | 2018-01-17 08:45 | PQF GENQUE ---
This form is a permanent part of the medical record 01/17/18 Dr. Kaur, Please clarify the Type and Acuity of Asthma if known under the Physician Response section. Admitted with SOB and hypoxia. Documentation of a history of Asthma and admitted for COPD exacerbation. Treated with O2, Nebulizers and Solumedrol. Clarification of your documentation is requested to better reflect the severity of illness and intensity of treatment of your patient. Indicators present PHYSICIAN'S RESPONSE 1. Please clarify type of asthma: [] Childhood [] Cough variant [] Exercise induced [] Late onset [] Mild intermittent [] Mild persistent [] Moderate persistent [] Severe persistent [] With bronchitis(please clarify acuity of bronchitis) [] With chronic lung disease (please document specific chronic lung disease ) [] Other (please specify) [] Clinically unable to determine [] Unknown 2. Please clarify acuity of asthma: [] Uncomplicated [] With exacerbation(acute) [] With status asthmaticus [] Other (please specify) [] Clinically unable to determine [] Unknown Based on your medical judgment of the clinical indicators outlined above please clarify the following: [] Practitioner response [] If unable to determine, please check the box, sign and date. Present On Admission (POA) Indicator: [] Present at the time of admission [] Not present at the time of admission [] Clinically Undetermined In responding to this query, please exercise your independent professional judgment. The fact that a question is asked does not imply that any particular answer is desired or expected. Thank you for your clarification on this documentation. If you have any questions please call:extension [phone] * Thank you, Dorita Senior RN CDMP MTDD
== END 2018-01-15 12:20 | disposition home or self-care (01) | DRG 88 ==
LOC: H.ER 20:48 → H.ERHOLD 23:03 → H.TEL 01-13 03:09 → OBSVTOIN 01-14 11:21 → H.MEDSURG1 01-14 15:45
PROVIDERS: ADMIT Family Medicine; ATTEND Family Medicine
DX: J44.1 Chronic obstructive pulmonary disease with (acute) exacerbation (principal); R09.02 Hypoxemia; D69.6 Thrombocytopenia, unspecified; F10.10 Alcohol abuse, uncomplicated; F17.210 Nicotine dependence, cigarettes, uncomplicated; D72.819 Decreased white blood cell count, unspecified; I48.91 Unspecified atrial fibrillation; Z59.0 Homelessness; Z90.49 Acquired absence of other specified parts of digestive tract; Z86.19 Personal history of other infectious and parasitic diseases

== ENCOUNTER 2018-01-15 23:54 | Emergency (ER) | payer OTHER ==
[2018-01-15 23:55] VITALS: BMI 21.2
[2018-01-16] MEDS ORDERED: Albuterol 0.083% Inhal Sol (2.5 mg/3 mL) UD INH STA (01:44)
[2018-01-16] MEDS ORDERED: Albuterol-Ipratrop 3 mg / 0.5 (3 ml) UD INH STA ×3 (01:44→06:35)
--- NOTE | 2018-01-16 02:13 | ED PDOC ---
HPI: Psych/Substance Abuse Time Seen by Provider: 01/16/18 01:28 Chief Complaint (Nursing): Alcohol Ingestion Chief Complaint (Provider): Alcohol Intoxication, COPD ED Caveat: Intoxicated History Per: Patient, EMS History/Exam Limitations: intoxication Current Symptoms Are (Timing): Still Present Additional Complaint(s): 58 year old homeless male that is well known to this ED for multiple visits related to alcohol intoxication and his history of chronic COPD, presents to the ED via [facility] after being found intoxicated and sitting on a curb in front of a corner store. He also complains of chronic shortness of breath for which he took nothing prior to arrival. Patient denies any other complaints at this time. Past Medical History Reviewed: Historical Data, Nursing Documentation, Vital Signs Vital Signs: Last Vital Signs Temp 97.8 F 01/15/18 23:56 Pulse 90 01/15/18 23:56 Resp 18 01/15/18 23:56 BP 114/74 01/15/18 23:56 Pulse Ox 98 01/15/18 23:56 - Medical History PMH: Asthma, Atrial Fibrillation, COPD, Hepatitis (C), Seizures - Surgical History Surgical History: Appendectomy, Tonsillectomy - Family History Family History: States: Unknown Family Hx - Living Arrangements Living Arrangements: Other (homeless) - Social History Current smoker - smoking cessation education provided: Yes Alcohol: > 2 Drinks/Day Drugs: Denies - Home Medications Home Medications: Ambulatory Orders Medication Instructions Recorded No Known Home Med 01/12/18 - Allergies Allergies/Adverse Reactions: Allergies Allergy/AdvReac Type Severity Reaction Status Date / Time No Known Allergies Allergy Verified 01/10/18 16:14 Review of Systems ROS Statement: Except As Marked, All Systems Reviewed And Found Negative Constitutional: Positive for: Other (intoxicated). Negative for: Fever Respiratory: Positive for: Shortness of Breath Physical Exam - Reviewed Nursing Documentation Reviewed: Yes Vital Signs Reviewed: Yes - Physical Exam Appears: Positive for: No Acute Distress (poor hygiene, disheveled) Head Exam: Positive for: ATRAUMATIC, NORMOCEPHALIC Skin: Positive for: Normal Color, Warm, Dry Eye Exam: Positive for: EOMI, PERRL ENT: Positive for: Pharynx Is (clear, uvula midline. Airway patent, (-) stridor) Neck: Positive for: Painless ROM, Supple Cardiovascular/Chest: Positive for: Regular Rate, Rhythm Respiratory: Positive for: Decreased Breath Sounds (bilaterally, respirations nonlabored.), Rhonchi (scattered), Wheezing (scattered and faint). Negative for : Accessory Muscle Use, Crackles, Rales, Stridor, Respiratory Distress Gastrointestinal/Abdominal: Positive for: Soft. Negative for: Tenderness, Distended, Guarding Extremity: Positive for: Normal ROM. Negative for: Calf Tenderness Neurologic/Psych: Positive for: Alert (awake, and responsive to commands), Mood/ Affect (intoxicated). Negative for: Aphasia, Facial Droop - ECG O2 Sat by Pulse Oximetry: 98 (RA) Pulse Ox Interpretation: Normal Medical Decision Making Medical Decision Making: Impression: --Alcohol Intoxication, with acute on chronic COPD/asthma Plan: --Albuterol 2.5mg INH --Duoneb 3mg INH --Accucheck --re-evaluation Reassess --0300 Patient resting comfortably in ED stretcher. No acute distress noted. Pending clinical sobriety. 0630 Patient awake, alert, oriented x3 and in no acute distress. Patient ambulatory in ED with walker at baseline. Scant, persistent inspiratory wheezing noted. Additional duoneb x2 and Decadron 10mg IM ordered. Accucheck 150. 0645 EKG: NSR@87bpm (-) ST elevation, QTc 440. 0750 Repeat O2: 98% on RA Repeat HR: 92 Lungs with improved breath sounds bilaterally and resolution of wheezing, cardiac RRR, abdomen soft, non-tender, repeat neuro exam shows no focal findings. Lab/Diagnostic results d/w the patient in great detail. Diagnosis of COPD exacerbation, alcohol intoxication d/w the patient. Based on history, exam and diagnostic results, plan will be for outpatient follow up. Patient instructed to follow-up with pmd / referral provided / the clinic in 1- 2 days without fail. Return to the emergency room at any time for any new or worsening symptoms. Patient states he fully agrees with and understands discharge instructions. States that he agrees with the plan and disposition. Verbalized and repeated discharge instructions and plan. I have given the patient opportunity to ask any additional questions. Scribe Attestation: Documented by Lazaro Baez acting as a scribe for ANAY Lagos. Provider Attestation: All medical record entries made by the Scribe were at my direction and personally dictated by me. I have reviewed the chart and agree that the record accurately reflects my personal performance of the history, physical exam, medical decision making, and the department course for this patient. I have also personally directed, reviewed, and agree with the discharge instructions and disposition. Disposition - Clinical Impression Clinical Impression: Alcohol abuse, Homeless, COPD (chronic obstructive pulmonary disease) - Patient ED Disposition Is Patient to be Admitted: No Counseled Patient/Family Regarding: Diagnosis, Need For Followup - Disposition Referrals: [facility] [Outside] Disposition: Routine/Home Disposition Time: 06:46 Condition: FAIR Instructions: Exacerbation of COPD, Alcohol Abuse and Alcoholism (DC), Effects of Alcohol on Your Health, Alcohol Intoxication (ED), Abuse of Alcohol (ED) Forms: [facility] [employer] ([employer]) Print Language: UZBEK - POA Present On Arrival: None
[2018-01-16] MEDS ORDERED: Albuterol 0.083% Inhal Sol (2.5 mg/3 mL) UD ONE (05:47)
[2018-01-16] MEDS ORDERED: Albuterol-Ipratrop 3 mg / 0.5 (3 ml) UD ONE ×2 (05:48→20:56)
[2018-01-16 09:36] VITALS: RESP 19
[2018-01-16 12:41] VITALS: BP 120/78; PULSE 78; TEMP 97; O2SAT 98
== END 2018-01-16 11:00 | disposition home or self-care (01) ==
LOC: H.ER 23:54
DX: J44.1 Chronic obstructive pulmonary disease with (acute) exacerbation (principal); F10.129 Alcohol abuse with intoxication, unspecified; F17.200 Nicotine dependence, unspecified, uncomplicated; I48.91 Unspecified atrial fibrillation; Z59.0 Homelessness
CPT/HCPCS: 82948; 96372; 99284; J1100

== ENCOUNTER 2018-01-16 19:26 | Emergency (ER) | payer OTHER ==
[2018-01-16 19:26] VITALS: BMI 21.2
[2018-01-16 20:01] VITALS: BP 100/63; RESP 18; TEMP 97.7
[2018-01-16] MEDS ORDERED: Albuterol 0.083% Inhal Sol (2.5 mg/3 mL) UD INH ONE (20:10)
[2018-01-16 21:37] LABS: BASO % 0.2 % (0.0-2.0); HEMOGLOBIN 13.9 g/dL (12.0-18.0); LYMPH # 0.6 K/uL (1.0-4.3); MEAN CELL VOLUME 105.6 fl (80.0-94.0); MEAN CORPUSCULAR HEMOGLOBIN 35.5 pg (27.0-31.0); MEAN CORPUSCULAR HGB CONC 33.6 g/dL (33.0-37.0); MEAN PLATELET VOLUME 8.9 fl (7.2-11.7); MONO # 0.3 K/uL (0.0-0.8); MONO % 7.3 % (0.0-10.0); NEUT # 3.5 K/uL (1.8-7.0); NEUT % 78.5 % (50.0-75.0); NRBC % 0.1 % (0.0-0.0); RBC 3.92 Mil/uL (4.40-5.90); RED CELL DISTRIBUTION WIDTH 13.5 % (11.5-14.5); WHITE BLOOD COUNT 4.5 K/uL (4.8-10.8)
[2018-01-16 21:49] LABS: ALB/GLOB RATIO 0.9 (1.0-2.1); ALBUMIN 3.4 g/dL (3.5-5.0); ALT/SGPT 65 U/L (21-72); AST/SGOT 54 U/L (17-59); BLOOD UREA NITROGEN 20 mg/dl (9-20); CALCIUM 8.1 mg/dL (8.4-10.2); GFR AFRICAN-AMERICAN > 60; GFR NON-AFRICAN AMERICAN > 60
--- NOTE | 2018-01-17 01:27 | ED PDOC ---
HPI: Psych/Substance Abuse Time Seen by Provider: 01/16/18 19:39 Chief Complaint (Nursing): Alcohol Ingestion Chief Complaint (Provider): Alcohol Ingestion History Per: Patient History/Exam Limitations: no limitations Current Symptoms Are (Timing): Still Present Suicide/Self Injury Attempted (Context): None Modifying Factor(s): Alcohol Additional Complaint(s): 58 year old male presents to ED due to alcohol intoxication and is well known to this ED and provider. Patient has a past medical history of COPD and alcohol abuse. Patient notes having a cough and requests a nebulizer treatment. PCP: None Past Medical History Reviewed: Historical Data, Nursing Documentation, Vital Signs Vital Signs: Last Vital Signs Temp 97.7 F 01/16/18 19:56 Pulse 95 H 01/16/18 19:56 Resp 18 01/16/18 19:56 BP 100/63 01/16/18 19:56 Pulse Ox 93 L 01/16/18 19:56 - Medical History PMH: Asthma, Atrial Fibrillation, COPD, Hepatitis (C), Seizures - Surgical History Surgical History: Appendectomy, Tonsillectomy - Family History Family History: States: Unknown Family Hx - Social History Current smoker - smoking cessation education provided: Yes Alcohol: > 2 Drinks/Day Drugs: Denies - Home Medications Home Medications: Ambulatory Orders Medication Instructions Recorded No Known Home Med 01/12/18 - Allergies Allergies/Adverse Reactions: Allergies Allergy/AdvReac Type Severity Reaction Status Date / Time No Known Allergies Allergy Verified 01/10/18 16:14 Review of Systems ROS Statement: Except As Marked, All Systems Reviewed And Found Negative Physical Exam - Reviewed Nursing Documentation Reviewed: Yes Vital Signs Reviewed: Yes - Physical Exam Appears: Positive for: Non-toxic, No Acute Distress Head Exam: Positive for: ATRAUMATIC, NORMAL INSPECTION, NORMOCEPHALIC Skin: Positive for: Normal Color, Warm, Dry Eye Exam: Positive for: EOMI, Normal appearance, PERRL ENT: Positive for: Normal ENT Inspection Neck: Positive for: Normal, Painless ROM, Supple Cardiovascular/Chest: Positive for: Regular Rate, Rhythm. Negative for: Murmur Respiratory: Positive for: Wheezing. Negative for: Respiratory Distress Gastrointestinal/Abdominal: Positive for: Normal Exam, Soft. Negative for: Tenderness Extremity: Positive for: Normal ROM. Negative for: Deformity Neurologic/Psych: Positive for: Alert, Oriented. Negative for: Motor/Sensory Deficits - Laboratory Results Result Diagrams: 01/16/18 21:19 01/16/18 21:19 - ECG O2 Sat by Pulse Oximetry: 93 (RA) Pulse Ox Interpretation: Abnormal Medical Decision Making Medical Decision Makin Initial impression: alcohol ingestion Initial plan: * Albuterol 2.5mg INH * Peak flow pre/post Tx 3 * EtOH serum * Labs 0149 Patient notes improvement in symptoms and is clinically sober. Patient is stable for discharge home. Scribe Attestation: Documented by Kenia Ozuna acting as a scribe for Marcia Sands MD. Scribe Attestation: All medical record entries made by the Scribe were at my direction and personally dictated by me. I have reviewed the chart and agree that the record accurately reflects my personal performance of the history, physical exam, medical decision making, and the department course for this patient. I have also personally directed, reviewed, and agree with the discharge instructions and disposition. Disposition - Clinical Impression Clinical Impression: Alcohol poisoning - Patient ED Disposition Is Patient to be Admitted: No - Disposition Disposition: Routine/Home Disposition Time: 01:50 Condition: IMPROVED Additional Instructions: follow up with your primary doctor return to the ED with any worsening or concerning symptoms Instructions: Alcohol Poisoning Forms: [employer] (Sinhala)
[2018-01-17 02:02] VITALS: PULSE 82; O2SAT 95
== END 2018-01-17 06:10 | disposition home or self-care (01) ==
LOC: H.ER 19:26
DX: J44.9 Chronic obstructive pulmonary disease, unspecified (principal); F10.129 Alcohol abuse with intoxication, unspecified; F17.200 Nicotine dependence, unspecified, uncomplicated; I48.91 Unspecified atrial fibrillation; T51.0X1A Toxic effect of ethanol, accidental (unintentional), initial encounter

== ENCOUNTER 2018-01-17 22:31 | Emergency (ER) | payer OTHER ==
[2018-01-17 22:31] VITALS: BMI 21.2
[2018-01-17 22:43] VITALS: RESP 18
--- NOTE | 2018-01-17 23:36 | ED PDOC ---
HPI: Psych/Substance Abuse Time Seen by Provider: 01/17/18 22:35 Chief Complaint (Nursing): Alcohol Ingestion History Per: Patient Additional Complaint(s): 58 year old homeless male, well known to this ED for multiple visits related to alcohol intoxication. 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 He reports no trauma or injury, denies any pain. Patient denies any other complaints at this time. Past Medical History Vital Signs: Last Vital Signs Temp 97.2 F L 01/17/18 22:35 Pulse 65 01/17/18 22:35 Resp 18 01/17/18 22:35 BP 104/59 L 01/17/18 22:35 Pulse Ox 97 01/17/18 22:35 - Medical History PMH: Asthma, Atrial Fibrillation, COPD, Hepatitis (C), Seizures - Surgical History Surgical History: Appendectomy, Tonsillectomy - Family History Family History: States: Unknown Family Hx - Home Medications Home Medications: Ambulatory Orders Medication Instructions Recorded No Known Home Med 01/12/18 - Allergies Allergies/Adverse Reactions: Allergies Allergy/AdvReac Type Severity Reaction Status Date / Time No Known Allergies Allergy Verified 01/10/18 16:14 Review of Systems Constitutional: Negative for: Fever, Malaise Cardiovascular: Negative for: Chest Pain, Palpitations Respiratory: Negative for: Cough, Shortness of Breath Gastrointestinal: Negative for: Vomiting, Diarrhea Skin: Negative for: Rash Physical Exam - Physical Exam Comments: Appears: Positive for: No Acute Distress (poor hygiene, disheveled) Head Exam: Positive for: ATRAUMATIC, NORMOCEPHALIC Skin: Positive for: Normal Color, Warm, Dry Eye Exam: Positive for: EOMI, PERRL ENT: Positive for: Pharynx Is (clear, uvula midline. Airway patent, (-) stridor) Neck: Positive for: Painless ROM, Supple Cardiovascular/Chest: Positive for: Regular Rate, Rhythm Respiratory: Positive for: Decreased Breath Sounds (bilaterally, respirations nonlabored.) Negative for: Accessory Muscle Use, Crackles, Rhonchi, Wheezing, Rales, Stridor, Respiratory Distress Gastrointestinal/Abdominal: Positive for: Soft. Negative for: Tenderness, Distended, Guarding Extremity: Positive for: Normal ROM. Negative for: Calf Tenderness Neurologic/Psych: Positive for: Alert (awake, and responsive to commands), Mood/ Affect (intoxicated). Negative for: Aphasia, Facial Droop - ECG O2 Sat by Pulse Oximetry: 97 Medical Decision Making Medical Decision Making: Plan : - Observation in the ED until clinically sober. Case endorsed to ANAY Rangel at 0000 pending sobriety and final disposition Disposition - Clinical Impression Clinical Impression: Alcohol intoxication - Patient ED Disposition Is Patient to be Admitted: Transfer of Care (Case endorsed to ANAY Rangel at 0000 pending sobriety and final disposition) - Disposition Disposition Time: 00:00 Condition: STABLE - PA / [employer] CONSULTANT / Resident Statement /DO has reviewed & agrees with the documentation as recorded.
--- NOTE | 2018-01-18 04:58 | ED PDOC ---
- ECG O2 Sat by Pulse Oximetry: 97 - Progress ED Course And Treament: Case endorsed to program writer from Tereso SALDANA pending sobriety 6:00 Patient awake, alert, oriented x3. Ambulating at baseline Stable for discharge Disposition - Clinical Impression Clinical Impression: Alcohol intoxication - POA Present On Arrival: None - Disposition Disposition: Routine/Home Disposition Time: 06:00 Condition: STABLE Instructions: Alcohol Abuse and Alcoholism (DC)
[2018-01-18 06:05] VITALS: BP 126/79; PULSE 76; TEMP 98.6
[2018-01-19 05:13] VITALS: O2SAT 97
== END 2018-01-18 06:14 | disposition home or self-care (01) ==
LOC: H.ER 22:31
DX: F10.129 Alcohol abuse with intoxication, unspecified (principal); J44.9 Chronic obstructive pulmonary disease, unspecified; Z59.0 Homelessness; K75.9 Inflammatory liver disease, unspecified; R56.9 Unspecified convulsions

== ENCOUNTER 2018-01-18 17:28 | Emergency (ER) | payer OTHER ==
[2018-01-18 17:28] VITALS: BMI 21.2
[2018-01-18] MEDS: Albuterol-Ipratrop 3 mg / 0.5 (3 ml) UD INH STA (18:02)
[2018-01-18] MEDS ORDERED: Albuterol-Ipratrop 3 mg / 0.5 (3 ml) UD ONE (18:04)
--- NOTE | 2018-01-18 18:16 | ED PDOC ---
HPI: Psych/Substance Abuse Time Seen by Provider: 01/18/18 17:43 Chief Complaint (Nursing): Alcohol Ingestion Chief Complaint (Provider): Alcohol Ingestion History Per: Patient History/Exam Limitations: no limitations Onset/Duration Of Symptoms: Mins Current Symptoms Are (Timing): Still Present Associated Symptoms: denies: Suicidal Thoughts Additional Complaint(s): Jorge L Huitron is a 58 year old male well known to the ER with a past medical history of seizures, COPD, asthma, and cardiac disorders, who was brought to the ER by the police s/p finding him laying across the street intoxicated. Patient states that he does not know why he is here and has no medical complaints. He denies any homicidal or suicidal ideation. PMD: Doctor, Conversion Past Medical History Reviewed: Historical Data, Nursing Documentation, Vital Signs Vital Signs: Last Vital Signs Temp 97.8 F 01/18/18 17:32 Pulse 90 01/18/18 17:32 Resp 16 01/18/18 17:32 BP 103/74 01/18/18 17:32 Pulse Ox 93 L 01/18/18 17:32 - Medical History PMH: Asthma, Atrial Fibrillation, COPD, Hepatitis (C), Seizures - Surgical History Surgical History: Appendectomy, Tonsillectomy - Family History Family History: States: Unknown Family Hx - Social History Current smoker - smoking cessation education provided: Yes Alcohol: None Drugs: Denies - Home Medications Home Medications: Ambulatory Orders Medication Instructions Recorded No Known Home Med 01/12/18 - Allergies Allergies/Adverse Reactions: Allergies Allergy/AdvReac Type Severity Reaction Status Date / Time No Known Allergies Allergy Verified 01/10/18 16:14 Review of Systems ROS Statement: Except As Marked, All Systems Reviewed And Found Negative Psych: Negative for: Suicidal ideation, Other (homicidal ideation) Physical Exam - Reviewed Nursing Documentation Reviewed: Yes Vital Signs Reviewed: Yes - Physical Exam Appears: Positive for: Non-toxic, No Acute Distress Head Exam: Positive for: ATRAUMATIC, NORMAL INSPECTION, NORMOCEPHALIC Skin: Positive for: Normal Color Cardiovascular/Chest: Positive for: Regular Rate, Rhythm. Negative for: Murmur Respiratory: Positive for: Wheezing (diffuse bilaterally). Negative for: Respiratory Distress Gastrointestinal/Abdominal: Positive for: Normal Exam Back: Positive for: Normal Inspection Extremity: Positive for: Normal ROM. Negative for: Deformity, Swelling Neurologic/Psych: Positive for: Alert, Oriented. Negative for: Motor/Sensory Deficits - ECG O2 Sat by Pulse Oximetry: 93 (RA) Pulse Ox Interpretation: Abnormal Medical Decision Making Medical Decision Making: Time: 17:45 Plan: --Duoneb 3 ml INH --Peak Flow Pre/Post Tx Due to patient's low oxygen saturation, provider ordered a Duoneb and breathing treatment. Scribe Attestation: Documented by Bertha Jackson, acting as a scribe for Dalia Agee PA-C. Provider Scribe Attestation: All medical record entries made by the Scribe were at my direction and personally dictated by me. I have reviewed the chart and agree that the record accurately reflects my personal performance of the history, physical exam, medical decision making, and the department course for this patient. I have also personally directed, reviewed, and agree with the discharge instructions and disposition. Disposition - Clinical Impression Clinical Impression: Alcohol abuse - Disposition Disposition: Routine/Home Disposition Time: 19:40 Condition: STABLE Instructions: Alcohol Intoxication (ED), Abuse of Alcohol (ED), Alcohol Dependence (ED) Forms: [employer] (German)
[2018-01-18 19:45] VITALS: BP 130/72; PULSE 78; RESP 18; TEMP 97.9
[2018-01-21 20:46] VITALS: O2SAT 93
== END 2018-01-18 19:45 | disposition home or self-care (01) ==
LOC: H.ER 17:28
DX: F10.129 Alcohol abuse with intoxication, unspecified (principal); J44.9 Chronic obstructive pulmonary disease, unspecified; I48.91 Unspecified atrial fibrillation; F17.200 Nicotine dependence, unspecified, uncomplicated; F10.10 Alcohol abuse, uncomplicated

== ENCOUNTER 2018-01-22 00:12 | Emergency (ER) | payer OTHER ==
[2018-01-22 00:12] VITALS: BMI 21.2
--- NOTE | 2018-01-22 01:46 | ED PDOC ---
HPI: General Adult Time Seen by Provider: 01/22/18 00:43 Chief Complaint (Nursing): Abdominal Pain History Per: Patient History/Exam Limitations: no limitations Recently: Seen In ED Additional History Per: EMS, Prior Records Additional Complaint(s): 58-year-old male was brought in by EMS to ED for EtOH intoxication and shortness of breath. Patient offered no complaints. Denies shortness of breath and chest pain. Patient is well-known to ED staff. PMD: No Provider Past Medical History Reviewed: Historical Data, Nursing Documentation, Vital Signs Vital Signs: Last Vital Signs Temp 97.7 F 01/22/18 00:33 Pulse 75 01/22/18 02:01 Resp 16 01/22/18 02:01 BP 107/72 01/22/18 00:33 Pulse Ox 93 L 01/22/18 05:48 - Medical History PMH: Asthma, Atrial Fibrillation, COPD, Hepatitis (C), Seizures - Surgical History Surgical History: Appendectomy, Tonsillectomy - Family History Family History: States: Unknown Family Hx - Living Arrangements Living Arrangements: Other (Undomiciled) - Social History Current smoker - smoking cessation education provided: Yes Alcohol: > 2 Drinks/Day Drugs: Denies - Home Medications Home Medications: Ambulatory Orders Medication Instructions Recorded No Known Home Med 01/12/18 - Allergies Allergies/Adverse Reactions: Allergies Allergy/AdvReac Type Severity Reaction Status Date / Time No Known Allergies Allergy Verified 01/10/18 16:14 Review of Systems ROS Statement: Except As Marked, All Systems Reviewed And Found Negative Cardiovascular: Negative for: Chest Pain Respiratory: Negative for: Shortness of Breath Physical Exam - Reviewed Nursing Documentation Reviewed: Yes Vital Signs Reviewed: Yes - Physical Exam Appears: Positive for: No Acute Distress (Speaking full sentences) Cardiovascular/Chest: Positive for: Regular Rate, Rhythm Respiratory: Positive for: Normal Breath Sounds (Lungs clear) Neurologic/Psych: Positive for: Alert, Oriented (x 3), Gait (steady with walker) - ECG O2 Sat by Pulse Oximetry: 93 (RA) - Progress Re-evaluation Time: 05:47 (No distress. Requesting to be discharged. Repeat POX : 96% on RA.) Condition: Re-examined, Improved Medical Decision Making Medical Decision Making: Impression: Malingering Scribe Attestation: Documented by Clarence Mccoy, acting as a scribe for JARED Gonzalez Provider Scribe Attestation: All medical record entries made by the Scribe were at my direction and personally dictated by me. I have reviewed the chart and agree that the record accurately reflects my personal performance of the history, physical exam, medical decision making, and the department course for this patient. I have also personally directed, reviewed, and agree with the discharge instructions and disposition. Disposition - Clinical Impression Clinical Impression: Malingerer - Patient ED Disposition Is Patient to be Admitted: No - Disposition Disposition: Routine/Home Disposition Time: 05:48 Condition: STABLE Forms: [employer] ([place])
[2018-01-22] MEDS ORDERED: Albuterol-Ipratrop 3 mg / 0.5 (3 ml) UD INH STA (01:57)
[2018-01-22] MEDS ORDERED: Albuterol-Ipratrop 3 mg / 0.5 (3 ml) UD ONE (01:59)
[2018-01-22 02:05] VITALS: PULSE 75; RESP 16
[2018-01-22 07:12] VITALS: BP 127/78; TEMP 98.2; O2SAT 95
== END 2018-01-22 06:15 | disposition home or self-care (01) ==
LOC: H.ER 00:12
DX: J44.9 Chronic obstructive pulmonary disease, unspecified (principal); F10.129 Alcohol abuse with intoxication, unspecified; F17.200 Nicotine dependence, unspecified, uncomplicated; I48.91 Unspecified atrial fibrillation

== ENCOUNTER 2018-01-24 18:24 | Emergency (ER) | payer OTHER ==
[2018-01-24 18:24] VITALS: BMI 21.2
[2018-01-24] MEDS ORDERED: Albuterol-Ipratrop 3 mg / 0.5 (3 ml) UD ONE ×2 (19:24→19:48)
[2018-01-24] MEDS ORDERED: Albuterol-Ipratrop 3 mg / 0.5 (3 ml) UD INH STA ×2 (19:24)
--- NOTE | 2018-01-24 19:31 | ED PDOC ---
HPI: General Adult Time Seen by Provider: 01/24/18 19:29 Chief Complaint (Nursing): Cough, Cold, Congestion Chief Complaint (Provider): cough/sob History Per: Patient (58 y/o male undomiciled h/o Afib/copd/ alcohol abuse here with complaint of sob/cough this week. Does not have albuterol at hand for treatment of asthma exacerbation. Denies any fevers/chills.) Past Medical History Reviewed: Historical Data, Nursing Documentation, Vital Signs Vital Signs: Last Vital Signs Temp 97.8 F 01/24/18 19:52 Pulse 97 H 01/24/18 19:52 Resp 20 01/24/18 19:52 BP 135/67 01/24/18 19:52 Pulse Ox 97 01/24/18 19:52 - Medical History PMH: Asthma, Atrial Fibrillation, COPD, Hepatitis (C), Seizures - Surgical History Surgical History: Appendectomy, Tonsillectomy - Family History Family History: States: Unknown Family Hx - Home Medications Home Medications: Ambulatory Orders Medication Instructions Recorded No Known Home Med 01/12/18 - Allergies Allergies/Adverse Reactions: Allergies Allergy/AdvReac Type Severity Reaction Status Date / Time No Known Allergies Allergy Verified 01/24/18 18:29 Review of Systems ROS Statement: Except As Marked, All Systems Reviewed And Found Negative Respiratory: Positive for: Cough, Shortness of Breath Physical Exam - Reviewed Nursing Documentation Reviewed: Yes Vital Signs Reviewed: Yes - Physical Exam Appears: Positive for: Well, Non-toxic, No Acute Distress Head Exam: Positive for: ATRAUMATIC, NORMAL INSPECTION, NORMOCEPHALIC Skin: Positive for: Normal Color, Warm, DRY Eye Exam: Positive for: EOMI, Normal appearance, PERRL ENT: Positive for: Normal ENT Inspection Neck: Positive for: Normal, Painless ROM Cardiovascular/Chest: Positive for: Regular Rate, Rhythm Respiratory: Positive for: Normal Breath Sounds, Decreased Breath Sounds, Rales (rales heard right sided) Gastrointestinal/Abdominal: Positive for: Normal Exam, Soft Back: Positive for: Normal Inspection Extremity: Positive for: Normal ROM Neurologic/Psych: Positive for: Alert, Oriented - ECG ECG Rhythm: Positive for: Sinus Rhythm (NSR 98 BPM; NO ECTOPY; NO ACUTE CHANGES. ) O2 Sat by Pulse Oximetry: 90 - Progress ED Course And Treament: DUONEB X 3 SOLUMEDROL 125MG IV X 1 DOSE Disposition - Clinical Impression Clinical Impression: SOB (shortness of breath) - Patient ED Disposition Is Patient to be Admitted: Transfer of Care - Disposition Disposition: Transfer of Care Disposition Time: 20:00 Condition: FAIR Forms: [employer] [employer] (Swedish) Patient Signed Over To: Faye Rangel Handoff Comments: LABWORK/CXR/RE-EVALUATION
[2018-01-24 20:06] LABS: BASO # 0.1 K/uL (0.0-0.2); BASO % 0.8 % (0.0-2.0); EOS % 0.4 % (0.0-4.0); HEMOGLOBIN 13.5 g/dL (12.0-18.0); LYMPH # 2.1 K/uL (1.0-4.3); LYMPH % 20.5 % (20.0-40.0); MEAN CELL VOLUME 103.5 fl (80.0-94.0); MEAN CORPUSCULAR HEMOGLOBIN 35.5 pg (27.0-31.0); MEAN CORPUSCULAR HGB CONC 34.3 g/dL (33.0-37.0); MEAN PLATELET VOLUME 8.6 fl (7.2-11.7); MONO % 9.6 % (0.0-10.0); NEUT # 6.9 K/uL (1.8-7.0); NEUT % 68.7 % (50.0-75.0); NRBC % 0.1 % (0.0-0.0); RBC 3.81 Mil/uL (4.40-5.90); RED CELL DISTRIBUTION WIDTH 13.4 % (11.5-14.5); WHITE BLOOD COUNT 10.1 K/uL (4.8-10.8)
[2018-01-24 20:22] LABS: BLOOD UREA NITROGEN 9 mg/dl (9-20); GFR AFRICAN-AMERICAN > 60; GFR NON-AFRICAN AMERICAN > 60
[2018-01-24 20:23] LABS: CALCIUM 8.1 mg/dL (8.4-10.2)
[2018-01-24 20:29] LABS: B-TYPE NATRIURETIC PEPTIDE 59.2 pg/ml (0-900)
--- NOTE | 2018-01-24 21:13 | ED PDOC ---
- Laboratory Results Result Diagrams: 01/24/18 19:55 01/24/18 19:55 - ECG O2 Sat by Pulse Oximetry: 90 - Radiology X-Ray: Viewed By Me X-Ray Interpretation: No Acute Disease - Progress ED Course And Treament: Case endorsed to proposal lead writer from Yo SALDANA pending labs, xray, re-eval On re-eval, patient sleeping; no distress noted. Lungs CTA. 23:00 Patient awake, alert, oriented x3. Ambulating at baseline. Vitals improved Patient states he does not have anymore albuterol inhaler left. Rx albuterol, prednisone provided Advised follow up PMD 2-3 days. Return precautions given. Disposition - Clinical Impression Clinical Impression: COPD exacerbation, Alcohol abuse - POA Present On Arrival: None - Disposition Disposition: Routine/Home Disposition Time: 23:00 Condition: IMPROVED Prescriptions: Albuterol Sulfate [Ventolin Hfa] 1 - 2 puff IH Q4 PRN #1 inh PRN Reason: Wheezing predniSONE [Prednisone] 60 mg PO DAILY #12 tab Instructions: Exacerbation of COPD, Abuse of Alcohol (ED)
[2018-01-24 23:07] VITALS: O2SAT 90
[2018-01-24 23:08] VITALS: BP 108/63; PULSE 90; RESP 16; TEMP 98.8
--- NOTE | 2018-01-25 09:04 | RAD ---
HISTORY: cough COMPARISON: Chest radiograph 01/13/2018. FINDINGS: LUNGS: No active pulmonary disease. PLEURA: No significant pleural effusion identified, no pneumothorax apparent. CARDIOVASCULAR: Normal. OSSEOUS STRUCTURES: Old healed right rib fractures again evident. VISUALIZED UPPER ABDOMEN: Normal. OTHER FINDINGS: None. IMPRESSION: No interval acute cardiopulmonary disease appreciated. Old healed right rib fractures reiterated.
--- NOTE | 2018-01-28 12:18 | CARD ---
APPROVED REPORT EKG Measurement Heart [id number] OR [id number] <Conclusion> Normal sinus rhythm Normal ECG
== END 2018-01-25 00:12 | disposition home or self-care (01) ==
LOC: H.ER 18:24
DX: J44.1 Chronic obstructive pulmonary disease with (acute) exacerbation (principal); F10.10 Alcohol abuse, uncomplicated
CPT/HCPCS: 71045; 80048; 80320; 83880; 84484; 85025; 93005; 94640; 96374; 99283; J2930